=== PATIENT | male | born 1980 ===

== ENCOUNTER 2025-05-17 17:01 | Inpatient (IN) | payer MEDICAID, SELFPAY ==
--- OUTSIDE RECORDS SUMMARY | 2021-03-13 14:09 | XMS_ITS | Encounter Summary ---
Author Organization [facility] Address [address] [place] [address] Care Team Providers Care Dog Hair Clipper Name Role Phone Freddy Epps MD Primary Care Provider [phone] Encounter Details Date Type Department Care Team (Latest Contact Info) Description 03/13/2021 2:09 PM EDT Hospital Encounter [facility] Imaging Services - [facility] - XRay [address] [place] [address] Laceration of left thumb without foreign body with damage to nail, initial encounter Social History Tobacco Use Types Packs/Day Years Used Date Smoking Tobacco: Never Cigarettes [address] arted: 01/18/2019 Passive Smoke Exposure: Yes [...] place to sleep or slept in a intermediate (including now)? No 02/04/2023 Sex and Gender [...] your patient. Jigna CASTILLO IMG XR PROCEDURES Final R esult documented in this encounter Visit Diagnoses Diagnosis [...] documented as of this encounter Care Teams Dog Hair Clipper Relationship Specialty Start Date End Date Freddy Epps MD [address] [place] [phone] PCP - General Family Medicine 05/29/20 documented as of this encounter
--- NOTE | ~2025-05-17 | XR_ITS ---
CLINICAL HISTORY: COUGH Two views of the chest. COMPARISON: None provided. FINDINGS: Normal heart and mediastinal contours. No consolidation. No pleural effusion or pneumothorax. No acute fracture. IMPRESSION: 1. No consolidation. This document has been electronically signed by: Feroz Ogden MD on 05/17/2025 18:56:00
--- NOTE | ~2025-05-17 | CT_ITS ---
CLINICAL HISTORY: Infection --- Additional Notes or Special Instructions: Dr. Sam wants prior to admission CT left forearm with contrast Comparison: None provided Findings: Subcutaneous edema mid and distal forearm. No underlying bony abnormality identified. No soft tissue fluid collection noted. No acute fracture or dislocation. No radiopaque foreign body. Impression: Subcutaneous edema, otherwise unremarkable This document has been electronically signed by: Reilly Aparicio MD on 05/17/2025 21:58:26
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
[2025-05-17 17:10] VITALS: BP 129/74; PULSE 103; RESP 22; TEMP 36.4; O2SAT 100; BMI 22.0
--- NOTE | 2025-05-17 17:31 | ED.GENADULT ---
HPI - General Adult General Chief complaint: Burn/Smoke Inhalation Stated complaint: high sugars/left hand wound Time Seen by Provider: 05/17/25 17:44 Source: patient Mode of arrival: ambulatory Limitations: no limitations History of Present Illness ED Provider: Dr. Shafer HPI narrative: This is a 45-year-old male history of diabetes presented hospital today for evaluation of elevated blood sugar. Patient has sustained a burn injury to his left wrist. Patient states he was cooking at family event when he burned his wrist. Patient has noticed increased swelling and pain. It is throbbing in nature. It is also complaining of some coughing. Otherwise no fever. Related Data Home Medications ?Medication ?Instructions ?Recorded ?Confirmed albuterol sulfate 90 mcg/actuation 2 puff inhalation Q4H PRN wheezing 05/17/25 aerosol inhaler dulaglutide 0.75 mg/0.5 mL 0.75 mg subcut QWEEK 05/17/25 subcutaneous pen injector (Trulicity) insulin aspart U-100 100 unit/mL subcut 05/17/25 (3 mL) subcutaneous pen insulin glargine 100 unit/mL (3 unit subcut 05/17/25 mL) subcutaneous pen (Lantus Solostar U-100 Insulin) nicotine 21 mg/24 hr daily 1 patch transdermal DAILY 05/17/25 transdermal patch triamcinolone acetonide 0.1 % 1 appl topical BID-TID 05/17/25 topical cream Allergies Allergy/AdvReac Type Severity Reaction Status Date / Time Penicillins Allergy Rash Verified 05/17/25 17:14 Review of Systems Review of Systems: Pertinent review of systems as mentioned in HPI. All other system otherwise negative. [facility] Past Medical History [facility] Narrative: Medical history as mentioned in HPI Medical History (Updated 05/17/25 @ 20:48 by Emmie Shafer DO) Hypertension DM2 (diabetes mellitus, type 2) Surgical History (Updated 05/17/25 @ 17:48 by Samantha Jade RN) H/O splenectomy Social History Social History Alcohol intake: never Smoked in Last 30 Days: Yes Use of substances other than those prescribed or required for medical reasons: No Advance Directives: No Advance Directives Information Provided: Yes Physical Exam ED Exam Exam: General: Pleasant, no distress, interacting appropriately Head: Normacephalic, atraumatic ENT: oral mucosa moist, neck supple, no tracheal deviation Cardiovascular: regular rate, regular rhythm, no murmurs, rubbing, gallops Respiratory: Diminished lung sounds bilaterally Extremities: Pulse intact in the left upper extremity, patient does have a circumferential wound on the left wrist from the burn injury. Does not appear to be actively Neurological: Awake and alert, no facial droop noted Skin: Warm and dry Psychiatric: Appropriate mood and thoughts Vital Signs: Vital Signs - 24 hr 05/17/25 17:10 05/17/25 18:31 Temperature 97.6 F Pulse Rate 103 H 81 Respiratory Rate 22 H 22 H Blood Pressure 129/74 Pulse Oximetry 100 Oxygen Delivery Method Room Air BMI result Body Mass Index 22.0 Course Course Course Narrative: This is a Rapid Medical Examination (RME) performed by Keli Collier PA-C in triage. Full HPI, ROS, assessment and treatment plan per primary provider in the Main ED. Hx: 45-year-old male history of type 2 diabetes here with burn to left wrist x4 days, increased redness/swelling/pain. Also reports elevated blood sugar at home, machine reading high . Reports shaking/dizziness. PE/vitals: Plan: Labs, lactic, blood cultures, xr Medications Administered Discontinued Medications Generic Name Dose Route Start Last Admin Trade Name Freq PRN Reason Stop Dose Admin Acetaminophen 975 mg 05/17/25 19:29 05/17/25 19:36 Acetaminophen 325 Mg Tablet PO 05/17/25 19:30 975 mg ONCE ONE Administration Albuterol Sulfate 2.5 mg/ 0 mg 05/17/25 18:30 05/17/25 18:31 Albuterol/Ipratropium 3 ml INHALE 05/17/25 18:31 1 dose ONCE ONE Administration Sodium Chloride 1,000 mls @ 999 mls/hr 05/17/25 18:15 05/17/25 19:12 Ns IV 05/17/25 19:15 Infused .Q1H1M FRANKIE Infusion Clindamycin Phosphate 600 mg in 50 mls @ 100 mls/hr 05/17/25 18:10 05/17/25 18:46 Cleocin IV 05/17/25 18:39 Infused ONCE ONE Infusion Sodium Chloride 1,000 mls @ 999 mls/hr 05/17/25 19:15 05/17/25 19:26 Ns IV 05/17/25 20:15 999 mls/hr .Q1H1M FRANKIE Administration Insulin Human Regular 10 unit 05/17/25 18:11 05/17/25 18:17 Insulin Regular, Human 100 Unit/Ml 10 Ml Vial IVPUSH 05/17/25 18:12 10 unit ONCE ONE Administration Iohexol 100 ml 05/17/25 20:33 05/17/25 20:34 Iohexol 350 Mg/Ml 100 Ml Infus..Btl IV 05/17/25 20:34 85 ml ONCE ONE Administration Ketorolac Tromethamine 15 mg 05/17/25 19:29 05/17/25 19:36 Ketorolac Tromethamine 15 Mg/Ml Vial IVPUSH 05/17/25 19:30 15 mg ONCE ONE Administration Morphine Sulfate 5 mg 05/17/25 18:03 05/17/25 18:11 Morphine Sulfate 10 Mg/Ml Cartridge IVPUSH 05/17/25 18:04 5 mg ONCE ONE Administration Protocol Morphine Sulfate 6 mg 05/17/25 19:29 05/17/25 19:37 Morphine Sulfate 4 Mg/Ml Cartridge IVPUSH 05/17/25 19:30 6 mg ONCE ONE Administration Protocol Medical Decision Making Medical Decision Making MDM Narrative: 45-year-old male history of diabetes presented hospital today for evaluation of left wrist pain from burn injury and increased blood sugar. I suspect patient likely has cellulitis from the injury. And his elevated blood sugar is slightly secondary to the infection. We will screen patient for sepsis at this time. IV fluid be initiated. We will also give patient some IV morphine for pain control. We will obtain an x-ray to evaluate for any gaseous change concerning for necrotizing fasciitis. IV clindamycin will be given for empiric coverage. Patient does have a penicillin allergy. We will plan to give some IV insulin for the patient blood sugar. He normally takes 40 units of long-acting insulin and 40 units of NovoLog at mealtime. Glucose has improved to 540. We will plan to give patient additional IV fluid. Discussed the case with the hospitalist who we will like a CT imaging of the patient's left upper extremity. I do not think patient has compartment syndrome on exam. He does have elevated leukocytosis with a elevation of lactic acid as well. I think the patient is showing signs of sepsis. The patient will be admitted to the hospital. IV morphine given for additional pain control. IV Toradol and Tylenol given. Differential Diagnosis Differential Diagnoses: The differential diagnosis associated with the presentation includes DKA, hyperglycemia, diabetes, necrotizing fasciitis Lab Data 05/17/25 17:46 05/17/25 17:46 Labs: Lab Results 05/17/25 05/17/25 05/17/25 Range/Units 17:32 17:42 17:46 WBC 12.1 H (4.8-10.8) X10*3/uL RBC 4.66 (4.60-5.80) X10*6/uL Hgb 13.9 L (14.0-18.0) g/dl Hct 40.2 L (42.0-52.0) % MCV 86.3 (80.0-98.0) fL MCH 29.8 (27.0-33.0) pg MCHC 34.6 (31.0-36.0) g/dl RDW 12.6 (11.0-16.0) % Plt Count 315 (160-400) X10*3/uL MPV 11.9 (9.4-12.4) fL Immature Gran % (Auto) 0.6 H (0.0-0.4) % Neut % (Auto) 69.4 (45-73) % Lymph % (Auto) 20.3 (20-40) % [place] % (Auto) 8.6 (2-11) % Eos % (Auto) 0.6 (0-4) % Baso % (Auto) 0.5 (0-2) % Lymph # (Auto) 2.5 (1.2-4.9) X10*3/uL [place] # (Auto) 1.0 (0.1-1.2) X10*3/uL Eos # (Auto) 0.1 (0.0-0.4) X10*3/uL Baso # (Auto) 0.1 (0.0-0.2) X10*3/uL Abs Immat Gran (auto) 0.07 H (0.00-0.03) X10*3/uL Absolute Neuts (auto) 8.4 H (2.0-8.3) x10*3/uL Absolute Nucleated RBC 0.000 (0.0-0.012) X10*3/uL Nucleated RBC % (auto) 0.0 (0.0-0.2) /100WBC Sodium 124 L (135-145) mmol/L Potassium 4.6 (3.3-5.1) mmol/L Chloride 88 L (96-108) mmol/L Carbon Dioxide 25 (22-29) mmol/L Anion Gap 16 (12-20) BUN 21 H (9-16) mg/dL Creatinine 1.14 (0.5-1.4) mg/dL Estim Creat Clear Calc 70.1 Estimated GFR > 60 POC Glucose > 600 H* (60-115) mg/dL Random Glucose 846 H* (60-115) mg/dL Lactic Acid 2.2 H* (0.5-2.0) mmol/L Calcium 9.3 (8.4-10.2) mg/dL Magnesium 2.0 (1.6-2.6) mg/dL Total Bilirubin 0.3 (0.0-1.0) mg/dL AST 40 H (5-37) U/L ALT 69 H (0-40) U/L Alkaline Phosphatase 121 H (39-117) U/L Total Protein 7.9 (6.5-8.0) g/dL Albumin 3.8 (3.5-5.0) g/dL Beta-Hydroxybutyrate 0.45 H (0.02-0.27) mmol/L Urine Color Yellow Urine Appearance Clear Urine pH 5.5 (5.0-9.0) Ur Specific [place] >= 1.030 H (1.005-1.025) Urine Protein Trace (Neg-Trace) mg/dL Urine Glucose (UA) >=1000 H (Negative) mg/dL Urine Ketones Negative (Negative) mg/dL Urine Blood Small (1+) H (Negative) Urine Nitrite Negative (Negative) Ur Leukocyte Esterase Negative (Negative) Urine RBC 6-10 H (0-2) /HPF Urine WBC 0-5 (0-5) /HPF Ur Squamous Epith Cells 0-2 (0-2) /HPF Urine Bacteria None Seen (None Seen) Hyaline Casts 0-2 (0-2) /LPF 05/17/25 Range/Units 19:18 WBC (4.8-10.8) X10*3/uL RBC (4.60-5.80) X10*6/uL Hgb (14.0-18.0) g/dl Hct (42.0-52.0) % MCV (80.0-98.0) fL MCH (27.0-33.0) pg MCHC (31.0-36.0) g/dl RDW (11.0-16.0) % Plt Count (160-400) X10*3/uL MPV (9.4-12.4) fL Immature Gran % (Auto) (0.0-0.4) % Neut % (Auto) (45-73) % Lymph % (Auto) (20-40) % [place] % (Auto) (2-11) % Eos % (Auto) (0-4) % Baso % (Auto) (0-2) % Lymph # (Auto) (1.2-4.9) X10*3/uL [place] # (Auto) (0.1-1.2) X10*3/uL Eos # (Auto) (0.0-0.4) X10*3/uL Baso # (Auto) (0.0-0.2) X10*3/uL Abs Immat Gran (auto) (0.00-0.03) X10*3/uL Absolute Neuts (auto) (2.0-8.3) x10*3/uL Absolute Nucleated RBC (0.0-0.012) X10*3/uL Nucleated RBC % (auto) (0.0-0.2) /100WBC Sodium (135-145) mmol/L Potassium (3.3-5.1) mmol/L Chloride (96-108) mmol/L Carbon Dioxide (22-29) mmol/L Anion Gap (12-20) BUN (9-16) mg/dL Creatinine (0.5-1.4) mg/dL Estim Creat Clear Calc Estimated GFR POC Glucose 541 H* (60-115) mg/dL Random Glucose (60-115) mg/dL Lactic Acid (0.5-2.0) mmol/L Calcium (8.4-10.2) mg/dL Magnesium (1.6-2.6) mg/dL Total Bilirubin (0.0-1.0) mg/dL AST (5-37) U/L ALT (0-40) U/L Alkaline Phosphatase (39-117) U/L Total Protein (6.5-8.0) g/dL Albumin (3.5-5.0) g/dL Beta-Hydroxybutyrate (0.02-0.27) mmol/L Urine Color Urine Appearance Urine pH (5.0-9.0) Ur Specific [place] (1.005-1.025) Urine Protein (Neg-Trace) mg/dL Urine Glucose (UA) (Negative) mg/dL Urine Ketones (Negative) mg/dL Urine Blood (Negative) Urine Nitrite (Negative) Ur Leukocyte Esterase (Negative) Urine RBC (0-2) /HPF Urine WBC (0-5) /HPF Ur Squamous Epith Cells (0-2) /HPF Urine Bacteria (None Seen) Hyaline Casts (0-2) /LPF Critical Care Time Critical Care Time Critical Care Time: Yes Total Critical Care Time: 40 Attestation: Time is exclusive of separately billable procedures. Time includes: direct patient care, patient reassessment, coordination of patient care, interpretation of data (laboratory data, pulse oximetry, arterial blood gases and chest xrays), review of patient's medical records, medical consultation and documentation of patient care. Procedures excluded from critical care time: central intravenous line placement and electrocardiography. Discharge Plan Discharge Clinical Impression: Cellulitis, Acute hyperglycemia, Sepsis Patient Disposition: Admitted As Inpatient
[2025-05-17 17:36] LABS: Glucose, Whole Blood > 600 mg/dL (60-115)
[2025-05-17 17:49] LABS: Appearance Urine Clear; Glucose Urine UA >=1000 mg/dL (Negative); PH 5.5 (5.0-9.0); Specific Gravity - Urine >= 1.030 (1.005-1.025); UMIC TRIGGER UACC YES
[2025-05-17 17:53] LABS: MANUAL DIFF FLAG NO
[2025-05-17 17:57] LABS: Hematocrit 40.2 % (42.0-52.0); Hemoglobin 13.9 g/dl (14.0-18.0); Imm Gran Abs Auto 0.07 X10*3/uL (0.00-0.03); Imm Gran Pct Auto 0.6 % (0.0-0.4); Lymphocytes Absolute Auto 2.5 X10*3/uL (1.2-4.9); Mean Corpuscular HGB Conc 34.6 g/dl (31.0-36.0); Mean Corpuscular Hemoglobin 29.8 pg (27.0-33.0); Mean Corpuscular Volume 86.3 fL (80.0-98.0); NRBC Abs Auto 0.000 X10*3/uL (0.0-0.012); NRBC Pct Auto 0.0 /100WBC (0.0-0.2); Platelet Count 315 X10*3/uL (160-400); Red Blood Count 4.66 X10*6/uL (4.60-5.80); White Blood Count 12.1 X10*3/uL (4.8-10.8)
[2025-05-17 18:15] LABS: Alanine Aminotransferase 69 U/L (0-40); Albumin Level 3.8 g/dL (3.5-5.0); Alkaline Phosphatase 121 U/L (39-117); Anion Gap 16 (12-20); Aspartate Amino Transferase 40 U/L (5-37); Blood Urea Nitrogen 21 mg/dL (9-16); Calcium 9.3 mg/dL (8.4-10.2); Carbon Dioxide 25 mmol/L (22-29); Chloride 88 mmol/L (96-108); Creatinine Clr Calc Pharmacy 70.1; Estimated Glomerular Filt Rate > 60; Magnesium 2.0 mg/dL (1.6-2.6); Potassium 4.6 mmol/L (3.3-5.1); Sodium 124 mmol/L (135-145); Total Protein 7.9 g/dL (6.5-8.0)
[2025-05-17 18:31] VITALS: PULSE 81; RESP 22; O2SAT 97
[2025-05-17] MEDS: Albuterol Sulfate 2.5 MG, Albuterol/Iprat 2.5/0.5MG 3 ML 3 ML INHALE (18:31)
--- NOTE | 2025-05-17 18:40 | PC.NURSE ---
patient a&ox3, ivs inserted, labs drawn, bc obtained, court monitor applied, poc obtained, pt was medicated with ivf, iv antibiotics and 10 u insulin R for elevated blood sugar. lungs have in/ex wheezing/diminished throughout.
[2025-05-17 19:23] LABS: Glucose, Whole Blood 541 mg/dL (60-115)
--- NOTE | 2025-05-17 19:50 | PM.IMHP ---
History of Present Illness Date of Service: 05/17/25 Chief Complaint: Pain and redness of the forearm 45-year-old male with a past medical history of HTN, HLD, dm; presented to the hospital with a chief complaint of pain and redness of the left wrist as well as elevated blood glucose levels. Patient mentioned that about 3 days ago he was doing the cranial and had burn on his left forearm; today he noted to have slightly increased swelling as well as redness around the burn site. Also note of blood glucose levels elevated subsequently came to the ER for further evaluation. Patient denies any fevers and chills. Denies any nausea or vomiting. Denies any chest pain or palpitations. Review of all other systems is negative except mentioned above ER course: Per ER team, patient notes her left forearm burn injury with yellow scab and surrounding erythema concerning for cellulitis. X-ray showed no evidence of gas. Patient blood glucose levels were elevated to 800s. Not in DKA. Patient was given IV fluids and regular insulin IV push with gradual improvement in the blood glucose levels. Patient received IV clindamycin. [facility] Medical History (Updated 05/17/25 @ 19:52 by Damien Sam MD) Hypertension DM2 (diabetes mellitus, type 2) Surgical History (Updated 05/17/25 @ 17:48 by Samantha Jade RN) H/O splenectomy Social History Alcohol intake: never Smoked in Last 30 Days: Yes Use of substances other than those prescribed or required for medical reasons: No Advance Directives: No Advance Directives Information Provided: Yes Meds Allergies Allergy/AdvReac Type Severity Reaction Status Date / Time Penicillins Allergy Rash Verified 05/17/25 17:14 Active Medications: Current Medications Acetaminophen (Acetaminophen 325 Mg Tablet) 650 mg PO Q6H PRN PRN Reason: Pain, Mild 1-3,fever,headache Calcium Carbonate (Calcium Carbonate 750 Mg Tab.Chew) 750 mg PO Q4H PRN PRN Reason: Heartburn Dextrose (Dextrose 50 % 25 Gm/50 Ml Syringe) 25 gm IVPUSH Q15M PRN; Protocol PRN Reason: per Hypoglycemia Standing Ord. Enoxaparin Sodium (Enoxaparin Sodium 40 Mg/0.4 Ml Syringe) 40 mg SUBCUT Q24H FRANKIE Glucose (Glucose Gel 15 Gm Gel..Gram.) 15 gm PO Q15M PRN; Protocol PRN Reason: per Hypoglycemia Standing Ord. Hydromorphone HCl (Hydromorphone Hcl 0.5 Mg/0.5 Ml Syringe) 0.5 mg IVPUSH Q4H PRN; Protocol PRN Reason: Pain, Severe (Pain Scale 7-10) Sodium Chloride (Ns) 1,000 mls @ 999 mls/hr IV .Q1H1M FRANKIE Stop: 05/17/25 20:15 Last Admin: 05/17/25 19:26 Dose: 999 mls/hr Lactated Ringer's (Lr) 1,000 mls @ 100 mls/hr IVCONT .Q10H FRANKIE Clindamycin Phosphate (Cleocin) 600 mg in 50 mls @ 100 mls/hr IV Q8H FRANKIE Insulin Glargine (Insulin Glargine,Hum.Rec.Anlog 100 Unit/Ml 10 Ml Vial) 20 unit SUBCUT BEDTIME FRANKIE Insulin Human Lispro (Insulin Lispro 100 Unit/Ml 3 Ml Vial) 0 unit SUBCUT QIDACHS FRANKIE; Protocol Magnesium Hydroxide (Milk Of Magnesia 30 Ml Oral.Susp) 30 ml PO DAILY PRN PRN Reason: Constipation Melatonin (Melatonin 3 Mg Tablet) 6 mg PO BEDTIME PRN PRN Reason: Insomnia Polyethylene Glycol (Polyethylene Glycol 3350 17 Gm Powd.Pack) 17 gm PO DAILY PRN PRN Reason: Constipation Sodium Chloride (0.9 % Sodium Chloride Flush 3 Ml Syringe) 3 ml IVFLUSH QSHIFT [facility] Physical Exam Vital Signs and Narrative: Vital Signs: Last Vital Signs Temp 97.6 F 05/17/25 17:10 Pulse 81 05/17/25 18:31 Resp 22 H 05/17/25 18:31 BP 129/74 05/17/25 17:10 Pulse Ox 100 05/17/25 17:10 O2 Del Method Room Air 05/17/25 17:10 BMI result Body Mass Index 22.0 Gen: Appears be in no acute distress HEENT: NCAT, Moist mucosa. Pulmonary: Vesicular breath sounds, fair air entry CVS: Normal S1-S2 Abdomen: BS+, Soft, Nontender Extremities: Warm well perfused; left forearm distally has burn injury with yellow scab and surrounding erythema concerning for cellulitis. No drainage. Neuro: Alert and awake. Results Labs 05/17/25 17:46 05/17/25 17:46 Labs: Laboratory Results - last 24 hr 05/17/25 05/17/25 05/17/25 17:32 17:42 17:46 MCV 86.3 MCH 29.8 MCHC 34.6 RDW 12.6 Plt Count 315 MPV 11.9 Immature Gran % (Auto) 0.6 H Neut % (Auto) 69.4 Lymph % (Auto) 20.3 Frederick % (Auto) 8.6 Eos % (Auto) 0.6 Baso % (Auto) 0.5 Lymph # (Auto) 2.5 Frederick # (Auto) 1.0 Eos # (Auto) 0.1 Baso # (Auto) 0.1 Abs Immat Gran (auto) 0.07 H Absolute Neuts (auto) 8.4 H Absolute Nucleated RBC 0.000 Nucleated RBC % (auto) 0.0 Anion Gap 16 Estim Creat Clear Calc 70.1 Estimated GFR > 60 POC Glucose > 600 H* Random Glucose 846 H* Lactic Acid 2.2 H* Calcium 9.3 Magnesium 2.0 Total Bilirubin 0.3 AST 40 H ALT 69 H Alkaline Phosphatase 121 H Total Protein 7.9 Albumin 3.8 Beta-Hydroxybutyrate 0.45 H Urine Color Yellow Urine Appearance Clear Urine pH 5.5 Ur Specific Grady >= 1.030 H Urine Protein Trace Urine Glucose (UA) >=1000 H Urine Ketones Negative Urine Blood Small (1+) H Urine Nitrite Negative Ur Leukocyte Esterase Negative Urine RBC 6-10 H Urine WBC 0-5 Ur Squamous Epith Cells 0-2 Urine Bacteria None Seen Hyaline Casts 0-2 05/17/25 19:18 MCV MCH MCHC RDW Plt Count MPV Immature Gran % (Auto) Neut % (Auto) Lymph % (Auto) Frederick % (Auto) Eos % (Auto) Baso % (Auto) Lymph # (Auto) Frederick # (Auto) Eos # (Auto) Baso # (Auto) Abs Immat Gran (auto) Absolute Neuts (auto) Absolute Nucleated RBC Nucleated RBC % (auto) Anion Gap Estim Creat Clear Calc Estimated GFR POC Glucose 541 H* Random Glucose Lactic Acid Calcium Magnesium Total Bilirubin AST ALT Alkaline Phosphatase Total Protein Albumin Beta-Hydroxybutyrate Urine Color Urine Appearance Urine pH Ur Specific Grady Urine Protein Urine Glucose (UA) Urine Ketones Urine Blood Urine Nitrite Ur Leukocyte Esterase Urine RBC Urine WBC Ur Squamous Epith Cells Urine Bacteria Hyaline Casts Assessment and Plan (1) Cellulitis: Qualifiers: Site of cellulitis: extremity Site of cellulitis of extremity: upper extremity Laterality: left Qualified Code(s): L03.114 - Cellulitis of left upper limb Status: Acute Plan 45-year-old male with a past medical history of HTN, HLD, dm; presented to the hospital with a chief complaint of pain and redness of the left wrist as well as elevated blood glucose levels. Admitted for following Left forearm burn injury: Left forearm cellulitis: X-ray showed evidence of gas CT of the forearm pending Continue clindamycin General surgery was notified Will also consult ID Diabetes/hyperglycemia: Blood glucose levels were 800s on presentation-> given IV fluids and regular insulin IV push. Will monitor blood glucose levels Continue the patient on Lantus 20 units plus sliding scale Will adjust insulin according to POC glucose Hyponatremia: Likely pseudohyponatremia in the setting of hyperglycemia. Will monitor. Hypertension: Continue home medications once med rec is completed DVT prophylaxis: Lovenox Code status: Full code Quality Stroke Does the patient have a stroke diagnosis?: No VTE Prior VTE?: No VTE Risk Level:: Medical - moderate - high VTE Device Contraindication: Treatment Not Indicated VTE Drug Contraindication: N/A - Med Ordered
[2025-05-17 19:51] LABS: Reflex Lactate? Lactic Acid Added
[2025-05-17 19:55] VITALS: BP 139/86; PULSE 70; RESP 14; TEMP 36.4; O2SAT 98
[2025-05-17 19:57] LABS: VBG HCO3 27 mmol/L (22-26); VBG O2 % Saturation 97.0 %
[2025-05-17 19:58] LABS: Venous Blood Gas Refer to POC result
[2025-05-17] MEDS: iohexoL 350 MG/ML 100 ML INFUS..BTL IV (20:34)
[2025-05-17 20:49] LABS: ~Lactic Acid-LAB USE ONLY 2.1 mmol/L (0.5-2.0)
[2025-05-17] MEDS: Insulin Glargine,Hum.rec.anlog 100 UNIT/ML 10 ML VIAL 20 UNIT SUBCUT (21:21)
[2025-05-17] MEDS: Lactated Ringers 1,000 ML 100 ML IVCONT (21:21)
[2025-05-17 21:26] VITALS: BP 137/84
[2025-05-17 21:59] LABS: Glucose, Whole Blood 366 mg/dL (60-115)
--- NOTE | 2025-05-17 22:02 | PC.NURSE ---
sent message w/bG 366 to hospitalist at this time for further orders
[2025-05-17 22:10] VITALS: BP 135/86
--- NOTE | 2025-05-17 22:13 | PHA.MEDREC ---
Pharmacy Consult ? Medication Reconciliation Pharmacy has completed the medication reconciliation. Pt is a poor historian, confirmed both insulins and inhaler because he had them on hand, and Trulicity on Mondays. He states he takes a medication for diabetes, cholesterol, lisinopril, and medication to help him sleep. Utilized claims to complete med rec.
--- OUTSIDE RECORDS SUMMARY | 2025-05-17 22:16 | XMS_ITS | Encounter Summary ---
Author Organization [facility] alth Address [address] [place] [address] Care Team Providers Care Logistics Clerk Name Role Phone Unavailable Primary Care Provider Unavailabl e Encounter Details Date Type Department Care Team ([facility] Contact Info) Description 11/26/2022 Office Visit - Data Exchange [facility] Jomar Epps MD [address], [place] [id number] Social History Tobacco Use Types Packs/Day Years Used Date Smoking Tobacco: Never Assessed Sex and Gender Information Value Date Recorded Sex Assigned at Not on file Legal Sex Male 10:16 AM EDT Gender Identity Not on file Sexual Orientation Not on file documented as of this encounter Progress Notes * Jomar Epps MD - 11/26/2022 4:03 PM EDT Patient Name : CLOVIS SHEN (42yo, M) ID# [id number] Appt. Date/Time : 11/26/2022 04:00PM : 1980 Service Dept. : Telehealth Provider : JOMAR EPPS MD Insurance Med Primary: [facility] [employer] (MEDICAID REPLACEMENT - HMO) Insurance # : [id number] Policy/Group # : [id number] Med Mental Health: [facility] Insurance # : [id number] Med Curry: SLIDING FEE SCHEDULE - DISCOUNT Prescription: check now Chief Complaint telehealth f/u dm Patient's Care Team Primary Care Provider: JOMAR EPPS MD: [address] [facility] [place] [address], , Patient's Pharmacies [facility] ([place]): [address] [facility] [facility], [place] [address], , [id number] ([place]): [address] [place] [address], , [facility] ([place]): [address] [place] [address], , [facility] ([place]): [address] [place] [address], , Vitals None recorded. Allergies Allergies not reviewed (last reviewed 11/11/2022) PENICILLINS: Rash (Mild) Some allergies listed in Documents: #[id number], #[id number], #[id number], #[id number] could not be added to this patient's chart. Please review these documents and add these allergies to the patient's chart manually as needed. Medications Reviewed Medications Name: albuterol sulfate HFA 90 mcg/actuation aerosol inhaler Inhale 2 puff(s) every 4 hours by inhalation route. Date: 06/30/20 filled Source: surescripts Name: atorvastatin 40 mg tablet TAKE 1 TABLET BY MOUTH EVERY DAY Date: 09/08/22 filled Source: surescripts Name: BD Ultra-Fine Short Pen Needle 31 gauge x 5/16 USE WITH INSULIN 4 TIMES DAILY Date: 04/24/20 filled Source: [facility] Name: citalopram 20 mg tablet TAKE 1 TABLET BY MOUTH EVERY DAY Date: 09/05/22 filled Source: surescripts Name: diclofenac sodium 75 mg tablet,delayed release Take 1 tablet(s) twice a day by oral route for30 days. Date: 10/22/22 filled Source: surescripts Name: famotidine 40 mg tablet Take 1 tablet(s) by oral route. Date: 08/23/22 filled Source: surescripts Name: insulin aspart (U-100) 100 unit/mL (3 mL) subcutaneous pen Inject 20 unit(s) 3 times a day bysubcutaneous route with meals. Date: 11/11/22 prescribed Source: Jomar Epps MD Name: Lantus Solostar U-100 Insulin 100 unit/mL (3 mL) subcutaneous pen Inject 45 unit(s) twice a day by subcutaneous route. Date: 11/11/22 prescribed Source: Jomar Epps MD Name: lidocaine 5 % topical patch Apply 1 patch(es) every day by topical route as needed. Date: 10/15/22 filled Source: surescripts Name: lisinopriL 5 mg tablet take 1 PO daily Date: 09/01/22 filled Source: surescripts Name: metFORMIN ER 500 mg tablet,extended release 24 hr TAKE 2 TABLETS BY MOUTH TWICE A DAY Date: 10/27/22 filled Source: surescripts Name: nystatin 100,000 unit/gram topical cream APPLY TO THE AFFECTED AREA(S) BY TOPICAL ROUTE 2 TIMES PER DAY Date: 11/11/22 prescribed Source: Jomar Epps MD Name: OneTouch Delica Plus Lancet 33 gauge Use to test blood sugar three times daily Date: 10/21/22 filled Source: surescripts Name: OneTouch Ultra Test strips use to check blood sugar three times daily Date: 11/03/22 filled Source: surescripts Name: QUEtiapine 50 mg tablet TAKE 1 TABLET BY MOUTH ONCE A DAY Date: 10/22/22 filled Source: surescripts Name: repaglinide 2 mg tablet TAKE 1 TABLET BY MOUTH ONCE A DAY with LUNCH Date: 10/27/22 filled Source: surescripts Name: tamsulosin 0.4 mg capsule Take 1 capsule(s) every day by oral route for 30 days. Date: 10/13/22 filled Source: surescripts Name: tiZANidine 2 mg tablet Take 1 tablet(s) twice a day by oral route as needed for 30 days. Date: 10/13/22 filled Source: missyscripts Name: Trulicity 4.5 mg/0.5 mL subcutaneous pen injector Inject 1 pen weekly Date: 11/11/22 prescribed Source: Jomar Epps MD Vaccines Vaccines not reviewed (last reviewed 11/11/2022) Vaccine Type: COVID-19, mRNA, LNP-S, PF, 100 mcg/0.5 mL dose (Moderna) Date: 12/07/20 Amt.: 0.5 mL Route: Intramuscular Site: Deltoid, Right [facility]: [id number] Lot #: [id number] Mfr.: Moderna Novel, Inc. Exp. Date: 05/21/21 VIS: Moderna COVID-19 Vaccine EUA Fact Sheet 10/19/2020 VIS Given: 12/07/20 Phlebotomist Supervisor/Instructor: Royer Matias CMA Vaccine Type: COVID-19, mRNA, LNP-S, PF, 100 mcg/0.5 mL dose (Moderna) Date: 11/02/20 Amt.: 0.5 mL Route: Intramuscular Site: Deltoid, Left [facility]: Lot #: [id number] Mfr.: Moderna Novel, Inc. Exp. Date: 04/27/21 VIS: Moderna COVID-19 Vaccine EUA Fact Sheet 06/26/2020 VIS Given: 11/02/20 Phlebotomist Supervisor/Instructor: Eduarda Matias MA Vaccine Type: Hib (PRP-T) Date: 05/14/20 Amt.: 0.5 mL Route: Site: [facility]: Lot #: [id number] Mfr.: Sanofi Pasteur Exp. Date: VIS: VIS Given: Phlebotomist Supervisor/Instructor: Vaccine Type: Hib Date: 05/14/20 Amt.: Route: Site: [facility]: Lot #: [id number] Mfr.: Sanofi Pasteur Exp. Date: VIS: VIS Given: Phlebotomist Supervisor/Instructor: Vaccine Type: influenza, seasonal, injectable, preservative free Date: 05/17/20 Amt.: 0.5 mL Route: Site: [facility]: Lot #: [id number] Mfr.: Sanofi Pasteur Exp. Date: VIS: VIS Given: Phlebotomist Supervisor/Instructor: Vaccine Type: influenza, injectable, quadrivalent Date: 08/03/19 Amt.: 0.5 mL Route: Intramuscular Site: Deltoid, Left [facility]: Lot #: [id number] Mfr.: Sanofi Pasteur Exp. Date: 01/24/20 VIS: Inactivated Influenza 03/10/2019 VIS Given: 08/03/19 Phlebotomist Supervisor/Instructor: Faith Mead Vaccine Type: influenza, injectable, quadrivalent, preservative free Date: 09/16/15 Amt.: 0.5 mL Route: Site: [facility]: Lot #: [id number] Mfr.: Exp. Date: VIS: VIS Given: Phlebotomist Supervisor/Instructor: Vaccine Type: meningococcal MCV4P Date: 05/14/20 Amt.: 0.5 mL Route: Site: [facility]: Lot #: [id number] Mfr.: Sanofi Pasteur Exp. Date: VIS: VIS Given: Phlebotomist Supervisor/Instructor: Vaccine Type: meningococcal B, recombinant Date: 05/14/20 Amt.: 0.5 mL Route: Site: [facility]: Lot #: [id number] Mfr.: GlaxoSmithKline Exp. Date: VIS: VIS Given: Phlebotomist Supervisor/Instructor: Vaccine Type: pneumococcal conjugate PCV 13 Date: 05/14/20 Amt.: 0.5 mL Route: Site: [facility]: Lot #: [id number] Mfr.: Wyeth Exp. Date: VIS: VIS Given: Phlebotomist Supervisor/Instructor: Vaccine Type: pneumococcal polysaccharide PPV23 Date: 08/03/19 Amt.: 0.5 mL Route: Injection Site: Deltoid, Right [facility]: Lot #: [id number] Mfr.: Merck and Co., Inc. Exp. Date: 12/13/20 VIS: PPSV23 05/25/2019 VIS Given: 08/03/19 Phlebotomist Supervisor/Instructor: Faith Mead Problems Reviewed Problems * Candidal balanitis - Onset: 11/11/2022 * Alcohol abuse - Onset: 11/11/2022 * Smoker - Onset: 05/21/2021 * Insomnia - Onset: 11/15/2020 * Chronic hepatitis C - Onset: 07/16/2020 * Axillary lymphadenopathy - Onset: 07/16/2020 - monitored by heme/onc, f/u ct 08/2020 * History of splenectomy - Onset: 07/16/2020 * Chronic back pain - Onset: 02/29/2020 * Generalized anxiety disorder - Onset: 08/16/2018 * Hypertriglyceridemia - Onset: 09/01/2018 * Depressive disorder - Onset: 08/16/2018 * Hypertensive disorder - Onset: 08/09/2018 * Type II diabetes mellitus uncontrolled - Onset: 08/16/2018 Family History Family History not reviewed (last reviewed 06/05/2021) Mother - Diabetes mellitus - Hypertensive disorder Father - Diabetes mellitus Sister - Diabetes mellitus KR 04/30/21 Social History Social History not reviewed (last reviewed 11/11/2022) Substance Use Do you or have you ever smoked tobacco?: Current every day smoker How much tobacco do you smoke?: 1 pack per day How many years have you smoked tobacco?: 17 Do you or have you ever used any other forms of tobacco or nicotine?: No Do you or have you ever used e-cigarettes or vape?: Never used electronic cigarettes Do you or have you ever used smokeless tobacco?: Never used smokeless tobacco How much tobacco do you chew?: none What was the date of your most recent tobacco screening?: 11/11/2022 What is your level of alcohol consumption?: None Do you use any illicit or recreational drugs?: No Have you used IV drugs?: No What is your level of caffeine consumption?: Heavy Home and Environment Do you have any pets?: No Do you have smoke and carbon monoxide detectors in your home?: Yes Are you passively exposed to smoke?: Yes Are there any smokers in your house?: No Are there any guns present in your home?: No What is the fluoride status of your home?: Non-fluoridated Marriage and Sexuality What is your relationship status?: Single Are you sexually active?: Yes Do you use protection during sex?: Always How many children do you have?: 5 Advance Directive Do you have an advance directive?: No Public Health and Travel Have you recently traveled abroad?: No Have you been to an area known to be high risk for COVID-19?: No In the 14 days before symptom onset, have you had close contact with a laboratory-confirmed COVID-19 while that case was ill?: No In the 14 days before symptom onset, have you had close contact with a person who is under investigation for COVID-19 while that person was ill?: No Education and Occupation What is the highest grade or level of school you have completed or the highest degree you have received?: High school graduate Are you currently employed?: No 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 (If the patient answers ?yes? to one of these questions we are to conduct a TB screening; either a TST skin test or a QuantiFERON test.): No Do you think of yourself as:: Straight or Heterosexual How would you describe yourself?: Male What sex were you at and is on your original certificate?: Male Self referral Have you been seen by any specialists?: No Have you been seen by any behavioral health specialists?: No Have you been to an urgent care/emergency department or admitted to a hospital since your last visit?: No Dental History Dental: Date of dental screening questions: 11/11/2022 (Notes: per patient has been two years) Dental: Dental visit within the past 12 months?: No Dental: Where was your last dental visit?: [facility] Dental: Was the visit an [facility] dental provider?: Yes Dental: Action taken: [facility] information provided Other Education: 12 Marital status: Single General stress level: High Gender Identity and LGBTQ Identity Gender identity: Identifies as Male Assigned sex at : Male Pronouns: he/him Sexual orientation: Straight or heterosexual Surgical History Surgical History not reviewed (last reviewed 06/05/2021) * Removal of spleen total - 05/16/2020 noneSurgery to Left knee.[employer] Past Medical History Past Medical History not reviewed (last reviewed 06/05/2021) Asthma: Y Diabetes: Y Hypertension: Y Screening None recorded. HPI Verbal consent obtained to perform today?s visit via telehealth, including benefits (improved access to healthcare) and risks (phone/video connection not working, sound may not be clear, potential need to schedule in person visit, delay in medical evaluation and treatment, limitation of physical exam). Patient willing to proceed. Telehealth visited completed via video Patient identity confirmed by Patient location: home in [place] Provider location: home in [place] Persons Accompanying Patient: Start time: 403pm Pt here for close f/u on DM. We increased his dose of trulicity to 4.5mg. He lost his appetite for two days and it gave him diarrhea, his appetite has now returned. He has cut back on soda significantly. He has a lot of thirst. Is drinking less, drank 6 beers yesterday. Has been checking his sugarsin the afternoon and is getting numbers in the low 400s, which is better than the 500s he was at previously. He is using lantus 45 units twice daily. ROS None recorded. Physical Exam None recorded. Assessment / Plan 1. Type II diabetes mellitus uncontrolled - A1c 13.6 As of October of 2022. Continue his trulicity to 4.5mg and his lantus to 45 units twice daily and we discussed leaving the needle in his skin for at least 10 seconds again which he was hesitant doing. Continue his lower his premeal insulin at 20 units. Continue metformin ER 1000mg BID. He isalso on repaglinide 2mg. We discussed again cutting back on soda and alcohol. He has done well withcutting back on alcohol. Prior auth for dexcom submitted, advised pt to contact pharmacy. E11.65: Type 2 diabetes mellitus with hyperglycemia Discussion Notes End time: 13 min (04:03pm - 04:15pm) Return to Office * CLAUDIO SANTOS LPC for ExistingPatient-BEHAVIORHEALTH at [facility] on 12/10/2022 at01:00 PM * to see Jomar Epps MD at [facility] on or around 12/27/2022 Encounter Sign-Off Encounter signed-off by Jomar Epps MD, 11/26/2022. documented in this encounter Plan of Treatment Not on file documented as of this encounter Visit Diagnoses Not on filedocumented in this encounter
--- OUTSIDE RECORDS SUMMARY | 2025-05-17 22:16 | XMS_ITS | Encounter Summary ---
Author Organization [facility] alth Address [address] 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 Name Role Phone Unavailable Primary Care Provider Unavailabl e Encounter Details Date Type Department Care Team ([facility] Contact Info) Description 01/14/2023 Office Visit - Data Exchange Jomar Epps MD [address] [place], [place] [id number] Social History Tobacco Use Types Packs/Day Years Used Date Smoking Tobacco: Never Assessed Sex and Gender Information Value Date Recorded Sex Assigned at Not on file Legal Sex Male 10:16 AM EDT Gender Identity Not on file Sexual Orientation Not on file documented as of this encounter Progress Notes * Jomar Epps MD - 01/14/2023 4:00 PM EDT Patient Name : CLOVIS SHEN (43yo, M) ID# [id number] Appt. Date/Time : 01/14/2023 04:00PM : 1980 Service Dept. : Telehealth Provider : JOMAR EPPS MD Insurance Med Primary: [facility] [facility] (MEDICAID REPLACEMENT - HMO) Insurance # : [id number] Policy/Group # : [id number] Med Mental Health: [facility] Insurance # : [id number] Med Curry: SLIDING FEE SCHEDULE - DISCOUNT Prescription: check now Chief Complaint telehealth f/u dm Patient's Care Team Primary Care Provider: JOMAR EPPS MD: [address] [facility] [place] [phone], , Patient's Pharmacies [facility] ([place]): [address] [facility], [place] [address], , [id number] ([place]): [address] [place] [address], , [facility] ([place]): [address] [place] [address], , [facility] ([place]): [address] [place] [address], , Vitals None recorded. Allergies Allergies not reviewed (last reviewed 11/11/2022) PENICILLINS: Rash (Mild) Some allergies listed in Documents: #[id number], #[id number], #[id number], #[id number] could not be added to this patient's chart. Please review these documents and add these allergies to the patient's chart manually as needed. Medications Reviewed Medications Name: albuterol sulfate HFA 90 mcg/actuation aerosol inhaler Inhale 2 puff(s) every 4 hours by inhalation route. Date: 06/30/20 filled Source: [facility] Name: atorvastatin 40 mg tablet TAKE 1 TABLET BY MOUTH EVERY DAY Date: 09/08/22 filled Source: [facility] Name: BD Ultra-Fine Short Pen Needle 31 gauge x 5/16 USE WITH INSULIN 4 TIMES DAILY Date: 04/24/20 filled Source: [facility] Name: citalopram 20 mg tablet TAKE 1 TABLET BY MOUTH EVERY DAY Date: 09/05/22 filled Source: [facility] Name: diclofenac sodium 75 mg tablet,delayed release Take 1 tablet(s) twice a day by oral route for30 days. Date: 10/22/22 filled Source: [facility] Name: famotidine 40 mg tablet Take 1 tablet(s) by oral route. Date: 11/27/22 renewed Source: Jomar Epps MD Name: insulin aspart (U-100) 100 unit/mL (3 mL) subcutaneous pen Inject 18 unit(s) 3 times a day bysubcutaneous route with meals. Date: 01/14/23 prescribed Source: Jomar Epps MD Name: Lantus Solostar U-100 Insulin 100 unit/mL (3 mL) subcutaneous pen Inject 45 unit(s) twice a day by subcutaneous route. Date: 11/11/22 prescribed Source: Jomar Epps MD Name: lidocaine 5 % topical patch Apply 1 patch(es) every day by topical route as needed. Date: 12/16/22 renewed Source: Jomar Epps MD Name: lisinopriL 5 mg tablet take 1 PO daily Date: 09/01/22 filled Source: [facility] Name: metFORMIN ER 500 mg tablet,extended release 24 hr TAKE 2 TABLETS BY MOUTH TWICE A DAY Date: 11/27/22 renewed Source: Jomar Epps MD Name: nystatin 100,000 unit/gram topical cream APPLY TO THE AFFECTED AREA(S) BY TOPICAL ROUTE 2 TIMES PER DAY Date: 01/06/23 renewed Source: Jomar Epps MD Name: OneTouch Delica Plus Lancet 33 gauge Use to test blood sugar three times daily Date: 10/21/22 filled Source: [facility] Name: OneTouch Ultra Test strips use to check blood sugar three times daily Date: 11/03/22 filled Source: [facility] Name: QUEtiapine 50 mg tablet TAKE 1 TABLET BY MOUTH ONCE A DAY Date: 10/22/22 filled Source: [facility] Name: repaglinide 2 mg tablet TAKE 1 TABLET BY MOUTH ONCE A DAY with LUNCH Date: 10/27/22 filled Source: [facility] Name: tamsulosin 0.4 mg capsule Take 1 capsule(s) every day by oral route for 30 days. Date: 01/09/23 renewed Source: Jomar Epps MD Name: tiZANidine 2 mg tablet Take 1 tablet(s) twice a day by oral route as needed for 30 days. Date: 01/09/23 renewed Source: Jomar Epps MD Name: Trulicity 4.5 mg/0.5 mL subcutaneous pen injector Inject 1 pen weekly Date: 11/11/22 prescribed Source: Jomar Epps MD Vaccines Vaccines not reviewed (last reviewed 11/11/2022) COVID-19 Vaccine Type: COVID-19, mRNA, LNP-S, PF, 100 mcg/0.5 mL dose (Moderna) Date: 12/07/20 Amt.: 0.5 mL Route: Intramuscular Site: Deltoid, Right NDC: [id number] Lot #: [id number] Mfr.: Moderna [employer] Exp. Date: 05/21/21 VIS: Moderna COVID-19 Vaccine EUA Fact Sheet 10/19/2020 VIS Given: 12/07/20 Equipment Monitor Phototypesetting: Royer Matias CMA Vaccine Type: COVID-19, mRNA, LNP-S, PF, 100 mcg/0.5 mL dose (Moderna) Date: 11/02/20 Amt.: 0.5 mL Route: Intramuscular Site: Deltoid, Left NDC: Lot #: [id number] Mfr.: Moderna [employer] Exp. Date: 04/27/21 VIS: Moderna COVID-19 Vaccine EUA Fact Sheet 06/26/2020 VIS Given: 11/02/20 Equipment Monitor Phototypesetting: Eduarda Matias MA Haemophilus Influenzae Type B Vaccine Type: Hib (PRP-T) Date: 05/14/20 Amt.: 0.5 mL Route: Site: [facility]: Lot #: [id number] Mfr.: Sanofi P[employer]ur Exp. Date: VIS: VIS Given: Equipment Monitor Phototypesetting: Vaccine Type: Hib Date: 05/14/20 Amt.: Route: Site: NDC: Lot #: [id number] Mfr.: Sanofi Pasteur Exp. Date: VIS: VIS Given: Equipment Monitor Phototypesetting: Influenza Vaccine Type: influenza, seasonal, injectable, preservative free Date: 05/17/20 Amt.: 0.5 mL Route: Site: NDC: Lot #: [id number] Mfr.: Sanofi Pasteur Exp. Date: VIS: VIS Given: Equipment Monitor Phototypesetting: Vaccine Type: influenza, injectable, quadrivalent Date: 08/03/19 Amt.: 0.5 mL Route: Intramuscular Site: Deltoid, Left NDC: Lot #: [id number] Mfr.: Sanofi Pasteur Exp. Date: 01/24/20 VIS: Inactivated Influenza 03/10/2019 VIS Given: 08/03/19 Equipment Monitor Phototypesetting: Faith Mead Vaccine Type: influenza, injectable, quadrivalent, preservative free Date: 09/16/15 Amt.: 0.5 mL Route: Site: [facility]: Lot #: [id number] Mfr.: Exp. Date: VIS: VIS Given: Equipment Monitor Phototypesetting: Meningococcal Vaccine Type: meningococcal MCV4P Date: 05/14/20 Amt.: 0.5 mL Route: Site: [facility]: Lot #: [id number] Mfr.: Sanofi Pasteur Exp. Date: VIS: VIS Given: Equipment Monitor Phototypesetting: Vaccine Type: meningococcal B, recombinant Date: 05/14/20 Amt.: 0.5 mL Route: Site: [facility]: Lot #: [id number] Mfr.: [employer] Exp. Date: VIS: VIS Given: Equipment Monitor Phototypesetting: Pneumococcal Vaccine Type: pneumococcal conjugate PCV 13 Date: 05/14/20 Amt.: 0.5 mL Route: Site: NDC: Lot #: [id number] Mfr.: [employer] Exp. Date: VIS: VIS Given: Equipment Monitor Phototypesetting: Vaccine Type: pneumococcal polysaccharide PPV23 Date: 08/03/19 Amt.: 0.5 mL Route: Injection Site: Deltoid, Right NDC: Lot #: [id number] Mfr.: [employer] and [employer] Exp. Date: 12/13/20 VIS: PPSV23 05/25/2019 VIS Given: 08/03/19 Equipment Monitor Phototypesetting: Faith Mead Problems Reviewed Problems * Candidal [...] or [place])?: Yes (Notes: Born in [place]) TB Screening Question 2: Have you traveled [...] Dental: Where was your last dental visit?: [facility] Dental: Was the visit an [facility] dental provider?: Yes Dental: Action taken: [facility] information provided Other Education: 12 Marital status: Single General stress level: High Gender Identity and LGBTQ Identity Gender identity: Identifies as Male Assigned sex at : Male Pronouns: he/him Sexual orientation: Straight or heterosexual Surgical History Surgical History not reviewed (last reviewed 06/05/2021) * 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 Diet: Symptoms: Denies Blurry Vision, Denies Increased Thirst, Denies Increased Urination. Gets shaking if sugar goes below 200. Comorbidities: HTN ROS None recorded. Physical Exam None recorded. Assessment / Plan 1. Type II diabetes mellitus uncontrolled - A1c 13.6 As of October of 2022. He has adjusted his insulin to lantus 30 units with meals and units with meals, but he continues to have sugars in the 300s after meals. Advised him to changehis novolog back to 17 or 18 units with meals to avoid this rise. he is now leaving needle in skin for 10 seconds. Will Continue his trulicity to 4.5mg and Continue metformin ER 1000mg BID. He is also on repaglinide 2mg. We discussed again cutting back on soda and alcohol. He has done nwell with cutting back on soda and drinking more water. He has done well with cutting back on alcohol and is notdrinking daily anymore or heavy on theresa weekends. He has been usign dexcom well which has on one occasion warned him of a low sugar. E11.65: Type 2 diabetes mellitus with hyperglycemia * insulin aspart (U-100) 100 unit/mL (3 mL) subcutaneous pen - Inject 18 unit(s) 3 times a day by subcutaneous route with meals. Qty: (10) 3 mL syringe Refills: 3Pharmacy: [facility] * DEXCOM G7 SENSOR DEVICE - Use as directed. Qty: 6 Units Refills: 5 Supplier: [employer] Discussion Notes End time: 412pm Return to Office * to see Jomar Epps MD at [facility] on or around 02/25/2023 Encounter Sign-Off Encounter signed-off by Jomar Epps MD, 01/14/2023. documented in this encounter Plan of Treatment Not on file documented as of this encounter Visit Diagnoses Not on filedocumented in this encounter
--- OUTSIDE RECORDS SUMMARY | 2025-05-17 22:16 | XMS_ITS | Encounter Summary ---
Author Organization [facility] alth Address [address] [place] [address] Care Team Providers Care Edi Architect Name Role Phone Unavailable Primary Care Provider Unavailabl e Encounter Details Date Type Department Care Team ([facility] st Contact Info) Description 07/30/2021 Office Visit - Data Exchange [facility] Jomar Epps MD [address] [place] [address] Social History Tobacco Use Types Packs/Day Years Used Date Smoking Tobacco: Never Assessed Sex and Gender Information Value Date Recorded Sex Assigned at Not on file Legal Sex Male 10:16 AM EDT Gender Identity Not on file Sexual Orientation Not on file documented as of this encounter Progress Notes * Jomar Epps MD - 07/30/2021 10:11 AM EST Patient Name : CLOVIS SHEN (41yo, M) ID# [id number] Appt. Date/Time : 08/06/2021 08:30AM : 1980 Service Dept. : Telehealth Provider : JOMAR EPPS MD Insurance Med Primary: [facility] [facility] (MEDICAID REPLACEMENT - HMO) Insurance # : [id number] Policy/Group # : [id number] Med Mental Health: [facility] Insurance # : [id number] Med Curry: SLIDING FEE SCHEDULE - DISCOUNT Prescription: [employer] - Member is eligible. details Chief Complaint telehealth, SBIRT - Adult Followup: Type II diabetes mellitus uncontrolled f/u DM, smoking, back pain. Needs Diabetic labs ordered and A1C/hepatitis Patient's Care Team Primary Care Provider: JOMAR EPPS MD: [facility] [place] [address], , Patient's Pharmacies [facility] (ERX): [address] [place] [address], , [id number] (ERX): [address] [place] [address], , [facility] (ERX): [address] [place] [address], , [facility] (ERX): [address] [address], [place] [address], , Vitals None recorded. Allergies Allergies not reviewed (last reviewed 06/05/2021) PENICILLINS: Rash (Mild) Some allergies listed in Documents: #[id number], #[id number], #[id number] could not be added to this patient's chart. Please review these documents and add these allergies to the patient's chart manually as needed. Medications Reviewed Medications Name: albuterol sulfate HFA 90 mcg/actuation aerosol inhaler Inhale 2 puff(s) every 4 hours by inhalation route. Date: 06/30/20 filled Source: leo Name: atorvastatin 40 mg tablet TAKE 1 TABLET BY MOUTH EVERY DAY Date: 06/27/21 filled Source: surescripts Name: BD Ultra-Fine Short Pen Needle 31 gauge x 5/16 USE WITH INSULIN 4 TIMES DAILY Date: 04/24/20 filled Source: [facility] Name: betamethasone dipropionate 0.05 % topical cream APPLY A THIN LAYER TO THE BACK BY TOPICAL ROUTE ONCE DAILY Date: 08/06/21 prescribed Source: Jomar Epps MD Name: citalopram 20 mg tablet TAKE 1 TABLET BY MOUTH EVERY DAY Date: 06/03/21 filled Source: [facility] Name: clotrimazole 1 % topical cream APPLY TO THE AFFECTED AND SURROUNDING AREAS OF SKIN BY TOPICALROUTE 2 TIMES PER DAY IN THE MORNING AND EVENING Date: 08/06/21 prescribed Source: Jomar Epps MD Name: diclofenac 1 % topical gel APPLY 2 GRAMS TO THE ELBOWS BY TOPICAL ROUTE 4 TIMES PER DAY Date: 08/06/21 prescribed Source: Jomar Epps MD Name: famotidine 40 mg tablet Take 1 tablet(s) by oral route. DIRECTED Date: 06/26/21 filled Source: demiriareli Name: gabapentin 300 mg capsule Take 2 capsule(s) 3 times a day by oral route for 30 days. Date: 04/30/21 prescribed Source: Zheng Kinney MD Name: insulin aspart (U-100) 100 unit/mL (3 mL) subcutaneous pen inject 10-20 UNITS PER MEALS threetimes a day Date: 08/06/21 prescribed Source: Jomar Epps MD Name: Ketostix strips Date: 04/20/20 filled Source: [facility] Name: Lantus Solostar U-100 Insulin 100 unit/mL (3 mL) subcutaneous pen INJECT 60 UNITS SUBCUTANEOUSLY ONCE DAILY Date: 08/06/21 prescribed Source: Jomar Epps MD Name: lisinopriL 5 mg tablet Take 1 tablet(s) every day by oral route. Date: 07/23/21 filled Source: [facility] Name: metFORMIN ER 500 mg tablet,extended release 24 hr TAKE 2 TABLETS BY MOUTH TWICE A DAY Date: 07/26/21 filled Source: [facility] Name: nicotine 14 mg/24 hr daily transdermal patch Apply 1 patch(es) every day by transdermal routefor 60 days. Date: 05/24/21 filled Source: [facility] Name: nicotine 21 mg/24 hr daily transdermal patch Apply 1 patch(es) every day by transdermal routefor 30 days. Date: 05/24/21 filled Source: [facility] Name: nicotine 7 mg/24 hr daily transdermal patch Apply 1 patch(es) every day by transdermal route for 60 days. Date: 05/21/21 prescribed Source: Jomar Epps MD Name: OneTouch Delica Lancets 33 gauge Use to test blood sugar three times daily Date: 07/15/21 filled Source: [facility] Name: OneTouch Ultra Blue Test Strip TEST BLOOD SUGAR THREE TIMES Date: 06/13/21 renewed Source: Jomar Epps MD Name: OneTouch Ultra Test strips TEST BLOOD SUGAR THREE TIMES Date: 07/15/21 filled Source: [facility] Name: OneTouch Ultra2 Meter Date: 12/06/20 filled Source: leo Name: OneTouch Ultra2 Meter kit TEST BLOOD SUGAR ONCE DAILY Date: 08/11/18 filled Source: demiriareli Name: QUEtiapine 25 mg tablet Take 1 tablet(s) every day by oral route at bedtime Date: 08/06/21 prescribed Source: Jomar Epps MD Name: Trulicity 3 mg/0.5 mL subcutaneous pen injector Inject once weekly Date: 08/06/21 prescribed Source: Jomar Epps MD Vaccines Vaccines not reviewed (last reviewed 06/05/2021) Vaccine Type: COVID-19, mRNA, LNP-S, PF, 100 mcg/0.5 mL dose (Moderna) Date: 12/07/20 Amt.: 0.5 mL Route: Intramuscular Site: Deltoid, Right NDC: [id number] Lot #: [id number] Mfr.: Moderna [employer] Exp. Date: 05/21/21 VIS: Moderna COVID-19 Vaccine EUA Fact Sheet 10/19/2020 VIS Given: 12/07/20 Director Of Graduate Admissions: Royer Matias CMA Vaccine Type: COVID-19, mRNA, LNP-S, PF, 100 mcg/0.5 mL dose (Moderna) Date: 11/02/20 Amt.: 0.5 mL Route: Intramuscular Site: Deltoid, Left NDC: Lot #: [id number] Mfr.: Moderna [employer] Exp. Date: 04/27/21 VIS: Moderna COVID-19 Vaccine EUA Fact Sheet 06/26/2020 VIS Given: 11/02/20 Director Of Graduate Admissions: Eduarda Matias MA Vaccine Type: Hib (PRP-T) Date: 05/14/20 Amt.: 0.5 mL Route: Site: NDC: Lot #: [id number] Mfr.: Sanof[employer] P[employer] Exp. Date: VIS: VIS Given: Director Of Graduate Admissions: Vaccine Type: Hib Date: 05/14/20 Amt.: Route: Site: [place]: Lot #: [id number] Mfr.: San[employer] Paste[employer] Exp. Date: VIS: VIS Given: Director Of Graduate Admissions: Vaccine Type: influenza, injectable, quadrivalent Date: 05/17/20 Amt.: Route: Site: NDC: Lot #: Mfr.: Exp. Date: VIS: VIS Given: Director Of Graduate Admissions: [facility] Vaccine Type: influenza, seasonal, injectable, preservative free Date: 05/17/20 Amt.: 0.5 mL Route: Site: [facility]: Lot #: [id number] Mfr.: Sanofi Pasteur Exp. Date: VIS: VIS Given: Director Of Graduate Admissions: Vaccine Type: influenza, injectable, quadrivalent Date: 08/03/19 Amt.: 0.5 mL Route: Intramuscular Site: Deltoid, Left NDC: Lot #: [id number] Mfr.: Sanofi Pasteur Exp. Date: 01/24/20 VIS: Inactivated Influenza 03/10/2019 VIS Given: 08/03/19 Director Of Graduate Admissions: Faith Abbierosalia Vaccine Type: influenza, injectable, quadrivalent, preservative free Date: 09/16/15 Amt.: 0.5 mL Route: Site: [facility]: Lot #: [id number] Mfr.: Exp. Date: VIS: VIS Given: Director Of Graduate Admissions: Vaccine Type: meningococcal B, unspecified Date: 05/14/20 Amt.: Route: Site: [facility]: Lot #: Mfr.: Exp. Date: VIS: VIS Given: Director Of Graduate Admissions: [facility] Vaccine Type: meningococcal MCV4P Date: 05/14/20 Amt.: 0.5 mL Route: Site: [facility]: Lot #: [id number] Mfr.: Project [employer] P[employer] Exp. Date: VIS: VIS Given: Director Of Graduate Admissions: Vaccine Type: meningococcal B, recombinant Date: 05/14/20 Amt.: 0.5 mL Route: Site: [facility]: Lot #: [id number] Mfr.: [employer] Exp. Date: VIS: VIS Given: Director Of Graduate Admissions: Vaccine Type: pneumococcal conjugate PCV 13 Date: 05/14/20 Amt.: 0.5 mL Route: Site: [facility]: Lot #: [id number] Mfr.: angelMD Exp. Date: VIS: VIS Given: Director Of Graduate Admissions: Vaccine Type: pneumococcal polysaccharide PPV23 Date: 08/03/19 Amt.: 0.5 mL Route: Injection Site: Deltoid, Right NDC: Lot #: [id number] Mfr.: [employer] Exp. 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 * Chronic back pain [...] History Social History not reviewed (last reviewed 06/05/2021) Substance Use Do you or have you ever smoked tobacco?: Current every day smoker How many years have you smoked tobacco?: 17 How much tobacco do you smoke?: 1 pack per day Do you or have you ever used any other forms of tobacco or nicotine?: No Do you or have you ever used e-cigarettes or vape?: Never used electronic cigarettes Do you or have you ever used smokeless tobacco?: Never used smokeless tobacco How much tobacco do you chew?: none What was the date of your most recent tobacco screening?: 06/05/2021 What is your level of alcohol consumption?: None Do you use any illicit or recreational drugs?: No Have you used IV drugs?: No What is your level of caffeine consumption?: Heavy Home and Environment Have there been any changes to your family or social situation?: No Do you have any pets?: No Do [...] How many children do you have?: 5 Advanced Directive Do you have an advanced directive?: No Public Health and Travel Have [...] or [place])?: Yes (Notes: Born in [place]) TB Screening Question 2: Have you traveled [...] History Dental: Date of dental screening questions: 05/21/2021 Dental: Dental visit within the past 12 months?: No Dental: Where was your last dental visit?: [facility] Dental: Was the visit an [facility] dental provider?: Yes Dental: Action taken: None Needed Other Education: 12 Marital status: Single General stress level: High Gender Identity and LGBTQ Identity Gender identity: Identifies as Male Assigned sex at : Male Sexual orientation: Straight or heterosexual Surgical History Surgical History not reviewed (last reviewed 06/05/2021) * Removal of spleen total - 05/16/2020 noneSurgery to Left knee.[facility] MEDICAL INVESTIGATOR Past Medical History Past Medical History not reviewed (last reviewed 06/05/2021) Asthma: Y Diabetes: Y Hypertension: Y Screening HPI Verbal consent obtained to perform today?s visit via telehealth, including benefits (improved access to healthcare) and risks (phone/video connection not working, sound may not be clear, potential need to schedule in person visit, delay in medical evaluation and treatment, limitation of physical exam). Patient willing to proceed. Telehealth visited completed via video Patient identity confirmed by Patient location: home in [place] Provider location: home in [place] Persons Accompanying Patient: Start time: Pt c/o having rash o nhis back for about 4-5 months. Pt suspects he has shingles. Was given lidocaine in March of 2021 which didn't help. Tried triple abx which also didn't help. Is rough and very itchy. DM: Pt had dexcom installed by endocrine to get a better sense of his sugars. He is fasting right now and sugar was 302. yesterday sugar dropped to 62. Pt using lantus 60 unis once daily and before meals between 10-20 units. ROS None recorded. Physical Exam Patient is a 41-year-old male. Gen: NAD Skin: Small cluster of rasied erythematous scabs on mid L side of back Assessment / Plan 1. Type II diabetes mellitus uncontrolled - Sugars still very high. Is seeing endocrine. Using lantus 60 units once daily and short actin 10-20units before meals. Pt thought that trulicity was d/c'd, but reviewing endocrine's note it actuallyshows they increased his dose from 1.5 to 3. Metformin he is taking [id number] ER BID. Will send the trulicity now. I also reviewd with pt that the endocrine office has tried caling him 4x in thep ast 2 weeks and has been unable to reach him or leave because his mailbox is full. I gave hime endocrine phone number for him to contact them. Had genital infection with SLGT2. E11.65: Type 2 diabetes mellitus with hyperglycemia * insulin aspart (U-100) 100 unit/mL (3 mL) subcutaneous pen - inject 10-20 UNITS PER MEALS three times a day Qty: 5 3 mL syringe(s) Refills: 3 Pharmacy: [facility]204 * Lantus Solostar U-100 Insulin 100 unit/mL (3 mL) subcutaneous pen - INJECT 60 UNITS SUBCUTANEOUSLY ONCE DAILY Qty: 6 3 mL syringe(s) Refills: 3 Pharmacy: [facility] 2204 * Trulicity 3 mg/0.5 mL subcutaneous pen injector - Inject once weekly Qty: 12 0.5 mL syringe(s) Refills: 2 Pharmacy: [facility] 2. Depression screening - pt has scheduled BH Z13.31: Encounter for screening for depression * PATIENT HEALTH QUESTIONNAIRE-9* 3. Screening procedure Z13.39: Encounter for screening examination for other mental health and behavioral disorders * SUBSTANCE ABUSE SCREENING* 4. Eruption - L back, mid section following somewhat of a dermatomal pattern, could have been shingles and has residual lesions. Will do steroid and antifungal to cover both possibilities. R21: Rash and other nonspecific skin eruption * betamethasone dipropionate 0.05 % topical cream - APPLY A THIN LAYER TO THE BACK BY TOPICAL ROUTE ONCE DAILY Qty: 2 15 gm tube(s) Refills: 0 Pharmacy: [facility] * clotrimazole 1 % topical cream - APPLY TO THE AFFECTED AND SURROUNDING AREAS OF SKIN BY TOPICAL ROUTE 2 TIMES PER DAY IN THE MORNINGAND EVENING Qty: 1 30 gm tube(s) Refills: 0 Pharmacy: [facility] 5. Insomnia - refill G47.00: Insomnia, unspecified * quetiapine 25 mg tablet - Take 1 tablet(s) every day by oral route at bedtime Qty: 90 tablet(s) Refills: 3 Pharmacy: [facility] 6. COVID-19 - currently ahs covid, body aches have improved, still has some lingering cough, overall feels better U07.1: COVID-19 7. Bilateral elbow joint pain - diclofenac M25.521: Pain in right elbow M25.522: Pain in left elbow * diclofenac 1 % topical gel - APPLY 2 GRAMS TO THE ELBOWS BY TOPICAL ROUTE 4 TIMES PER DAY Qty: 1 100 gm tube(s) Refills: 1 Pharmacy: [facility] Discussion Notes End time:19 min (08:31am - 08:50am) Return to Office Patient will return to the office as needed. Encounter Sign-Off Encounter signed-off by Jomar Epps MD, 08/06/2021. documented in this encounter Plan of Treatment Not on file documented as of this encounter Visit Diagnoses Not on filedocumented in this encounter
--- OUTSIDE RECORDS SUMMARY | 2025-05-17 22:16 | XMS_ITS | Encounter Summary ---
Author Organization [facility] Address [address] [place] [address] Care Team Providers Care Senior Housekeeper Name Role Phone Freddy Epps MD Primary Care Provider [phone] Encounter Details Date Type Department Care Team (Late st Contact Info) Description 06/06/2021 Lab Requisition [facility] Libertad Grijalva MD [address] [facility] [address] [place] [address] Encounter for screening for infections with a predominantly sexual mode of transmission Social History Tobacco Use Types Packs/Day Years Used Date Smoking Tobacco: Some Days Cigarettes 1 20 Started: 01/18/2019 Smokeless Tobacco: Former Alcohol Use Standard Drinks/Week Comments Yes 0 (1 standard drink = 0.6 oz [...] 10/31/2020 PHQ-2 Answer Date Recorded PHQ-2 Score 6 04/27/2020 Sex and Gender Information Value Date Recorded Sex Assigned at Not on file Legal Sex Male 6:06 PM EDT Gender Identity Not on file Sexual Orientation Not on file documented as of this encounter Plan of Treatment Not on file documented as of this encounter Procedures Procedure Name Priority Date/Time Associated Diagnosis Comments CHLAMYDIA TRACHOMATIS AND NEISSERIA GONORRHOEAE MOLECULAR SCREEN Routine 06/05/2021 12:19 PM EST Encounter for screening for infections with a predominantly sexual mode of transmission MYCOPLASMA GENITALIUM MOLECULAR SCREEN Routine 06/05/2021 12:19 PM EST Encounter for screening for infections with a predominantly sexual mode of transmission documented in this encounter Results * Mycoplasma genitalium Molecular Screen (06/05/2021 12:19 PM EST) Mycoplasma genitalium Screen Not Detected Not Detected 06/11/2021 2:13 PM EST LAB Urine Urine specimen / Unknown 06/05/2021 12:19 PM EST 06/06/2021 12:18 PM EST [facility] - 06/11/2021 2:13 PM EST Specimen was tested using the Aptima Mycoplasma genitalium Assay which is a qualitative nucleic acid amplification test (NAAT) for the detection of ribosomal RNA (rRNA) from Mycoplasma genitalium. It is intended for use as an aid in the diagnosis of suspected M. genitalium urogenital infections in male and female patients. This assay has not been evaluated for patients under 15 years of age. False negative results may occur due to specimen adequacy, interfering substances, or competitive interference from co-infections. Therapeutic failure or success cannot be determined with the assay since nucleic acid may persist following appropriate antimicrobial therapy. Libertad Grijalva MD LAB MICROBIOLOGY - GENERA L ORDERABLES Final Result Performing Organization Address [facility]/State/[facility] Co de Phone Number LAB [address] [place] [address] * Chlamydia trachomatis and Neisseria gonorrhoeae Molecular Screen (06/05/2021 12:19 PM EST) Chlamydia Screen Not Detected Not Detected 06/07/2021 3:23 PM EST LAB GC Screen Not Detected Not Detected 06/07/2021 3:23 PM [facility] LAB Urine Urine specimen / Unknown 06/05/2021 12:19 PM EST 06/06/2021 12:18 PM EST [facility] - 06/07/2021 3:23 PM EST Specimen was tested by the Aptima Combo 2 Assay, a Nucleic Acid Amplification Test (NAAT) for qualitative detection and replication of a specific region of the 23S ribosomal RNA (rRNA) from CT and a specific region of the 16S rRNA from GC. This assay has not been evaluated for patients under 14 years of age and is not intended for the evaluation of suspected sexual abuse or for other medico-legal indications. Although rare, false positives may occur. For those patients for whom a false positive result may have adverse psycho-social impact, the CDC recommends retesting. False negative results may also occur due to specimen adequacy, inhibitors, or target levels below the assay limit of detection. Libertad Grijalva MD LAB MICROBIOLOGY - GENERA L ORDERABLES Final Result LAB [address] [facility] [place] [id number] documented in this encounter Visit Diagnoses Diagnosis Encounter for screening for infections with a predominantly sexual mode of transmission documented in this encounter Additional Health Concerns Infection Onset Date Last Indicated Resolved Time Rule out SARS-CoV-2 (related to COVID-19) 07/29/2021 07/29/2021 08/01/2021 6:[address] SARS-CoV-2 (related to COVID-19) 07/29/2021 07/29/19 22 08/12/2021 8:03 PM EST Rule out COVID-19/Influenza/RSV 11/16/2024 5 11/16/2024 10:54 PM EDT documented as of this encounter Care Teams Senior Housekeeper Relationship Specialty Start Date End Date Freddy Epps MD [address] [place] [address] [place] [id number] PCP - General Family Medicine 05/29/20 documented as of this encounter
--- OUTSIDE RECORDS SUMMARY | 2025-05-17 22:16 | XMS_ITS | Encounter Summary ---
Author Organization [facility] alth Address [address] 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 Technician Name Role Phone Unavailable Primary Care Provider Unavailabl e Encounter Details Date Type Department Care Team ([facility] st Contact Info) Description 06/16/2023 Office Visit - Data Exchange [facility] Carissa Ferreira CRNP [address] [place] [address] Social History Tobacco Use Types Packs/Day Years Used Date Smoking Tobacco: Never Assessed Sex and Gender Information Value Date Recorded Sex Assigned at Not on file Legal Sex Male 10:16 AM EDT Gender Identity Not on file Sexual Orientation Not on file documented as of this encounter Progress Notes * Carissa Ferreira CRNP - 06/16/2023 11:22 AM EST Patient Name : CLOVIS SHEN (43yo, M) ID# [id number] Appt. Date/Time : 06/16/2023 11:20AM : 1980 Service Dept. : Telehealth Provider : ANNA JC Insurance Med Primary: [facility] (MEDICAID REPLACEMENT - HMO) Insurance # : [id number] Policy/Group # : [id number] Med Mental Health: [facility] Insurance # : [id number] Med Curry: SLIDING FEE SCHEDULE - DISCOUNT Prescription: EXPRESS SCRIPTS - Member is eligible. details Chief Complaint cold symptoms Patient's Care Team Primary Care Provider: JOMAR EPPS MD: [address] [facility] [place] [address], , Patient's Pharmacies [id number] ([facility]): [address] [place] [address] [place] [address], , [facility] (ERX): [address] [facility], [place] [address], , [facility] (ERX): [address] [place] [address], , [facility]: [address], [place] [address], , Vitals None recorded. Allergies Allergies not reviewed (last reviewed 03/03/2023) PENICILLINS: Rash (Mild) Medications Reviewed Medications Name: atorvastatin 40 mg tablet TAKE 1 TABLET BY MOUTH EVERY DAY Date: 03/03/23 renewed Source: Jomar Epps MD Name: BD Ultra-Fine Short Pen Needle 31 gauge x 5/16 USE WITH INSULIN 4 TIMES DAILY Date: 04/24/20 filled Source: [facility] Name: benzonatate 100 mg capsule Take 1 capsule(s) 3 times a day by oral route as needed. Date: 06/16/23 prescribed Source: ANNA Jc Name: cetirizine 10 mg tablet Take 1 tablet(s) every day by oral route. Date: 06/16/23 prescribed Source: ANNA Jc Name: citalopram 20 mg tablet TAKE 1 TABLET BY MOUTH EVERY DAY Date: 03/03/23 renewed Source: Jomar Epps MD Name: diclofenac sodium 75 mg tablet,delayed release Take 1 tablet(s) twice a day as needed Date: 06/15/23 renewed Source: Jomar Epps MD Name: famotidine 40 mg tablet Take 1 tablet(s) by oral route. Date: 11/27/22 renewed Source: Jomar Epps MD Name: gabapentin 300 mg capsule Take 1 capsule(s) 3 times a day by oral route for 30 days. Date: 02/25/23 prescribed Source: Jomar Epps MD Name: insulin aspart (U-100) 100 unit/mL (3 mL) subcutaneous pen Inject 22 unit(s) 3 times a day bysubcutaneous route with meals. Date: 06/16/23 prescribed Source: ANNA Jc Name: Isidro Dunn U-100 Insulin 100 unit/mL (3 mL) subcutaneous pen Inject 50 unit(s) twice a day by subcutaneous route. Date: 06/16/23 prescribed Source: ANNA Jc Name: lidocaine 5 % topical patch Apply 1 patch(es) every day by topical route as needed. Date: 12/16/22 renewed Source: Jomar Epps MD Name: lisinopriL 5 mg tablet take 1 PO daily Date: 02/24/23 renewed Source: Jomar Epps MD Name: metFORMIN ER 500 mg tablet,extended release 24 hr TAKE 2 TABLETS BY MOUTH TWICE A DAY Date: 03/03/23 renewed Source: Jomar Epps MD Name: nystatin 100,000 unit/gram topical cream APPLY TO THE AFFECTED AREA(S) BY TOPICAL ROUTE 2 TIMES PER DAY Date: 06/16/23 prescribed Source: ANNA Jc Name: OneTouch Delica Plus Lancet 33 gauge Use to test blood sugar three times daily Date: 10/21/22 filled Source: surescripts Name: OneTouch Ultra Test strips use to check blood sugar three times daily Date: 03/03/23 renewed Source: Jomar Epps MD Name: QUEtiapine 50 mg tablet take one tablet by mouth daily Date: 06/15/23 renewed Source: Jomar Epps MD Name: repaglinide 2 mg tablet take 1 PO once daily with lunch Date: 01/22/23 renewed Source: Jomar Epps MD Name: tamsulosin 0.4 mg capsule Take 1 capsule(s) every day by oral route for 30 days. Date: 05/11/23 renewed Source: Jomar Epps MD Name: tiZANidine 2 mg tablet Take 1 tablet(s) twice a day by oral route as needed for 30 days. Date: 05/11/23 renewed Source: Jomar Epps MD Name: Trulicity 4.5 mg/0.5 mL subcutaneous pen injector Inject 1 pen weekly Date: 06/16/23 prescribed Source: ANNA Jc Name: Ventolin HFA 90 mcg/actuation aerosol inhaler Inhale 2 puff(s) every 4 hours by inhalation route. Date: 06/16/23 prescribed Source: ANNA Jc Vaccines Vaccines not reviewed (last reviewed 03/03/2023) COVID-19 Vaccine Type: COVID-19, mRNA, LNP-S, PF, 100 mcg/0.5 mL dose (Moderna) Date: 12/07/20 Amt.: 0.5 mL Route: Intramuscular Site: Deltoid, Right NDC: [id number] Lot #: [id number] Mfr.: Moderna US, Inc. Exp. Date: 05/21/21 VIS: Moderna COVID-19 Vaccine EUA Fact Sheet 10/19/2020 VIS Given: 12/07/20 Portable Machine Cutter: Royer Matias CMA Vaccine Type: COVID-19, mRNA, LNP-S, PF, 100 mcg/0.5 mL dose (Moderna) Date: 11/02/20 Amt.: 0.5 mL Route: Intramuscular Site: Deltoid, Left NDC: Lot #: [id number] Mfr.: Moderna US, Inc. Exp. Date: 04/27/21 VIS: Moderna COVID-19 Vaccine EUA Fact Sheet 06/26/2020 VIS Given: 11/02/20 Portable Machine Cutter: Eduarda Matias MA Diphtheria, Tetanus, Pertussis Vaccine Type: Tdap Date: 03/03/23 Amt.: 0.5 mL Route: Intramuscular Site: Deltoid, Left NDC: [id number] Lot #: [id number] Mfr.: Sanofi Pasteur Exp. Date: 12/30/24 VIS: Tdap 03/01/2021 [facility] VIS Given: 03/03/23 Portable Machine Cutter: Vito Grigsby MA Haemophilus Influenzae Type B Vaccine Type: Hib (PRP-T) Date: 05/14/20 Amt.: 0.5 mL Route: Site: NDC: Lot #: [id number] Mfr.: Sanofi Pasteur Exp. Date: VIS: VIS Given: Portable Machine Cutter: Vaccine Type: Hib Date: 05/14/20 Amt.: Route: Site: NDC: Lot #: [id number] Mfr.: Sanofi Pasteur Exp. Date: VIS: VIS Given: Portable Machine Cutter: Influenza Vaccine Type: influenza, seasonal, injectable, preservative free Date: 05/17/20 Amt.: 0.5 mL Route: Site: NDC: Lot #: [id number] Mfr.: Sanofi Pasteur Exp. Date: VIS: VIS Given: Portable Machine Cutter: Vaccine Type: influenza, injectable, quadrivalent Date: 08/03/19 Amt.: 0.5 mL Route: Intramuscular Site: Deltoid, Left NDC: Lot #: [id number] Mfr.: Sanofi Pasteur Exp. Date: 01/24/20 VIS: Inactivated Influenza 03/10/2019 VIS Given: 08/03/19 Portable Machine Cutter: Faith Mead Vaccine Type: influenza, injectable, quadrivalent, preservative free Date: 09/16/15 Amt.: 0.5 mL Route: Site: [facility] Lot #: [id number] Mfr.: Exp. Date: VIS: VIS Given: Portable Machine Cutter: Meningococcal Vaccine Type: meningococcal MCV4P Date: 05/14/20 Amt.: 0.5 mL Route: Site: [facility] Lot #: [id number] Mfr.: Sanofi Pasteur Exp. Date: VIS: VIS Given: Portable Machine Cutter: Vaccine Type: meningococcal B, recombinant Date: 05/14/20 Amt.: 0.5 mL Route: Site: [facility] [place]: Lot #: [id number] Mfr.: [employer]en Exp. Date: VIS: VIS Given: Portable Machine Cutter: Pneumococcal Vaccine Type: pneumococcal conjugate PCV 13 Date: 05/14/20 Amt.: 0.5 mL Route: Site: [facility] [place]: Lot #: [id number] Mfr.: Wyeth Exp. Date: VIS: VIS Given: Portable Machine Cutter: Vaccine Type: pneumococcal polysaccharide PPV23 Date: 08/03/19 Amt.: 0.5 mL Route: Injection Site: Deltoid, Right NDC: Lot #: [id number] Mfr.: Merck and Co., Inc. Exp. Date: 12/13/20 VIS: PPSV23 05/25/2019 VIS Given: 08/03/19 Portable Machine Cutter: Faith Mead Problems Reviewed Problems * Chronic hepatitis C - Onset: 07/16/2020 * Candidal balanitis - Onset: 11/11/2022 * Type II diabetes mellitus uncontrolled - Onset: 08/16/2018 * Diabetic peripheral neuropathy - Onset: 02/25/2023 * Hypertriglyceridemia - Onset: 09/01/2018 * Generalized anxiety disorder - Onset: 08/16/2018 * Alcohol abuse - Onset: 11/11/2022 * Smoker - Onset: 05/21/2021 * Depressive disorder - Onset: 08/16/2018 * Insomnia - Onset: 11/15/2020 * Hypertensive disorder - Onset: 08/09/2018 * Chronic back pain - Onset: 02/29/2020 * Axillary lymphadenopathy - Onset: 07/16/2020 - monitored by heme/onc, f/u ct 08/2020 * Administration of diphtheria, pertussis, and tetanus vaccine - Onset: 03/04/2023 * History of splenectomy - Onset: 07/16/2020 * Cellulitis of left foot - Onset: 02/06/2023 * Puncture wound of right foot - Onset: 03/04/2023 Family History Family History not reviewed (last reviewed 06/05/2021) Mother - Diabetes mellitus - Hypertensive disorder Father - Diabetes mellitus Sister - Diabetes mellitus KR 04/30/21 Social History Social History not reviewed (last reviewed 03/03/2023) Substance Use Do you or have you [...] date of your most recent tobacco screening?: 03/03/2023 What is your level of alcohol consumption?: [...] or [place])?: Yes (Notes: Born in [place]) TB Screening Question 2: Have you traveled [...] Dental: Where was your last dental visit?: [facility] Dental: Was the visit an [facility] dental provider?: Yes Dental: Action taken: [facility] information provided Other Education: 12 Marital status: Single General stress level: High Gender Identity and LGBTQ Identity Gender identity: Identifies as Male Assigned sex at : Male Pronouns: he/him Sexual orientation: Straight or heterosexual Surgical History Surgical History not reviewed (last reviewed 06/05/2021) * Removal of spleen total - 05/16/2020 noneSurgery to Left knee.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 He gave consentfor the ISAAC service. Admits to: sore throat, eyes burning, cough, chest pain with cough, rhinorrhea, and headache. Denies: ear pain, shortness of breath, wheezing, abdominal pain, nausea, vomiting, diarrhea, and fever. He has not done a home COVID-19 test. He has not been around anyone with COVID-19 or influenza. He is not working. He has not taken any htwt-lum-qklxzev medications for his symptoms. He does not have an inhaler at home. He checks his blood sugars at home, and they have been higher than normal. He eats a lot of rice and fish, and he does drink a lot of soda. He uses his insulin. He was referred to an brand ambassador, but he missed his appointment. He called yesterday because he ran out of his Dexcom sensor device. He takes Trulicity. He takes aspart 22 units 3 times a day and Lantus 50 units twice a day. He has an infection on his penis. He was prescribed nystatin cream. This has been helpful. ROS ROS as noted in the HPI Physical Exam General: Well developed, appears acutely ill RESP: breathing comfortably Psych: appropriate mood and affect Assessment / Plan 1. Type II diabetes mellitus uncontrolled - Uncontrolled. Ordered Dexcom G7 Sensor device. Refilled insulin aspart (U-100) 100 unit/mL (3 mL) subcutaneous pen Inject 22 units 3 times a day by subcutaneous route with meals. Refilled Trulicity 4.5 mg/0.5 mL subcutaneous pen injector Inject 1 pen weekly. Refilled Lantus Solostar U-100 Insulin 100 unit/mL (3 mL) subcutaneous pen Inject 50 units twice a day by subcutaneous route. He was advised to eat half the amount of rice and soda and replace it with more protein. He was advised to call the brand ambassador's office to reschedule his appointment. E11.65: Type 2 diabetes mellitus with hyperglycemia * DEXCOM G7 SENSOR DEVICE - Use as directed. Qty: 1 Unit Refills: 5 Supplier: [id number] * insulin aspart (U-100) 100 unit/mL (3 mL) subcutaneous pen - Inject 22 unit(s) 3 times a day by subcutaneous route with meals. Qty: (10) 3 mL syringe Refills: 3Pharmacy: [id number] * Trulicity 4.5 mg/0.5 mL subcutaneous pen injector - Inject 1 pen weekly Qty: (4) 0.5 mL syringe Refills: 3 Pharmacy: [id number] * Lantus Solostar U-100 Insulin 100 unit/mL (3 mL) subcutaneous pen - Inject 50 unit(s) twice a day by subcutaneous route. Qty: (12) 3 mL syringe Refills: 3 Pharmacy: [id number] 2. Candidal balanitis - Uncontrolled. Refilled nystatin 100,000 units/gram of topical cream. Apply to the affected areas twice per day. He was advised to control his blood glucose. B37.42: Candidal balanitis * nystatin 100,000 unit/gram topical cream - APPLY TO THE AFFECTED AREA(S) BY TOPICAL ROUTE 2 TIMES PER DAY Qty: (1) 30 gram tube Refills: 3 Pharmacy: [id number] 3. Viral syndrome - Uncontrolled. Start cetirizine 10 mg tablet Take 1 tablet every day by oral route. Refilled Ventolin HFA 90 mcg/actuation aerosol inhaler Inhale 2 puffs every 4 hours by inhalation route. Refilled benzonatate 100 mg capsule Take 1 capsule 3 times a day by oral route, as needed. If he starts to have a high fever or shortness of breath, then he needs to follow up. B34.9: Viral infection, unspecified * Ventolin HFA 90 mcg/actuation aerosol inhaler - Inhale 2 puff(s) every 4 hours by inhalation route. Qty: (1) 200 inhalation canister (VENTOLIN HFA or equivalent) Refills: 0 Pharmacy: [id number] * benzonatate 100 mg capsule - Take 1 capsule(s) 3 times a day by oral route as needed. Qty: (30) capsule Refills: 0 Pharmacy: [id number] * cetirizine 10 mg tablet - Take 1 tablet(s) every day by oral route. Qty: (1) 14 tablet blister pack Refills: 0 Pharmacy: [id number] Discussion Notes ATTESTATION: This note has been generated using Carrillo Wright. Return to Office * to see Jomar Epps MD for Ex[facility]RONIC at [facility] on or around 08/17/2023 Encounter Sign-Off Encounter signed-off by ANNA Jc, 06/17/2023. documented in this encounter Plan of Treatment Not on file documented as of this encounter Visit Diagnoses Not on filedocumented in this encounter
--- OUTSIDE RECORDS SUMMARY | 2025-05-17 22:16 | XMS_ITS | Encounter Summary ---
Author Organization [facility] alth Address [address] [place] [address] Care Team Providers Care Heel Cementer Machine Name Role Phone Unavailable Primary Care Provider Unavailabl e Encounter Details Date Type Department Care Team ([facility] st Contact Info) Description 02/25/2023 Office Visit - Data Exchange [facility] Jomar Epps MD [address] [place] [address] Social History Tobacco Use Types Packs/Day Years Used Date Smoking Tobacco: Never Assessed Sex and Gender Information Value Date Recorded Sex Assigned at Not on file Legal Sex Male 10:16 AM EDT Gender Identity Not on file Sexual Orientation Not on file documented as of this encounter Progress Notes * Jomar Epps MD - 02/25/2023 5:22 PM EDT Patient Name : CLOVIS SHEN (43yo, M) ID# [id number] Appt. Date/Time : 02/25/2023 05:30PM : 1980 Service Dept. : Telehealth Provider : JOMAR EPPS MD Insurance Med Primary: [facility] PLAN (MEDICAID REPLACEMENT - HMO) Insurance # : [id number] Policy/Group # : [id number] Med Mental Health: [facility] Insurance # : [id number] Med Curry: SLIDING FEE SCHEDULE - DISCOUNT Prescription: EXPRESS SCRIPTS - Member is eligible. details Chief Complaint telehealth Followup: Type II diabetes mellitus uncontrolled Patient's Care Team Primary Care Provider: JOMAR EPPS MD: [address] [place] [address], , Patient's Pharmacies [facility]: [address], [place] [address], , [id number]): [address] [facility] [place], [place] [address], , [facility] ([facility]): [address] [place] [address], , [facility] ([facility]): [address] [place] [address], , Vitals 2023-02-25 17:30 Ht: 5 ft 8 in (172.72 cm) Allergies Allergies not reviewed (last reviewed 02/06/2023) PENICILLINS: Rash (Mild) Some allergies listed in Documents: #[id number], #[id number], #[id number], #[id number] could not be added to this patient's chart. Please review these documents and add these allergies to the patient's chart manually as needed. Medications Reviewed Medications Name: albuterol sulfate HFA 90 mcg/actuation aerosol inhaler Inhale 2 puff(s) every 4 hours by inhalation route. Date: 06/30/20 filled Source: demiriareli Name: atorvastatin 40 mg tablet TAKE 1 [...] tablet(s) twice a day as needed Date: 01/15/23 renewed Source: Jomar Epps MD Name: famotidine [...] a day bysubcutaneous route with meals. Date: 02/06/23 prescribed Source: ANNA Bennett Name: Isidro Matthewsar U-100 Insulin 100 unit/mL (3 mL) subcutaneous pen Inject 50 unit(s) twice a day by subcutaneous route. Date: 02/06/23 prescribed Source: ANNA Bennett Name: lidocaine 5 % topical patch Apply [...] three times daily Date: 11/03/22 filled Source: leo Name: QUEtiapine 50 mg tablet take one tablet by mouth daily Date: 01/15/23 renewed Source: Jomar Epps MD Name: repaglinide [...] pen injector Inject 1 pen weekly Date: 02/02/23 renewed Source: Jomar Epps MD Vaccines Vaccines not reviewed (last reviewed 02/06/2023) COVID-19 Vaccine Type: COVID-19, mRNA, LNP-S, PF, 100 mcg/0.5 mL dose (Moderna) Date: 12/07/20 Amt.: 0.5 mL Route: Intramuscular Site: Deltoid, Right NDC: [id number] Lot #: [id number] Mfr.: Moderna US, Inc. Exp. Date: 05/21/21 VIS: Moderna COVID-19 Vaccine EUA Fact Sheet 10/19/2020 VIS Given: 12/07/20 [employer]: Royer Matias CMA Vaccine Type: COVID-19, mRNA, LNP-S, PF, 100 mcg/0.5 mL dose (Moderna) Date: 11/02/20 Amt.: 0.5 mL Route: Intramuscular Site: Deltoid, Left NDC: Lot #: [id number] Mfr.: Moderna US, Inc. Exp. Date: 04/27/21 VIS: Moderna COVID-19 Vaccine EUA Fact Sheet 06/26/2020 VIS Given: 11/02/20 [employer]: Eduarda Matias MA Haemophilus Influenzae Type B Vaccine Type: Hib (PRP-T) Date: 05/14/20 Amt.: 0.5 mL Route: Site: NDC: Lot #: [id number] Mfr.: Sanofi Pasteur Exp. Date: VIS: VIS Given: [employer]: Vaccine Type: Hib Date: 05/14/20 Amt.: Route: Site: NDC: Lot #: [id number] Mfr.: Sanofi Pasteur Exp. Date: VIS: VIS Given: [employer]: Influenza Vaccine Type: influenza, seasonal, injectable, preservative free Date: 05/17/20 Amt.: 0.5 mL Route: Site: NDC: Lot #: [id number] Mfr.: Sanofi Pasteur Exp. Date: VIS: VIS Given: [employer]: Vaccine Type: influenza, injectable, quadrivalent Date: 08/03/19 Amt.: 0.5 mL Route: Intramuscular Site: Deltoid, Left NDC: Lot #: [id number] Mfr.: Sanofi Pasteur Exp. Date: 01/24/20 VIS: Inactivated Influenza 03/10/2019 VIS Given: 08/03/19 [employer]: Faith Mead Vaccine Type: influenza, injectable, quadrivalent, preservative free Date: 09/16/15 Amt.: 0.5 mL Route: Site: [facility]: Lot #: [id number] Mfr.: Exp. Date: VIS: VIS Given: [employer]: Meningococcal Vaccine Type: meningococcal MCV4P Date: 05/14/20 Amt.: 0.5 mL Route: Site: NDC: Lot #: [id number] Mfr.: Sanofi Pasteur Exp. Date: VIS: VIS Given: [employer]: Vaccine Type: meningococcal B, recombinant Date: 05/14/20 Amt.: 0.5 mL Route: Site: NDC: Lot #: [id number] Mfr.: [facility] Exp. Date: VIS: VIS Given: [employer]: Pneumococcal Vaccine Type: pneumococcal conjugate PCV 13 Date: 05/14/20 Amt.: 0.5 mL Route: Site: [facility]: Lot #: [id number] Mfr.: Wyeth Exp. Date: VIS: VIS Given: [employer]: Vaccine Type: pneumococcal polysaccharide PPV23 Date: 08/03/19 Amt.: 0.5 mL Route: Injection Site: Deltoid, Right NDC: Lot #: [id number] Mfr.: Merck and Co., Inc. Exp. Date: 12/13/20 VIS: PPSV23 05/25/2019 VIS Given: 08/03/19 [employer]: Faith Mead Problems Reviewed Problems * Candidal balanitis - Onset: 11/11/2022 * Diabetic peripheral neuropathy - Onset: 02/25/2023 * Alcohol abuse - Onset: 11/11/2022 * Smoker - Onset: 05/21/2021 * Insomnia - Onset: 11/15/2020 * Cellulitis of left foot - Onset: 02/06/2023 * Chronic hepatitis C - Onset: 07/16/2020 [...] History Social History not reviewed (last reviewed 02/06/2023) Substance Use Do you or have you [...] date of your most recent tobacco screening?: 02/06/2023 What is your level of alcohol consumption?: [...] or [place])?: Yes (Notes: Born in [place]) TB Screening Question 2: Have you traveled [...] total - 05/16/2020 noneSurgery to Left knee.[employer] Past Medical History Past Medical History not reviewed (last reviewed 06/05/2021) Asthma: Y Diabetes: Y Hypertension: Y Documents for Discussion Discussed the following documents: * SUBSTANCE ABUSE SCREENING* - 02/06/23 * PATIENT HEALTH QUESTIONNAIRE-9* - 02/06/23 * PATIENT HEALTH QUESTIONNAIRE-9* - 06/17/22 * SUBSTANCE ABUSE SCREENING* - 06/17/22 * PATIENT HEALTH QUESTIONNAIRE-9* - 06/04/21 * SUBSTANCE ABUSE SCREENING* - 06/04/21 * PATIENT HEALTH QUESTIONNAIRE-9* - 05/20/21 * SUBSTANCE ABUSE SCREENING* - 05/20/21 * PRESCRIPTION/DRUG REPORTING* - 02/25/23 Notes - PastRx Report: No Data found in state [place] for this Patient. * PRESCRIPTION/DRUG REPORTING* - 02/13/23 Notes - PastRx Report: No Data found in state [place] for this Patient. * PRESCRIPTION/DRUG REPORTING* - 02/06/23 Notes - PastRx Report: No Data found in state [place] for this Patient. Screening None recorded. HPI Verbal consent obtained to perform today?s visit via telehealth, including benefits (improved access to healthcare) and risks (phone/video connection not working, sound may not be clear, potential need to schedule in person visit, delay in medical evaluation and treatment, limitation of physical exam). Patient willing to proceed. Telehealth visited completed via telephone Patient identity confirmed by Patient location: home in [place] Provider location: home in [place] Persons Accompanying Patient: Start time: 547pm DM: A1C: Glucose: very high, went to ED recently for high blood sugar. sugars have been up to 400s. has beenavoiding soda. Meds: Diet: Symptoms: states went to ED also one time because his foot was getting darker in color. has increased thirst. foot has gotten better i ncolor. Comorbidities: HTN, Obesity ROS None recorded. Physical Exam None recorded. Assessment / Plan 1. Type II diabetes mellitus uncontrolled - A1c 13.6 As of October of 2022. He is taking lantus 40-45 of lantus 1-2x per day and 40 units of the aspart with meals. At this point will put in referral to endocrine. Cont trulicity 4.5, metformin, get labs done. Unclear what's going on with his feet, will f/u in 6 weeks. Likely has neuropathy. E11.65: Type 2 diabetes mellitus with hyperglycemia * ENDOCRINOLOGY REFERRAL - Schedule Within: provider's discretion * HEMOGLOBIN A1C * COMPREHENSIVE METABOLIC PANEL * LIPID PANEL * TSH * DEXCOM G7 SENSOR DEVICE - Use as directed. Qty: 10 Units Refills: 5 Supplier: [facility] [place] 2. Diabetic peripheral neuropathy E11.40: Type 2 diabetes mellitus with diabetic neuropathy, unspecified * gabapentin 300 mg capsule - Take 1 capsule(s) 3 times a day by oral route for 30 days. Qty: (90) capsule Refills: 0 Pharmacy: [facility] Discussion Notes End time: 557pm Return to Office * to see Jomar Epps MD at [facility] on or around 04/08/2023 Encounter Sign-Off Encounter signed-off by Jomar Epps MD, 02/25/2023. documented in this encounter Plan of Treatment Not on file documented as of this encounter Visit Diagnoses Not on filedocumented in this encounter
--- OUTSIDE RECORDS SUMMARY | 2025-05-17 22:16 | XMS_ITS | Encounter Summary ---
Author Organization [facility] Address [address] [place] [address] Care Team Providers Care Ethylene Plant Helper Name Role Phone Freddy Epps MD Primary Care Provider [phone] Encounter Details Date Type Department Care Team (Latest Contact Info) Description 05/24/2020 Lab Requisition [facility] Debbie Hernandez MD, MD [address] [phone] Type 2 diabetes mellitus with hyperglycemia Social History Tobacco Use Types Packs/Day Years Used Date Smoking Tobacco: Every Day Cigarettes 1 20 Smokeless Tobacco: Current Alcohol Use Standard Drinks/Week Comments Yes 0 (1 standard drink = 0.6 oz pur e alcohol) AUDIT-C Answer Date Recorded Q1: How often do you have a drink containing alc ohol? Not asked 04/10/2020 Q2: How many drinks containi ng alcohol do you have on a typical day when you are drinking? 1 or 2 04/10/2020 Q3: How often do you have si x or more drinks on one occasion? Less than monthly 04/10/2020 PHQ-2 Answer Date Recorded PHQ-2 Score 6 04/27/2020 Sex and Gender Information Value Date Recorded Sex Assigned at Not on file Legal Sex Male 6:06 PM EDT Gender Identity Not on file Sexual Orientation Not on file COVID-19 Exposure Response Date Recorded In the last month, have you been in contact with someone who was confirmed or suspected to have Coronavirus / COVID-19? No / Unsure 05/20/2020 6:10 PM EDT documented as of this encounter Plan of Treatment Not on file documented as of this encounter Procedures Procedure Name Priority Date/Time Associated Diagnosis Comments ALBUMIN / CREATININE URINE RATIO Routine 05/24/2020 12:34 PM EDT Type 2 diabetes mellitus with hyperglycemia ([facility]/HCC) HEMOGLOBIN A1C Routine 05/24/2020 12:34 PM EDT Type 2 diabetes mellitus with hyperglycemia ([facility]) LIPID PANEL Routine 05/24/2020 12:34 PM EDT Type 2 diabetes mellitus with hyperglycemia ([facility]) COMPREHENSIVE METABOLIC PANEL Routine 05/24/2020 12:34 PM EDT Type 2 diabetes mellitus with hyperglycemia ([facility]) documented in this encounter Results * (ABNORMAL) Comprehensive metabolic panel - (05/24/2020 12:34 PM EDT) Glucose 425(H) 70 - 99 mg/dL 05/24/2020 2:02 PM [facility] Sodium 130(L) 135 - 145 mmol/L 05/24/2020 2:02 PM [facility] Potassium 4.8 3.5 - 5.3 mmol/L 05/24/2020 2:02 PM [facility] Chloride 94(L) 98 - 107 mmol/L 05/24/2020 2:02 PM [facility] CO2 29 21 - 31 mmol/L 05/24/2020 2:02 PM [facility] Anion Gap 7 3 - 11 mmol/L 05/24/2020 2:02 PM [facility] BUN 12 7 - 25 mg/dL 05/24/2020 2:02 PM [facility] Creatinine 0.69(L) 0.70 - 1.30 mg/dL 05/24/2020 2:02 PM [facility] Calcium 9.4 8.6 - 10.3 mg/dL 05/24/2020 2:02 PM [facility] Total Protein 7.1 6.4 - 8.9 gm/dL 05/24/2020 2:02 PM [facility] Albumin 3.9 3.5 - 5.7 gm/dL 05/24/2020 2:02 PM [facility] Alkaline Phosphatase 101 34 - 104 IU/L 05/24/2020 2:02 PM EDT [facility] AST 27 13 - 39 IU/L 05/24/2020 2:02 PM [facility] ALT (SGPT) 36 7 - 52 IU/L 05/24/2020 2:02 PM T [facility] Total Bilirubin 0.5 0.3 - 1.0 mg/dL 05/24/2020 2:02 PM T [facility] eGFR >90.0 >90.0 mL/min/1. 73m*2 05/24/2020 2:02 PM T [facility] Comment: The estimated Glomerular Filtration Rate (eGFR) is calculated by the Chronic Kidney Disease Epidemiology Collaboration (CKD-EPI) equation. In the following clinical settings the Estimated Glomerular Filtration Rate (eGFR) calculation may be inaccurate and creatinine clearance may be appropriate: extremes of age (<18 or >80 yrs) or body size, severe malnutrition or obesity, diseases of skeletal muscle, paraplegia or quadriplegia, strict vegetarian diet, rapidly changing kidney function, or prior to dosing drugs with significant toxicity that are excreted by the kidney. Staging of Chronic Kidney disease; > 90 (normal), stage 1; 89 - 60 (mild loss), stage 2; 59 - 45 (mild to moderate), stage 3a; 44 - 30 (moderate to severe), stage 3b; 29 -15 (severe), stage 4; <15 (kidney failure), stage 5. Kiera Shaw., Roxana S, Terrie T., et al., Comparison of CKD Epidemiology Collaboration (CKD-EPI) and Modification of Diet in Renal Disease (MDRD) Study Equations: Risk Factors for and Complications of CKD and Mortality in the Kidney Early Evaluation Program (KEEP). Am J Kidney Dis (2011);57(0Rwhrw4):S9-16. https://www.kidney.org/atoz/content/gfr Updated: January 09, 2020. Blood Venous blood specimen / Unknown 05/24/2020 12:34 PM EDT 05/24/2020 12:34 PM EDT us Debbie Hernandez MD LAB BLOOD ORDERABLES Final Resul t [facility] [address] [place] [address] * (ABNORMAL) Albumin / creatinine urine ratio - Urine, Clean Catch (05/24/2020 12:34 PM EDT) Creatinine, Urine 67.4 mg/dL 05/24/2020 2:37 PM EDT [facility] Albumin, Urine 10.4 mg/dL 05/24/2020 2:37 PM EDT [facility] Alb/Creat Ratio 154(H) <=30 mcg/mg 05/24/2020 2:37 PM EDT [facility] Comment: Albuminuria categories in CKD Category ACR (mcg/mg) Terms A1 <30 mcg/mg Normal to mildly increased A2 30-299 mcg/mg Moderately increased* A3 >300 mcg/mg Severly increased *Relative to young adult level. Including nephrotic syndrome (albumin excretion ACR >2200 mcg/mg). Urine Urine specimen obtained by clean catch procedure / Unknown 05/24/2020 12:34 PM EDT 05/24/2020 12:34 PM EDT us Debbie Hernandez MD LAB URINE ORDERABLES Final Resul t [facility] [address] [place] [address] * (ABNORMAL) Lipid panel - (05/24/2020 12:34 PM EDT) Triglycerides 185(H) 0 - 150 mg/dL 05/24/2020 2:02 PM EDT [facility] Comment: With NCEP guidelines Borderline High 150-199 mg/dL High 200-499 mg/dL Very High >500 mg/dL Total Cholesterol 139 0 - 200 mg/dL 05/24/2020 2:02 PM EDT [facility] Comment: NCEP Guidelines: Desirable <200 mg/dL Borderline High 200-239 mg/dL High >240 mg/dL HDL-C 38 mg/dL 05/24/2020 2:02 PM T [facility] Comment: High risk <40 mg/dL Low risk >60 mg/dL calculated LDL-C 64 mg/dL 05/24/20 20 2:02 PM EDT [facility] Comment: NCEP guidelines: Optimal <100 mg/dL Near/Above Optimal 100-129 mg/dL Borderline High 130-159 mg/dL High 160-189 mg/dL Very High >190 mg/dL Blood Venous blood specimen / Unknown 05/24/2020 12:34 PM EDT 05/24/2020 12:34 PM EDT Debbie Hernandez MD LAB BLOOD ORDERABLES Final Resul t [facility] [address] [place] [id number] * (ABNORMAL) Hemoglobin A1c - (05/24/2020 12:34 PM EDT) Hemoglobin A1C 11.4(H) <5.7 % 05/24/2020 2:42 PM EDT [facility] Comment: Normal <5.7% Abnormal, High 5.7 - 6.4% Abnormal, Diagnostic for Diabetes >6.5% Diabetes Care, 33(Suppl):S1-S61, 2010. This borate affinity HbA1c method provides accurate analytical results in the presence of nearly all hemoglobin variants. HbF higher than 20% of the total Hb may yield falsely low results. Conditions that shorten red cell survival, such as presence of unstable hemoglobins like Hb SS, Hb CC and Hb SC or other causes of hemolytic anemia may yield falsely low results. Iron deficiency anemia may yield falsely high results. Performed at [facility], [address] [place] [id number] Estimated average glucose 280 mg/dL 05/24/2020 2:42 PM EDT [facility] Comment:The estimated averag e glucose (eAG) is derived from the equation [AG (mg/dL)= 28.7 x %HbA1c - 46.7] and provided as recommended by the [place] [employer]. Calculated eAG values less than 97 mg/dL or greater than 298 mg/dL may be unreliable and should be interpreted with caution. Estimated average glucose is educational and should not be used for clinical management of diabetic patients. Diabetes Care, 31(8):9641-3233. Blood Venous blood specimen / Unknown 05/24/2020 12:34 PM EDT 05/24/2020 12:34 PM EDT us Debbie Hernandez MD LAB BLOOD ORDERABLES Final Resul t [facility] [address] [facility] [place] [address] documented in this encounter Visit Diagnoses Diagnosis Type 2 diabetes mellitus with hyperglycemia ([facility]) documented in this encounter Additional Health Concerns Infection Onset Date Last Indicated Resolved Time Rule out SARS-CoV-2 (related to COVID-19) 07/29/2021 07/29/2021 08/01/2021 6:[address] SARS-CoV-2 (related to COVID-19) 07/29/2021 07/29/1908/12/2021 8:03 PM EST Rule out COVID-19/Influenza/RSV 11/16/2024 11/16/2024 10:54 PM EDT documented as of this encounter Care Teams Ethylene Plant Helper Relationship Specialty Start Date End Date Freddy Epps MD [address] [facility] [place] [phone] PCP - General Family Medicine 05/29/20 documented as of this encounter
--- OUTSIDE RECORDS SUMMARY | 2025-05-17 22:16 | XMS_ITS | Encounter Summary ---
Author Organization [facility] alth Address [address] [place] [address] Care Team Providers Care Water Regulator And Valve Repairer Name Role Phone Unavailable Primary Care Provider Unavailabl e Encounter Details Date Type Department Care Team ([facility] st Contact Info) Description 06/26/2023 Office Visit - Data Exchange [facility] Gildardo Norris CRNP [address], [place] [id number] Social History Tobacco Use Types Packs/Day Years Used Date Smoking Tobacco: Never Assessed Sex and Gender Information Value Date Recorded Sex Assigned at Not on file Legal Sex Male 10:16 AM EDT Gender Identity Not on file Sexual Orientation Not on file documented as of this encounter Progress Notes * Gildardo Norris CRNP - 06/26/2023 11:29 AM EST Patient Name : CLOVIS SHEN (43yo, M) ID# [id number] Appt. Date/Time : 06/26/2023 11:30AM : 1980 Service Dept. : [facility] Provider : ANNA ALLEN Insurance Med Primary: [facility] (MEDICAID REPLACEMENT - HMO) Insurance # : [id number] Policy/Group # : [id number] Med Mental Health: [facility] Insurance # : [id number] Med Curry: SLIDING FEE SCHEDULE - DISCOUNT Prescription: [employer] - Member is eligible. details Chief Complaint SBIRT - Adult Patient presents today with concerns of cramping in legs and feet, states it is happening all day every day. 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 ear (36.28 C) 06/26/2023 11:41 am Allergies Reviewed Allergies PENICILLINS: Rash (Mild) Medications Reviewed Medications Name: atorvastatin 40 mg tablet TAKE 1 TABLET BY MOUTH EVERY DAY Date: 06/26/23 prescribed Source: ANNA Allen Name: BD Ultra-Fine Short Pen Needle 31 gauge x 5/16 USE WITH INSULIN 4 TIMES DAILY Date: 04/24/20 filled Source: [facility] Name: citalopram 20 mg tablet TAKE ONE TABLET EVERY DAY Date: 06/23/23 renewed Source: Jomar Epps MD Name: diclofenac sodium 75 mg tablet,delayed release Take 1 tablet(s) twice a day as needed Date: 06/15/23 renewed Source: Jomar Epps MD Name: gabapentin 300 mg capsule Take 1 capsule(s) 3 times a day by oral route for 30 days. Date: 06/26/23 prescribed Source: ANNA Allen Name: insulin aspart (U-100) 100 unit/mL (3 mL) subcutaneous pen Inject 22 unit(s) 3 times a day bysubcutaneous route with meals. Date: 06/26/23 prescribed Source: ANNA Allen Name: Lantus Solostar U-100 Insulin 100 unit/mL (3 mL) subcutaneous pen Inject 50 unit(s) twice a day by subcutaneous route. Date: 06/16/23 prescribed Source: Carissa Jhon, NEURO INTENSIVIST PHYSICIAN Name: lisinopriL 5 mg tablet take 1 PO daily Date: 06/26/23 prescribed Source: ANNA Allen Name: metFORMIN ER 500 mg tablet,extended release 24 hr TAKE 2 TABLETS BY MOUTH TWICE A DAY Date: 06/26/23 prescribed Source: ANNA Allen Name: nystatin 100,000 unit/gram topical cream APPLY [...] 1 PO once daily with lunch Date: 06/26/23 prescribed Source: ANNA Allen Name: tamsulosin 0.4 mg capsule Take 1 capsule(s) every day by oral route for 30 days. Date: 05/11/23 renewed Source: Jomar Epps MD Name: tiZANidine 2 mg tablet Take 1 tablet(s) twice a day by oral route as needed for 30 days. Date: 06/26/23 prescribed Source: ANNA Allen Name: Trulicity 4.5 mg/0.5 mL subcutaneous pen injector Inject 1 pen weekly Date: 06/16/23 prescribed Source: ANNA Jc Name: Ventolin HFA 90 mcg/actuation aerosol inhaler Inhale 2 puff(s) every 4 hours by inhalation route. Date: 06/16/23 prescribed Source: ANNA Jc Vaccines Reviewed Vaccines COVID-19 Vaccine Type: COVID-19, mRNA, LNP-S, PF, 100 mcg/0.5 mL dose (Moderna) Date: 12/07/20 Amt.: 0.5 mL Route: Intramuscular Site: Deltoid, Right [facility]: [id number] Lot #: [id number] Mfr.: Moderna US, Inc. Exp. Date: 05/21/21 VIS: Moderna COVID-19 Vaccine EUA Fact Sheet 10/19/2020 VIS Given: 12/07/20 Volcanology Teacher: Royer Matias CMA Vaccine Type: COVID-19, mRNA, LNP-S, PF, 100 mcg/0.5 mL dose (Moderna) Date: 11/02/20 Amt.: 0.5 mL Route: Intramuscular Site: Deltoid, Left NDC: Lot #: [id number] Mfr.: Moderna US, Inc. Exp. Date: 04/27/21 VIS: Moderna COVID-19 Vaccine EUA Fact Sheet 06/26/2020 VIS Given: 11/02/20 Volcanology Teacher: Eduarda Matias MA Diphtheria, Tetanus, Pertussis Vaccine Type: Tdap Date: 03/03/23 Amt.: 0.5 mL Route: Intramuscular Site: Deltoid, Left NDC: [id number] Lot #: [id number] Mfr.: Sanofi Pasteur Exp. Date: 12/30/24 VIS: Tdap 03/01/2021 [facility] VIS Given: 03/03/23 Volcanology Teacher: Vito Grigsby MA Haemophilus Influenzae Type B Vaccine Type: Hib (PRP-T) Date: 05/14/20 Amt.: 0.5 mL Route: Site: [place]: Lot #: [id number] Mfr.: Sanofi Pasteur Exp. Date: VIS: VIS Given: Volcanology Teacher: Vaccine Type: Hib Date: 05/14/20 Amt.: Route: Site: NDC: Lot #: [id number] Mfr.: Sanofi Pasteur Exp. Date: VIS: VIS Given: Volcanology Teacher: Influenza Vaccine Type: influenza, seasonal, injectable, preservative free Date: 05/17/20 Amt.: 0.5 mL Route: Site: NDC: Lot #: [id number] Mfr.: Sanofi Pasteur Exp. Date: VIS: VIS Given: Volcanology Teacher: Vaccine Type: influenza, injectable, quadrivalent Date: 08/03/19 Amt.: 0.5 mL Route: Intramuscular Site: Deltoid, Left NDC: Lot #: [id number] Mfr.: Sanofi Pasteur Exp. Date: 01/24/20 VIS: Inactivated Influenza 03/10/2019 VIS Given: 08/03/19 Volcanology Teacher: Faith Mead Vaccine Type: influenza, injectable, quadrivalent, preservative free Date: 09/16/15 Amt.: 0.5 mL Route: Site: [facility]: Lot #: [id number] Mfr.: Exp. Date: VIS: VIS Given: Volcanology Teacher: Meningococcal Vaccine Type: meningococcal MCV4P Date: 05/14/20 Amt.: 0.5 mL Route: Site: [facility]: Lot #: [id number] Mfr.: Sanofi Pasteur Exp. Date: VIS: VIS Given: Volcanology Teacher: Vaccine Type: meningococcal B, recombinant Date: 05/14/20 Amt.: 0.5 mL Route: Site: [facility]: Lot #: [id number] Mfr.: [employer] Exp. Date: VIS: VIS Given: Volcanology Teacher: Pneumococcal Vaccine Type: pneumococcal conjugate PCV 13 Date: 05/14/20 Amt.: 0.5 mL Route: Site: [facility]: Lot #: [id number] Mfr.: [employer] Exp. Date: VIS: VIS Given: Volcanology Teacher: Vaccine Type: pneumococcal polysaccharide PPV23 Date: 08/03/19 Amt.: 0.5 mL Route: Injection Site: Deltoid, Right NDC: Lot #: [id number] Mfr.: Merck and Co., Inc. Exp. Date: 12/13/20 VIS: PPSV23 05/25/2019 VIS Given: 08/03/19 Volcanology Teacher: Faith Mead Problems Reviewed Problems * Chronic [...] right foot - Onset: 03/04/2023 Family History Discussed Family History Mother - Diabetes mellitus - Hypertensive disorder Father - Diabetes mellitus Sister - Diabetes mellitus KR 04/30/21 Social History Discussed Social History Substance Use Do you or have you [...] date of your most recent tobacco screening?: 06/26/2023 What is your level of alcohol consumption?: [...] or [place])?: Yes (Notes: Born in [place]) TB Screening Question 2: Have you traveled [...] History Dental: Date of dental screening questions: 06/26/2023 (Notes: per patient has been two years) Dental: Dental visit within the past 12 months?: No Dental: Where was your last dental visit?: [facility] Dental: Was the visit an [facility] dental provider?: Yes Dental: Action taken: [facility] information provided Other Education: 12 Marital status: Single General stress level: High Gender Identity and LGBTQ Identity Gender identity: Identifies as Male Assigned sex at : Male Pronouns: he/him Sexual orientation: Straight or heterosexual Surgical History Reviewed Surgical History * Removal of spleen total - 05/16/2020 noneSurgery to Left 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 Diabetes: - Currently Prescribed: Trulicity once a week, Lantus 40 units in the morning, 40 units in the afternoon, and 40 units in the evening, metformin 1g bid, repaglinide once a day and Aspart insulin 22u three times daily - Currently Taking: Trulicity once a week, Lantus 40 units TID, aspart 50 units BID - Not taking metformin as he ran out of refills. - Not taking repaglinide as he ran out of refills - Last A1c was done in 10/2022 and was 13.6. - States he sometimes forgets to eat and sometimes eats too much. 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 Referral was placed in 02/2023. - Reported fluctuating blood glucose levels with several lows causing symptoms - Denies headaches or dizziness. - Reports blurry vision. - Will schedule appointment with channel marketing program manager. - Drinks a lot of water. Peripheral neuropathy: - Currently taking: Diclofenac for pain. - Complains of cramping in his legs and feet all day everyday. - Had been on gabapentin for his leg pain but has not had it because the pharmacy was switched. GERD: - Currently taking: n/a - Not taking famotidine anymore as his symptoms had resolved. Hypertension: - Currently taking: Not taking lisinopril. Urinary symptoms and prostate: - Currently taking: Tamsulosin. - improvement in symptoms Hyperlipidemia: - Currently taking: atorvastatin 40mg - last lipid panel 12/19/22 - LDL 156, TC 245, HDL 70 ROS ROS as noted in the HPI Physical Exam Constitutional: General Appearance: healthy-appearing, well-nourished, and well- developed. Level ofDistress: NAD. Ambulation: ambulating without assistance. Psychiatric: Insight: good judgement. Mental Status: active and alert, normal attentiveness, and depressed. Thought Process: ordered. Speech normal speech and comprehension. Eyes: Lids and Conjunctivae: non-injected and no discharge. Sclerae: non-icteric. Lungs: Respiratory effort: no dyspnea. Auscultation: no wheezing, rales/crackles, or rhonchi and breath sounds normal and good air movement. Cardiovascular: Heart Auscultation: normal S1 and S2; no murmurs, rubs, or gallops; and RRR. Musculoskeletal:: Extremities: no edema. Assessment / Plan 1. Type II diabetes mellitus uncontrolled - - Uncontrolled. - Medication Changes: We will restart him on all of his medications - Current Medications: Lantus 40 units 3 times a day, Aspart 22 units 3 times daily, Trulicity oncea week, metformin and repaglinide. Refills provided. - Recent Labs discussed: A1c today is greater than 15. Glucometer is reading H/H. Urine shows a trace amount of ketones. - Refilled lisinopril and atorvastatin. - Informed that ketonuria could be from dehydration or from his high blood glucose levels. - Advised he needs to drink plenty of fluids - If his symptoms worsen he will need IV fluids in the hospital. - Dexcom applied to left posterior upper arm today. - He will follow up on 07/02/[address] Hernandez at 2:30 p.m. E11.65: Type 2 diabetes mellitus with hyperglycemia * DIABETES TIPO 2: IN[employer]CCIONES DE CUID[employer] - [TYPE 2 DIABETES: CARE INSTRUCTIONS] * metformin ER 500 mg tablet,extended release 24 hr - TAKE 2 TABLETS BY MOUTH TWICE A DAY Qty: (180) tablet Refills: 3 Pharmacy: [id number] * repaglinide 2 mg tablet - take 1 PO once daily with lunch Qty: (90) tablet Refills: 3 Pharmacy: [id number] * GLUCOSE, FINGERSTICK, BLOOD - Specimen source: Blood capillary Fasting: N * atorvastatin 40 mg tablet - TAKE 1 TABLET BY MOUTH EVERY DAY Qty: (90) tablet Refills: 3 Pharmacy: [id number] * HEMOGLOBIN A1C, FINGERSTICK - Specimen source: Blood capillary * lisinopril 5 mg tablet - take 1 PO daily Qty: (90) tablet Refills: 3 Pharmacy: [id number] * insulin aspart (U-100) 100 unit/mL (3 mL) subcutaneous pen - Inject 22 unit(s) 3 times a day by subcutaneous route with meals. Qty: (10) 3 mL syringe Refills: 3Pharmacy: [id number] * URINALYSIS, DIPSTICK 2. Diabetic peripheral neuropathy - - Uncontrolled. - Medication Changes: n/a - Current Medications: Continue gabapentin. Refill provided. - Recent Labs discussed: n/a - Informed cramping in legs is due to uncontrolled blood glucose levels. E11.40: Type 2 diabetes mellitus with diabetic neuropathy, unspecified * gabapentin 300 mg capsule - Take 1 capsule(s) 3 times a day by oral route for 30 days. Qty: (90) capsule Refills: 0 Pharmacy: [id number] 3. Chronic back pain - - Uncontrolled. - Medication Changes: We will restart his medication. Refilled tizanidine. - Current Medications: n/a. - Recent Labs discussed: n/a - Informed back pain unrelated to ketonuria. G89.29: Other chronic pain * tizanidine 2 mg tablet - Take 1 tablet(s) twice a day by oral route as needed for 30 days. Qty: (60) tablet Refills: 3 Pharmacy: [facility] #[id number] 4. Depression screening Z13.31: Encounter for screening for depression * PATIENT HEALTH QUESTIONNAIRE-9* 5. Screening procedure - negative Z13.39: Encounter for screening examination for other mental health and behavioral disorders * SUBSTANCE ABUSE SCREENING* GLUCOSE, FINGERSTICK, BLOOD * Fasting: N * Result: - Blood Glucose: mg/dl: [facility] HEMOGLOBIN A1C, FINGERSTICK * Result: - HEMOGLOBIN A1C: >15.0 URINALYSIS, DIPSTICK * Results: - Leukocytes: Negative - Nitrite: negative - Urobilinogen: .2 - Protein: Negative - pH: 7.0 - Blood: Non-Hemolyzed: Moderate - Specific [place]: 1.010 - Ketone: Trace - Bilirubin: Negative - Glucose: 2000+ - Appearance: Clear - Color: Yellow Discussion Notes ATTESTATION: This note has been generated using [email or web address]. Elvira Car. Return to Office * Debbie Hernandez MD for [id number] at [facility] on 07/02/2023 at 02:30 PM * Jomar Epps MD for [id number] at [facility] on 08/20/2023 at 01:00 PM Encounter Sign-Off Encounter signed-off by ANNA Allen, 06/29/2023. documented in this encounter Plan of Treatment Not on file documented as of this encounter Visit Diagnoses Not on filedocumented in this encounter
--- OUTSIDE RECORDS SUMMARY | 2025-05-17 22:16 | XMS_ITS | Encounter Summary ---
Author Organization [facility] alth Address [address] [place] [address] Care Team Providers Care Veterans Service Representative Name Role Phone Unavailable Primary Care Provider Unavailabl e Encounter Details Date Type Department Care Team ([facility] st Contact Info) Description 11/11/2022 Office Visit - Data Exchange [facility] Jomar Epps MD [address], [place] [id number] Social History Tobacco Use Types Packs/Day Years Used Date Smoking Tobacco: Never Assessed Sex and Gender Information Value Date Recorded Sex Assigned at Not on file Legal Sex Male 10:16 AM EDT Gender Identity Not on file Sexual Orientation Not on file documented as of this encounter Progress Notes * Jomar Epps MD - 11/11/2022 9:07 AM EDT Patient Name : CLOVIS SHEN (42yo, M) ID# [id number] Appt. Date/Time : 11/11/2022 09:00AM : 1980 Service Dept. : [facility] Provider : JOMAR EPPS MD Insurance Med Primary: [facility] (MEDICAID REPLACEMENT - HMO) Insurance # : [id number] Policy/Group # : [id number] Med Mental Health: [facility] Insurance # : [id number] Med Curry: SLIDING FEE SCHEDULE - DISCOUNT Prescription: [employer] - Member is eligible. details Chief Complaint Followup: Type II diabetes mellitus uncontrolled Followup: Hypertensive disorder PAtient presents today for a f/u DM [facility] [employer] Patient's Care Team Primary Care Provider: JOMAR EPPS MD: [address] [facility] [place] [address], , Patient's Pharmacies [facility] ([place]): [address], [place] [address], , [id number] ([place]): [address], [place] [address], , [facility] ([place]): [address] [place] [address], , [facility] ([place]): [address] [place] [address], , Vitals Ht: 5 ft 8 in (172.72 cm) 11/11/2022 09:12 am Wt: 143 lbs 8 oz With clothes (65.09 kg) 11/11/2022 09:12 am BMI: 21.8 11/11/2022 09:12 am BP: 144/88 sitting R arm 11/11/2022 09:12 am 146/94 sitting R arm 11/11/2022 09:15 am Pulse: 76 bpm regular 11/11/2022 09:13 am O2Sat: Room Air at Rest 11/11/2022 09:13 am RR: 16 11/11/2022 09:13 am T: 97.7 F? temporal artery (36.5 C) 11/11/2022 09:13 am Allergies Reviewed Allergies PENICILLINS: Rash (Mild) Some allergies listed in Documents: #[id number], #[id number], #[id number], #[id number] could not be added to this patient's [...] MOUTH EVERY DAY Date: 09/05/22 filled Source: leo Name: diclofenac sodium 75 mg tablet,delayed release Take 1 tablet(s) twice a day by oral route for30 days. Date: 10/22/22 filled Source: demiripts Name: famotidine 40 mg tablet Take 1 tablet(s) by oral route. Date: 08/23/22 filled Source: demiriareli Name: insulin aspart (U-100) 100 unit/mL (3 mL) subcutaneous pen Inject 20 unit(s) 3 times a day bysubcutaneous route with meals. Date: 11/11/22 prescribed Source: Jomar Epps MD Name: Lanbarrettus Magaliostar U-100 Insulin 100 unit/mL (3 mL) subcutaneous pen Inject 45 unit(s) twice a day by subcutaneous route. Date: 11/11/22 prescribed Source: Jomar Epps MD Name: lidocaine 5 % topical patch Apply 1 patch(es) every day by topical route as needed. Date: 10/15/22 filled Source: demiriareli Name: lisinopriL 5 mg tablet take 1 PO daily Date: 09/01/22 filled Source: demiriareli Name: metFORMIN ER 500 mg tablet,extended release 24 hr TAKE 2 TABLETS BY MOUTH TWICE A DAY Date: 10/27/22 filled Source: demiriareli Name: nystatin 100,000 unit/gram topical cream APPLY TO THE AFFECTED AREA(S) BY TOPICAL ROUTE 2 TIMES PER DAY Date: 11/11/22 prescribed Source: Jomar Epps MD Name: OneTouch Delica Plus Lancet 33 gauge Use to test blood sugar three times daily Date: 10/21/22 filled Source: demiripts Name: OneTouch Ultra Test strips use to check blood sugar three times daily Date: 11/03/22 filled Source: demiriareli Name: QUEtiapine 50 mg tablet TAKE 1 TABLET BY MOUTH ONCE A DAY Date: 10/22/22 filled Source: demiripts Name: repaglinide 2 mg tablet TAKE 1 TABLET BY MOUTH ONCE A DAY with LUNCH Date: 10/27/22 filled Source: demiriareli Name: tamsulosin 0.4 mg capsule Take 1 capsule(s) every day by oral route for 30 days. Date: 10/13/22 filled Source: leo Name: tiZANidine 2 mg tablet Take 1 tablet(s) twice a day by oral route as needed for 30 days. Date: 10/13/22 filled Source: missysergio Name: Trulicity 4.5 mg/0.5 mL subcutaneous pen injector Inject 1 pen weekly Date: 11/11/22 prescribed Source: Jomar Epps MD Vaccines Reviewed Vaccines Vaccine Type: COVID-19, mRNA, LNP-S, PF, 100 mcg/0.5 mL dose (Moderna) Date: 12/07/20 Amt.: 0.5 mL Route: Intramuscular Site: Deltoid, Right NDC: [id number] Lot #: [id number] Mfr.: Moderna US, Inc. Exp. Date: 05/21/21 VIS: Moderna COVID-19 Vaccine EUA Fact Sheet 10/19/2020 VIS Given: 12/07/20 Jet Handler: Royer Matias CMA Vaccine Type: COVID-19, mRNA, LNP-S, PF, 100 mcg/0.5 mL dose (Moderna) Date: 11/02/20 Amt.: 0.5 mL Route: Intramuscular Site: Deltoid, Left NDC: Lot #: [id number] Mfr.: Moderna US, Inc. Exp. Date: 04/27/21 VIS: Moderna COVID-19 Vaccine EUA Fact Sheet 06/26/2020 VIS Given: 11/02/20 Jet Handler: Eduarda Matias MA Vaccine Type: Hib (PRP-T) Date: 05/14/20 Amt.: 0.5 mL Route: Site: NDC: Lot #: [id number] Mfr.: Sanofi Pasteur Exp. Date: VIS: VIS Given: Jet Handler: Vaccine Type: Hib Date: 05/14/20 Amt.: Route: Site: NDC: Lot #: [id number] Mfr.: Sanofi Pasteur Exp. Date: VIS: VIS Given: Jet Handler: Vaccine Type: influenza, seasonal, injectable, preservative free Date: 05/17/20 Amt.: 0.5 mL Route: Site: NDC: Lot #: [id number] Mfr.: Sanofi Pasteur Exp. Date: VIS: VIS Given: Jet Handler: Vaccine Type: influenza, injectable, quadrivalent Date: 08/03/19 Amt.: 0.5 mL Route: Intramuscular Site: Deltoid, Left NDC: Lot #: [id number] Mfr.: Wikirin Pasteur Exp. Date: 01/24/20 VIS: Inactivated Influenza 03/10/2019 VIS Given: 08/03/19 Jet Handler: Faith Leivarosalia Vaccine Type: influenza, injectable, quadrivalent, preservative free Date: 09/16/15 Amt.: 0.5 mL Route: Site: [facility]: Lot #: [id number] Mfr.: Exp. Date: VIS: VIS Given: Jet Handler: Vaccine Type: meningococcal MCV4P Date: 05/14/20 Amt.: 0.5 mL Route: Site: [facility]: Lot #: [id number] Mfr.: Wikirin Pasteur Exp. Date: VIS: VIS Given: Jet Handler: Vaccine Type: meningococcal B, recombinant Date: 05/14/20 Amt.: 0.5 mL Route: Site: [facility]: Lot #: [id number] Mfr.: THERAVECTYS Exp. Date: VIS: VIS Given: Jet Handler: Vaccine Type: pneumococcal conjugate PCV 13 Date: 05/14/20 Amt.: 0.5 mL Route: Site: [facility]: Lot #: [id number] Mfr.: Wyeth Exp. Date: VIS: VIS Given: Jet Handler: Vaccine Type: pneumococcal polysaccharide PPV23 Date: 08/03/19 Amt.: 0.5 mL Route: Injection Site: Deltoid, Right NDC: Lot #: [id number] Mfr.: Merck and Co., Inc. Exp. Date: 12/13/20 VIS: PPSV23 05/25/2019 VIS Given: 08/03/19 Jet Handler: Faith Mead Problems Reviewed Problems * Candidal [...] - Diabetes mellitus KR 04/30/21 Social History Reviewed Social History Substance Use Do you or [...] or [place])?: Yes (Notes: Born in [place]) TB Screening Question 2: Have you traveled [...] Dental: Where was your last dental visit?: [facility] Dental: Was the visit an [facility] dental provider?: Yes Dental: Action taken: [facility] information provided Other Education: 12 Marital status: Single General stress level: High Gender Identity and LGBTQ Identity Gender identity: Identifies as Male Assigned sex at : Male Pronouns: he/him Sexual orientation: Straight or heterosexual Surgical History Surgical History not reviewed (last reviewed 06/05/2021) * 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 He has been taking trulicity which he had leftover from previously. He has lost 10 lbs since last visit in May of 2022. Does c/o increased urination. Is using 60 units of lantus in the morning and 50 units of aspart with his one meal per day which is rice/beans etc... Isno longer working because of frequently going to pee. pt admits to drinking heineken daily. had his license suspended recently. has anger issues, [place] sensitive, fighting daily with his loved ones. would drink alcohol at work. smokes 2 packs per day ROS None recorded. Physical Exam Constitutional: General Appearance: healthy-appearing, well-nourished, and well- developed. Level ofDistress: NAD. Ambulation: ambulating without assistance. Psychiatric: Insight: good judgement. Mental Status: normal mood, affect, and attentiveness and active and alert. Speech normal speech and comprehension. Head: Head: normocephalic. Eyes: Sclerae: non-icteric. Lymph Nodes: Assessment no cervical LAD (anterior). Neck: Thyroid: no enlargement or nodules and non-tender. Lungs: Respiratory effort: no dyspnea. Auscultation: no wheezing, rales/crackles, or rhonchi and breath sounds normal and good air movement. Cardiovascular: Heart Auscultation: no gallops and tachycardia; PMI just lateral to the xyphoid process with pulsation visible through skin and below ribs on the L. Male : Penis: uncircumcised; erythema with fissures throughout internal aspect of foreskin, pt unable to fully retract due to pain, scant white discharge. Musculoskeletal:: Extremities: no edema (in BLE). Assessment / Plan 1. Type II diabetes mellitus uncontrolled - A1c 13.6 today, up from 10.1 5 months ago. Will increase his trulicity to 4.5mg. Will have him change his lantus to 45 units twice daily and we discussed leaving the needle in his skin for at least 10 seconds. Will lower his premeal insulin to 20 units as he was using 50 units and this is very risky/dangerous. Continue metformin ER 1000mg BID. He is also on repaglinide 2mg. We discussed cutting ba ck on soda and alcohol. E11.65: Type 2 diabetes mellitus with hyperglycemia * HEMOGLOBIN A1C, FINGERSTICK - Specimen source: Blood capillary * Trulicity 4.5 mg/0.5 mL subcutaneous pen injector - Inject 1 pen weekly Qty: (4) 0.5 mL syringe Refills: 3 Pharmacy: [facility] * Lantus Solostar U-100 Insulin 100 unit/mL (3 mL) subcutaneous pen - Inject 45 unit(s) twice a day by subcutaneous route. Qty: (12) 3 mL syringe Refills: 3 Pharmacy: [facility] * insulin aspart (U-100) 100 unit/mL (3 mL) subcutaneous pen - Inject 20 unit(s) 3 times a day by subcutaneous route with meals. Qty: (10) 3 mL syringe Refills: 3Pharmacy: [facility] * DEXCOM G7 EXERCISER - Use as directed. Qty: 1 Unit Refills: 0 Supplier: [facility] * DEXCOM G7 SENSOR DEVICE - Use as directed. Qty: 1 Unit Refills: 0 Supplier: [facility] * CBC AND DIFFERENTIAL * LIPID PANEL * THYROID STIMULATING HORMONE PROGRESSIVE 2. Chronic hepatitis C - get updated values and US for hep c, depending on fibrosis score may treat here vs send to gastro. suspect he is close to or already in cirrhosis. no jaundice on todays exam, but he did have a medially deviated point of maximal impulse on cardiac exam which points to R heart strain vs. RVH vs. concentric hypertrophy, so will get echo. B18.2: Chronic viral hepatitis C * HEPATITIS C: INSTRUCCIONES DE CUIDADO - [HEPATITIS C: CARE INSTRUCTIONS] * COMPREHENSIVE METABOLIC PANEL * HEPATITIS C GENOTYPE * LIVER FIBROSIS SCORE PANEL, SERUM OR PLASMA * HEPATITIS A ANTIBODY, TOTAL * HEPATITIS C RNA, QUANTITATIVE, PCR * US, ECHOCARDIOGRAM, TRANSTHORACIC, COMPLETE * US, LIVER 3. Candidal balanitis - chronic. uncircumcised. will recommend daily nystatin at night. if liver function is OK can do a dose of fluconazole. B37.42: Candidal balanitis * nystatin 100,000 unit/gram topical cream - APPLY TO THE AFFECTED AREA(S) BY TOPICAL ROUTE 2 TIMES PER DAY Qty: (1) 30 gram tube Refills: 3 Pharmacy: [facility] 4. Viral screening Z11.4: Encounter for screening for human immunodeficiency virus [HIV] * HIV (1+2) AB, RAPID, UNSPECIFIED SPECIMEN - Specimen source: Blood capillary * HIV TESTING: CARE INSTRUCTIONS * SAFER SEX: CARE INSTRUCTIONS 5. Alcohol abuse - Drinking 1-2 cases of heinekin per day, 24-48 beers per day. Offered counseling which he declined today but would like to come back another day. F10.10: Alcohol abuse, uncomplicated HEMOGLOBIN A1C, FINGERSTICK * Result: - HEMOGLOBIN A1C: 13.6 HIV (1+2) AB, RAPID, UNSPECIFIED SPECIMEN * Results: - Rapid HIV: Nonreactive - What state was test performed?: [place] - Was patient tested previously?: Yes Discussion Notes over 40 min spent with patient. we addressed the underlying realization that he does not feel like he is valuable or worthy and therefore he is not taking care of himself. Return to Office * at [facility] on or around 11/11/2022 * to see Jomar Epps MD at [facility] on or around 12/02/2022 Encounter Sign-Off Encounter signed-off by Jomar Epps MD, 11/11/2022. documented in this encounter Plan of Treatment Not on file documented as of this encounter Visit Diagnoses Not on filedocumented in this encounter
--- OUTSIDE RECORDS SUMMARY | 2025-05-17 22:16 | XMS_ITS | Encounter Summary ---
Author Organization [facility] alth Address [address] 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 [employer] Name Role Phone Unavailable Primary Care Provider Unavailabl e Encounter Details Date Type Department Care Team ([facility] st Contact Info) Description 06/06/2024 Office Visit - Data Exchange [facility] Family [facility] Freddy Epps MD [address] [place] [address] Social History Tobacco Use Types Packs/Day Years Used Date Smoking Tobacco: Never Assessed Sex and Gender Information Value Date Recorded Sex Assigned at Not on file Legal Sex Male 10:16 AM EDT Gender Identity Not on file Sexual Orientation Not on file documented as of this encounter Progress Notes * Freddy Epps MD - 06/06/2024 11:34 AM EST Patient Name : CLOVIS SHEN (44yo, M) ID# [id number] Appt. Date/Time : 07/26/2024 08:20AM : 1980 Service Dept. : [facility] Provider : FREDDY EPPS MD Insurance Med Primary: [facility] (MEDICAID REPLACEMENT - HMO) Insurance # : [id number] Policy/Group # : [id number] Med Mental Health: [facility] Insurance # : [id number] Prescription: [employer] - Member is eligible. details Chief Complaint SBIRT - Adult PHQ-9 Only Followup: Uncontrolled type 2 diabetes mellitus POSITIVE PHQ9 SCORE 14, YES TO QUESTION 9 Patient presents today for a follow up to his diabetes his last A1c was done on 04/27/24 and was 15,adilia alvarez Patient's Care Team Primary Care Provider: FREDDY EPPS MD: [address] [place] [address], , Patient's Pharmacies [id number] ([place]): [address] [place] [address], , Vitals Ht: 5 ft 8 in Standing (172.72 cm) 07/26/2024 08:28 am Wt: 136 lbs With clothes (61.69 kg) 07/26/2024 08:37 am BMI: 20.7 07/26/2024 08:37 am BP: 147/97 sitting L arm 07/26/2024 08:45 am Pulse: 87 bpm regular 07/26/2024 08:45 am O2Sat: 98% Room Air at Rest 07/26/2024 08:45 am RR: 18 07/26/2024 08:37 am T: 97.1 F? ear (36.17 C) 07/26/2024 08:40 am Allergies Reviewed Allergies PENICILLINS: Rash (Mild) Some allergies listed in Document: #[id number] could not be added to this patient's chart. Please review this document and add these allergies to the patient's chart manually as needed. Medications Reviewed Medications Name: albuterol sulfate HFA 90 mcg/actuation aerosol inhaler Inhale 2 puff(s) every 4 hours by inhalation route as needed, for shortness of breath, cough, wheezing. Date: 06/28/24 prescribed Source: [facility] Name: atorvastatin 40 mg tablet TAKE 1 TABLET BY MOUTH EVERY DAY FOR CHOLESTEROL Date: 06/28/24 prescribed Source: ANNA Clay Name: BD Ultra-Fine Short Pen Needle 31 gauge x 5/16 USE WITH INSULIN 4 TIMES DAILY Date: 04/24/20 filled Source: [facility] Name: Dexcom G7 Boring Mill Set Up Operator Vertical USE DIRECTED Date: 02/22/24 filled Source: [facility]rescripts Name: DEXCOM G7 SENSOR DEVICE USE DIRECTED Date: 06/30/24 renewed Source: Freddy Epps MD Name: escitalopram 10 mg tablet Take 1 tablet(s) every day by oral route for 30 days. Date: 07/26/24 prescribed Source: Freddy Epps MD Name: famotidine 40 mg tablet TAKE 1 TABLET EVERY DAY BY ORAL ROUTE AT BEDTIME, FOR ABDOMINAL PAIN. Date: 07/22/24 changed Source: ANNA [facility] Name: gabapentin 300 mg capsule Take 1 capsule(s) 3 times a day by oral route for 30 days, for pain.Internal Note: Patient no longer taken,adilia alvarez 07/26/24 Date: 06/28/24 prescribed Source: [facility] Name: insulin aspart (U-100) 100 unit/mL (3 mL) subcutaneous pen Inject 22 unit(s) 3 times a day bysubcutaneous route with meals, for MEAL COVERAGE. Date: 06/28/24 prescribed Source: ANNA Clay Name: Lantus Solostar U-100 Insulin 100 unit/mL (3 mL) subcutaneous pen Inject 40 unit(s) twice a day by subcutaneous route. Date: 07/26/24 prescribed Source: Freddy Epps MD Name: metFORMIN ER 500 mg tablet,extended release 24 hr TAKE 2 TABLETS BY MOUTH TWICE A DAY FOR DIABETES Date: 06/28/24 prescribed Source: ANNA Clay Name: OneTouch Delica Plus Lancet 33 gauge USE TO TEST BLOOD SUGAR ONCE DAILY Date: 02/22/24 filled Source: [facility]ir[facility]reli Name: OneTouch Verio Flex Meter TEST BLOOD SUGAR ONCE DAILY Date: 02/24/24 filled Source: [facility]reli Name: OneTouch Verio test strips TEST BLOOD SUGAR ONCE DAILY Date: 02/24/24 filled Source: surescripts Name: QUEtiapine 50 mg tablet Take 1 tablet(s) every day by oral route at bedtime Date: 06/02/24 filled Source: [facility] Name: tiZANidine 2 mg tablet TAKE 1 TABLET(S) TWICE A DAY BY ORAL ROUTE NEEDED FOR MUSCLE SPASMS Date: 07/22/24 changed Source: ANNA Clay Name: Trulicity 4.5 mg/0.5 mL subcutaneous pen injector Inject 1 pen weekly for diabetes Date: 06/28/24 prescribed Source: ANNA Clay Vaccines Vaccines not reviewed (last reviewed 04/27/2024) COVID-19 Vaccine Type: COVID-19, mRNA, LNP-S, PF, 100 mcg/0.5 mL dose (Moderna) Date: 12/07/20 Amt.: 0.5 mL Route: Intramuscular Site: Deltoid, Right NDC: [id number] Lot #: [id number] Mfr.: Moderna [employer] Exp. Date: 05/21/21 VIS: Moderna COVID-19 Vaccine EUA Fact Sheet 10/19/2020 VIS Given: 12/07/20 Resource Agent: Royer Matias CMA Vaccine Type: COVID-19, mRNA, LNP-S, PF, 100 mcg/0.5 mL dose (Moderna) Date: 11/02/20 Amt.: 0.5 mL Route: Intramuscular Site: Deltoid, Left NDC: Lot #: [id number] Mfr.: Moderna [employer] Exp. Date: 04/27/21 VIS: Moderna COVID-19 Vaccine EUA Fact Sheet 06/26/2020 VIS Given: 11/02/20 Resource Agent: Eduarda Matias MA Diphtheria, Tetanus, Pertussis Vaccine Type: Tdap Date: 03/03/23 Amt.: 0.5 mL Route: Intramuscular Site: Deltoid, Left NDC: [id number] Lot #: [id number] Mfr.: Sanofi Pasteur Exp. Date: 12/30/24 VIS: Tdap 03/01/2021 [facility] VIS Given: 03/03/23 Resource Agent: Vito Grigsby MA Haemophilus Influenzae Type B Vaccine Type: Hib (PRP-T) Date: 05/14/20 Amt.: 0.5 mL Route: Site: NDC: Lot #: [id number] Mfr.: Sanofi Pasteur Exp. Date: VIS: VIS Given: Resource Agent: Vaccine Type: Hib Date: 05/14/20 Amt.: Route: Site: NDC: Lot #: [id number] Mfr.: Sanofi Pasteur Exp. Date: VIS: VIS Given: Resource Agent: Influenza Vaccine Type: influenza, seasonal, injectable, preservative free Date: 05/17/20 Amt.: 0.5 mL Route: Site: NDC: Lot #: [id number] Mfr.: Sanofi Pasteur Exp. Date: VIS: VIS Given: Resource Agent: Vaccine Type: influenza, injectable, quadrivalent Date: 08/03/19 Amt.: 0.5 mL Route: Intramuscular Site: Deltoid, Left NDC: Lot #: [id number] Mfr.: [employer] Pasteur Exp. Date: 01/24/20 VIS: Inactivated Influenza 03/10/2019 VIS Given: 08/03/19 Resource Agent: Faith Leivarosalia Vaccine Type: influenza, injectable, quadrivalent, preservative free Date: 09/16/15 Amt.: 0.5 mL Route: Site: [facility]: Lot #: [id number] Mfr.: Exp. Date: VIS: VIS Given: Resource Agent: Meningococcal Vaccine Type: meningococcal MCV4P Date: 05/14/20 Amt.: 0.5 mL Route: Site: [facility]: Lot #: [id number] Mfr.: [employer] Pasteur Exp. Date: VIS: VIS Given: Resource Agent: Vaccine Type: meningococcal B, recombinant Date: 05/14/20 Amt.: 0.5 mL Route: Site: [facility]: Lot #: [id number] Mfr.: ID [employer] Exp. Date: VIS: VIS Given: Resource Agent: Pneumococcal Vaccine Type: pneumococcal conjugate PCV 13 Date: 05/14/20 Amt.: 0.5 mL Route: Site: [facility]: Lot #: [id number] Mfr.: AC [employer] Exp. Date: VIS: VIS Given: Resource Agent: Vaccine Type: pneumococcal polysaccharide PPV23 Date: 08/03/19 Amt.: 0.5 mL Route: Injection Site: Deltoid, Right NDC: Lot #: [id number] Mfr.: [employer]ck and [employer] Inc[employer] Exp. Date: 12/13/20 VIS: PPSV23 05/25/2019 VIS Given: 08/03/19 Resource Agent: Faith Leivarosalia Problems Reviewed Problems * Candidal balanitis - Onset: 11/11/2022 * Diabetic peripheral neuropathy - Onset: 02/25/2023 * Alcohol abuse - Onset: 11/11/2022 * Smoker - Onset: 05/21/2021 * Cocaine abuse - Onset: 08/20/2023 * Insomnia - Onset: 11/15/2020 * Chronic low back pain - Onset: 06/28/2024 * Persistent cough - Onset: 01/19/2024 * Generalized abdominal pain - Onset: 06/28/2024 * 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 * Administration of diphtheria, pertussis, and tetanus vaccine - Onset: 03/04/2023 * 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 - 2nd and 3rd DIP right hand * Financial problem - Onset: 04/29/2024 * Cellulitis of left foot - Onset: 02/06/2023 * Puncture wound of right foot - Onset: 03/04/2023 * Chronic hepatitis C - Onset: 07/16/2020 * Axillary lymphadenopathy - Onset: 07/16/2020 - monitored by heme/onc, f/u ct 08/2020 * History of splenectomy - Onset: 07/16/2020 * Chronic back pain - Onset: 02/29/2020 * Generalized anxiety disorder - Onset: 08/16/2018 * Hypertriglyceridemia - Onset: 09/01/2018 * Depressive disorder - Onset: 08/16/2018 * Hypertensive disorder - Onset: 08/09/2018 * Uncontrolled type 2 diabetes mellitus - Onset: 08/16/2018 Family History Family History not reviewed (last reviewed 04/27/2024) Mother - Diabetes mellitus - Hypertensive disorder [...] date of your most recent tobacco screening?: 07/26/2024 What is your level of alcohol consumption?: [...] advance directive?: No Public Health and Travel TB Screening Question 1: Were you born or have you lived in a foreign country (other than [place], [place], [place], [place], or [place])?: Yes (Notes: Born in [place]) TB Screening Question 2: Have you traveled to a country other than [place], [place], [place], [place], or [place] for longer than 2 weeks? (If the patient answers ?yes? 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 Diet and Exercise Do you have any dietary restrictions?: No What is your exercise level?: None Activities of Daily Living Do you have transportation difficulties?: No Self referral Have you been seen by any specialists?: No Have you been seen by any behavioral health specialists?: No Have you been to an urgent care/emergency department or admitted to a hospital since your last visit?: No Other Education: 12 Marital status: Single General stress level: High Gender Identity and LGBTQ Identity Gender identity: Identifies as Male Assigned sex at : Male Pronouns: he/him Sexual orientation: Straight or heterosexual Surgical History Surgical History not reviewed (last reviewed 04/27/2024) * Removal of spleen total - 05/16/2020 noneSurgery to Left knee.[employer] Past Medical History Past Medical History not reviewed (last reviewed 04/27/2024) Asthma: Y Diabetes: Y Hypertension: Y Screening HPI Pt here for f/u on DM and depression. He states that he stayed athome for Rex, didn't go out to visit with his children, stayed at [facility] with his . Feels like depression is mild/normal for him right now. DM: using trulicity 4.5, lantus is using 60 units daily, and 25 of short acting insulin with meals., and metformin. Sugars have been in the 300s-400s. States he is having episodes of urine incontinence. Drinking lots of water, occasional diet soda. ROS None recorded. Physical Exam Constitutional: General [...] or gallops; and RRR. Musculoskeletal:: Extremities: no edema (in BLE). Assessment / Plan 1. Uncontrolled type 2 diabetes mellitus - A1c 15 as of April of 2024. Will increase his lantus from 60 units daily to 40 units BID. Will continue short acting 25 units with meals, trulicity 4.5 weekly, and metformin but will increase him from 500mg BID to 1000mg BID. Will defer SGLT2 due to history of severe candidal balanitis. Recheck a1c in 2 months. Will send to podiatry for DM foot care due to severity of DM. E11.649: Type 2 diabetes mellitus with hypoglycemia without coma * Lantus Solostar U-100 Insulin 100 unit/mL (3 mL) subcutaneous pen - Inject 40 unit(s) twice a day by subcutaneous route. Qty: (12) 3 mL syringe Refills: 3 Pharmacy: [id number] * DEXCOM G7 SENSOR DEVICE - Use every 10 days Qty: 12 Units Refills: 11 Supplier: [id number] 2. Depression screening Z13.31: Encounter for screening for depression * PATIENT HEALTH QUESTIONNAIRE-9* 3. Depressive disorder - Pt declined BH. Would like to start medication. Denies thoughts of suicide or self harm or plan. Iscurrently on quetiapine. Will add SSRI. F32.A: Depression, unspecified * escitalopram 10 mg tablet - Take 1 tablet(s) every day by oral route for 30 days. Qty: (30) tablet Refills: 2 Pharmacy: [id number] Return to Office * at Podiatry on or around 07/26/2024 * Angus Angeles, MANUEL for OPTOMETRY at Optometry on 08/16/2024 at 02:40 PM * to see Freddy Epps MD at [facility] on or around 09/26/2024 Encounter Sign-Off Encounter signed-off by Freddy Epps MD, 07/26/2024. documented in this encounter Plan of Treatment Not on file documented as of this encounter Visit Diagnoses Not on filedocumented in this encounter
--- OUTSIDE RECORDS SUMMARY | 2025-05-17 22:16 | XMS_ITS | Clinical Summary ---
Author Organization [facility] (his torical as of Apr 22, 2025) Address [address] [place] [address] Care Team Providers Care Recruiting Team Lead Name Role Phone Freddy Epps MD Primary Care Provider [phone] Allergies Active Allergy Reactions Criticality Noted Date Comments Penicillin Rash Low 04/13/2024 Penicillins Rash Low 07/17/2020 Medications atorvastatin (Lipitor) 40 MG tablet Take 40 mg by mouth every morning. Active citalopram (CeleXA) 40 MG tablet Take 40 mg by mouth every morning. Active famotidine (Pepcid) 40 MG tablet Take 40 mg by mouth every morning. Active empagliflozin (Jardiance) 25 mg tablet Take 25 mg by mouth every morning. Active gabapentin (Neurontin) 300 MG capsule Take 300 mg by mouth three times a day. Active lisinopriL (PriniviL) 5 MG tablet Take 5 mg by mouth every morning. Active metFORMIN (Glucophage) 500 MG tablet Take 500 mg by mouth twice a day with breakfast and dinner. Active benzonatate (Tessalon) 100 MG capsule Take 100 mg by mouth three times a day. 0 Active albuteroL 90 mcg/actuation inhaler Inhale 2 puffs every 4 hours as needed. 0 Active clotrimazole 1 %-betamethasone 0.05 % (Lotrisone) cream Apply 2 application topically twice a day. 0 Active sennosides 8.6 mg-docusate sodium 50 mg (Senokot-S) 8.6/50 mg Take 2 tablets by mouth twice a day. 0 Active naproxen (Naprosyn) 500 MG tablet Take 1 tablet by mouth twice a day. 0 Active insulin glargine 100 unit/mL (3 mL) insulin pen Inject 45 Units under the skin twice a day. 0 Active lidocaine (Lidoderm) 5 % Apply 1 patch topically daily as needed. 0 Active insulin aspart (NovoLOG) 100 unit/mL insulin pen injection Inject 10 Units under the skin three times a day with meals. Plus correction scale 0 Active dulaglutide 1.5 mg/0.5 mL pen injector Inject 1.5 mg under the skin every . 0 Active QUEtiapine (SEROqueL) 100 MG tablet Take 100 mg by mouth twice a day. 0 Active HYDROcodone 5 mg-acetaminophe n 325 mg (United 5/325) tablet Take 1 tablet by mouth every 6 hours as needed for severe pain. Max Daily Amount: 4 tablets 10 tablet 4 Active Family History Medical History Relation Name Comments Cancer Father stomach Diabetes Mother Relation Name Status Comments Father Mother Alive Social History Tobacco Use Types Packs/Day Years Used Date Smoking Tobacco: Every Day Cigarettes Smokeless Tobacco: Never Tobacco Cessation:Ready to Q uit: Not Asked; Counseling Given: Not Answered Comments:last smoke this AM Alcohol Use Standard Drinks/Week Comments Defer 0 (1 standard drink = 0.6 oz pur e alcohol) AUDIT-C Answer Date Recorded Q1: How often do you have a drink containing alc ohol? Never 07/17/2020 Average Number of Drinks Not on file 020 Frequency of Binge Drinking Not on file 06/27 Sex and Gender Information Value Date Recorded Sex Assigned at Male 04/13/2024 6:43 PM EDT Legal Sex Male 12:35 PM EDT Gender Identity Male 04/13/2024 6:43 PM EDT Sexual Orientation Not on file Last Filed Vital Signs Vital Sign Reading Time Taken Comments Blood Pressure 135/83 04/13/2024 12:43 PM EDT Pulse 92 04/13/2024 12:43 PM EDT Temperature 36.4 C (97.5 F) 04/13/2024 12:43 PM EDT Respiratory Rate 18 04/13/2024 12:43 PM EDT Oxygen Saturation 93% 04/13/2024 12:43 PM EDT Inhaled Oxygen Concentration - - Weight 73.2 kg (161 lb 6 oz) 07/23/2020 12:24 PM EST Height 171.5 cm (5' 7.5 ) 07/23/2020 12:24 PM ES T Body Mass Index 24.9 07/23/2020 12:24 PM EST Plan of Treatment Health Maintenance Due Date Last Done Comments Colonoscopy 1980 Annual Depression Screening 1990 HIV Screening 15-65 1993 Potassium Level 07/11/2021 07/11/2020, 1202/2020, 05/24/2020, Additional history exists Pneumococcal Vaccine (0-64 y ears) (3 of 3 - PCV20 or PCV21) 08/03/2024 05/14/2020, 08/03/2019 Influenza Vaccine (#1) 2025 , 08/03/2019, 09/16/2015 Lipid Panel 12/20/2027 12/19/2022, 05/24/2020 Tetanus/Pertussis Vaccines ( 2 - Td or Tdap) 03/03/2033 03/03/2023 Insurance * Guarantor: Chemo Keane Account Type Relation to Patient Date of Phone Billing Address Personal/Family Self 1980 [address] [address] [facility] Member Subscriber Plan / Payer (Ef fective 2024-Present) Name:Chemo Keane Relation to Subscriber:Self Name:Chemo Keane Payer ID:Not on file Type:Not on file Address: [address] [place] [address] * Guarantor: Chemo Keane Account Type Relation to Patient Date of Phone Billing Address Personal/Family Self 1980 [address] [facility] [address] [address] Care Teams Recruiting Team Lead Relationship Specialty Start Date End Date Freddy Epps MD [address] [facility] [facility] [place] [address] [facility] - General 04/13/24
--- OUTSIDE RECORDS SUMMARY | 2025-05-17 22:16 | XMS_ITS | Encounter Summary ---
Author Organization [facility] Address [address] [address] Care Team Providers Care Bonding Equipment Operator Name Role Phone Freddy Epps MD Primary Care Provider [phone] Encounter Details Date Type Department Care Team (Late st Contact Info) Description 04/27/2025 Orders Only [facility] - [address] [place] [id number] Freddy Epps MD [address] [place] [phone] Inadequately controlled [facility] mellitus ([facility]) (Primary Dx) Social History Tobacco Use Types Packs/Day Years [...] place to sleep or slept in a residential (including now)? No 02/04/2023 Sex and Gender Information Value Date Recorded Sex Assigned at Not on file Legal Sex Male 6:06 PM EDT Gender Identity Not on file Sexual Orientation Not on file documented as of this encounter Plan of Treatment Scheduled Orders Name Type Priority Associated Diagnoses Orde r Schedule Thyroid Stimulating Hormone Progressive Lab Routine Inadequately controlled diabetes mellitus ([facility]) Expected: 04/27/2025 (Approximate), Expires: 10/26/2026 C-peptide Lab Routine Inadequately controlled diabetes mellitus ([facility]) Expected: 04/27/2025 (Approximate), Expires: 10/26/2026 Anti-islet cell antibody w/reflex to titer Lab Routine Inadequately controlled diabetes mellitus ([facility]) Expected: 04/27/2025 (Approximate), Expires: 10/26/2026 Glutamic acid decarboxylase Lab Routine Inadequately controlled diabetes mellitus ([facility]) Expected: 04/27/2025 (Approximate), Expires: 10/26/2026 documented as of this encounter Visit Diagnoses Diagnosis Inadequately controlled diabetes mellitus (CMS/HHS/HCC)- Primary Type II or unspecified type diabetes mellitus without mention of complication, not stated as uncontrolled documented in this encounter Care Teams Bonding Equipment Operator Relationship Specialty Start Date End Date Freddy Epps MD [address] [place] [phone] PCP - General Family Medicine 05/29/20 documented as of this encounter
--- OUTSIDE RECORDS SUMMARY | 2025-05-17 22:16 | XMS_ITS | Encounter Summary ---
Author Organization [facility] alth Address [address] 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 Name Role Phone Unavailable Primary Care Provider Unavailabl e Encounter Details Date Type Department Care Team ([facility] Contact Info) Description 06/17/2022 Office Visit - Data Exchange [facility] Jomar Epps MD [address] [place] [place], [place] [id number] ([place]) Social History Tobacco Use Types Packs/Day Years Used Date Smoking Tobacco: Never Assessed Sex and Gender Information Value Date Recorded Sex Assigned at Not on file Legal Sex Male 10:16 AM EDT Gender Identity Not on file Sexual Orientation Not on file documented as of this encounter Progress Notes * Jomar Epps MD - 06/17/2022 8:23 AM EST Patient Name : CLOIVS SHEN (42yo, M) ID# [id number] Appt. Date/Time : 06/17/2022 11:20AM : 1980 Service Dept. : [facility] Provider : JOMAR EPPS MD Insurance Med Primary: [facility] (MEDICAID REPLACEMENT - HMO) Insurance # : [id number] Policy/Group # : [id number] Med Mental Health: [facility] Insurance # : [id number] Med Curry: SLIDING FEE SCHEDULE - DISCOUNT Prescription: [employer] - Member is eligible. details Chief Complaint SBIRT - Adult Followup: Type II diabetes mellitus uncontrolled Followup: Chronic back pain back pain is from neck down to waist / pt also c/o R knee pain, high blood sugar, out of meds Janet SPANGLER Patient's Care Team Primary Care Provider: JOMAR EPPS MD: [address] [place] [facility] [address], , Patient's Pharmacies [facility] ([place]): [address], [place] [address], , [id number] ([place]): [address], [place] [address], , [id number] ([place]): [address] [place] [address], , [phone] ([place]): [address] [place] [address], , Vitals Ht: 5 ft 8 in (172.72 cm) 06/17/2022 11:50 am Wt: 153 lbs 3.2 oz With clothes (69.49 kg) 06/17/2022 11:52 am BMI: 23.3 06/17/2022 11:52 am BP: 152/94 sitting R arm 06/17/2022 11:55 am 145/93 sitting R arm 06/17/2022 12:16 pm Pulse: 82 bpm regular 06/17/2022 11:55 am RR: 18 06/17/2022 11:53 am T: 97.3 F? temporal artery (36.28 C) 06/17/2022 11:53 am Allergies Reviewed Allergies PENICILLINS: Rash (Mild) Some allergies listed in Documents: #[id number], #[id number], #[id number], #[id number] could not be added to this patient's chart. Please review these documents and add these allergies to the patient's chart manually as needed. Medications Reviewed Medications Name: albuterol sulfate HFA 90 mcg/actuation aerosol inhaler Inhale 2 puff(s) every 4 hours by inhalation route. Date: 06/30/20 filled Source: [facility] Name: atorvastatin 40 mg tablet TAKE 1 TABLET BY MOUTH EVERY DAY Date: 06/10/22 filled Source: [facility] Name: BD Ultra-Fine Short Pen Needle 31 gauge x 5/16 USE WITH INSULIN 4 TIMES DAILY Date: 04/24/20 filled Source: [facility] Name: betamethasone dipropionate 0.05 % topical cream APPLY A THIN LAYER TO THE BACK BY TOPICAL ROUTE ONCE DAILY Date: 06/17/22 prescribed Source: Jomar Epps MD Name: citalopram 20 mg tablet TAKE 1 TABLET BY MOUTH EVERY DAY Date: 06/09/22 filled Source: [facility] Name: diclofenac sodium 75 mg tablet,delayed release Take 1 tablet(s) twice a day by oral route for30 days. Date: 06/17/22 prescribed Source: Jomar Epps MD Name: famotidine 40 mg tablet Take 1 tablet(s) by oral route. Date: 05/26/22 filled Source: [facility] Name: insulin aspart (U-100) 100 unit/mL (3 mL) subcutaneous pen inject 20 UNITS PER MEALS three times a day Date: 05/23/22 filled Source: [facility] Name: Lantus Solostar U-100 Insulin 100 unit/mL (3 mL) subcutaneous pen INJECT 45 UNITS SC TWICE A DAY Date: 05/31/22 filled Source: [facility] Name: lidocaine 5 % topical patch Apply 1 patch(es) every day by topical route as needed. Date: 06/17/22 prescribed Source: Jomar Epps MD Name: lisinopriL 5 mg tablet Take 1 tablet(s) every day by oral route. Date: 04/16/22 filled Source: [facility] Name: metFORMIN ER 500 mg tablet,extended release 24 hr TAKE 2 TABLETS BY MOUTH TWICE A DAY Date: 05/28/22 filled Source: [facility] Name: OneTouch Delica Lancets 33 gauge Use to test blood sugar three times daily Date: 05/08/22 filled Source: [facility] Name: OneTouch Ultra Test strips use to check blood sugar three times daily Date: 06/09/22 filled Source: [facility] Name: QUEtiapine 50 mg tablet take one tablet by mouth daily, at bedtime Date: 05/19/22 filled Source: [facility] Name: repaglinide 2 mg tablet take 1 PO once daily with lunch Date: 04/29/22 filled Source: [facility] Name: tamsulosin 0.4 mg capsule Take 1 capsule(s) every day by oral route for 30 days. Date: 06/17/22 prescribed Source: Jomar Epps MD Name: tiZANidine 2 mg tablet Take 1 tablet(s) twice a day by oral route as needed for 30 days. Date: 06/17/22 prescribed Source: Jomar Epps MD Name: Trulicity 1.5 mg/0.5 mL subcutaneous pen injector Inject 1.5 mg under the skin every 7 days Date: 04/29/22 filled Source: [facility] Name: Trulicity 3 mg/0.5 mL subcutaneous pen injector Inject once weekly Date: 08/06/21 prescribed Source: Jomar Epps MD Vaccines Reviewed Vaccines Vaccine Type: COVID-19, mRNA, LNP-S, PF, 100 mcg/0.5 mL dose (Moderna) Date: 12/07/20 Amt.: 0.5 mL Route: Intramuscular Site: Deltoid, Right NDC: [id number] Lot #: [id number] Mfr.: Moderna US, Inc. Exp. Date: 05/21/21 VIS: Moderna COVID-19 Vaccine EUA Fact Sheet 10/19/2020 VIS Given: 12/07/20 Bat Person: Royer Matias CMA Vaccine Type: COVID-19, mRNA, LNP-S, PF, 100 mcg/0.5 mL dose (Moderna) Date: 11/02/20 Amt.: 0.5 mL Route: Intramuscular Site: Deltoid, Left NDC: Lot #: [id number] Mfr.: Moderna [employer], Inc. Exp. Date: 04/27/21 VIS: Moderna COVID-19 Vaccine EUA Fact Sheet 06/26/2020 VIS Given: 11/02/20 Bat Person: Eduarda Matias MA Vaccine Type: Hib (PRP-T) Date: 05/14/20 Amt.: 0.5 mL Route: Site: NDC: Lot #: [id number] Mfr.: Sanofi Pasteur Exp. Date: VIS: VIS Given: Bat Person: Vaccine Type: Hib Date: 05/14/20 Amt.: Route: Site: NDC: Lot #: [id number] Mfr.: Sanofi Pasteur Exp. Date: VIS: VIS Given: Bat Person: Vaccine Type: influenza, injectable, quadrivalent Date: 05/17/20 Amt.: Route: Site: [facility]: Lot #: Mfr.: Exp. Date: VIS: VIS Given: Bat Person: [facility] Vaccine Type: influenza, seasonal, injectable, preservative free Date: 05/17/20 Amt.: 0.5 mL Route: Site: [facility]: Lot #: [id number] Mfr.: Sanofi Pasteur Exp. Date: VIS: VIS Given: Bat Person: Vaccine Type: influenza, injectable, quadrivalent Date: 08/03/19 Amt.: 0.5 mL Route: Intramuscular Site: Deltoid, Left NDC: Lot #: [id number] Mfr.: Sanofi Pasteur Exp. Date: 01/24/20 VIS: Inactivated Influenza 03/10/2019 VIS Given: 08/03/19 Bat Person: Fiath Mead Vaccine Type: influenza, injectable, quadrivalent, preservative free Date: 09/16/15 Amt.: 0.5 mL Route: Site: [facility]: Lot #: [id number] Mfr.: Exp. Date: VIS: VIS Given: Bat Person: Vaccine Type: meningococcal B, unspecified Date: 05/14/20 Amt.: Route: Site: [facility]: Lot #: Mfr.: Exp. Date: VIS: VIS Given: Bat Person: [facility] Vaccine Type: meningococcal MCV4P Date: 05/14/20 Amt.: 0.5 mL Route: Site: [facility]: Lot #: [id number] Mfr.: Sanofi Pasteur Exp. Date: VIS: VIS Given: Bat Person: Vaccine Type: meningococcal B, recombinant Date: 05/14/20 Amt.: 0.5 mL Route: Site: [facility]: Lot #: [id number] Mfr.: Parudi Exp. Date: VIS: VIS Given: Bat Person: Vaccine Type: pneumococcal conjugate PCV 13 Date: 05/14/20 Amt.: 0.5 mL Route: Site: [facility]: Lot #: [id number] Mfr.: Wyeth Exp. Date: VIS: VIS Given: Bat Person: Vaccine Type: pneumococcal polysaccharide PPV23 Date: 08/03/19 Amt.: 0.5 mL Route: Injection Site: Deltoid, Right NDC: Lot #: [id number] Mfr.: Merck and Co., Inc. Exp. Date: 12/13/20 VIS: PPSV23 05/25/2019 VIS Given: 08/03/19 Bat Person: Faith Mead Problems Reviewed Problems * Smoker - Onset: 05/21/2021 * Insomnia [...] date of your most recent tobacco screening?: 06/17/2022 What is your level of alcohol consumption?: [...] or [place])?: Yes (Notes: Born in [place]) TB Screening Question 2: Have you traveled [...] Dental: Where was your last dental visit?: [facility] Dental: Was the visit an [facility] dental provider?: Yes Dental: Action taken: None Needed Other Education: 12 Marital status: Single General stress level: High Gender Identity and LGBTQ Identity Gender identity: Identifies as Male Assigned sex at : Male Sexual orientation: Straight or heterosexual Surgical History Surgical History not reviewed (last reviewed 06/05/2021) * 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 main concern is significant pain in his entire back. Last saw NS in fall of 2020 . not a candidate for steroid injection. he has trouble moving out of bed, bending forward, walking. feels like his back is grinding, like a constant pressure. takes motrin with no improvement and warm water/baths with no improvement. pt also continues to have a very itchy rash on the L mid back. ROS None recorded. Physical Exam Gen: NAD, ambulating normally Skin: 8 cm area of dry erythemaatous patchy skin on L mid back Assessment / Plan 1. Chronic back pain - Pain since 1989, chronic. Will trial diclofeanc and tizanidine. Send back to neurosurgery. G89.29: Other chronic pain * diclofenac sodium 75 mg tablet,delayed release - Take 1 tablet(s) twice a day by oral route for 30 days. Qty: (60) tablet Refills: 3 Pharmacy: [facility] * lidocaine 5 % topical patch - Apply 1 patch(es) every day by topical route as needed. Qty: (1) 30 adhesive patch, medicated box Refills: 5 Pharmacy: [facility] * tizanidine 2 mg tablet - Take 1 tablet(s) twice a day by oral route as needed for 30 days. Qty: (60) tablet Refills: 3 Pharmacy: [facility] * CBC 2. Type II diabetes mellitus uncontrolled - A1c 10.9, hasn't been seen in over a year. Will defer discussion until next visit E11.65: Type 2 diabetes mellitus with hyperglycemia * GLUCOSE, FINGERSTICK, BLOOD * HEMOGLOBIN A1C, FINGERSTICK * COMPREHENSIVE METABOLIC PANEL * LIPID PANEL * THYROID STIMULATING HORMONE PROGRESSIVE 3. Depression screening - pt has scheduled Z13.31: Encounter for screening for depression * PATIENT HEALTH QUESTIONNAIRE-9* 4. Screening procedure Z13.39: Encounter for screening examination for other mental health and behavioral disorders * SUBSTANCE ABUSE SCREENING* 5. 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 Urinary incontinence - could be in part from high sugars, but will trial tamsulosin R32: Unspecified urinary incontinence * tamsulosin 0.4 mg capsule - Take 1 capsule(s) every day by oral route for 30 days. Qty: (30) capsule Refills: 3 Pharmacy: [facility] GLUCOSE, FINGERSTICK, BLOOD * Result: - Blood Glucose: mg/dl: 325 HEMOGLOBIN A1C, FINGERSTICK * Result: - HEMOGLOBIN A1C: 10.9 Return to Office * to see Jomar Epps MD for CHRON[facility] at [facility] on or around 08/17/2022 Encounter Sign-Off Encounter signed-off by Jomar Epps MD, 06/17/2022. documented in this encounter Plan of Treatment Not on file documented as of this encounter Visit Diagnoses Not on filedocumented in this encounter
--- OUTSIDE RECORDS SUMMARY | 2025-05-17 22:16 | XMS_ITS | Clinical Summary ---
Author Organization [facility] Address [address] [place] [address] Care Team Providers Care Inside Sales Recruiter Name Role Phone Freddy Epps MD Primary Care Provider Allergies Active Allergy Reactions Criticality Noted Date Comments Penicillins Rash Low 10/22/2018 Medications metFORMIN XR (GLUCOPHAGE-XR) 500 mg 24 hr tablet Take 2 tablets (1,000 mg total) by mouth 2 (two) times a day Pt taking 1 pill a day . 03/15/20 20 Active atorvastatin (LIPITOR) 40 mg tablet Take 1 tablet (40 mg total) by mouth daily 02/02/20 20 Active OLANZapine (ZYPREXA) 10 mg tablet Take 1 tablet (10 mg total) by mouth daily Active acetone, urine, test (acetone, urine, test) stripIndications:T ype 2 diabetes mellitus with hyperglycemia, with long-term current use of insulin ([facility]HS/[facility]) Test first AM urine and as directed 100 strip 11 04/19/20 20 Active blood sugar diagnostic strip 1 strip 4 (four) times a day 200 strip 3 04/27/20 20 Active lisinopriL (ZESTRIL) 5 mg tablet Take 1 tablet (5 mg total) by mouth daily Active albuterol HFA (PROVENTIL;VENTOLI N) 90 mcg/actuation inhaler Inhale 2 puffs every 4 (four) hours Active gabapentin (NEURONTIN) 300 mg capsule Take 1 capsule (300 mg total) by mouth 3 (three) times a day 90 capsule 05/18/20 20 Active QUEtiapine (SEROquel) 100 mg tablet Take 1 tablet (100 mg total) by mouth 2 (two) times a day 06/06/20 Active lidocaine (LIDODERM) 5 % patch Use as directed 06/11/20 Active ONETOUCH DELICA LANCETS 33 gauge misc 3 (three) times a day 06/12/20 20 Active ONETOUCH ULTRA2 METER misc 3 (three) times a day 06/12/20 20 Active betamethasone dipropionate (DEL-BETA) 0.05 % cream SMARTSIG:Sparing ly Topical Daily 09/17/19 21 Active diclofenac sodium (VOLTAREN GEL) 1 % gel Apply 2 g topically 4 (four) times a day 10/03/19 21 Active tiZANidine (ZANAFLEX) 2 mg tablet Take 1 tablet (2 mg total) by mouth 2 (two) times a day as needed 02/02/20 21 Active blood-glucose transmitter (DEXCOM G6 TRANSMITTER) device For use in Type 2 Diabetes monitoring blood glucoses. Change every 90 days. 1 each 3 06/06/20 21 Active blood-glucose sensor (DEXCOM G6 SENSOR) device For use monitoring blood glucoses in Type 2 Diabetes. Change sensor every 10 days. 9 each 3 06/06/20 21 Active BD ULTRA-FINE SHORT PEN NEEDLE 31 gauge x 5/16 needleIndications: Type 2 diabetes mellitus with hyperosmolar nonketotic hyperglycemia (CMS/HHS/HCC) Use to inject insulin 5 times daily 500 each 1 07/04/20 21 Active ibuprofen (MOTRIN) 800 mg tabletIndications: Body aches Take 1 tablet (800 mg total) by mouth every 8 (eight) hours as needed for mild pain 30 tablet 07/29/19 22 Active clotrimazole (LOTRIMIN) 1 % cream SMARTSIG:Topical Morning-Evening 08/06/19 22 Active famotidine (PEPCID) 40 mg tablet Take 1 tablet (40 mg total) by mouth daily 06/26/20 21 Active QUEtiapine (SEROquel) 25 mg tablet Take 1 tablet (25 mg total) by mouth every evening 07/26/20 21 Active citalopram (CeleXA) 20 mg tablet Take 1 tablet (20 mg total) by mouth daily 09/17/19 22 Active insulin aspart U-100 100 unit/mL (3 mL) subQ insulin pen Take 30 units with breakfast and dinner plus correctional scale. Correction scale of 2 units for every 50 above 200. TDD: 90 90 mL 1 10/05/19 22 Active repaglinide (PRANDIN) 2 mg tablet Take 1 pill with lunch daily. 30 tablet 5 10/05/19 22 Active dulaglutide 1.5 mg/0.5 mL pen injector Inject 1.5 mg under the skin every 7 days 2 mL 6 10/05/19 22 Active blood-glucose meter,continuous (DEXCOM G6 DATA SOLUTIONS ARCHITECT) miscIndications:Ty pe 2 diabetes mellitus with hyperosmolar nonketotic hyperglycemia ([facility]) For use monitoring blood sugars in Type 2 Diabetes. 1 each 01/10/20 22 Active tamsulosin (FLOMAX) 0.4 mg capsule Take 1 capsule (0.4 mg total) by mouth daily 06/17/20 22 Active clotrimazole-betam ethasone (LOTRISONE) cream Apply topically 2 (two) times a day Apply topically 2 (two) times a day 45 g 07/24/20 22 Active TRULICITY 4.5 mg/0.5 mL pen injector SMARTSI pre-filled pen syringe SUB-Q Once a Week 12/10/19 23 Active QUEtiapine (SEROquel) 50 mg tablet Take 1 tablet (50 mg total) by mouth daily 12/17/19 23 Active cetirizine (ZyrTEC) 10 mg tabletIndications: Rash Take 1 tablet (10 mg total) by mouth daily 30 tablet 12/24/19 23 Active nystatin (MYCOSTATIN) cream Apply topically 2 (two) times a day 01/07/20 23 Active ondansetron ODT (ZOFRAN-ODT) 8 mg disintegrating tablet Take 1 tablet (8 mg total) by mouth every 8 (eight) hours as needed for nausea or vomiting for up to 10 doses 10 tablet 11/02/19 24 Active ondansetron ODT (ZOFRAN-ODT) [address] 1 tablet (4 mg total) under the tongue every 8 (eight) hours as needed for nausea or vomiting for up to 10 doses 10 tablet 11/18/19 25 Active insulin glargine 100 unit/mL (3 mL) insulin pen Inject 40 Units under the skin nightly 36 mL 3 5 8:00 PM EDT 02/25/20 25 026 Active pen needle, diabetic 32 gauge x /32 needle use as directed with insulin 100 each 5 8:00 PM EDT 02/25/20 25 Active doxycycline hyclate (VIBRAMYCIN) 100 mg capsuleIndications :Abscess of left groin Take 1 capsule (100 mg total) by mouth 2 (two) times a day for 7 days 14 capsule 04/26/20 25 025 Active Problems Problem Noted Date Diagnosed Date Major depressive disorder, single episode, mild 07/04/2020 Other asthma ([facility]) 07/04/2020 Other problems related to lifestyle 07/04/2020 S/P splenectomy 05/18/2020 Acquired absence of spleen 05/18/2020 Thrombocytopenia, unspecified 05/18/2020 Chronic back pain 05/16/2020 Generalized anxiety disorder 05/16/2020 Depressive disorder 05/16/2020 Hemoperitoneum 05/12/2020 Type 2 diabetes mellitus wit h hyperosmolar nonketotic hyperglycemia ([facility]/HCC) 10/28/2017 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 co ma 09/14/2015 Hepatitis C 09/14/2015 Resolved Problems Problem Noted Date Diagnosed Date Resolved Date Perforation of left tympanic membrane 05/31/2021 02/04/2023 Nailbed laceration, finger, initial encounter 03/13/2002/04/2023 Open displaced fracture of d istal phalanx of left thumb 03/13/2021 02/04/2023 Laceration of left thumb 03/13/202106/2023 Thrombocytopenia due to hypersplenism 05/21/2020 02/04/2023 Hypersplenism 05/18/2020 02/04/2023 Tinea pedis 05/16/2020 02/04/2023 Abdominal pain, generalized 05/12/2020 02/04/2023 Overview (05/14/2020): Added automatically from request for surgery [id number] Laceration of spleen, initial encounter 05/12/2020 02/04/2023 Overview (05/14/2020): Added automatically from request for surgery [id number] Type 1 diabetes mellitus wit h other specified complication ([facility]/HCC) 04/10/2020 10/31/2020 Encounters Date Type Department Care Team Description 04/27/2025 Orders Only [facility] - [facility] [address] [place] [phone] Freddy Epps MD Inadequately controlled diabetes mellitus ([facility]/HHS/HCC) (Primary Dx) 04/27/2025 Results Follow-Up [facility] [address] [place] [phone] Nilam Hood CRNP 04/26/2025 7:00 PM EDT Office Visit [facility] [address] [place] [phone] Mariposa Ryder CRNP Abscess of left groin (Primary Dx); Type 2 diabetes mellitus with hyperosmolar nonketotic hyperglycemia ([facility]HS/[facility]); Hyperglycemia 02/24/2025 2:10 PM EDT - 02/24/2025 8:17 PM EDT Emergency [facility] ED [address] [facility] [place] [phone] Talia Hernandez MD Hyperglycemia due to diabetes mellitus ([facility]HHS/[facility]) (Primary Dx); Chest pain, unspecified type Discharge Disposition: Home or Self Care from Last 3 Months Immunizations Immunization Administration Dates Next Due Flu Vaccine/Quad PF 05/17/2020,05/13/2020() Flulaval >6 MO Preservative Free 09/16/2015 HiB 05/14/2020 Hib (PRP-T) 05/14/2020 Influenza, Unspecified 05/17/2020 Meningococcal Group B, OMV 05/14/2020 Meningococcal MCV4P 05/14/2020 Pneumococcal conjugate PCV 13 05/14/2020 Family History Medical History Relation Comments Diabetes Father Hypertension Father Diabetes Maternal Grandfather Hypertension Maternal Grandfather Diabetes Maternal Grandmother Hypertension Maternal Grandmother Diabetes Mother Hypertension Mother Relation Status Comments Father Maternal Grandfather Maternal Grandmother Mother Social History Tobacco Use Types Packs/Day Years Used Date Smoking Tobacco: Never Cigarettes [address] arted: 01/18/2019 Passive Smoke Exposure: Yes Smokeless Tobacco: Former Tobacco Cessation:Counseling Given: No Alcohol Use Standard Drinks/Week Comments Not Currently [...] place to sleep or slept in a assisted (including now)? No 02/04/2023 Sex and Gender Information Value Date Recorded Sex Assigned at Not on file Legal Sex Male 6:06 PM EDT Gender Identity Not on file Sexual Orientation Not on file Last Filed Vital Signs Vital Sign Reading Time Taken Comments Blood Pressure 170/90 04/26/2025 7:36 PM EDT Pulse 80 04/26/2025 7:09 PM EDT Temperature 36.8 C (98.2 F) 04/26/2025 7:09 PM EDT Respiratory Rate 16 04/26/2025 7:09 PM EDT Oxygen Saturation 97% 04/26/2025 7:09 PM EDT Inhaled Oxygen Concentration - - Weight 61 kg (134 lb 7.7 oz) 11/02/2023 9:19 PM EDT Height 172.7 cm (5' 8 ) 02/04/2023 5:55 PM EDT Body Mass Index 20.45 02/04/2023 5:55 PM EDT Plan of Treatment Health Maintenance Due Date Last Done Comments Colon Cancer Screening 1978 Diabetic Eye Exam 1978 Last met by Annual FIT 1978 Last met by Annual FOBT [address] Colonography 1978 Last met by Colonoscopy 1978 Last met by FIT-DNA 1978 Last met by Sigmoidoscopy 1978 MMR Vaccines (1 of 1 - Stand rosalia series) 1979 DTaP,Tdap,and Td Vaccines (1 - Tdap) 1997 Hepatitis B Vaccines (1 of 3 - 19+ 3-dose series) 1997 Meningococcal B Vaccine (2 o f 4 - Increased Risk Bexsero 3-dose series) 06/11/2020 05/14/2020 Meningococcal ACWY Vaccine ( 2 - Risk 2-dose series) 07/09/2020 05/14/2020 Pneumococcal 0-49 years (2 o f 2 - PPSV23, PCV20, or PCV21) 07/09/2020 05/14/2020 Urine albumin/creatinine ratio 05/24/2021 1 , 02/06/2020, 06/21/2019, Additional history exists Diabetic Neuropathy Screening 10/04/2022, 10/04/2021, 04/10/2020, Additional history exists Lipid Panel 12/20/2023 12/19/2022, 0512/2022, 06/06/2021, Additional history exists Depression Screening 07/27/2024 02/04/2023 Height Check 07/27/2024 02/04/2023 Weight Check 07/27/2024 11/02/2023 Influenza Vaccine (#1) 2025 , 05/17/2020, 09/16/2015 SARS-CoV-2 (COVID-19) ( season) 2025 Hemoglobin A1C 07/27/2025 04/26/2025, 05/27, 05/24/2020, Additional history exists eGFR 02/24/2026 02/24/2025, /09/2024, 10/27/2024, Additional history exists Zoster Vaccine (1 of 2) 01/06/2028 HIV Screening Completed 06/06/2021, 05/27, 10/28/2017 Tobacco Cessation Counseling Discontinued 06/13/2021 Hepatitis C Screening Discontinued 12/19/2022 , 12/19/2022, 06/06/2021, Additional history exists Tobacco Use Screening Completed 08/24/2024 Medical Devices Implanted Type Area Golf Course Assistant Device Identifier Shelf Expiration Date Model / Serial / Lot Coil Embl 4cm .02in 2mm Penumbra Coil 400 Marisol Lila Cmplx Lg - [id number] Implanted:Qt y: 1 on 05/12/2020 by Neftali Brandon MD at [facility] Coil Left: Abdomen PENUMBRA [id number] 06/19/2027 [id number] / / [id number] Coil Embl 5cm Pod J Pk Sft - [id number] Implanted:Qt y: 1 on 05/12/2020 by Neftali Brandon MD at [facility] Coil Left: Abdomen PENUMBRA [id number] 12/28/2027 [id number] / / [id number] Plug Cv 13.5mm 8mm 4fr Amplzr Ntnl Mesh Pls 2 Lobe Radopq - [id number] Implanted:Qt y: 1 on 05/12/2020 by Neftali Brandon MD at [facility] Occluder [employer] [id number] 09/23/2024 9-[facility] [phone] / / [id number] Procedures Procedure Name Priority Date/Time Associated Diagnosis Comments HEMOGLOBIN A1C Routine 04/26/2025 7:45 PM EDT Type 2 diabetes mellitus with hyperosmolar nonketotic hyperglycemia ([facility]/HHS/HCC) Hyperglycemia POCT GLUCOSE Routine 04/26/2025 7:42 PM EDT Type 2 diabetes mellitus with hyperosmolar nonketotic hyperglycemia (CMS/HHS/HCC) Hyperglycemia POCT GLUCOSE METER Routine 02/24/2025 6: 16 PM EDT POCT GLUCOSE METER Routine 02/24/2025 4: 13 PM EDT 1 HOUR HS TROPONIN (ED) STAT 02/24/2025 3:16 PM EDT MANUAL DIFFERENTIAL - INTERFACED STAT 02/24/2025 2:53 PM EDT CBC WITH AUTO DIFFERENTIAL STAT 02/24/2025 2:53 PM EDT BASELINE HS TROPONIN (ED) STAT Add-on 02/24/2025 2:53 PM EDT BLOOD GAS, VENOUS STAT 02/24/2025 2:5 3 PM EDT BETA HYDROXYBUTYRATE QUANTITATIVE STAT 02/24/2025 2:53 PM EDT LIPASE STAT 02/24/2025 2:53 PM EDT COMPREHENSIVE METABOLIC PANEL STAT 02/24/2025 2:53 PM EDT CBC AND DIFFERENTIAL STAT 02/24/2025 2:53 PM EDT XR CHEST 2 VW STAT 02/24/2025 2:40 PM EDT URINALYSIS CULTURE IF INDICATED, AUTOMATED UMIC STAT 02/24/2025 2:29 PM EDT URINALYSIS CULTURE IF INDICATED, CHEMICAL DIPSTICK STAT 02/24/2025 2:29 PM EDT URINALYSIS, CULTURE IF INDICATED STAT 02/24/2025 2:29 PM EDT POCT GLUCOSE METER Routine 02/24/2025 2: 08 PM EDT ECG 12-LEAD: HOSPITAL OR TEST FACILITY STAT 02/24/2025 2:00 PM EDT HEPATITIS C RNA, QUANTITATIVE, PCR Routine 12/19/2022 1:44 PM EDT Inadequately controlled diabetes mellitus LIPID PANEL Routine 12/19/2022 1:44 PM EDT Inadequately controlled diabetes mellitus HIV AG/AB PROGRESSIVE Routine 06/06/2021 9:31 AM EST Hepatitis C virus infection with hepatic coma, unspecified chronicity Type II diabetes mellitus with hyperosmolarity, uncontrolled ALBUMIN / CREATININE URINE RATIO Routine 05/24/2020 12:34 PM EDT Type 2 diabetes mellitus with hyperglycemia (CMS/HCC) from Last 3 Months or Most Recently Relevant to Health Maintenance Results * (ABNORMAL) Hemoglobin A1c (04/26/2025 7:45 PM EDT) Hemoglobin A1C 15.1(H) <5.7 % 04/27/2025 10:03 AM EDT [facility] Comment: Normal <5.7% Abnormal, High 5.7 - 6.4% Abnormal, Diagnostic for Diabetes >6.5% Diabetes Care, 33(Suppl):S1-S61, 2009. This borate affinity HbA1c method provides accurate [...] may yield falsely high results. Performed at [facility], [address] [place] [id number]. Estimated average glucose 387 mg/dL 04/27/2025 10:03 AM EDT [facility] Comment:The estimated averag e glucose (eAG) is derived from the equation [AG (mg/dL)= 28.7 x %HbA1c - 46.7] and provided as recommended by the [place] [employer]. Calculated eAG values less than 97 mg/dL or greater than 298 mg/dL may be unreliable and should be interpreted with caution. Estimated average glucose is educational and should not be used for clinical management of diabetic patients. Diabetes Care, 31(8):9552-2028. Blood Venous blood specimen / Unknown Venipuncture / Unknown 04/26/2025 7:45 PM EDT 04/26/2025 7:45 PM EDT [facility] LAB BLOOD ORDERABLES Final Result Performing Organization Address City/[facility]/ZIP Co de Phone Number [facility] - [address] [address], * (ABNORMAL) POCT glucose (04/26/2025 7:42 PM EDT) Glucose Fingerstick 222(A) 70 - 139 mg/dL Lot # [id number] Lot Expiration Date 09/15/25 Blood 04/26/2025 7:42 PM EDT [place] [facility] POINT OF CARE TEST ORDERAB LES Final Result * (ABNORMAL) POCT Glucose Meter (02/24/2025 6:16 PM EDT) Only the most recent of3 resultswithin the time period is included. POC Glucose 316(H) 70 - 139 mg/dL 02/24/2025 6:28 PM EDT [facility] 02/24/2025 6:16 PM EDT 02/24/2025 6:28 PM EDT Talia Hernandez MD LAB POCT ORDERABLES - DEVICE Fi nal Result Performing Organization Address City/[facility]/ZIP Co de Phone Number [facility] [address] [place] [address] * 1 Hour High Sensitivity Troponin (ED) - Once (02/24/2025 3:16 PM EDT) Troponin I High Sensitivity - 1 Hour (ED) 3 <18 ng/L 02/24/2025 4:01 PM EDT [facility] Troponin I High Sensitivity Delta from Baseline (ED) 0 <4 02/24/2025 4:01 PM EDT [facility] Blood Venous blood specimen / Unknown Venipuncture / Unknown 02/24/2025 3:16 PM EDT 02/24/2025 3:22 PM EDT Talia Hernandez MD LAB BLOOD ORDERABLES Final Resu lt Performing Organization Address [facility]/ZIP Co de Phone Number [facility] [address] [place] [address] * Baseline High Sensitivity Troponin (ED) - STAT (02/24/2025 2:53 PM EDT) [facility] Troponin I High Sensitivity - Baseline (ED) 3 <18 ng/L 02/24/2025 4:00 PM EDT [facility] Blood Venous blood specimen / Unknown Venipuncture / Unknown 02/24/2025 2:53 PM EDT 02/24/2025 3:00 PM EDT Talia Hernandez MD LAB BLOOD ORDERABLES Final Resu lt Performing Organization Address City/[facility]/ZIP Co de Phone Number [facility] [address] [place] [address] * (ABNORMAL) Manual Differential-Interfaced - Once (02/24/2025 2:53 PM EDT) Pathologist [facility] Neutrophils Absolute 8.30(H) 1.70 - 7.80 K/mcL 02/24/2025 3:32 PM EDT [facility] Lymphocytes Absolute 2.93 1.00 - 4.80 K/mcL 02/24/2025 3:32 PM EDT [facility] Monocytes Absolute 0.98 0.00 - 1.00 K/mcL 02/24/2025 3:32 PM EDT [facility] Eosinophils Absolute 0.00 0.00 - 0.45 K/mcL 02/24/2025 3:32 PM EDT [facility] Basophils Absolute 0.00 0.00 - 0.20 K/mcL 02/24/2025 3:32 PM EDT [facility] Neutrophils % 68 % 02/24/2025 3:32 PM EDT [facility] Lymphocytes Normal % 24 % 02/24/2025 3:32 PM EDT [facility] Monocytes % 8 % 02/24/2025 3:32 PM EDT [facility] Eosinophils % 0 % 02/24/2025 3:32 PM EDT [facility] Basophils % 0 % 02/24/2025 3:32 PM EDT [facility] RBC Morphology Normal Normal 02/24/2025 3:32 PM EDT [facility] Blood Venous blood specimen / Unknown Venipuncture / Unknown 02/24/2025 2:53 PM EDT 02/24/2025 3:02 PM EDT us Sophie Kimble DO LAB BLOOD ORDERABLES Final Res ult Performing Organization Address City/State/[facility] Co de Phone Number [facility] [address] [place] [phone] * (ABNORMAL) CBC auto differential - Once (02/24/2025 2:53 PM EDT) WBC 12.2(H) 4.0 - 11.0 K/mcL 02/24/2025 3:32 PM [facility] RBC 4.79 4.30 - 5.90 M/mcL 02/24/2025 3:32 PM T [facility] Hemoglobin 14.0 13.0 - 17.3 g/dL 02/24/2025 3:32 PM [facility] Hematocrit 41.6 38.5 - 53.0 % 02/24/2025 3:32 PM [facility] MCV 86.8 83.0 - 99.0 fL 02/24/2025 3:32 PM T [facility] MCH 29.2 27.0 - 33.0 pg 02/24/2025 3:32 PM EDT [facility] MCHC 33.7 31.0 - 35.0 g/dL 02/24/2025 3:32 PM [facility] Platelets 295 140 - 400 K/mcL 02/24/2025 3:32 PM [facility] MPV 11.2 9.0 - 12.6 fL 02/24/2025 3:32 PM T [facility] RDW-SD 45.2 37.0 - 53.1 fL 02/24/2025 3:32 PM EDT [facility] RDW-CV 14.1 11.0 - 16.5 % 02/24/2025 3:32 PM EDT [facility] nRBC % 0.0 % 02/24/2025 3:32 PM EDT [facility] Absolute nRBC by Automated Count 0.00 <1.00 K/mcL 02/24/2025 3:32 PM EDT [facility] Blood Venous blood specimen / Unknown Venipuncture / Unknown 02/24/2025 2:53 PM EDT 02/24/2025 3:02 PM EDT Sophie Sesay [facility] LAB BLOOD ORDERABLES Final Res ult Performing Organization Address [facility]/ZIP Co de Phone Number [facility] [address] [place] [address] * (ABNORMAL) Beta Hydroxybutyrate Quantitative - Once (02/24/2025 2:53 PM EDT) BETA-HYDROXYBU TYRATE, Serum Quant 0.9(H) 0.0 - 0.3 MMOL/L 02/24/2025 3:26 PM EDT [facility] Blood Venous blood specimen / Unknown Venipuncture / Unknown 02/24/2025 2:53 PM EDT 02/24/2025 3:01 PM EDT [facility] Final Res ult [facility] [address] [place] [address] * Lipase - STAT (02/24/2025 2:53 PM EDT) Lipase 27 11 - 82 U/L 02/24/2025 3:38 PM EDT [facility] Blood Venous blood specimen / Unknown Venipuncture / Unknown 02/24/2025 2:53 PM EDT 02/24/2025 3:00 PM EDT Narrative [facility] - 02/24/2025 3:38 PM EDT F-zirptv-d-benzoquinone imine (liver toxic metabolite of acetaminophen) may generate erroneously low LIPASE results in patients that have taken toxic doses of acetaminophen. Sophie Kimble DO LAB BLOOD ORDERABLES Final Res ult Performing Organization Address [facility] de Phone Number [facility] [address] [place] [address] * (ABNORMAL) Blood gas, venous - Once (02/24/2025 2:53 PM EDT) pH, Venous 7.44(H) 7.30 - 7.43 02/24/2025 3:05 PM EDT [facility] pCO2 Venous 41 38 - 58 mm Hg 02/24/2025 3:05 PM EDT [facility] HCO3, Venous 28 22 - 30 mmol/L 02/24/2025 3:05 PM EDT [facility] Blood Venous blood specimen / Unknown Venipuncture / Unknown 02/24/2025 2:53 PM EDT 02/24/2025 3:00 PM EDT Talia Hernandez MD LAB BLOOD ORDERABLES Final Resu lt Performing Organization Address [facility] de Phone Number [facility] [address] [place] [address] * (ABNORMAL) Comprehensive metabolic panel - STAT (02/24/2025 2:53 PM EDT) Glucose 641(HH) 70 - 139 mg/dL 02/24/2025 3:46 PM EDT [facility] Sodium 126(L) 135 - 145 mmol/L 02/24/2025 3:46 PM EDT [facility] Potassium 4.5 3.5 - 5.3 mmol/L 02/24/2025 3:46 PM EDT [facility] Chloride 90(L) 98 - 107 mmol/L 02/24/2025 3:46 PM EDT [facility] CO2 26 21 - 31 mmol/L 02/24[facility]2025 [facility] Anion Gap 10 3 - 11 mmol/L 02/24/2025 3:46 PM [facility] BUN 19 7 - 25 mg/dL 02/24/2025 3:46 PM [facility] Creatinine 0.88 0.70 - 1.30 mg/dL 02/24/2025 3:46 PM [facility] Calcium 9.6 8.6 - 10.3 mg/dL 02/24/2025 3:46 PM [facility] Total Protein 7.9 6.4 - 8.9 gm/dL 02/24/2025 3:46 PM [facility] Albumin 4.0 3.5 - 5.7 gm/dL 02/24/2025 3:46 PM [facility] Alkaline Phosphatase 141(H) 34 - 104 IU/L 02/24/2025 3:46 PM [facility] AST 27 13 - 39 IU/L 02/24/2025 3:46 PM [facility] ALT (SGPT) 37 7 - 52 IU/L 02/24/2025 3:46 PM [facility] Total Bilirubin 0.4 0.3 - 1.0 mg/dL 02/24/2025 3:46 PM [facility] eGFR >90.0 >=60.0 mL/min/1. 73m*2 02/24/2025 3:46 PM T [facility] Comment:The estimated Glomer ular Filtration Rate (eGFR) is calculated by the Chronic Kidney Epidemiology Collaboration (CKD-EPI) equation. Blood Venous blood specimen / Unknown Venipuncture / Unknown 02/24/2025 2:53 PM EDT 02/24/2025 3:00 PM EDT us Sophie Kimble DO LAB BLOOD ORDERABLES Final Res ult Performing Organization Address City/State/[facility] Co de Phone Number [facility] [address] [place] [address] * X-ray chest 2 views (02/24/2025 2:40 PM EDT) Anatomical Region Laterality Modality Chest, Reading Worklist XR Chest Computed Radiography Narrative 02/24/2025 4:17 PM EDT XR CHEST 2 VW IMPRESSION: There is no active cardiopulmonary process. END OF IMPRESSION: INDICATION: CP. TECHNIQUE: Two projections of the chest were obtained. COMPARISON: 2 view chest on 01/21/2024. FINDINGS: The heart size is normal. The vascular distribution is normal. The hilar and mediastinal silhouettes appear unremarkable. The lungs are clear. No pleural effusion is identified. There is no evidence of pneumothorax. There are no significant bony findings. This report was created using Voice Recognition software. Thank you for allowing us to participate in the care of your patient. Procedure Note Romana CarrollsaDO shauna - 02/24/2025 XR CHEST 2 VW IMPRESSION: There is no active cardiopulmonary process. END OF IMPRESSION: INDICATION: CP. TECHNIQUE: Two projections of the chest were obtained. COMPARISON: 2 view chest on 01/21/2024. FINDINGS: The heart size is normal. The vascular distribution is normal. The hilarand mediastinal silhouettes appear unremarkable. The lungs are clear. Nopleural effusion is identified. There is no evidence of pneumothorax.There are no significant bony findings. This report was created using Voice Recognition software. Thank you forallowing us to participate in the care of your patient. us Sophie Kimble DO IMG XR PROCEDURES Final Result * (ABNORMAL) UA culture if indicated, Microscopy (Automated) (02/24/2025 2:29 PM EDT) RBC, Urine 30(H) 0 - 23 [facility] 02/24/2025 3:25 PM EDT [facility] WBC, Urine 8 0 - 28 [facility] 02/24/2025 3:25 PM EDT [facility] Squamous Epithelial, Urine 3 0 - 31 mcL 02/24/2025 3:25 PM EDT [facility] Hyaline Casts, Urine, AutoMic <1 0 - 1 mcL 02/24/2025 3:25 PM EDT [facility] Bacteria, Urine, AutoMic 76 0 - 941 [facility] 02/24/2025 3:25 PM T [facility] Urine Urine specimen obtained by clean catch procedure / Unknown Non-blood Collection / Unknown 02/24/2025 2:29 PM EDT 02/24/2025 2:37 PM EDT [facility] DO LAB URINE ORDERABLES Final Res ult Performing Organization Address [facility] Co de Phone Number [facility] [address] [place] [address] * (ABNORMAL) Urinalysis, culture if indicated (02/24/2025 2:29 PM EDT) Color, Urine Yellow Light Yellow, Yellow, Dark Yellow 02/24/2025 2:54 PM EDT [facility] Clarity, Urine Clear Clear 02/24/2025 2:54 PM EDT [facility] pH, Urine 6.0 5.0 - 8.0 02/24/2025 2:54 PM EDT [facility] Leukocytes Esterase, Urine Negative Negative 02/24/2025 2:54 PM EDT [facility] Nitrite, Urine Negative Negative 02/24/2025 2:54 PM EDT [facility] Protein, Urine 30 mg/dL(A) Negative 2:54 PM EDT [facility] Glucose, Urine >= 1000 mg/dL(A) Negative 02/24/2025 2:54 PM EDT [facility] Bilirubin, Urine Negative Negative 02/24/2025 2:54 PM EDT [facility] Specific [place], Urine 1.029 1.005 - 1.030 02/24/2025 2:54 PM EDT [facility] Ketones, Urine Trace(A) Negative 02/24/2025 2:54 PM EDT [facility] Urobilinogen, Urine 0.2 EU/dL <=1.0 EU/dL 02/24/2025 2:54 PM EDT [facility] Blood, Urine Small(A) Negative 02/24/2025 2:54 PM EDT [facility] Urine Urine specimen obtained by clean catch procedure / Unknown Non-blood Collection / Unknown 02/24/2025 2:29 PM EDT 02/24/2025 2:37 PM EDT [facility] LAB URINE ORDERABLES Final Res ult Performing Organization Address [facility]/State/ZIP Co de Phone Number [facility] [address] [place] [address] * ECG 12-lead: HOSPITAL or TEST FACILITY Once Chest pain (02/24/2025 2:00 PM EDT) 02/24/2025 2:00 PM EDT [facility] 02/24/2025 5:22 PM EDT [facility] Test Date: 2025-02-24 Pat Name: CLOVIS LEYVA Department: ED Room: Gender: Male Web Content Coordinator: : 1980 Requested By: EMERGENCY Order Number: [id number] Reading MD: Karla Stoll Measurements Intervals [place] Rate: 68 P: 78 TN: 146 QRS: 27 QRSD: 95 T: 78 QT: 381 QTc: 408 Interpretive Statements Sinus rhythm Electronically Signed On 02-24-2025 17:22:38 EDT by Karla Stoll Procedure Note Sandeep Stoll MD - 02/24/2025 [facility] Test Date: 2025-02-24 Pat Name: CLOVIS AVILASamirWYNN Department: ED Room: Gender: Male Web Content Coordinator: : 1980 Requested By: EMERGENCY Order Number: [id number] Reading MD: Karla Stoll Measurements Intervals [place] Rate: 68 P: 78 TN: 146 QRS: 27 QRSD: 95 T: 78 QT: 381 QTc: 408 Interpretive Statements Sinus rhythm Electronically Signed On 02-24-2025 17:22:38 EDT by Karla Stoll us Talia Hernandez MD [place] [address], * (ABNORMAL) Hepatitis C RNA, quantitative, PCR (12/19/2022 1:44 PM EDT) Hepatitis C RNA-PCR [id number](H ) IU/mL 12/23/2022 5:04 PM EDT [facility] HCV Quantitative Log 6.57(H) log IU/mL 12/23/2022 5:04 PM EDT [facility] Comment: Reference Range: Not Detected IU/mL Not Detected Log IU/mL This test was performed using Real-Time Polymerase Chain Reaction. Reportable range is 15 IU/mL to 100,000,000 IU/mL (1.18 Log IU/mL to 8.00 Log IU/mL). For additional information please refer to http://education.Tutamee/faq/GPQ13h2 (This link is being provided for informational/ educational purposes only.) The analytical performance characteristics of this assay have been determined by [employer] [facility], [place], [place]. The modifications have not been cleared or approved by the FDA. This assay has been validated pursuant to the CLIA regulations and is used for clinical purposes. Blood Venous blood specimen / Unknown Venipuncture / Unknown 12/19/2022 1:44 PM EDT 12/19/2022 1:45 PM EDT us Freddy Epps MD LAB BLOOD ORDERABLES Final Resul t [facility], [address] [place] [phone] * (ABNORMAL) Lipid panel (12/19/2022 1:44 PM EDT) Triglycerides 96 0 - 150 mg/dL 12/19/2022 4:36 PM EDT [facility] Total Cholesterol 245(H) 0 - 200 mg/dL 12/19/2022 4:36 PM EDT [facility] HDL-C 70 >40 mg/dL 12/19/2022 4:36 PM EDT [facility] calculated LDL-C 156(H) <100 mg/dL 12/19/2022 4:36 PM EDT [facility] calculated NON-HDL-C 175(H) <130 mg/dL 12/19/2022 4:36 PM EDT [facility] Comment: Recommended Target Goals in general for Lipids (Based on the 2020 AACE/SALLY Guidelines, 2018 ACC/NLA Guidelines, and 2019 ESC/EAS Guidelines): LDL-C <70 mg/dL and Non-HDL-C <100 mg/dL if any of the following: o Familial hypercholesterolemia o Diabetes Mellitus with at least 1 risk factor o 10-year ASCVD (Atherosclerotic Cardiovascular Disease) risk >20% o Chronic Kidney Disease Stage 3 or greater with albuminuria o Established clinical ASCVD (Atherosclerotic Cardiovascular Disease) as defined by previous myocardial infarction (heart attack), unstable or stable angina, coronary revascularization, Percutaneous Coronary Intervention (stent), Coronary Artery Bypass Graft (CABG or bypass), and other arterial revascularization procedures), stroke, TIA, or Peripheral Arterial Disease LDL-C <100 mg/dL and Non-HDL-C <130 mg/dL o 2 or more risk factors AND 10-year ASCVD risk 10-20% o Diabetes Mellitus OR Chronic Kidney Disease Stage 3 or greater with no other risk factors o Greater than 2 risk factors AND 10-year ASCVD risk <10% Blood Venous blood specimen / Unknown Venipuncture / Unknown 12/19/2022 1:44 PM EDT 12/19/2022 1:45 PM EDT us Freddy Epps MD LAB BLOOD ORDERABLES Final Resul t [facility] [address] [place] [address] * HIV Ag/Ab Progressive (06/06/2021 9:31 AM EST) HIV Antigen/Antibody Nonreactive Nonreactive 06/07/2021 1:40 PM [facility] Comment: HIV-1 antigen and HIV-1/HIV-2 antibodies were not detected. There is no laboratory evidence of an HIV infection. PLEASE NOTE: This information has been disclosed to you from records whose confidentiality may be protected by state law. If your state requires such protection, then the state law prohibits you from making any further disclosure of the information without the specific written consent of the person to whom it pertains, or as otherwise permitted by law. A general authorization for the release of medical or other information is NOT sufficient for this purpose. The performance of this assay has not been clinically validated in patients less than 2 years old. Blood Venous blood specimen / Unknown Venipuncture / Unknown 06/06/2021 9:31 AM EST 06/06/2021 9:31 AM EST us Libertad Grijalva MD LAB BLOOD ORDERABLES Leandra l Result [facility] [address] [address] * (ABNORMAL) Albumin / creatinine urine ratio - Urine, Clean Catch (05/24/2020 12:34 PM EDT) Pathologist [facility] Creatinine, Urine 67.4 mg/dL 05/24/2020 2:37 PM EDT [facility] Albumin, Urine 10.4 mg/dL 05/24/2020 2:37 PM EDT [facility] Alb/Creat Ratio 154(H) <=30 mcg/mg 05/24/2020 2:37 PM EDT [facility] Comment: Albuminuria categories in CKD [...] MD LAB URINE ORDERABLES Final Resul t [facility] [address] [place] [address] from Last 3 Months or Most Recently Relevant to Health Maintenance Insurance MEDICAID [facility]ICA[facility] Advance Directives * Full Code (Latest Code Status on File) Date Activated Date Inactivated Comments 05/12/2020 10:11 AM 05/18/2020 4:43 PM Care Teams Inside Sales Recruiter Relationship Specialty Start Date End Date Freddy Epps MD [address] [facility] [id number] PCP - General Family Medicine 05/29/20
--- OUTSIDE RECORDS SUMMARY | 2025-05-17 22:16 | XMS_ITS | Encounter Summary ---
Author Organization [facility] alth Address [address] [place] [address] Care Team Providers Care National Expansion Recruiter Name Role Phone Unavailable Primary Care Provider Unavailabl e Encounter Details Date Type Department Care Team (Late st Contact Info) Description 02/06/2023 Office Visit - Data Exchange [facility] Tania Bernstein CRNP [address] [place] [id number] Social History Tobacco Use Types Packs/Day Years Used Date Smoking Tobacco: Never Assessed Sex and Gender Information Value Date Recorded Sex Assigned at Not on file Legal Sex Male 10:16 AM EDT Gender Identity Not on file Sexual Orientation Not on file documented as of this encounter Progress Notes * Tania Bernstein CRNP - 02/06/2023 9:01 AM EDT Patient Name : CLOVIS SHEN (43yo, M) ID# [id number] Appt. Date/Time : 02/06/2023 09:00AM : 1980 Service Dept. : [facility] Provider : ANNA LERNER Insurance Med Primary: [facility] (MEDICAID REPLACEMENT - HMO) Insurance # : [id number] Policy/Group # : [id number] Med Mental Health: [facility] Insurance # : [id number] Med Curry: SLIDING FEE SCHEDULE - DISCOUNT Prescription: [employer] - Member is eligible. details Chief Complaint SBIRT - Adult Pt presents today for pain, swelling, warmth and redness to the top of his left foot x3 days. Pt states it started as a small pimple like bump and progressively worsened. Pt is diabetic and reports his blood sugar readings have been in the 400's. magy Raman Patient's Care Team Primary Care Provider: JOMAR EPPS MD: [address] [facility], [place] [address], , Patient's Pharmacies [facility] ([place]): [address], [place] [address], , [id number] ([place]): [address] [place] [address], , [facility] ([place]): [address] [place] [address], , [facility] ([place]): [address] [place] [address], , Vitals Ht: 5 ft 8 in (172.72 cm) 02/06/2023 09:08 am Wt: 139 lbs 7 oz With clothes (63.25 kg) 02/06/2023 09:08 am BMI: 21.2 02/06/2023 09:08 am BP: 128/76 sitting R arm 02/06/2023 09:09 am Pulse: 90 bpm regular 02/06/2023 09:10 am RR: 18 02/06/2023 09:10 am T: 97.7 F? temporal artery (36.5 C) 02/06/2023 09:08 am Allergies Reviewed Allergies PENICILLINS: Rash (Mild) Some allergies listed in Documents: #[id number], #[id number], #[id number], #[id number] could not be added to this patient's [...] DAILY Date: 04/24/20 filled Source: [facility] Name: cephALEXin 500 mg capsule Take 1 capsule(s) every 6 hours by oral route for 10 days. Date: 02/06/23 prescribed Source: ANNA Lerner Name: citalopram 20 mg tablet TAKE 1 TABLET BY MOUTH EVERY DAY Date: 09/05/22 filled Source: [facility] Name: diclofenac sodium 75 mg tablet,delayed release [...] with meals. Date: 02/06/23 prescribed Source: ANNA Lerner Name: Lantus Solostar U-100 Insulin 100 unit/mL (3 mL) subcutaneous pen Inject 50 unit(s) twice a day by subcutaneous route. Date: 02/06/23 prescribed Source: ANNA Lerner Name: lidocaine 5 % topical patch Apply 1 patch(es) every day by topical route as needed. Date: 12/16/22 renewed Source: Jomar Epps MD Name: lisinopriL 5 mg tablet take 1 PO daily Date: 09/01/22 filled Source: [facility]o Name: metFORMIN ER 500 mg tablet,extended release [...] three times daily Date: 10/21/22 filled Source: [facility] Name: OneTouch Ultra Test strips use to check blood sugar three times daily Date: 11/03/22 filled Source: [facility] Name: QUEtiapine 50 mg tablet take one [...] 02/02/23 renewed Source: Jomar Epps MD Vaccines Reviewed Vaccines COVID-19 Vaccine Type: COVID-19, mRNA, LNP-S, PF, 100 mcg/0.5 mL dose (Moderna) Date: 12/07/20 Amt.: 0.5 mL Route: Intramuscular Site: Deltoid, Right NDC: [id number] Lot #: [id number] Mfr.: Moderna US, Inc. Exp. Date: 05/21/21 VIS: Moderna COVID-19 Vaccine EUA Fact Sheet 10/19/2020 VIS Given: 12/07/20 Chocolate Maker: Royer Matias CMA Vaccine Type: COVID-19, mRNA, LNP-S, PF, 100 mcg/0.5 mL dose (Moderna) Date: 11/02/20 Amt.: 0.5 mL Route: Intramuscular Site: Deltoid, Left NDC: Lot #: [id number] Mfr.: Moderna [employer], Inc. Exp. Date: 04/27/21 VIS: Moderna COVID-19 Vaccine EUA Fact Sheet 06/26/2020 VIS Given: 11/02/20 Chocolate Maker: Eduarda Matias MA Haemophilus Influenzae Type B Vaccine Type: Hib (PRP-T) Date: 05/14/20 Amt.: 0.5 mL Route: Site: NDC: Lot #: [id number] Mfr.: Sanofi Pasteur Exp. Date: VIS: VIS Given: Chocolate Maker: Vaccine Type: Hib Date: 05/14/20 Amt.: Route: Site: NDC: Lot #: [id number] Mfr.: THUBITofi Pasteur Exp. Date: VIS: VIS Given: Chocolate Maker: Influenza Vaccine Type: influenza, seasonal, injectable, preservative free Date: 05/17/20 Amt.: 0.5 mL Route: Site: [facility]: Lot #: [id number] Mfr.: THUBITofi Pasteur Exp. Date: VIS: VIS Given: Chocolate Maker: Vaccine Type: influenza, injectable, quadrivalent Date: 08/03/19 Amt.: 0.5 mL Route: Intramuscular Site: Deltoid, Left NDC: Lot #: [id number] Mfr.: THUBITofi Pasteur Exp. Date: 01/24/20 VIS: Inactivated Influenza 03/10/2019 VIS Given: 08/03/19 Chocolate Maker: Faith Mead Vaccine Type: influenza, injectable, quadrivalent, preservative free Date: 09/16/15 Amt.: 0.5 mL Route: Site: [facility]: Lot #: [id number] Mfr.: Exp. Date: VIS: VIS Given: Chocolate Maker: Meningococcal Vaccine Type: meningococcal MCV4P Date: 05/14/20 Amt.: 0.5 mL Route: Site: [facility]: Lot #: [id number] Mfr.: THUBITofi Pasteur Exp. Date: VIS: VIS Given: Chocolate Maker: Vaccine Type: meningococcal B, recombinant Date: 05/14/20 Amt.: 0.5 mL Route: Site: [facility]: Lot #: [id number] Mfr.: Endosee Exp. Date: VIS: VIS Given: Chocolate Maker: Pneumococcal Vaccine Type: pneumococcal conjugate PCV 13 Date: 05/14/20 Amt.: 0.5 mL Route: Site: [facility]: Lot #: [id number] Mfr.: Bluespec Exp. Date: VIS: VIS Given: Chocolate Maker: Vaccine Type: pneumococcal polysaccharide PPV23 Date: 08/03/19 Amt.: 0.5 mL Route: Injection Site: Deltoid, Right NDC: Lot #: [id number] Mfr.: Merck and Co., Inc. Exp. Date: 12/13/20 VIS: PPSV23 05/25/2019 VIS Given: 08/03/19 Chocolate Maker: Faith Mead Problems Reviewed Problems * Chronic hepatitis C - Onset: 07/16/2020 * Candidal balanitis - Onset: 11/11/2022 * Type II diabetes mellitus uncontrolled - Onset: 08/16/2018 * Hypertriglyceridemia - Onset: 09/01/2018 * Generalized [...] Cellulitis of left foot - Onset: 02/06/2023 Family History Family History not reviewed (last [...] or [place])?: Yes (Notes: Born in [place]) TB Screening Question 2: Have you traveled [...] Dental: Where was your last dental visit?: [facility] Dental: Was the visit an [facility] dental provider?: Yes Dental: Action taken: [facility] information provided Other Education: 12 Marital status: Single General stress level: High Gender Identity and LGBTQ Identity Gender identity: Identifies as Male Assigned sex at : Male Pronouns: he/him Sexual orientation: Straight or heterosexual Surgical History Surgical History not reviewed (last reviewed 06/05/2021) * 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 He states that on Thursday he noticed what looked like a little bug bite/rash. It them started to row bigger and bigger. He states that it really hurts and wearing shoes is painful for him. 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 He states that his sugars are running in the 400s consistently. His pre-meal sugars are 400-500 consistently. He states that he wants an insulin pump. He was 477 the other day and he went to the ER, but his wait was too long and he left without being seen. ROS ROS as noted in the HPI Physical Exam Constitutional: General Appearance: healthy-appearing, well-nourished, and well- developed. Level ofDistress: NAD. Ambulation: ambulating without assistance. Neck: Neck: no masses or JVD and normal, trachea midline, and full range of motion. Cardiovascular: Auscultation: normal S1 and S2; no murmurs, rubs, or gallops; and RRR. Lungs: Respiratory effort: unlabored. Inspection: normal chest wall expansion. Auscultation: no wheezing, rales/crackles, or rhonchi and breath sounds normal. INTEG: purplish, erythematous bruised appearing rash to the top of the left foot. Warm to touch andtender; Assessment / Plan 1. Cellulitis of left foot - Will start antibiotics and have close follow up with appt next week since he has uncontrolled DM and concern for foot ulceration to develop. L03.116: Cellulitis of left lower limb * cephalexin 500 mg capsule - Take 1 capsule(s) every 6 hours by oral route for 10 days. Qty: (40) capsule Refills: 0 Pharmacy: [facility] 2. Type II diabetes mellitus uncontrolled - Increased his Lantus to 50 units BID and his regular insulin to 22 units TID due to persistently high sugars in the 400-500 range. (Prior dosages were Lantus 45 BID and insulin aspart 18 units TID.) E11.65: Type 2 diabetes mellitus with hyperglycemia * Lantus Solostar U-100 Insulin 100 unit/mL (3 mL) subcutaneous pen - Inject 50 unit(s) twice a day by subcutaneous route. Qty: (12) 3 mL syringe Refills: 3 Pharmacy: [facility] * insulin aspart (U-100) 100 unit/mL (3 mL) subcutaneous pen - Inject 22 unit(s) 3 times a day by subcutaneous route with meals. Qty: (10) 3 mL syringe Refills: 3Pharmacy: [facility] 3. Depression screening Z13.31: Encounter for screening for depression * PATIENT HEALTH QUESTIONNAIRE-9* 4. Screening procedure Z13.39: Encounter for screening examination for other mental health and behavioral disorders * SUBSTANCE ABUSE SCREENING* Return to Office * ANNA Dietz for ExistingPatient-ACUTE at [facility] on 02/13/2023 at 12:10 PM * Jomar Epps MD for [facility]-CHRONIC at [facility] on 02/25/2023 at 05:30 PM Encounter Sign-Off Encounter signed-off by ANNA Lerner, 02/06/2023. documented in this encounter Plan of Treatment Not on file documented as of this encounter Visit Diagnoses Not on filedocumented in this encounter
--- OUTSIDE RECORDS SUMMARY | 2025-05-17 22:17 | XMS_ITS | Clinical Summary ---
Author Organization [facility] alth Address [address] [place] [address] Care Team Providers Care Cad Administrator Name Role Phone Unavailable Primary Care Provider Unavailabl e Social History Tobacco Use Types Packs/Day Years Used Date Smoking Tobacco: Never Assessed Sex and Gender Information Value Date Recorded Sex Assigned at Not on file Legal Sex Male 10:16 AM EDT Gender Identity Not on file Sexual Orientation Not on file Plan of Treatment Health Maintenance Due Date Last Done Comments IMM: TETANUS (AGE 7-15: TDAP ONLY) 1991 ID: ( B ) Hepatitis C Screening 01/06/1996 Colonoscopy 2023 FIT-DNA 2023 FOB/FIT 2023 ONC (A): Colorectal CA Screening 2023 IMM: INFLUENZA (#1) 2025 05/17/2020, 09/16/2015 CV: ( A ) LIPID PANEL (SCREENING) 12/20/2027 12/19/2022, 12/19/2022 ID: ( A ) HIV SCREENING Completed 06/06/2021 IMM: HEPATITIS A VACCINES Aged Out No longer eligible based on patient's age to complete this topic Procedures Procedure Name Priority Date/Time Associated Diagnosis Comments LIPID PANEL Routine 12/19/2022 1:44 PM EDT HIV 1/2/AG/AB WITH REFLEX TO CONFIRMATION Routine 06/06/2021 9:31 AM EST from Last 3 Months or Most Recently Relevant to Health Maintenance Results * (ABNORMAL) LIPID PANEL CHOLESTEROL FRACTIONATION (LCF) (12/19/2022 1:44 PM EDT) Triglyceride 96 0 - 150 MG/DL 12/19/2022 4:36 PM EDT [facility]ILY [facility] EXCHANGE Cholesterol 245(H) 0 - 200 MG/DL 12/19/2022 4:36 PM EDT [facility]ILY FIRST DATA EXCHANGE High Density Lipoprotein Chol 70 >40 MG/DL 12/19/2022 4:36 PM EDT FAMILY FIRST DATA EXCHANGE Low Density Lipoprot Chol Calc 156(H) <100 MG/DL 12/19/2022 4:36 PM EDT [facility]ILY [facility] DATA EXCHANGE Non HDL Cholesterol Calculation 175(H) <130 MG/DL 12/19/2022 4:36 PM EDT [facility] Comment: Recommended Target Goals in general for [...] risk factors AND 10-year ASCVD risk <10% BLOOD VESSEL STRUCTURE / Unknown 12/19/2022 1:44 PM EDT Narrative FAMILY FIRST DATA EXCHANGE - 12/19/2022 4:36 PM EDT Specimen Source: BLOOD, VENOUS Performed at: [facility]): [address] [facility] us Freddy Epps MD CHEMISTRY ORDERABLES Final Resu lt [facility] [address] [facility] [place] [address], [place] [phone] * HIV 1/2/AG/AB PROGRESSIVE(HIV SCREENING) (06/06/2021 9:31 AM EST) HIV Ag/Linda Interp Nonreactive NONREACTIVE 06/07 1:40 PM EST [facility] Comment: HIV-1 antigen and HIV-1/HIV-2 antibodies were [...] in patients less than 2 years old. BLOOD VESSEL STRUCTURE / Unknown 06/06/2021 9:31 AM EST Narrative FAMILY FIRST DATA EXCHANGE - 06/07/2021 1:40 PM EST Performed at: [facility]): [address] [facility] Libertad Grijalva MD CHEMISTRY ORDERABLES Leandra keara Result [facility] DATA EXCHANGE [address] [place] [place] [address], [place] [phone] from Last 3 Months or Most Recently Relevant to Health Maintenance
--- OUTSIDE RECORDS SUMMARY | 2025-05-17 22:17 | XMS_ITS | Encounter Summary ---
Author Organization [facility] [address] [facility] [address] Care Team Providers Care Tube Lancer Name Role Phone Freddy Epps MD Primary Care Provider [phone] Encounter Details Date Type Department Care Team (Late st Contact Info) Description 08/17/2018 Lab Requisition [facility] Services Social History Tobacco Use Types Packs/Day Years [...] Diagnoses Not on filedocumented in this encounter Additional Health Concerns Infection Onset Date Last Indicated Resolved Time Rule out COVID-19 and Respir atory Viruses 05/12/2020 05/12/2020 05/12/2020 8:07 AM E DT Rule out SARS-CoV-2 (related to COVID-19) 07/29/2021 07/29/2021 08/01/2021 6:[address] SARS-CoV-2 (related to COVID-19) 07/29/2021 07/29/1908/12/2021 8:03 PM EST Rule out COVID-19/Influenza/RSV 11/16/2024 11/16/2024 10:54 PM EDT documented as of this encounter Care Teams Tube Lancer Relationship Specialty Start Date End Date Freddy Epps MD [address] [facility] [place] [phone] PCP - General Family Medicine 11/3/20 documented as of this encounter
--- OUTSIDE RECORDS SUMMARY | 2025-05-17 22:17 | XMS_ITS | Encounter Summary ---
Author Organization [facility] [address] [facility] [address] Care Team Providers Care Hard Rock Drill Operator Name Role Phone Freddy pEps MD Primary Care Provider [phone] Encounter Details Date Type Department Care Team (Latest Contact Info) Description 08/17/2018 Lab Requisition [facility] Services Jordyn Ribeiro PA-C [address] [facility] [facility] [place] [address] Type 2 diabetes mellitus with hyperglycemia Social [...] Comments ALBUMIN / CREATININE URINE RATIO Routine 08/17/2018 1:16 PM EST Type 2 diabetes mellitus with hyperglycemia (CMS/HCC) HEMOGLOBIN A1C Routine 08/17/2018 1:16 PM EST Type 2 diabetes mellitus with hyperglycemia (CMS/HCC) LIPID PANEL Routine 08/17/2018 1:16 PM EST Type 2 diabetes mellitus with hyperglycemia (CMS/HCC) COMPREHENSIVE METABOLIC PANEL Routine 08/17/2018 1:16 PM EST Type 2 diabetes mellitus with hyperglycemia (CMS/HCC) documented in this encounter Results * (ABNORMAL) Albumin / creatinine urine ratio - Urine, Clean Catch (08/17/2018 1:16 PM EST) Creatinine, Urine 26.8 mg/dL 08/17/2018 5:44 PM [facility] Albumin, Urine 6.2 mg/dL 08/17/2018 5:44 PM [facility] Alb/Creat Ratio 231(H) <=30 mcg/mg 08/17/2018 5:44 PM [facility] Comment: Albuminuria categories in CKD Category ACR (mcg/mg) Terms A1 <30 mcg/mg Normal to mildly increased A2 30-299 mcg/mg Moderately increased* A3 >300 mcg/mg Severly increased *Relative to young adult level. Including nephrotic syndrome (albumin excretion ACR >2200 mcg/mg). Urine Urine specimen obtained by clean catch procedure / Unknown 08/17/2018 1:16 PM EST 08/17/2018 1:16 PM EST Jordyn Ribeiro PA-C LAB URINE ORDERABLES F inal Result [facility] [address] [place] [address] * (ABNORMAL) Lipid panel - (08/17/2018 1:16 PM EST) Triglycerides 360(H) 0 - 150 mg/dL 08/17/2018 5:19 PM [facility] Comment: With NCEP guidelines Borderline High 150-199 mg/dL High 200-499 mg/dL Very High >500 mg/dL Total Cholesterol 193 0 - 200 mg/dL 08/17/2018 5:19 PM [facility] Comment: NCEP Guidelines: Desirable <200 mg/dL Borderline High 200-239 mg/dL High >240 mg/dL HDL-C 43 mg/dL 08/17/2018 5:19 PM [facility] Comment: High risk <40 mg/dL Low risk >60 mg/dL calculated LDL-C 78 mg/dL 08/17/19 19 5:19 PM [facility] Comment: NCEP guidelines: Optimal <100 mg/dL Near/Above Optimal 100-129 mg/dL Borderline High 130-159 mg/dL High 160-189 mg/dL Very High >190 mg/dL Blood Venous blood specimen / Unknown 08/17/2018 1:16 PM EST 08/17/2018 1:16 PM EST Jordyn Ribeiro PA-C LAB BLOOD ORDERABLES F inal Result [facility] [address] [place] [address] * (ABNORMAL) Comprehensive metabolic panel - (08/17/2018 1:16 PM EST) Glucose 570(HH) 70 - 139 mg/dL 08/17/2018 5:39 PM [facility] Comment:Confirmed Sodium 130(L) 135 - 142 mmol/L 08/17/2018 5:39 PM [facility] Potassium 4.9 3.5 - 5.3 mmol/L 08/17/2018 5:39 PM [facility] Chloride 94(L) 98 - 107 mmol/L 08/17/2018 5:39 PM [facility] CO2 28 21 - 31 mmol/L 08/17/2018 5:39 PM [facility] Anion Gap 8 3 - 11 mmol/L 08/17/2018 5:39 PM [facility] BUN 15 7 - 25 mg/dL 08/17/2018 5:39 PM [facility] Creatinine 0.90 0.70 - 1.30 mg/dL 08/17/2018 5:39 PM [facility] Calcium 9.7 8.6 - 10.3 mg/dL 08/17/2018 5:39 PM [facility] Total Protein 7.4 6.4 - 8.9 gm/dL 08/17/2018 5:39 PM [facility] Albumin 4.3 3.5 - 5.7 gm/dL 08/17/2018 5:39 PM [facility] Alkaline Phosphatase 76 34 - 104 IU/L 08/17/2018 5:39 PM [facility] AST 47(H) 13 - 39 IU/L 08/17/2018 5:39 PM [facility] ALT (SGPT) 70(H) 7 - 52 IU/L 08/17/2018 5:39 PM [facility] Total Bilirubin 0.5 0.3 - 1.0 mg/dL 08/17/2018 5:39 PM [facility] eGFR >60.0 >60.0 mL/min/1. 73m*2 08/17/2018 5:39 PM [facility] Comment: The estimated Glomerular Filtration [...] toxicity that are excreted by the kidney. Decreased eGFR for >3 months to levels of 30-59 (moderate) is classified as stage 3; 15-29 (severe), stage 4; <15, kidney failure. Kiera Shaw., Roxana S, Terrie T., et al., Comparison of CKD Epidemiology Collaboration (CKD-EPI) and Modification of Diet in Renal Disease (MDRD) Study Equations: Risk Factors for and Complications of CKD and Mortality in the Kidney Early Evaluation Program (KEEP). Am J Kidney Dis (2011);57(5Frrjf5):S9-16. Blood Venous blood specimen / Unknown 08/17/2018 1:16 PM EST 08/17/2018 1:16 PM EST Jordyn Ribeiro PA-C LAB BLOOD ORDERABLES F inal Result Performing Organization Address [facility]/State/[facility] Co de Phone Number [facility] [address] [place] [address] * (ABNORMAL) Hemoglobin A1c - (08/17/2018 1:16 PM EST) Hemoglobin A1C 13.5(H) <5.7 % 08/17/2018 6:14 PM [facility] Comment: Normal <5.7% Abnormal, High [...] may yield falsely high results. Performed at [facility], [address] [place] [address] Estimated average glucose 341 mg/dL 08/17/2018 6:14 PM EST [facility] Comment: The estimated average glucose (eAG) is derived from the equation [AG (mg/dL)= 28.7 x %HbA1c - 46.7] and provided as recommended by the [place] [employer]. Calculated eAG values less than 97 mg/dL or greater than 298 mg/dL may be unreliable and should be interpreted with caution. Estimated average glucose is educational and should not be used for clinical management of diabetic patients. Diabetes Care, 31(8):4833-2969. Blood Venous blood specimen / Unknown 08/17/2018 1:16 PM EST 08/17/2018 1:16 PM EST Jordyn Ribeiro PA-C LAB BLOOD ORDERABLES F inal Result [facility] [address] [place] [address] documented in this encounter Visit Diagnoses Diagnosis Type 2 diabetes mellitus with hyperglycemia (CMS/HHS/HCC) documented in this encounter Additional Health Concerns [...] documented as of this encounter Care Teams Hard Rock Drill Operator Relationship Specialty Start Date End Date Freddy Epps MD [address] [place] [phone] PCP - General Family Medicine 05/29/20 documented as of this encounter
--- OUTSIDE RECORDS SUMMARY | 2025-05-17 22:17 | XMS_ITS | Encounter Summary ---
Author Organization [facility] Address [address] [place] [address] Care Team Providers Care Vat House Supervisor Name Role Phone Freddy Epps MD Primary Care Provider [phone] Encounter Details Date Type Department Care Team (Latest Contact Info) Description 09/07/2018 Lab Requisition [facility] Freddy Epps MD [address] [place] [id number] Encounter for screening for infections with predominantly sexual mode of transmission Social History [...] TRACHOMATIS AND NEISSERIA GONORRHOEAE MOLECULAR SCREEN Routine 09/07/2018 1:32 PM EST Encounter for screening for infections with predominantly sexual mode of transmission HERPES SIMPLEX VIRUS PCR Routine 09/06/2018 1:32 PM EST Encounter for screening for infections with predominantly sexual mode of transmission HERPES SIMPLEX VIRUS PCR Routine 09/06/2018 1:32 PM EST Encounter for screening for infections with predominantly sexual mode of transmission documented in this encounter Results * Chlamydia trachomatis and Neisseria gonorrhoeae Molecular Screen (09/07/2018 1:32 PM EST) Chlamydia Screen Not Detected Not Detected 09/09/2018 7:58 AM [facility] GC Screen Not Detected Not Detected 09/09/2018 7:58 AM [facility] Urine Urine specimen / Unknown 09/07/2018 1:32 PM EST 09/07/2018 1:31 PM EST Narrative [facility] - 09/09/2018 7:58 AM EST Specimen was tested by the AptGlassmap Combo 2 Assay, a Nucleic Acid Amplification [...] levels below the assay limit of detection. us Freddy Epps MD LAB MICROBIOLOGY - GENERAL ORDER ALIDA Final Result Performing Organization Address [facility] Co de Phone Number [facility] [address] [place] [address] * Herpes simplex virus PCR (09/06/2018 1:32 PM EST) Herpes Simplex Virus PCR, Type 1 Not Detected Not Detected 09/07/2018 9:51 PM [facility] Herpes Simplex Virus PCR, Type 2 Not Detected Not Detected 09/07/2018 9:51 PM [facility] Swab Penis swab / Unknown 09/06/2018 1:32 PM EST 09/07/2018 1:31 PM EST us Freddy Epps MD LAB MICROBIOLOGY - GENERAL ORDER ALIDA Final Result Performing Organization Address [facility] Co de Phone Number [facility] [address] [place] [phone] documented in this encounter Visit Diagnoses Diagnosis Encounter for screening for infections with predominantly sexual mode of transmission documented in [...] documented as of this encounter Care Teams Vat House Supervisor Relationship Specialty Start Date End Date Freddy Epps MD [address] [place] [phone] PCP - General Family Medicine 05/29/20 documented as of this encounter
--- OUTSIDE RECORDS SUMMARY | 2025-05-17 22:17 | XMS_ITS | Encounter Summary ---
Author Organization [facility] [address] [facility] [address] Care Team Providers Care Radio Frequency Engineer Name Role Phone Freddy Epps MD Primary Care Provider [phone] Encounter Details Date Type Department Care Team (Late st Contact Info) Description 07/04/2020 Lab Requisition [facility] - [facility] [address] [place] [address] John Morocho MD [address] [place] [address] Thrombocytopenia, unspecified; Encounter for screening for other viral diseases; Other problems related to lifestyle Social History Tobacco Use Types Packs/Day Years [...] Procedure Name Priority Date/Time Associated Diagnosis Comments HEPATITIS B CORE ANTIBODY, IGM Routine 07/04/2020 10:45 AM EST Thrombocytopenia, unspecified (CMS/HCC) Encounter for screening for other viral diseases Other problems related to lifestyle HEPATITIS B CORE ANTIBODY, TOTAL Routine 07/04/2020 10:45 AM EST Thrombocytopenia, unspecified (CMS/HCC) Encounter for screening for other viral diseases Other problems related to lifestyle HEPATITIS B E ANTIGEN Routine 07/04/2020 10:45 AM EST Thrombocytopenia, unspecified (CMS/HCC) Encounter for screening for other viral diseases Other problems related to lifestyle HEPATITIS C RNA, QUANTITATIVE, PCR Routine 07/04/2020 10:45 AM EST Thrombocytopenia, unspecified (CMS/HCC) Encounter for screening for other viral diseases Other problems related to lifestyle HEPATITIS B SURFACE ANTIGEN W/REFLEX TO CONFIRMATION Routine 07/04/2020 10:45 AM EST Thrombocytopenia, unspecified (CMS/HCC) Encounter for screening for other viral diseases Other problems related to lifestyle documented in this encounter Results * Hepatitis B e antigen (07/04/2020 10:45 AM EST) Hep B E Ag Nonreactive 07/09/2020 4:56 AM EST [facility] Comment: Reference range: Nonreactive For additional information, please refer to https://NorSun.Preventice/faq/JUW814 (This link is being provided for informational/ educational purposes only.) Blood Venous blood specimen / Unknown 07/04/2020 10:45 AM EST 07/04/2020 10:54 AM EST us John Morocho MD LAB BLOOD ORDERABLES Final Resu lt [facility], [address] [place], [place] [address] * Hepatitis B core antibody, IgM (07/04/2020 10:45 AM EST) Hep B Core IgM Nonreactive Nonreactive 07/09/2020 4:58 AM EST [facility] Blood Venous blood specimen / Unknown 07/04/2020 10:45 AM EST 07/04/2020 10:54 AM EST John Morocho MD LAB BLOOD ORDERABLES Final Resu lt Performing Organization Address [facility]/ZIP Co de Phone Number [facility], [address] [place] [address] [address] [place], [place] [phone] * Hepatitis B core antibody, total (07/04/2020 10:45 AM EST) Hep B Core Total Ab Nonreactive Nonreactive 07/09/2020 4:58 AM EST [facility] Blood Venous blood specimen / Unknown 07/04/2020 10:45 AM EST 07/04/2020 10:54 AM EST John Morocho MD LAB BLOOD ORDERABLES Final Resu lt Performing Organization Address [facility] de Phone Number [facility], [address] [place], [place] [phone] * Hepatitis B surface antigen w/reflex to confirmation (07/04/2020 10:45 AM EST) Pathologist [facility] Hepatitis B Surface Ag Nonreactive Nonreactive 07/09/2020 4:[address] [facility] Comment: Confirmation Not required according to the current package insert. Blood Venous blood specimen / Unknown 07/04/2020 10:45 AM EST 07/04/2020 10:54 AM EST John Morocho MD LAB BLOOD ORDERABLES Final Resu lt Performing Organization Address [facility] Co de Phone Number [facility], [address] [place], [place] [phone] * (ABNORMAL) Hepatitis C RNA, quantitative, PCR (07/04/2020 10:45 AM EST) Hepatitis C RNA-PCR [id number](H ) IU/mL 07/07/2020 8:[address] [facility] HCV Quantitative Log 6.40(H) log IU/mL 07/07/2020 8:18 PM EST [facility] Comment: Reference Range: Not Detected IU/mL Not Detected Log IU/mL This test was performed using Real-Time Polymerase Chain Reaction. Reportable range is 15 IU/mL to 100,000,000 IU/mL (1.18 Log IU/mL to 8.00 Log IU/mL). For additional information please refer to http://education.Preventice/faq/TFW13l0 (This link is being provided for informational/ educational purposes only.) The analytical performance characteristics of this assay have been determined by [employer] [facility], [place], [place]. The modifications have not been cleared or approved by the FDA. This assay has been validated pursuant to the CLIA regulations and is used for clinical purposes. Blood Venous blood specimen / Unknown 07/04/2020 10:45 AM EST 07/04/2020 10:54 AM EST John Morocho MD LAB BLOOD ORDERABLES Final Resu lt [facility], [address] [place], [place] [phone] documented in this encounter Visit Diagnoses Diagnosis Thrombocytopenia, unspecified Encounter for screening for other viral diseases Other problems related to lifestyle documented in this encounter Additional Health Concerns Infection Onset Date Last Indicated Resolved Time Rule out SARS-CoV-2 (related to COVID-19) 07/29/2021 07/29/2021 08/01/2021 6:[address] SARS-CoV-2 (related to COVID-19) 07/29/2021 07/29/1908/12/2021 8:03 PM EST Rule out COVID-19/Influenza/RSV 11/16/2024 11/16/2024 10:54 PM EDT documented as of this encounter Care Teams Radio Frequency Engineer Relationship Specialty Start Date End Date Freddy Epps MD [address] [place] [phone] PCP - General Family Medicine 05/29/20 documented as of this encounter
--- OUTSIDE RECORDS SUMMARY | 2025-05-17 22:17 | XMS_ITS | Encounter Summary ---
Author Organization [facility] Address [address] [place] [address] Care Team Providers Care Electrician Elevator Maintenance Name Role Phone Freddy Epps MD Primary Care Provider [phone] Encounter Details Date Type Department Care Team (Late st Contact Info) Description 07/04/2020 Non-[facility] Documentation Non-[facility] Department for [employer] Client interface John Morocho MD [address] [address] Social History Tobacco Use Types Packs/Day Years [...] documented as of this encounter Care Teams Electrician Elevator Maintenance Relationship Specialty Start Date End Date Freddy Epps MD [address] [place] [phone] PCP - General Family Medicine 05/29/20 documented as of this encounter
--- OUTSIDE RECORDS SUMMARY | 2025-05-17 22:17 | XMS_ITS | Encounter Summary ---
Author Organization [facility] alth Address [address] [place] [address] Care Team Providers Care Editor School Photograph Name Role Phone Unavailable Primary Care Provider Unavailabl e Encounter Details Date Type Department Care Team ([facility] Contact Info) Description 12/29/2024 Office Visit - Data Exchange [facility] Tania Bernstein CRNP [address] [place] [id number] Social History Tobacco Use Types Packs/Day Years Used Date Smoking Tobacco: Never Assessed Sex and Gender Information Value Date Recorded Sex Assigned at Not on file Legal Sex Male 10:16 AM EDT Gender Identity Not on file Sexual Orientation Not on file documented as of this encounter Progress Notes * Tania Bernstein CRNP - 12/29/2024 8:59 AM EDT Patient Name : CLOVIS SHEN (44yo, M) ID# [id number] Appt. Date/Time : 12/29/2024 09:20AM : 1980 Service Dept. : [facility] Provider : ANNA LERNER Insurance Med Primary: [facility] [employer] (MEDICAID REPLACEMENT - HMO) Insurance # : [id number] Policy/Group # : [id number] Med Mental Health: [facility] Insurance # : [id number] Prescription: [employer] - Member is eligible. details Chief Complaint SBIRT - Adult Pt presents with left ear pain and fever x2 days. Pt also reports bloody drainage from left ear. Ptalso has rash on his nose with pain and itching x2 days. 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 phq9 Patient's Care Team Primary Care Provider: JOMAR EPPS MD: [address] [facility] [address], , Patient's Pharmacies [facility] [place] [place] ([facility]X): [address] [address], [place] [address], , [id number]: [address] [facility] [place], [place] [address], Vitals Ht: 5 ft 8 in (172.72 cm) 12/29/2024 09:12 am Wt: 145 lbs 9.6 oz With clothes (66.04 kg) 12/29/2024 09:12 am BMI: 22.1 12/29/2024 09:12 am BP: 151/82 sitting L arm 12/29/2024 09:17 am Pulse: 84 bpm regular 12/29/2024 09:17 am RR: 18 12/29/2024 09:15 am T: 99.3 F? temporal artery (37.39 C) 12/29/2024 09:12 am BP Measurement Method: machine 12/29/2024 09:15 am Allergies Reviewed Allergies PENICILLINS: Rash (Mild) Some allergies listed in Document: #[id number] could not be added to this patient's chart. Please review this document and add these allergies to the patient's chart manually as needed. Medications Reviewed Medications Name: albuterol sulfate HFA 90 mcg/actuation aerosol inhaler Inhale 2 puff(s) every 4 hours by inhalation route as needed, for shortness of breath, cough, wheezing. Date: 06/28/24 prescribed Source: ANNA Clay Name: amoxicillin 875 mg-potassium clavulanate 125 mg tablet Take 1 tablet(s) every 12 hours by oral route for 10 days. Date: 12/29/24 prescribed Source: ANNA Lerner Name: atorvastatin 40 mg tablet TAKE 1 TABLET BY MOUTH EVERY DAY FOR CHOLESTEROL Date: 12/08/24 filled Source: surescripts Name: BD Ultra-Fine Short Pen Needle 31 gauge x 5/16 USE WITH INSULIN 4 TIMES DAILY Date: 04/24/20 filled Source: [facility] Name: cephALEXin 500 mg capsule Take 1 capsule(s) 3 times a day by oral route for 7 days. Date: 11/10/24 filled Source: leo Name: Dexcom G7 Saddle And Side Wire Stitcher USE DIRECTED Date: 12/01/24 filled Source: leo Name: Dexcom G7 Sensor device USE DIRECTED Date: 12/01/24 filled Source: leo Name: escitalopram 10 mg tablet Take 1 tablet(s) every day by oral route for 30 days. Date: 11/21/24 filled Source: demiriareli Name: famotidine 40 mg tablet Take 1 tablet(s) every day by oral route at bedtime, for abdominal pain. Date: 12/08/24 filled Source: demiriareli Name: ibuprofen 800 mg tablet Take 1 tablet(s) every 8 hours by oral route as needed, for left ear pain. Date: 12/29/24 prescribed Source: ANNA Lerner Name: insulin aspart (U-100) 100 unit/mL (3 mL) subcutaneous pen Inject 22 unit(s) 3 times a day bysubcutaneous route with meals, for MEAL COVERAGE. Date: 12/08/24 filled Source: leo Name: Lantus Solostar U-100 Insulin 100 unit/mL (3 mL) subcutaneous pen Inject 40 unit(s) twice a day by subcutaneous route. Date: 12/08/24 filled Source: leo Name: lisinopriL 10 mg tablet Take 1 tablet(s) every day by oral route. Date: 12/08/24 filled Source: leo Name: metFORMIN ER 500 mg tablet,extended release 24 hr TAKE 2 TABLETS BY MOUTH TWICE A DAY FOR DIABETES Date: 11/28/24 filled Source: leo Name: hshaskde-wisfehvqz-jpbazfsar 3.5 mg-10,000 unit/mL-1 % ear drops,susp INSTILL 4 DROPS INTO AFFECTED EAR(S) BY OTIC ROUTE 3 TIMES PER DAY FOR 7 DAYS Date: 12/29/24 prescribed Source: ANNA Lerner Name: OneTouch Delica Plus Lancet 33 gauge USE TO TEST BLOOD SUGAR ONCE DAILY Date: 02/22/24 filled Source: leo Name: OneTouch Verio Flex Meter TEST BLOOD SUGAR ONCE DAILY Date: 02/24/24 filled Source: leo Name: OneTouch Verio test strips TEST BLOOD SUGAR ONCE DAILY Date: 02/24/24 filled Source: leo Name: QUEtiapine 50 mg tablet take one tablet by mouth daily Date: 12/03/24 filled Source: missyscripts Name: tamsulosin 0.4 mg capsule Date: 08/18/24 filled Source: demiripts Name: tiZANidine 2 mg tablet Take 1 tablet(s) twice a day by oral route as needed for 30 days. Date: 08/03/24 renewed Source: Jomar Epps MD Name: Trulicity 0.75 mg/0.5 mL subcutaneous pen injector Inject 0.5 mL every week by subcutaneous route. Date: 12/06/24 filled Source: Smit Ovens Vaccines Reviewed Vaccines COVID-19 Vaccine Type: COVID-19, mRNA, LNP-S, PF, 100 mcg/0.5 mL dose (Moderna) Date: 12/07/20 Amt.: 0.5 mL Route: Intramuscular Site: Deltoid, Right NDC: [id number] Lot #: [id number] Mfr.: Moderna US, Inc. Exp. Date: 05/21/21 VIS: Moderna COVID-19 Vaccine EUA Fact Sheet 10/19/2020 VIS Given: 12/07/20 Marketing Project Manager: Royer Matias CMA Vaccine Type: COVID-19, mRNA, LNP-S, PF, 100 mcg/0.5 mL dose (Moderna) Date: 11/02/20 Amt.: 0.5 mL Route: Intramuscular Site: Deltoid, Left NDC: Lot #: [id number] Mfr.: Moderna BrieFix, Inc. Exp. Date: 04/27/21 VIS: Moderna COVID-19 Vaccine EUA Fact Sheet 06/26/2020 VIS Given: 11/02/20 Marketing Project Manager: Eduarda Matias MA Diphtheria, Tetanus, Pertussis Vaccine Type: Tdap Date: 03/03/23 Amt.: 0.5 mL Route: Intramuscular Site: Deltoid, Left NDC: [id number] Lot #: [id number] Mfr.: Sanofi Pasteur Exp. Date: 12/30/24 VIS: Tdap 03/01/2021 Italian VIS Given: 03/03/23 Marketing Project Manager: Vito Grigsby MA Haemophilus Influenzae Type B Vaccine Type: Hib (PRP-T) Date: 05/14/20 Amt.: 0.5 mL Route: Site: [facility]: Lot #: [id number] Mfr.: Guest of a Guest Pasteur Exp. Date: VIS: VIS Given: Marketing Project Manager: Vaccine Type: Hib Date: 05/14/20 Amt.: Route: Site: [facility]: Lot #: [id number] Mfr.: Whatserofi Pasteur Exp. Date: VIS: VIS Given: Marketing Project Manager: Influenza Vaccine Type: influenza, seasonal, injectable, preservative free Date: 05/17/20 Amt.: 0.5 mL Route: Site: [facility]: Lot #: [id number] Mfr.: Guest of a Guest Pasteur Exp. Date: VIS: VIS Given: Marketing Project Manager: Vaccine Type: influenza, injectable, quadrivalent Date: 08/03/19 Amt.: 0.5 mL Route: Intramuscular Site: Deltoid, Left NDC: Lot #: [id number] Mfr.: Guest of a Guest Pasteur Exp. Date: 01/24/20 VIS: Inactivated Influenza 03/10/2019 VIS Given: 08/03/19 Marketing Project Manager: Faith Mead Vaccine Type: influenza, injectable, quadrivalent, preservative free Date: 09/16/15 Amt.: 0.5 mL Route: Site: [facility]: Lot #: [id number] Mfr.: Exp. Date: VIS: VIS Given: Marketing Project Manager: Meningococcal Vaccine Type: meningococcal MCV4P Date: 05/14/20 Amt.: 0.5 mL Route: Site: [facility]: Lot #: [id number] Mfr.: Guest of a Guest Pasteur Exp. Date: VIS: VIS Given: Marketing Project Manager: Vaccine Type: meningococcal B, recombinant Date: 05/14/20 Amt.: 0.5 mL Route: Site: [facility]: Lot #: [id number] Mfr.: NuScriptRx Exp. Date: VIS: VIS Given: Marketing Project Manager: Vaccine Type: MCV4 Date: 05/14/20 Amt.: Route: Site: [facility]: Lot #: Mfr.: Exp. Date: VIS: VIS Given: Marketing Project Manager: Pneumococcal Vaccine Type: pneumococcal conjugate PCV 13 Date: 05/14/20 Amt.: 0.5 mL Route: Site: [facility]: Lot #: [id number] Mfr.: Wyeth Exp. Date: VIS: VIS Given: Marketing Project Manager: Vaccine Type: pneumococcal polysaccharide PPV23 Date: 08/03/19 Amt.: 0.5 mL Route: Injection Site: Deltoid, Right NDC: Lot #: [id number] Mfr.: DataProm and iMedX., Inc. Exp. Date: 12/13/20 VIS: PPSV23 05/25/2019 VIS Given: 08/03/19 Marketing Project Manager: Faith Mead Problems Reviewed Problems * Chronic hepatitis C - Onset: 07/16/2020 * Candidal balanitis - Onset: 11/11/2022 * Uncontrolled type 2 diabetes mellitus - Onset: 08/16/2018 * Diabetic peripheral neuropathy - Onset: 02/25/2023 * Hypertriglyceridemia - Onset: 09/01/2018 * Generalized anxiety disorder - Onset: 08/16/2018 * Harmful pattern of use of alcohol - Onset: 11/11/2022 * Smoker - Onset: 05/21/2021 * Harmful pattern of use of cocaine - Onset: 08/20/2023 * Depressive disorder - Onset: 08/16/2018 * Insomnia - Onset: 11/15/2020 * Acute otitis externa - Onset: 12/29/2024, Left * Hypertensive disorder - Onset: 08/09/2018 * Folliculitis - Onset: 11/08/2024 * Chronic low back pain - Onset: 06/28/2024 * Chronic back pain - Onset: 02/29/2020 * Acquired hallux malleus - Onset: 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/2024, Bilateral * Axillary lymphadenopathy - Onset: 07/16/2020 - monitored by heme/onc, f/u ct 08/2020 * Persistent cough - Onset: 01/19/2024 * Generalized abdominal pain - Onset: 06/28/2024 * Ketonuria - Onset: 11/08/2024 * 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 * History of splenectomy - Onset: 07/16/2020 * 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 - 2nd and 3rd DIP right hand * Financial problem - Onset: 04/29/2024 * Puncture wound of right foot - Onset: 03/04/2023 * Acute left otitis media - Onset: 12/29/2024 Family History Family History not reviewed (last reviewed 08/11/2024) Mother - Diabetes mellitus - Hypertensive disorder [...] date of your most recent tobacco screening?: 12/29/2024 What is your level of alcohol consumption?: [...] or [place])?: Yes (Notes: Born in [place]) TB Screening Question 2: Have you traveled [...] he/him Sexual orientation: Straight or heterosexual Surgical & Procedure History Surgical & Procedure History not reviewed (last reviewed 04/27/2024) * Removal of spleen total - 05/16/2020 noneSurgery to Left knee.[facility] [employer] Past Medical History Past Medical History not reviewed (last reviewed 04/27/2024) Asthma: Y Diabetes: Y Hypertension: Y Screening HPI He states that he has a chronic hold in his left ear drum. He has intermittent infections all the time. He state that for the last 4-5 days he feels like he has an infection. He has had a fever, it feels blocked, and when he eats it is painful---moving his jaw hurts down the back of his neck. He laid down last night and he saw blood on the pillow. His last infection was probably 8 months ago. He has a rash on the end of his nose. He states that when he rubs the nose it is very painful. He asked for a glucometer, test strips, and lancets. Patient states that he is currently living in the [facility]homeless. ROS ROS as noted in the HPI Physical Exam Constitutional: General Appearance: healthy-appearing, well-nourished, and well- developed. Level ofDistress: NAD. Ambulation: ambulating without assistance. Ears: Right External ear: normally formed and free of lesions. Left External ear: normally formed and free of lesions. Right External auditory canal: no obstruction, erythema, or discharge and normalappearance. Left External auditory canal: erythema, edematous, and purulent discharge. Right Tympanic membrane: pearly negrete and landmarks clear. Left Tympanic membrane: unable to see as canal is too swollen; pt started to cry with advancement of otoscope due to pain. Neck: Neck: no masses or JVD and normal, trachea midline, and full range of motion. Cardiovascular: Auscultation: normal S1 and S2; no murmurs, rubs, or gallops; and RRR. Lungs: Respiratory effort: unlabored. Inspection: normal chest wall expansion. Auscultation: no wheezing, rales/crackles, or rhonchi and breath sounds normal. INTEG: end of nose is reddened, pustule/acne present. Assessment / Plan 1. Acute left otitis media H66.92: Otitis media, unspecified, left ear * amoxicillin 875 mg-potassium clavulanate 125 mg tablet - Take 1 tablet(s) every 12 hours by oral route for 10 days. Qty: (20) tablet Refills: 0 Pharmacy: [facility] * ibuprofen 800 mg tablet - Take 1 tablet(s) every 8 hours by oral route as needed, for left ear pain. Qty: (30) tablet Refills: 3 Pharmacy: [facility] 2. Acute swimmer's ear of left side H60.332: Swimmer's ear, left ear * invhybdv-iucfcruzl-ycslihdzc 3.5 mg-10,000 unit/mL-1 % ear drops,susp - INSTILL 4 DROPS INTO AFFECTED EAR(S) BY OTIC ROUTE 3 TIMES PER DAY FOR 7 DAYS Qty: (1) 10 mL dropper bottle Refills: 0 Pharmacy: [facility] 3. Uncontrolled type 2 diabetes mellitus E11.65: Type 2 diabetes mellitus with hyperglycemia * DIABETES TIPO 2: [employer] - [TYPE 2 DIABETES: CARE INSTRUCTIONS] * BLOOD GLUCOSE TEST STRIPS - Test blood sugar four times daily Qty: 150 Units Refills: 11 Supplier: [facility] Duration / Estimated Length of Need: Lifetime * LANCETS - Test blood sugar four times daily Qty: 150 Units Refills: 11 Supplier: [facility] * GLUCOMETER - Test blood sugar four times daily Qty: 1 Unit Refills: 0 Supplier: [facility] 4. Sheltered homelessness Currently homeless and staying at the [facility]. Declined [facility] referral for today Z59.01: Sheltered homelessness 5. Depression screening Z13.31: Encounter for screening for depression * PATIENT HEALTH QUESTIONNAIRE-9* 6. Screening procedure Z13.39: Encounter for screening examination for other mental health and behavioral disorders * SUBSTANCE ABUSE SCREENING* Discussion Notes Finish antibiotic completely to ensure infection is gone. Use warm compresses as needed to the areabeneath the ear. Use motrin, ibuprofen, OR tylenol as needed for ear pain. Return to Office * to see Jomar Epps MD for EP-[facility] at [facility] on or around 01/28/2025 Encounter Sign-Off Encounter signed-off by ANNA Lerner, 12/29/2024. documented in this encounter Plan of Treatment Not on file documented as of this encounter Visit Diagnoses Not on filedocumented in this encounter
[2025-05-17 22:19] LABS: Reflex Lactate? 2 Y
[2025-05-17 22:47] LABS: ~Lactic Acid-LAB USE ONLY 1.5 mmol/L (0.5-2.0)
[2025-05-18] VITALS (8 sets, daily range): BP systolic 106–168; BP diastolic 64–89; PULSE 60–75; RESP 11–20; TEMP 36.1–36.8; O2SAT 97–100
[2025-05-18 00:18] LABS: Glucose, Whole Blood 247 mg/dL (60-115)
[2025-05-18] MEDS: 0.9 % Sodium Chloride Flush 3 ML SYRINGE IVFLUSH (00:46)
[2025-05-18 05:41] LABS: Hematocrit 34.8 % (42.0-52.0); Hemoglobin 12.0 g/dl (14.0-18.0); Mean Corpuscular HGB Conc 34.5 g/dl (31.0-36.0); Mean Corpuscular Hemoglobin 30.0 pg (27.0-33.0); Mean Corpuscular Volume 87.0 fL (80.0-98.0); NRBC Abs Auto 0.000 X10*3/uL (0.0-0.012); NRBC Pct Auto 0.0 /100WBC (0.0-0.2); Platelet Count 300 X10*3/uL (160-400); Red Blood Count 4.00 X10*6/uL (4.60-5.80); WBC ABN SCTR FOR CBC 1
[2025-05-18 05:43] LABS: White Blood Count 12.0 X10*3/uL (4.8-10.8)
[2025-05-18 05:46] LABS: Alanine Aminotransferase 48 U/L (0-40); Albumin Level 3.1 g/dL (3.5-5.0); Alkaline Phosphatase 72 U/L (39-117); Anion Gap 11 (12-20); Aspartate Amino Transferase 33 U/L (5-37); Blood Urea Nitrogen 17 mg/dL (9-16); Calcium 8.5 mg/dL (8.4-10.2); Carbon Dioxide 26 mmol/L (22-29); Chloride 103 mmol/L (96-108); Creatinine Clr Calc Pharmacy 99.8; Estimated Glomerular Filt Rate > 60; Potassium 3.6 mmol/L (3.3-5.1); Sodium 136 mmol/L (135-145); Total Protein 6.3 g/dL (6.5-8.0)
[2025-05-18] MEDS: Lactated Ringers 1,000 ML 100 ML IVCONT ×2 (06:47→18:11)
[2025-05-18 06:50] LABS: Atypical Lymph Absolute Manual 0.1 x10*3/uL; Atypical Lymphs Percent Manual 1 % (0-6); Basophils Abs Manual 0.1 X10*3/uL (0.0-0.2); Basophils Percent Manual 1 % (0-2); Eosinophils Absolute Manual 0.2 X10*3/uL (0.0-0.4); Eosinophils Percent Manual 2 % (0-4); Lymphocytes Absolute Manual 5.2 X10*3/uL (1.2-4.9); Lymphocytes Percent Manual 43 % (20-40); Monocytes Absolute Manual 0.8 X10*3/uL (0.1-1.2); Monocytes Percent Manual 7 % (2-11); Neutrophils Percent Manual 46 % (45-73)
[2025-05-18 06:53] LABS: Acanthocytes 1+ (0-2) /OIF; Burr Cells 1+ (0-2) /OIF; Large Platelet PRESENT; RBC Morphology NOTED; Smudge Cells PRESENT; Toxic Vacuolation PRESENT
--- NOTE | 2025-05-18 07:19 | PC.NURSE ---
Patient states he is from [place] and he is taking care of a friends dogs. He put them out last night and they have been out all night. He states he's supposed to leave back to [place] tomorrow.
[2025-05-18 07:20] LABS: Glucose, Whole Blood 364 mg/dL (60-115)
--- NOTE | 2025-05-18 08:12 | PC.NURSE ---
Patient cancelled his train ticket will stay until he leaves the hospital.
[2025-05-18 09:32] LABS: Band Neutrophils Percent 0 % (3-5); Neutrophils Absolute Manual 5.5 X10*3/uL (2.0-8.3)
--- NOTE | 2025-05-18 09:33 | PM.CNGS ---
History of Present Illness Consult details Consult date: 05/18/25 <Josias Badillo PA-C - Last Filed: 05/18/25 12:02> Reason for consult: wound care (left forearm burn) <Josias Badillo PA-C - Last Filed: 05/18/25 12:02> Narrative: 45 year old male with history of HTN T2DM, seen in consult for left forearm cellulitis and wound following a burn from a cooking injury. States he was taking something out of the oven and he was splashed with liquid on his left arm. He experienced swelling, pain in the wrist. He came to the hospital because his sugars were very high at home after this. He thinks this has improved since he arrived, the pain is now more localized to the burn site itself. he reports some small amounts of drainage, describes this a clear yellow. He denies fevers or chills. Ct forearm showing no fluid collection, no gas in forearm. He was started on IVF, clindamycin <Josias Badillo PA-C - Last Filed: 05/18/25 12:02> Review of Systems Review of Systems: Yes all other systems are reviewed and are negative <Josias Badillo PA-C - Last Filed: 05/18/25 12:02> [facility] Past Medical History Medical History: Medical History (Updated 05/17/25 @ 20:48 by Emmie Shafer DO) Hypertension DM2 (diabetes mellitus, type 2) <Josias Badillo PA-C - Last Filed: 05/18/25 12:02> Surgical History Surgical History: Surgical History (Updated 05/17/25 @ 17:48 by Samantha Jade RN) H/O splenectomy <Josias Badillo PA-C - Last Filed: 05/18/25 12:02> Social History Social History: Social History Alcohol intake: never Patient Tobacco Use Status: Current everyday Tobacco user Smoked in Last 30 Days: Yes Use of substances other than those prescribed or required for medical reasons: No Advance Directives: No Advance Directives Information Provided: Yes Nutrition Risks: No Nutritional Risk service: No <ALFREDO Leach Last Filed: 05/18/25 12:02> Meds Allergies/Adverse reactions: Allergies Allergy/AdvReac Type Severity Reaction Status Date / Time Penicillins Allergy Rash Verified 05/17/25 17:14 <Josias Badillo PA-C - Last Filed: 05/18/25 12:02> Active Medications: Current Medications Acetaminophen (Acetaminophen 325 Mg Tablet) 650 mg PO Q6H PRN PRN Reason: Pain, Mild 1-3,fever,headache Calcium Carbonate (Calcium Carbonate 750 Mg Tab.Chew) 750 mg PO Q4H PRN PRN Reason: Heartburn Dextrose (Dextrose 50 % 25 Gm/50 Ml Syringe) 25 gm IVPUSH Q15M PRN; Protocol PRN Reason: per Hypoglycemia Standing Ord. Enoxaparin Sodium (Enoxaparin Sodium 40 Mg/0.4 Ml Syringe) 40 mg SUBCUT Q24H [facility] Last Admin: 05/17/25 21:20 Dose: 40 mg Glucose (Glucose Gel 15 Gm Gel..Gram.) 15 gm PO Q15M PRN; Protocol PRN Reason: per Hypoglycemia Standing Ord. Hydromorphone HCl (Hydromorphone Hcl 0.5 Mg/0.5 Ml Syringe) 0.5 mg IVPUSH Q4H PRN; Protocol PRN Reason: Pain, Severe (Pain Scale 7-10) Last Admin: 05/18/25 08:02 Dose: 0.5 mg Lactated Ringer's (Lr) 1,000 mls @ 100 mls/hr IVCONT .Q10H [facility] Last Admin: 05/18/25 06:47 Dose: 100 mls/hr Clindamycin Phosphate (Cleocin) 600 mg in 50 mls @ 100 mls/hr IV Q8H [facility] Last Infusion: 05/18/25 05:13 Dose: Infused Insulin Glargine (Insulin Glargine,Hum.Rec.Anlog 100 Unit/Ml 10 Ml Vial) 20 unit SUBCUT BEDTIME [facility] Last Admin: 05/17/25 21:21 Dose: 20 unit Insulin Human Lispro (Insulin Lispro 100 Unit/Ml 3 Ml Vial) 0 unit SUBCUT QIDACHS [facility]; Protocol Last Admin: 05/18/25 07:25 Dose: 10 unit Magnesium Hydroxide (Milk Of Magnesia 30 Ml Oral.Susp) 30 ml PO DAILY PRN PRN Reason: Constipation Melatonin (Melatonin 3 Mg Tablet) 6 mg PO BEDTIME PRN PRN Reason: Insomnia Last Admin: 05/18/25 00:29 Dose: 6 mg Polyethylene Glycol (Polyethylene Glycol 3350 17 Gm Powd.Pack) 17 gm PO DAILY PRN PRN Reason: Constipation Sodium Chloride (0.9 % Sodium Chloride Flush 3 Ml Syringe) 3 ml IVFLUSH QSHIFT [facility] Last Admin: 05/18/25 07:22 Dose: Not Given <Josias Badillo PA-C - Last Filed: 05/18/25 12:02> Home medications: Home Medications ?Medication ?Instructions ?Recorded ?Confirmed ?Last Taken ?Type albuterol sulfate 90 mcg/actuation 2 puff inhalation Q4H PRN wheezing 05/17/25 05/17/25 Unknown History aerosol inhaler atorvastatin 40 mg tablet 40 mg PO DAILY 05/17/25 05/17/25 05/17/25 History dulaglutide 0.75 mg/0.5 mL 0.75 mg subcut MO 05/17/25 05/17/25 05/15/25 History subcutaneous pen injector (Trulicity) famotidine 40 mg tablet 40 mg PO DAILY 05/17/25 05/17/25 05/17/25 History insulin aspart U-100 100 unit/mL 30 unit subcut TIDAC 05/17/25 05/17/25 05/17/25 History (3 mL) subcutaneous pen insulin glargine 100 unit/mL (3 40 unit subcut BID 05/17/25 05/17/25 05/17/25 History mL) subcutaneous pen (Lantus Solostar U-100 Insulin) lisinopril 10 mg tablet 10 mg PO DAILY 05/17/25 05/17/25 05/17/25 History metformin 500 mg tablet,extended 1,000 mg PO BID 05/17/25 05/17/25 05/17/25 History release 24 hr quetiapine 50 mg tablet 50 mg PO BEDTIME 05/17/25 05/17/25 05/17/25 History <Josias Badillo PA-C - Last Filed: 05/18/25 12:02> Physical Exam Vital Signs: Vital Signs: Last Vital Signs Temp 98.3 F 05/18/25 08:37 Pulse 64 05/18/25 08:37 Resp 15 05/18/25 08:37 BP 106/64 05/18/25 08:37 Pulse Ox 98 05/18/25 08:37 O2 Del Method Room Air 05/18/25 08:37 BMI result Body Mass Index 22.0 <ALFREDO Leach Last Filed: 05/18/25 12:02> Const: General: comfortable and no acute distress <ALFREDO Leach Last Filed: 05/18/25 12:02> Orientation/consciousness: patient oriented x3 <ALFREDO Leach Last Filed: 05/18/25 12:02> Neuro: General: patient oriented x3 <ALFREDO Leach Last Filed: 05/18/25 12:02> Extrem: Other: left forearm: scant serous drainage. moderate edema. some mild cellulitis surrounding the wound. Thick eschar covering most of the wound. <ALFREDO Leach Last Filed: 05/18/25 12:02> Results Labs Result diagrams: 05/18/25 05:15 05/18/25 05:15 <Josias Badillo PA-C Samir Last Filed: 05/18/25 12:02> Labs: Abnormal lab results 05/17/25 05/17/25 05/17/25 Range/Units 17:32 17:42 17:46 WBC 12.1 H (4.8-10.8) X10*3/uL RBC (4.60-5.80) X10*6/uL Hgb 13.9 L (14.0-18.0) g/dl Hct 40.2 L (42.0-52.0) % Immature Gran % (Auto) 0.6 H (0.0-0.4) % Abs Immat Gran (auto) 0.07 H (0.00-0.03) X10*3/uL Absolute Neuts (auto) 8.4 H (2.0-8.3) x10*3/uL Band Neutrophils % (3-5) % Lymphocytes % (Manual) (20-40) % Lymphocytes # (Manual) (1.2-4.9) X10*3/uL VBG HCO3 (22-26) mmol/L Sodium 124 L (135-145) mmol/L Chloride 88 L (96-108) mmol/L Anion Gap (12-20) BUN 21 H (9-16) mg/dL POC Glucose > 600 H* (60-115) mg/dL Random Glucose 846 H* (60-115) mg/dL Lactic Acid 2.2 H* (0.5-2.0) mmol/L Lactic Acid F/U @ 2Hr (0.5-2.0) mmol/L AST 40 H (5-37) U/L ALT 69 H (0-40) U/L Alkaline Phosphatase 121 H (39-117) U/L Total Protein (6.5-8.0) g/dL Albumin (3.5-5.0) g/dL Beta-Hydroxybutyrate 0.45 H (0.02-0.27) mmol/L Ur Specific [place] >= 1.030 H (1.005-1.025) Urine Glucose (UA) >=1000 H (Negative) mg/dL Urine Blood Small (1+) H (Negative) Urine RBC 6-10 H (0-2) /HPF 05/17/25 05/17/25 05/17/25 Range/Units 19:18 19:51 20:16 WBC (4.8-10.8) X10*3/uL RBC (4.60-5.80) X10*6/uL Hgb (14.0-18.0) g/dl Hct (42.0-52.0) % Immature Gran % (Auto) (0.0-0.4) % Abs Immat Gran (auto) (0.00-0.03) X10*3/uL Absolute Neuts (auto) (2.0-8.3) x10*3/uL Band Neutrophils % (3-5) % Lymphocytes % (Manual) (20-40) % Lymphocytes # (Manual) (1.2-4.9) X10*3/uL VBG HCO3 27 H (22-26) mmol/L Sodium (135-145) mmol/L Chloride (96-108) mmol/L Anion Gap (12-20) BUN (9-16) mg/dL POC Glucose 541 H* (60-115) mg/dL Random Glucose (60-115) mg/dL Lactic Acid (0.5-2.0) mmol/L Lactic Acid F/U @ 2Hr 2.1 H* (0.5-2.0) mmol/L AST (5-37) U/L ALT (0-40) U/L Alkaline Phosphatase (39-117) U/L Total Protein (6.5-8.0) g/dL Albumin (3.5-5.0) g/dL Beta-Hydroxybutyrate (0.02-0.27) mmol/L Ur Specific [place] (1.005-1.025) Urine Glucose (UA) (Negative) mg/dL Urine Blood (Negative) Urine RBC (0-2) /HPF 05/17/25 05/18/25 05/18/25 Range/Units 21:55 00:16 05:15 WBC 12.0 H (4.8-10.8) X10*3/uL RBC 4.00 L (4.60-5.80) X10*6/uL Hgb 12.0 L (14.0-18.0) g/dl Hct 34.8 L (42.0-52.0) % Immature Gran % (Auto) (0.0-0.4) % Abs Immat Gran (auto) (0.00-0.03) X10*3/uL Absolute Neuts (auto) (2.0-8.3) x10*3/uL Band Neutrophils % 0 L (3-5) % Lymphocytes % (Manual) 43 H (20-40) % Lymphocytes # (Manual) 5.2 H (1.2-4.9) X10*3/uL VBG HCO3 (22-26) mmol/L Sodium (135-145) mmol/L Chloride (96-108) mmol/L Anion Gap 11 L (12-20) BUN 17 H (9-16) mg/dL POC Glucose 366 H* 247 H (60-115) mg/dL Random Glucose 287 H (60-115) mg/dL Lactic Acid (0.5-2.0) mmol/L Lactic Acid F/U @ 2Hr (0.5-2.0) mmol/L AST (5-37) U/L ALT 48 H (0-40) U/L Alkaline Phosphatase (39-117) U/L Total Protein 6.3 L (6.5-8.0) g/dL Albumin 3.1 L (3.5-5.0) g/dL Beta-Hydroxybutyrate (0.02-0.27) mmol/L Ur Specific [place] (1.005-1.025) Urine Glucose (UA) (Negative) mg/dL Urine Blood (Negative) Urine RBC (0-2) /HPF 05/18/25 Range/Units 07:16 WBC (4.8-10.8) X10*3/uL RBC (4.60-5.80) X10*6/uL Hgb (14.0-18.0) g/dl Hct (42.0-52.0) % Immature Gran % (Auto) (0.0-0.4) % Abs Immat Gran (auto) (0.00-0.03) X10*3/uL Absolute Neuts (auto) (2.0-8.3) x10*3/uL Band Neutrophils % (3-5) % Lymphocytes % (Manual) (20-40) % Lymphocytes # (Manual) (1.2-4.9) X10*3/uL VBG HCO3 (22-26) mmol/L Sodium (135-145) mmol/L Chloride (96-108) mmol/L Anion Gap (12-20) BUN (9-16) mg/dL POC Glucose 364 H* (60-115) mg/dL Random Glucose (60-115) mg/dL Lactic Acid (0.5-2.0) mmol/L Lactic Acid F/U @ 2Hr (0.5-2.0) mmol/L AST (5-37) U/L ALT (0-40) U/L Alkaline Phosphatase (39-117) U/L Total Protein (6.5-8.0) g/dL Albumin (3.5-5.0) g/dL Beta-Hydroxybutyrate (0.02-0.27) mmol/L Ur Specific [place] (1.005-1.025) Urine Glucose (UA) (Negative) mg/dL Urine Blood (Negative) Urine RBC (0-2) /HPF Short CBC 05/17/25 05/18/25 Range/Units 17:46 05:15 WBC 12.1 H 12.0 H (4.8-10.8) X10*3/uL Hgb 13.9 L 12.0 L (14.0-18.0) g/dl Hct 40.2 L 34.8 L (42.0-52.0) % Plt Count 315 300 (160-400) X10*3/uL BMP 05/17/25 05/18/25 17:46 05:15 Sodium 124 L 136 Potassium 4.6 3.6 D Chloride 88 L 103 Carbon Dioxide 25 26 BUN 21 H 17 H Creatinine 1.14 0.80 Calcium 9.3 8.5 D Liver Function 05/17/25 05/18/25 Range/Units 17:46 05:15 Total Bilirubin 0.3 0.2 (0.0-1.0) mg/dL AST 40 H 33 (5-37) U/L ALT 69 H 48 H (0-40) U/L Alkaline Phosphatase 121 H 72 (39-117) U/L Albumin 3.8 3.1 L (3.5-5.0) g/dL Urine 05/17/25 Range/Units 17:42 Urine Color Yellow Urine Appearance Clear Urine pH 5.5 (5.0-9.0) Ur Specific [place] >= 1.030 H (1.005-1.025) Urine Protein Trace (Neg-Trace) mg/dL Urine Glucose (UA) >=1000 H (Negative) mg/dL All other labs normal. <Josias Badillo PA-C - Last Filed: 05/18/25 12:02> Assessment and Plan (1) Cellulitis: Qualifiers: Laterality: left Site of cellulitis: extremity Site of cellulitis of extremity: upper extremity Qualified Code(s): L03.114 - Cellulitis of left upper limb <Josias Badillo PA-C - Last Filed: 05/18/25 12:02> Status: Acute <Josias Badillo PA-C - Last Filed: 05/18/25 12:02> 45 year old male with history of HTN T2DM, seen in consult for left forearm cellulitis and wound following a burn from a cooking injury. Wound appears to be a second degree partial thickness burn States he was taking something out of the oven and he was splashed with liquid on his left arm. Reports pain, swelling of the forearm and hand. scant clear yellow drainage. pain improving since arrival, feels the swelling has improved. He has godo capillary refill in the distal left fingers, there is mild edema surrounding the burn site with some cellulitis surrounding the wound borders. There was scant serous draingage from the wound. Very tender to palpation. There is a thick scabbing over the wound. I did not appreciate and purulence or fluctuance. I discussed this case with wound care, formal consult pending. Jagruti recommending medihoney, guase, kerlix. Can change daily. wound consult pending continue IVF and clindamycin daily dressing changes, medihoney, gauze, kerlix elevation to promote improvement in edema. pain control glucose control per medicine. <Josias Badillo PA-C - Last Filed: 05/18/25 12:02> 45 year old male with history of HTN T2DM, seen in consult for left forearm cellulitis and wound following a burn from a cooking injury. Wound appears to be a second degree partial thickness burn States he was taking something out of the oven and he was splashed with liquid on his left arm. Reports pain, swelling of the forearm and hand. scant clear yellow drainage. pain improving since arrival, feels the swelling has improved. He has godo capillary refill in the distal left fingers, there is mild edema surrounding the burn site with some cellulitis surrounding the wound borders. There was scant serous draingage from the wound. Very tender to palpation. There is a thick scabbing over the wound. I did not appreciate and purulence or fluctuance. I discussed this case with wound care, formal consult pending. Jagruti recommending medihoney, guase, kerlix. Can change daily. wound consult pending continue IVF and clindamycin daily dressing changes, medihoney, gauze, kerlix elevation to promote improvement in edema. pain control glucose control per medicine. Patient seen and examined independently and I agree with the above assessment and plan. Agree with Medihoney and local wound care. No surgical intervention anticipated. <Devan Ronquillo MD - Last Filed: 05/18/25 16:08> Procedures Date of Service Date of Service: 05/18/25 <Josias Badillo PA-C - Last Filed: 05/18/25 12:02> 05/18/25 <Devan Ronquillo MD - Last Filed: 05/18/25 16:08>
--- NOTE | 2025-05-18 09:43 | MHC.CM.PN ---
Pt. lives in [place], he is visiting this area. he has PCP at home, is independent, no home health services. He can arrange a ride home at [place], DCP; Home, self care. CM to follow for DC needs.
[2025-05-18 11:45] LABS: Glucose, Whole Blood 347 mg/dL (60-115)
--- NOTE | 2025-05-18 15:07 | HO.NURTONUR ---
Atorvastain given late d/t nurse being occupied with other patients. Confirmed with patient he takes the medication and has not took his dose today. Dose administered per MAR.
[2025-05-18 16:43] LABS: Glucose, Whole Blood 216 mg/dL (60-115)
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
[2025-05-18 18:05] LABS: Glucose, Whole Blood 216 mg/dL (60-115)
[2025-05-18 20:21] LABS: Glucose, Whole Blood 326 mg/dL (60-115)
[2025-05-18] MEDS: Insulin Glargine,Hum.rec.anlog 100 UNIT/ML 10 ML VIAL 20 UNIT SUBCUT (20:50)
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
[2025-05-19] MEDS: Milk of Magnesia 30 ML ORAL.SUSP PO (03:28)
[2025-05-19 03:31] LABS: Glucose, Whole Blood 293 mg/dL (60-115)
[2025-05-19 04:00] VITALS: BP 137/80; PULSE 64; RESP 18; TEMP 36.7; O2SAT 98
[2025-05-19] MEDS: Lactated Ringers 1,000 ML 100 ML IVCONT (04:51)
[2025-05-19 08:00] VITALS: BP 148/67; PULSE 68; RESP 17; TEMP 36.2; O2SAT 97
--- NOTE | 2025-05-19 08:14 | PC.NURSE ---
Addendum entered by Elieser Norris RN 05/19/25 11:30: poc 252 Original Note: pt checked his POC with his glucometer this AM - 164, refused another POC w/ hospital device.
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
--- NOTE | 2025-05-19 11:49 | MHC.CM.PN ---
PATIENT IS DISCHARGED TO HOME SELF CARE. HE HAS ARRANGED FOR PRIVATE TRANSPORT TO HOME.
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
== END 2025-05-19 14:06 | disposition home or self-care (01) | DRG 383 ==
LOC: HO.ED 18:01 → HO.EDOVER 20:24 → HO.S3 05-18 16:31
PROVIDERS: Physician Assistant Medical; Admitting Provider Hospitalist; Emergency Provider Student in an Organized Health Care Education/Training Program; Visit Provider Internal Medicine
DX: L03.114 Cellulitis of left upper limb (principal); T31.0 Burns involving less than 10% of body surface; E11.65 Type 2 diabetes mellitus with hyperglycemia; F17.219 Nicotine dependence, cigarettes, with unspecified nicotine-induced disorders; Z71.6 Tobacco abuse counseling; I10 Essential (primary) hypertension; T23.072A Burn of unspecified degree of left wrist, initial encounter; X12.XXXA Contact with other hot fluids, initial encounter; Y93.G3 Activity, cooking and baking; Z79.4 Long term (current) use of insulin; Z79.84 Long term (current) use of oral hypoglycemic drugs; Z79.85 Long-term (current) use of injectable non-insulin antidiabetic drugs; Z79.899 Other long term (current) drug therapy
CPT/HCPCS: 36415; 71046; 73090; 73201; 80053; 81001; 82010; 82803; 82947; 83605; 83735; 85007; 85025; 85027; 87040; 94640; 99285; J0736; J1171; J1650; J1885; J2270; J7120; Q9967

== ENCOUNTER → 2025-05-17 18:10 | Outpatient (BNV) | payer MEDICAID, SELFPAY | PROVIDERS: Emergency Provider Student in an Organized Health Care Education/Training Program; Visit Provider Radiology Diagnostic Radiology | DX: R60.0 Localized edema (principal); R05.9 Cough, unspecified | CPT/HCPCS: 71046; 73090; 73201 ==

== ENCOUNTER → 2025-05-17 19:46 | Outpatient (BNV) | payer MEDICAID, SELFPAY | PROVIDERS: Admitting Provider Hospitalist; Emergency Provider Student in an Organized Health Care Education/Training Program; Visit Provider Internal Medicine | DX: R73.9 Hyperglycemia, unspecified (principal); L03.114 Cellulitis of left upper limb | CPT/HCPCS: 99221 ==

== ENCOUNTER → 2025-05-17 19:46 | Outpatient (BNV) | payer MEDICAID, SELFPAY | PROVIDERS: Admitting Provider Hospitalist; Emergency Provider Student in an Organized Health Care Education/Training Program; Visit Provider Surgery | DX: L03.114 Cellulitis of left upper limb (principal) | CPT/HCPCS: 99222 ==

== ENCOUNTER → 2025-05-17 19:46 | Outpatient (BNV) | payer MEDICAID, SELFPAY | PROVIDERS: Admitting Provider Hospitalist; Emergency Provider Student in an Organized Health Care Education/Training Program; Visit Provider Internal Medicine | DX: R73.9 Hyperglycemia, unspecified (principal); L03.114 Cellulitis of left upper limb | CPT/HCPCS: 99232 ==

== ENCOUNTER 2025-06-12 12:00 | Emergency (ER) | payer OTHER, SELFPAY ==
--- OUTSIDE RECORDS SUMMARY | 2021-03-13 13:09 | XMS_ITS | Encounter Summary ---
Author Organization [facility] Address [address] [place] [address] Care Team Providers Care Labview Programmer Name Role Phone Freddy Epps MD Primary Care Provider [phone] Encounter Details Date Type Department Care Team (Latest Contact Info) Description 03/13/2021 2:09 PM EDT Hospital Encounter [facility] Imaging Services - [facility] - XRay [address] [place] [address] Laceration of left thumb without foreign body [...] as of this encounter Functional Status * ASSESSMENT Question Answer Date of Assessment Author Overall PT Assessment Patient demonstrat es overall good tolerance to PT treatment this visit. He demonstrates significantly improved lumbar spine mobility on reassessment as well as centralization of previous concordant symptoms of left lower extremity pain, which was not noted at all during the treatment session. Presently most distal painful symptoms are right and left sided low back pain. Patient was encouraged to continue with updated HEP including addition of repeated extension in lying for increased centralization of symptoms. The patient's history of significant lack of consistency of PT appointment attendance the patient was informed today that he would need to schedule his visits on a week by week basis and that we would see him one time per week at this point. Patient verbalizes understanding of same. MDT assessment today is suggestive of derangement in reductive phase which is responsive to extension-based exercise protocol. Will continue to follow in progress based on findings at next visit. 08/08/2021 6:30 PM Chris Du, PT * TIMED UP AND GO (TUG) Question Answer Date of Assessment Author Trial 1 19 07/03/2021 8:12 PM Isabella Garcia PT Timed Up and Go Mean 19 07/03/2021 8:12 PM E Isabella Rangel L, PT Total Time 19 07/03/2021 8:12 PM EST Isabella Plascencia L, PT Difference from initial scor e to current score 19 07/03/2021 8:12 PM Isabella Garcia L, PT Difference from last score t o current score 19 07/03/2021 8:12 PM Isabella Garcia, PT * Neuro Assessment Question Answer Date of Assessment Author Level of Consciousness Alert;Awake 11/16/2024 9:24 PM EDT Serenity Zuniga RN Orientation Level Oriented to place;Oriented to time;Oriented to situation;Oriented to person 11/16/2024 9:24 PM EDT Serenity Zuniga RN LLE Sensation Tingling;Pain 11/16/2024 9:24 PM EDT Serenity Cai RN RLE Sensation Tingling;Pain 11/16/2024 9:24 PM EDT Serenity Cai RN Neuro (WDL) X 11/16/2024 9:24 PM EDT Serenity Mcfarlane RN Neuro Symptoms None 03/14/2022 4:59 PM EDT Beatrice Brunner, BJORN * Fall Injury Risk Assessment Answer Date of Assessment Author None 03/14/2022 8:33 PM EDT Lilia Merritt RN * Sepsis Screening Question Answer Date of Assessment Author Does the patient have any of the following? Drainage, redness, and/or warmth from wound/incision/insert ion site 05/23/2025 2:25 PM EDT Kb Jason, RN * Change in Weight (%) Answer Date of Assessment Author -7.85 11/02/2023 9:19 PM EDT Lázaro Centeno, RN * Kinsley Coma Scale Question Answer Date of Assessment Author Best Verbal Response 5 05/23/2025 8:07 PM E Sim Russell, BJORN Divya Coma Scale Score 15 05/23/2025 8:07 PM EDT Sim Queen, BJORN * ED Abuse Screening Question Answer Date of Assessment Author Is the person reporting sexu al or physical assault or has been identified as a human trafficking victim at triage? No 05/23/2025 2:25 PM EDT Kb Jason RN Has your partner (or anyone) ever hit, slapped, kicked, choked, pushed, shoved or threatened you? No 05/23/2025 2:25 PM EDT Kb Jason RN Is there a partner from a cu rrent or previous relationship that is making you feel frightened now? No 05/23/2025 2:25 PM EDT Kb Jason RN Is the presenting injury con sistent with the history provided? Yes 05/23/2025 2:25 PM EDT Kb Jason RN * Patient ID Question Answer Date of Assessment Author ID Band Applied/Present? Yes 05/23/2025 2:25 PM EDT Kb Jason RN Patient ID Verified [place] 05/23/2025 2:25 PM ED T Kb Jason RN Arm Bands On ID 11/16/2024 7:45 PM EDT Lila Earl RN * Question Answer Date of Assessment Author Functional Limitations prolonged sitting , rising, standing, walking, stair 07/03/2021 1:15 PM Isabella Garcia, PT * Subjective Question Answer Date of Assessment Author Current Symptoms/Complaints The patient presents for PT treatment session approximate 14 minutes late. Patient was reeducated regarding the importance of consistent attendance for visits in carryover of PT plan of care. Patient reports that since last visit he is been performing his prone lying about every 20 minutes and maintaining for first of 10 minutes. He also reports that he has been doing repeated extension in standing 7 to 8 times per day. He reports he is been doing both of these since the PT evaluation. As the patient arrives for physical therapy he reports of 7/10 pain at beginning of PT treatment session. The patient reports since the last PT visit that he is no longer having consistent pain in the left leg that it is primarily centralized in the low back at this time. 08/08/2021 12:22 PM Chris Du, PT * THERAPIST OF RECORD Question Answer Date of Assessment Author Therapist of Record Shreyas Epps, PT 08/24/2024 3:46 PM Shreyas Stephen, PT * Sitter Question Answer Date of Assessment Author Sitter Continued 10/27/2024 9:30 PM EDT Robi Ruiz Indications for Sitter Patient safety 10/27/2024 9:30 PM EDT Robi Hurst * Sitter Monitoring Question Answer Date of Assessment Author Patient Behaviors/Mood Calm 10/28/2024 12:15 A M EDT SidneyKeri hebert A Activity Resting in bed 10/28/2024 12:15 AM EDT La ndisCorrineKeri A Fluids Patient declined 10/28/2024 12:15 AM EDT Sidney Keri A Food Patient declined 10/28/2024 12:15 AM EDT Pascual, Keri A Elimination Declined 10/28/2024 12:15 AM EDT Land isSarayKeri A * PRECAUTIONS Question Answer Date of Assessment Author Current Precautions HTN, 08/24/2024 3:55 PM Shreyas Wang, PT Patient has no precautions 08/24/2024 3:55 PM Shreyas Lenz cia, PT * PATIENT GOAL Question Answer Date of Assessment Author Patient Goal Patient's goal to se lf manage his symptoms in his low back and right side as well as right buttock pain symptoms while avoiding invasive procedures if possible. 08/24/2024 3:53 PM Shreyas Stephen, PT * Question Answer Date of Assessment Author Gait assessment Antalgic ambulation without AD in decreased gait speed and limping secondary to decrease WBing on LLE 07/03/2021 1:36 PM Isabella Garcia, PT * Question Answer Date of Assessment Author Slump Test Negative Bilaterally 08/24/2024 4:07 PM Shreyas Trinh, PT * Question Answer Date of Assessment Author Lumbar Spine Flexion Moderate limitation with fingertips to approximately mid shins 08/08/2021 12:24 PM Chris Du, PT Lumbar Spine Extension Minimal/moderate limitation 08/08/2021 12:24 PM Chris Du, PT Right Side Gliding Minimal loss 08/08/2021 12 :24 PM Chris uD, PT Left Side Gliding Minimal loss 08/08/2021 12: 24 PM Chris Du, PT * Question Answer Date of Assessment Author Plan for Follow Up Session(s) Continue physical therapy. Review home exercises and make modifications as needed. Reassess the effectiveness of modalities. Reassess if patient continues to demonstrates a directional preference toward lumbar extension. Consider adding abdominal and core strengthening and stability exercises and review proper body mechanics and safety awareness to prevent continued pain and possible reinjury. Work towards an independent home exercise program. 08/24/2024 10:17 PM Shreyas Stephen, PT Start of Cert/Re-Cert [id number] 08/24/2024 10:17 PM Shreyas Stephen, PT End of Cert/Re-Cert [id number] 08/24/2024 1 0:17 PM Shreyas Stephen, PT Frequency Up to 2x/wk 08/24/2024 10:17 PM Shreyas Stephen, PT Projected Frequency Patient may benefit from skilled physical therapy services twice weekly but can only attend physical therapy once per week due to work schedule and other commitments. 08/24/2024 10:17 PM Shreyas Stephen, PT PT Treatment Interventions Balance training;Bed mobility training;Electric modalities;Functional activity;Gait training;Manual therapy;Neuromuscular re-education;Pain management;Patient education;Posture/body mechanics training;Stair training;Therapeutic exercises;Thermal modalities;Transfer training 08/24/2024 10:17 PM Shreyas Stephen, PT * Access to Weapons Question Answer Date of Assessment Author Access to Weapons No 10/27/2024 11:05 PM EDT Anisha Harry * History of Present Illness Question Answer Date of Assessment Author Onset of Symptoms Over 1 week ago 05/23/2025 2:25 PM E DT Jason, Kb H, RN Chronicity of Symptoms New 10/27/2024 7:44 PM Inés Wong RN Activity at Onset None 10/27/2024 7:44 PM Inés Wong RN Current Symptom Status Resolved 10/27/2024 7:44 PM Inés Wong RN Fever in Past 24 hours No 10/27/2024 7:44 PM Inés Wong RN Associated Symptoms None 10/27/2024 7:44 PM Inés Beauchamp RN Treatment Prior to Arrival None 10/27/2024 7:44 PM EDT Inés Ulloa RN * ED Suicide Precaution Checklist Question Answer Date of Assessment Author Patient placed in paper scru bs/gown without strings? 1 10/27/2024 9:59 PM EDT Zakiya Hernandez RN Completed inspection of skin and skin folds (body check/skin check)? 3 10/27/2024 9:59 PM EDT Zakiya Blanco RN Was patient wanded? 3 10/27/2024 9:59 PM ED T Zakiya Hernandez RN Were patient's belongings wanded? 3 025 9:59 PM EDT Zakiya Hernandez RN Removed and searched clothin g and belongings, including bra and underwear? 3 10/27/2024 9:59 PM EDT Zakiya Hernandez RN Metal Free Mask? 3 10/27/2024 9:59 PM EDT Zakiya Blanco RN Two staff present during kori nge of clothes 3 10/27/2024 9:59 PM EDT Zakiya Hernandez RN Safe Environment Checklist Complete Yes 10/27 9:59 PM EDT Zakiya Hernandez RN * Question Answer Date of Assessment Author Heath Agitation Sedation Scale (RASS) (Purposeful Sedation) 0 11/17/2024 4:19 AM EDT Lázaro Maier RN Pasero Opioid-Induced Sedati on Scale (POSS) (Prevention of Over Sedation) 1 11/17/2024 4:19 AM EDT Wendy Maier RN * Patient Room Type Question Answer Date of Assessment Author Room Type 2 10/27/2024 9:59 PM EDT Zakiya Emerson i, RN * Fall Risk Assessment Question Answer Date of Assessment Author Fall Risk Scale Adult (greater than or equal to 18 yrs) [place] 05/23/2025 2:25 PM EDT Kb Jason RN * Level of Risk Answer Date of Assessment Author No Risk Indicated 05/23/2025 2:25 PM EDT Erik Jason RN * Risk and Protective Factors Question Answer Date of Assessment Author Risk Factors Other (comment) 10/27/2024 11:05 PM EDT Anisha Junior * Taking medications that increase risk of fall/injury Answer Date of Assessment Author No 04/21/2021 10:51 AM EDT Robina Bailey, BJORN * S/F Ratio Answer Date of Assessment Author 462 03/13/2021 5:41 PM EDT Sonu Sy H * DASA - Assessing the risk of aggression Question Answer Date of Assessment Author Irritability 0 10/27/2024 9:58 PM EDT Zakiya Emerson i, RN Impulsivity 0 10/27/2024 9:58 PM EDT Zakiya Emerson i, RN Unwillingness to follow directions 0 2024 9:58 PM EDT Zakiya Hernandez RN Sensitivity to perceived provocation 0 10/27/2024 9:58 PM EDT Zakiya Hernandez RN Easily angered when requests are denied 0 10/27/2024 9:58 PM EDT Zakiya Hernandez RN Negative attitudes 0 10/27/2024 9:58 PM EDT Zakiya Hernandez RN Verbal threats 0 10/27/2024 9:[address] RN Total 0 10/27/2024 9:58 PM EDT Zakiya Emerson i RN * Argueta Fall Risk Score Answer Date of Assessment Author 0 03/14/2022 8:33 PM EDT Lilia Merritt RN * Fall Screen Question Answer Date of Assessment Author Do you feel unsteady when st anding or walking? No 08/24/2024 3:59 PM Shreyas Stephen P T Do you worry about falling? No 08/24/2024 3: 59 PM Shreyas Stephen, PT Have you fallen in the past year? No 025 3:59 PM Shreyas Stephen, PT Prior Fall History Denies 08/24/2024 3:59 PM Shreyas Stephen, PT * Assessment Question Answer Date of Assessment Author Personal Factors/Co-Morbidities 1 chronic condition 08/24/2024 10:17 PM Shreyas Stephen, PT Clinical Presentation Evolving 08/24/2024 10:17 PM Shreyas Stephen, PT Functional Limitation Status Moderate 08/24/2024 10:17 PM Shreyas Stephen, PT PROGNOSIS Good 08/24/2024 10:17 PM Shreyas Stephen, PT PROBLEM LIST Activity tolerance;Chronic diagnosis;Pain;Range of Motion;Safety Awareness;Self-care;M obility/gait 08/24/2024 10:17 PM Shreyas Stephen, PT * Temp Answer Date of Assessment Author 97.7 05/23/2025 8:00 PM EDT Hannah Queen RN * Vital Signs Question Answer Date of Assessment Author BP 186/98 05/23/2025 8:00 PM EDSim Schmidt RN Temp 97.7 05/23/2025 8:00 PM EDSim Schmidt RN Temp src Oral 05/23/2025 8:00 PM EDSim Schmidt RN Pulse 66 05/23/2025 6:00 PM EDSim Schmidt RN Resp 20 05/23/2025 8:00 PM Sim Samaniego RN Heart Rate Source Monitor 05/23/2025 8:00 PM Sim Wright RN BP Location Right arm 05/23/2025 8:00 PM Sim Samaniego RN BP Method Automatic 05/23/2025 8:00 PM EDSim Schmidt RN MAP (mmHg) 111 05/23/2025 6:00 PM EDSim Schmidt RN Patient Position HOB Elevated 05/23/2025 8:00 PM EDT Sim Schulz RN * Oxygen Therapy Question Answer Date of Assessment Author SpO2 97 05/23/2025 6:00 PM Sim Samaniego RN Pulse Oximetry Type Continuous 05/23/2025 8:00 PM ED Sim Anglin RN Oxygen Therapy None (Room air) 05/23/2025 8:00 PM EDT Sim Queen RN * Edema Question Answer Date of Assessment Author RLE Edema +2 05/23/2025 3:43 PM EDSim Schmidt RN LLE Edema +1 05/23/2025 3:43 PM EDT Sim Purvis RN * BSA (Calculated - sq m) Answer Date of Assessment Author 1.79 02/04/2023 5:55 PM EDT Jose Alberto Pedroza RN * BMI (Calculated) Answer Date of Assessment Author 22.2 02/04/2023 5:55 PM EDT Jose Alberto Pedroza RN * Question Answer Date of Assessment Author RLE Assessment PROM deficits 08/24/2024 4:10 PM Shreyas Calles, PT * Question Answer Date of Assessment Author LLE Assessment ROM & Strength WFL 08/24/2024 4:10 PM Shreyas Trinh, PT * Question Answer Date of Assessment Author R Hip Flex Increased right-side d low back pain with end range of motion 08/24/2024 4:10 PM Shreyas Stephen, PT * Genitourinary Question Answer Date of Assessment Author Genitourinary (WDL) WDL 05/23/2025 3:44 PM ED T Sim Queen RN Genitourinary Symptoms Increased frequency 03/13/2021 6:38 PM EDT Sim Queen RN * Question Answer Date of Assessment Author Height 68 02/04/2023 5:55 PM EDT Jose Alberto Burt RN Weight 2151.69 11/02/2023 9:19 PM EDT Rebekah Trevino RN Height Method Stated 02/04/2023 5:55 PM EDT Jose Alberto Patel RN Weight Method Bed scale 11/02/2023 9:19 PM EDT Rebekah Mcfadden RN * Lower Back Answer Date of Assessment Author Pain;Limited movement 04/12/2024 9:03 AM EDT Ml Tovar RN * Home Living/Prior Function Question Answer Date of Assessment Author Driving Patterns Day & Night 08/24/2024 3:59 PM Shreyas Stephen, PT Vocational Comments 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 Yes 08/24/2024 3 :59 PM Shreyas Stephen, PT Entrance Stairs-Number of Steps 4 08/24/2024 3:59 PM Shreyas Stephen, PT Home Access Stairs to enter with rails 08/24/2024 3:59 PM Shreyas Stephen, PT Type of Home House 08/24/2024 3:59 PM Shreyas Stephen, PT Home Layout Bed/bath upstairs;Multi-level;La undry in basement 08/24/2024 3:59 PM Shreyas Stephen, PT Bathroom Set-Up Tub/shower unit;Standard height toilet 08/24/2024 3:59 PM Shreyas Stephen, PT Bathroom Equipment Owned at Home None 08/24/2024 3:59 PM Shreyas Stephen, PT Adaptive Equipment Owned at Home None 08/24/2024 3:59 PM Shreyas Stephen, PT Which is your dominant hand? Left 08/24/2024 3:59 PM Shreyas Stephen, PT * NIH Stroke Scale Question Answer Date of Assessment Author Total 0 11/02/2023 9:57 PM Jose Alberto Cohen, DO Interval Baseline 11/02/2023 9:57 PM Jose Alberto Cohen, DO Level of Consciousness (1a.) 0 11/02/2023 9 :57 PM Jose Alberto Bateman, DO LOC Questions (1b.) 0 11/02/2023 9:57 PM ED T Jose Alberto Poole, DO LOC Commands (1c.) 0 11/02/2023 9:57 PM EDT Jose Alberto Poole D, DO Best Gaze (2.) 0 11/02/2023 9:57 PM EDT Jose Alberto Augustine, DO Visual (3.) 0 11/02/2023 9:57 PM EDT Jose Alberto Dumont D, DO Facial Palsy (4.) 0 11/02/2023 9:57 PM EDT Jose Alberto Poole, DO Motor Arm, Left (5a.) 0 11/02/2023 9:57 PM EDT Jose Alberto Poole, DO Motor Arm, Right (5b.) 0 11/02/2023 9:57 PM EDT Jose Alberto Poole, DO Motor Leg, Left (6a.) 0 11/02/2023 9:57 PM EDT Jose Alberto Poole, DO Motor Leg, Right (6b.) 0 11/02/2023 9:57 PM EDT Jose Alberto Poole, DO Limb Ataxia (7.) 0 11/02/2023 9:57 PM EDT Jose Alberto Honeycutt, DO Sensory (8.) 0 11/02/2023 9:57 PM EDT Jose Alberto Dumont, DO Best Language (9.) 0 11/02/2023 9:57 PM EDT Jose Alberto Poole, DO Dysarthria (10.) 0 11/02/2023 9:57 PM EDT G Jose Alberto rojas D, DO Extinction and Inattention (11.) (Formerly Neglect) 0 11/02/2023 9:57 PM EDT Boo Poole, DO * Risk for Self-Injury Question Answer Date of Assessment Author Self Injurious Thoughts Denies 10/27/2024 11:06 PM EDT Anisha Harry Self Injurious Behaviors No 10/27/2024 11:06 PM EDT Anisha Harry * Housing Stability Question Answer Date of Assessment Author In the last 12 months, was there a time when you were not able to pay the mortgage or rent on time? No 02/04/2023 3:10 PM EDT Neelima Hewitt , [employer] * Food Insecurity Question Answer Date of Assessment Author Within the past 12 months, you worried that your food would run out before you got the money to buy more. Never true 02/04/2023 3:10 PM EDT Christa Hewitt, [employer] Within the past 12 months, the food you bought just didn't last and you didn't have money to get more. Never true 02/04/2023 3:10 PM EDT Eli Hewitt, [employer] * Question Answer Date of Assessment Author Diabetes History Yes 11/02/2023 9:52 PM EDT Jose Alberto Honeycutt DO * Transportation Needs Question Answer Date of Assessment Author In the past 12 months, has l ack of transportation kept you from medical appointments or from getting medications? No 02/04/2023 3:10 PM EDT Neelima Hewitt, [employer] In the past 12 months, has l ack of transportation kept you from meetings, work, or from getting things needed for daily living? No 02/04/2023 3:10 PM EDT Neelima Newberry do, [employer] * Pain Assessment Timer Question Answer Date of Assessment Author Restart Pain Assessment Timer Yes 05/23/2025 2:25 PM EDT Tae Carver * Tichnor Fall Precautions Question Answer Date of Assessment Author Tichnor Fall Precautions Tichnor fall precautions applied 02/24/2025 3:20 PM EDT Penny Coronel, BJORN * Savita Mccarty Fall Risk for Emergency Department Question Answer Date of Assessment Author Mobility None of these mobili ty issues apply 05/23/2025 2:25 PM EDT Kb Jason, RN Behavior None of these behavi or issues apply 02/24/2025 3:20 PM EDT Penny Coronel, BJORN * Peripheral Vascular Question Answer Date of Assessment Author Peripheral Vascular Pertinent Negatives +2 pulses;Capillary refill brisk 05/23/2025 3:43 PM EDT Sim Queen, RN Peripheral Vascular (WDL) X 05/23/2025 3:43 PM EDT Sim Queen RN * Elopement Risk Screening Question Answer Date of Assessment Author Pt has physical ability to elope? Yes 3:40 PM EDT Sim Queen RN Has the patient experienced thoughts of suicidal ideation, homicidal ideation, or self-harm within the last 30 days? No 05/23/2025 3:40 PM EDT Sim Queen RN Does patient have cognitive impairment that impacts their ability to make medical decisions? No 05/23/2025 3:40 PM EDT Kellen Queen RN * Elopement Precaution Interventions Question Answer Date of Assessment Author Required interventions in place Patient placed in appropriate color gown;Clothes/belonging s removed 10/27/2024 9:59 PM EDT Zakiya Hernandez RN Additional interventions in place Diversional activities;Reduced noise/stimulation 10/27/2024 9:59 PM EDT Zakiya Hernandez RN * At Risk Fall Interventions Answer Date of Assessment Author Initiate universal fall precautions 04/12/2024 9 :02 AM EDT Ml Meyers RN * Weight in (lb) to have BMI = 25 Answer Date of Assessment Author 164.1 02/04/2023 5:55 PM EDT Jose Alberto Pedroza RN * Trauma/Abuse Assessment Question Answer Date of Assessment Author Abuse Screen Result Negative 10/27/2024 1 1:04 PM EDT Anisha Harry Physical Abuse Denies 10/27/2024 11:04 PM EDT Anisha Harry Verbal/Emotional Abuse Denies 11:04 PM EDT Anisha Harry Sexual Abuse Denies 10/27/2024 11:04 PM EDT Anisha Harry Financial Abuse Denies 10/27/2024 11:04 PM JAYLANT Anisha Harry Witnessed Family Abuse or Violence Denies 10/27/2024 11:04 PM EDT Anisha Harry Neglect Denies 10/27/2024 11:04 PM EDT Anisha Harry Exploitation Denies 10/27/2024 11:04 PM EDT Anisha Harry Bullied/Victimized Denies 10/27/2024 11 :04 PM Anisha Giron Have you ever filed a PFA against another person? No 10/27/2024 11:04 PM Anisha Giron Are there any active addicts in the home? No 10/27/2024 11:04 PM Anisha Giron Do you have any incarcerated family members? No 10/27/2024 11:04 PM Anisha Giron Experienced Any of the Following Life Events Social loss (Bankruptcy, divorce, work-related stress) 10/27/2024 11:04 PM Anisha Giron * Question Answer Date of Assessment Author Living Arrangements Friends 10/27/2024 11:10 PM Anisha Contreras * Risk to Others Question Answer Date of Assessment Author Have you ever been reported to Childline and Abuse Registry? No 10/27/2024 11:06 PM Alesha Giron Have you ever had a PFA filed against yourself? Yes 10/27/2024 11:06 PM Anisha Giron Thoughts of Harm to Others No 10/27/2024 11: 06 PM Anisha Giron History of Violence None noted 10/27/2024 11:06 PM Anisha Contreras * Factors affecting learning Question Answer Date of Assessment Author Visual Aids Yes 10/27/2024 11:04 PM Anisha Hendrickson Hearing Aids None 10/27/2024 11:04 PM Anisha Hendrickson Highest grade completed 4th 10/27/2024 11:04 PM Anisha Giron Does the patient have any disabilities? No 10/27/2024 11:04 PM Alesha Giron Patient's Preferred Language for Communication is Malaysian 10/27/2024 11:04 PM Roxana Giron Patient is able to Read in Preferred Language Yes 10/27/2024 11:04 PM Alesha Giron Is an calender inspector needed/used? Yes 10/27/2024 11:04 PM EDT Anisha Harry * Drug and Alcohol Screen Question Answer Date of Assessment Author How many times in the past y ear have you had 5 or more drinks in a day? None 10/27/2024 11:05 PM EDT Alesha Harry How many times in the past y ear have you used an illegal drug or used a prescription medication for non-medical reasons? None 10/27/2024 11:05 PM EDT Alesha Harry * Anger/Frustration Management Question Answer Date of Assessment Author Triggers Family Relationships 10/27/2024 11:04 PM EDT Anisha Harry * Blood Specimen Collection Status Question Answer Date of Assessment Author Blood Specimen Collection Lab 02/24/2025 3:10 PM EDT Penny Coronel RN * Pain Assessment Question Answer Date of Assessment Author Reason pain not reassessed Resting, eyes closed 11/16/2024 11:32 PM EDT Batsheva Serrato RN Pain Location Back;Buttocks 08/24/2024 3:46 PM Shreyas Stephen, PT Pain Onset Progressive 08/24/2024 3:46 PM Shreyas Stephen, PT Patient's Stated Pain Goal No pain 08/24/2024 3:46 PM Shreyas Stephen, PT Response to Interventions Posttreatment pain: centralized low back pain at 5/10 08/08/2021 12:23 PM EST Chris Montgomery, PT Effect of Pain on Daily Activities Bending over, laying on his right side, difficulty getting to sleep, difficulty staying asleep, turning in bed, transfers (bed, toilet, car), ascending and descending steps (down worse), squatting, prolonged walking, prolonged standing, prolonged sitting transfers after prolonged 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 08/24/2024 3:46 PM Shreyas Stephen, PT Pain Type Acute pain 08/24/2024 3:46 PM Shreyas Stephen, PT Clinical Progression Gradually worsening 025 3:46 PM Shreyas Stephen, PT Pain Assessment No/denies pain 02/24/2025 8:15 PM EDT Sim Queen, BJORN * Feature 3: Altered Level of Consciousness Answer Date of Assessment Author Negative 11/17/2024 4:19 AM EDT Sa roxi Maier RN * Question Answer Date of Assessment Author Urine 1200 02/24/2025 5:[address], RN * [place] Suicide Severity Rating Scale Question Answer Date of Assessment Author 1. Wish to be No 05/23/2025 2:25 PM EDT Kb Jason RN 2. Suicidal Thoughts No 05/23/2025 2:25 PM E DT Kb Jason RN 6. Suicidal Behavior No 05/23/2025 2:25 PM E Kb Richardson RN * Vessel Manager Services Question Answer Date of Assessment Author Vessel Manager Name or Number Tracie Marcus 06/13/2021 9:00 AM Tracie Jaffe Information Interpreted Assessment;Educa tion;P jaclyn of care 06/13/2021 9:00 AM Tracie Jaffe Communication Needs Vessel Manager (Legal) 06/13/20 9:00 AM Tracie Jaffe Vessel Manager Provider Service [facility] 06/13/2021 9:00 AM Tracie Jaffe Type of Resource Used Hospital/clinic approved on site promotion agent 06/13/2021 9:00 AM Tracie Jaffe Length of Time Vessel Manager Services Utilized (min) 40 06/13/2021 9:00 AM Tracie Jaffe * Abdominal Question Answer Date of Assessment Author Abdominal Quadrant Left Upper Quadrant;Right Upper Quadrant 02/24/2025 3:19 PM EDT Penny Coronel RN Abdominal Inspection Tender 02/24/2025 3:19 PM EDT Penny Coronel RN Gastrointestinal Pertinent Negatives Bowel sounds x 4;Soft/nontender/nond istended;Denies complaints 05/23/2025 3:44 PM EDT Sim Queen RN GI Symptoms Nausea;Vomiting 11/02/2023 9:57 PM EDT Clarissa Ernst RN Gastrointestinal (WDL) WDL 3:44 PM EDT Sim Queen RN * Skin Color/Condition Question Answer Date of Assessment Author Skin Color Appropriate for ethnicity 03/13/2021 6:35 PM EDT Sim uQeen, BJORN Skin Condition/Temp Warm;Dry 03/13/2021 6:35 PM ED T Sim Queen RN Mucous Membranes Intact;Tacky;[place] 03/13/2021 6:35 PM EDT Sim Queen RN Skin Pertinent Negatives Warm;Dry 03/13/2021 6:35 PM EDT Sim Queen RN Type of Wound (LDA) Wound 03/13/2021 6:35 PM ED T Sim Queen RN Skin Color/Condition (WDL) X 05/23/2025 3:43 PM EDT Sim Queen RN * Psychosocial Question Answer Date of Assessment Author Psychosocial (WDL) WDL 10/27/2024 10:26 PM ED T Zakiya Hernandez RN * Cardiac Question Answer Date of Assessment Author Cardiac Rhythm NSR 02/24/2025 3:19 PM EDT Penny Zacarias RN Care Coordination Manager On Yes - Continued 05/23/2025 3:43 P M EDT Sim Queen RN Telemetry Audible Yes 05/23/2025 3:43 PM EDT Sim Queen RN Telemetry Alarms Set Yes 05/23/2025 3:43 PM E DT Sim Queen RN Chest Pain Present Yes 03/14/2022 4:59 PM EDT Beatrice Gray RN Cardiac Pertinent Negatives Heart rate regular;S1 S2 05/23/2025 3:43 PM EDT Sim Queen RN Cardiac (WDL) WDL 05/23/2025 3:43 PM EDT Sim Palomo RN * Respiratory Question Answer Date of Assessment Author Respiratory Pattern Tachypnea 11/02/2023 1 0:05 PM EDT Clarissa Ernst RN Pulmonary Pertinent Negatives Lungs clear to auscultation;Respirat ions regular/unlabored;No cough 05/23/2025 3:43 PM EDT Sim Queen RN Respiratory (WDL) WDL 05/23/2025 3:43 PM EDT Sim Queen RN * Musculoskeletal Question Answer Date of Assessment Author Neck/Back/Trunk Back 04/12/2024 9:03 AM EDT Ml Daniel RN Musculoskeletal (WDL) X 04/12/2024 9:03 AM EDT Ml Meyers RN * Vitals Timer Question Answer Date of Assessment Author Restart Vitals Timer Yes 05/23/2025 6:00 PM E Sim Russell RN Restart Vitals Timer Yes 03/14/2022 6:30 PM E Beatrice Zamora, BJORN * Question Answer Date of Assessment Author Orientation Level Oriented to place;Oriented to time;Oriented to situation;Oriented to person 11/16/2024 9:24 PM EDT Serenity Zuniga, RN * Question Answer Date of Assessment Author Indications for Sitter Patient safety 10/27/2024 9:30 PM EDT Robi Hurst * History of Present Illness Question Answer Date of Assessment Author Onset of Symptoms Over 1 week ago 05/23/2025 2:25 PM E Kb Richardson RN Chronicity of Symptoms New 10/27/2024 7:44 PM EDT Inés Ulloa RN Activity at Onset None 10/27/2024 7:44 PM EDT Inés Ulloa RN Current Symptom Status Resolved 10/27/2024 7:44 PM EDT Inés Ulloa RN Fever in Past 24 hours No 10/27/2024 7:44 PM JAYLANT Inés Ulloa RN Associated Symptoms None 10/27/2024 7:44 PM ED T Inés Ulloa RN Treatment Prior to Arrival None 10/27/2024 7:44 PM EDT Inés Ulloa RN * Question Answer Date of Assessment Author RLE Edema +2 05/23/2025 3:43 PM EDT Sim Purvis RN LLE Edema +1 05/23/2025 3:43 PM EDT Sim Purvis, BJORN * Home Living/Prior Function Question Answer Date of Assessment Author Driving Patterns Day & Night 08/24/2024 3:59 PM Shreyas Stephen, PT Vocational Comments 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 Yes 08/24/2024 3 :59 PM Shreyas Stephen, PT Entrance Stairs-Number of Steps 4 08/24/2024 3:59 PM Shreyas Stephen, PT Home Access Stairs to enter with rails 08/24/2024 3:59 PM Shreyas Stephen, PT Type of Home House 08/24/2024 3:59 PM Shreyas Stephen, PT Home Layout Bed/bath upstairs;Multi-level;La undry in basement 08/24/2024 3:59 PM Shreyas Stephen, PT Bathroom Set-Up Tub/shower unit;Standard height toilet 08/24/2024 3:59 PM Shreyas Stephen, PT Bathroom Equipment Owned at Home None 08/24/2024 3:59 PM Shreyas Stephen, PT Adaptive Equipment Owned at Home None 08/24/2024 3:59 PM Shreyas Stephen, PT Which is your dominant hand? Left 08/24/2024 3:59 PM Shreyas Stephen, PT * Risk for Self-Injury Question Answer Date of Assessment Author Self Injurious Thoughts Denies 10/27/2024 11:06 PM EDT Anisha Harry Self Injurious Behaviors No 10/27/2024 11:06 PM EDT Anisha Harry * Question Answer Date of Assessment Author Provisional Diagnosis F43.21 10/27/2024 11:10 PM EDT Bill Harrysey C * Question Answer Date of Assessment Author Skin Color Appropriate for ethnicity 03/13/2021 6:35 PM EDT Sim Queen RN Skin Condition/Temp Warm;Dry 03/13/2021 6:35 PM ED T Sim Queen RN documented as of this encounter Mental Status * Neuro Assessment Question Answer Entry Date Author Level of Consciousness Alert;Awake 9:24 PM EDT Serenity Zuniga RN Orientation Level Oriented to place;Oriented to time;Oriented to situation;Oriented to person 11/16/2024 9:24 PM EDT Serenity Zuniga RN LLE Sensation Tingling;Pain 11/16/2024 9:24 PM EDT Serenity Zuniga RN RLE Sensation Tingling;Pain 11/16/2024 9:24 PM EDT Serenity Zuniga RN Neuro (WDL) X 11/16/2024 9:24 PM EDT Serenity Zuniga RN Neuro Symptoms None 03/14/2022 4:59 PM EDT Beatrice Gray RN * [place] Coma Scale Question Answer Entry Date Author Best Verbal Response 5 05/23/2025 8:[address] RN [place] Coma Scale Score 15 05/23/2025 8:07 PM EDT Sim Queen RN * Question Answer Entry Date Author Heath Agitation Sedation Scale (RASS) (Purposeful Sedation) 0 11/17/2024 4:19 AM EDT Lázaro Maier RN [place] Opioid-Induced Sedati on Scale (POSS) (Prevention of Over Sedation) 1 11/17/2024 4:19 AM EDT Wendy Maier RN * S/F Ratio Answer Entry Date Author 462 03/13/2021 5:41 PM EDT Sonu Sy * Question Answer Entry Date Author BP 186/98 05/23/2025 8:00 PM EDT Sim Purvis RN Temp 97.7 05/23/2025 8:00 PM EDT Sim Purvis RN Temp src Oral 05/23/2025 8:00 PM EDT Sim Purvis RN Pulse 66 05/23/2025 6:00 PM EDT Sim Purvis RN Resp 20 05/23/2025 8:00 PM EDT Sim Purvis RN * Oxygen Therapy Question Answer Entry Date Author SpO2 97 05/23/2025 6:00 PM EDT Sim Purvis RN Pulse Oximetry Type Continuous 05/23/2025 8:00 PM ED T Sim Queen RN Oxygen Therapy None (Room air) 05/23/2025 8:00 PM EDT Sim Queen RN * Question Answer Entry Date Author RLE Edema +2 05/23/2025 3:43 PM EDT Sim Purvis RN LLE Edema +1 05/23/2025 3:43 PM EDT Sim Purvis RN * Genitourinary Question Answer Entry Date Author Genitourinary (WDL) WDL 05/23/2025 3:44 PM ED T Sim Queen RN Genitourinary Symptoms Increased frequency 03/13/2021 6:38 PM EDT Sim Queen RN * Lower Back Answer Entry Date Author Pain;Limited movement 04/12/2024 9:03 AM EDT Ml Tovar RN * NIH Stroke Scale Question Answer Entry Date Author Total 0 11/02/2023 9:57 PM EDT Jose Alberto Dumont, DO Interval Baseline 11/02/2023 9:57 PM EDT Jose Alberto Dumont, DO Level of Consciousness (1a.) 0 11/02/2023 9 :57 PM EDT Jose Alberto Poole, DO LOC Questions (1b.) 0 11/02/2023 9:57 PM ED T Jose Alberto Poole, DO LOC Commands (1c.) 0 11/02/2023 9:57 PM EDT Jose Alberto Poole, DO Best Gaze (2.) 0 11/02/2023 9:57 PM EDT Jose Alberto Augustine, DO Visual (3.) 0 11/02/2023 9:57 PM EDT Jose Alberto Dumont, DO Facial Palsy (4.) 0 11/02/2023 9:57 PM EDT Jose Alberto Poole D, DO Motor Arm, Left (5a.) 0 11/02/2023 9:57 PM EDT Janessa Poolery D, DO Motor Arm, Right (5b.) 0 11/02/2023 9:57 PM EDT Jose Alberto Poole D, DO Motor Leg, Left (6a.) 0 11/02/2023 9:57 PM EDT Jose Alberto Poole D, DO Motor Leg, Right (6b.) 0 11/02/2023 9:57 PM EDT Jose Alberto Poole D, DO Limb Ataxia (7.) 0 11/02/2023 9:57 PM EDT Jose Alberto Honeycutt, DO Sensory (8.) 0 11/02/2023 9:57 PM EDT Jose Alberto Dumont D, DO Best Language (9.) 0 11/02/2023 9:57 PM EDT Jose Alberto Poole, DO Dysarthria (10.) 0 11/02/2023 9:57 PM EDT Jose Alberto Honeycutt D, DO Extinction and Inattention (11.) (Formerly Neglect) 0 11/02/2023 9:57 PM EDT Boo Poole, DO * Question Answer Entry Date Author Rapport with Staff Open/cooperative 10/27/2024 11:07 P M EDT Anisha Harry C * Feature 3: Altered Level of Consciousness Answer Entry Date Author Negative 11/17/2024 4:19 AM EDT Sa roxi Maier RN * Question Answer Entry Date Author Urine 1200 02/24/2025 5:[address], RN * Question Answer Entry Date Author Abdominal Inspection Tender 02/24/2025 3:19 PM E Penny Vigil RN GI Symptoms Nausea;Vomiting 11/02/2023 9:57 PM EDT Clarissa Bardales RN * Question Answer Entry Date Author Skin Color Appropriate for ethnicity 2020 6:35 PM EDT Sim Queen RN Skin Condition/Temp Warm;Dry 03/13/2021 6 :35 PM EDT Sim Queen RN Type of Wound (LDA) Wound 03/13/2021 6 :35 PM EDT Sim Queen RN * Question Answer Entry Date Author Cardiac Rhythm NSR 02/24/2025 3:19 PM EDT Penny Zacarias RN Care Coordination Manager On Yes - Continued 05/23/2025 3:43 P M EDT Sim Queen RN Telemetry Audible Yes 05/23/2025 3:43 PM EDT Sim Queen RN Telemetry Alarms Set Yes 05/23/2025 3:43 PM E Sim Russell RN * Question Answer Entry Date Author Respiratory Pattern Tachypnea 11/02/2023 10:05 PM E Clarissa Manjarrez RN documented in this encounter Plan of Treatment Upcoming Encounters Date Type Department Care Team (Late st Contact Info) Description 06/29/2025 1:00 PM EST Office Visit [facility] [address] [place] [id number] Shanna Henderson CRNP [address] [place] [phone] documented as of this encounter Procedures Procedure [...] documented as of this encounter Care Teams Labview Programmer Relationship Specialty Start Date End Date Freddy Epps MD [address] [place] [phone] PCP - General Family Medicine 05/29/20 documented as of this encounter
--- NOTE | ~2025-06-12 | CT_ITS ---
EXAMINATION: CT ABDOMEN AND PELVIS WITH CONTRAST CLINICAL INFORMATION: Abdominal pain COMPARISON: None available. TECHNIQUE: Multidetector volumetric images were obtained from the superior aspect of the liver through the pubic symphysis following administration 85 mL of Omnipaque 350 intravenous contrast. Sagittal and coronal reformatted images were obtained on the technologist's workstation. Oral contrast: No This CT examination was performed using dose optimization techniques as appropriate, variously including the following: *Automated exposure control *Adjustment of mA and/or kV according to patient size (this includes techniques or standardized protocols for targeted exams where dose is matched to indication/reason for exam; i.e. extremities or head) *Use of iterative reconstruction technique FINDINGS: LUNG BASES: Ground glass densities in both posterior lung bases is consistent with dependent atelectasis. LIVER, GALLBLADDER, AND BILIARY TREE: The liver is normal in size, shape, and attenuation. No focal hepatic lesion or biliary ductal dilatation is present. The gallbladder is unremarkable with no evidence of radiopaque gallstones, gallbladder wall thickening, or obvious pericholecystic inflammatory changes. PANCREAS: Unremarkable. SPLEEN: There are numerous surgical clips in the splenic bed. There is a small residual splenule. ADRENAL GLANDS: Unremarkable. KIDNEYS AND URETERS: There is a 4 x 8 mm bilobed calcific density in the lower pole left kidney that could represent a single stone or 2 adjacent stones. There is no hydronephrosis or nephrolithiasis. BLADDER: Unremarkable. GASTROINTESTINAL TRACT: The small and large bowel are unremarkable. The appendix is not visualized. No inflammatory changes are present in the pericecal region. ABDOMINAL WALL: No significant hernia is appreciated. LYMPH NODES: There are shotty inguinal nodes without adenopathy. VASCULAR: Mild vascular calcifications are present. PELVIC VISCERA: Unremarkable OSSEOUS STRUCTURES: There is an intramedullary nail through the left femur that is partially imaged. There is a intratrochanteric screw through the nail. There is heterotopic ossification at the cephalad margin of the nail.. There are mild degenerative changes in the hips. CT/CT abdomen pelvis w IV con IMPRESSION: There is a stone in the lower pole left kidney. It is either a bilobed 4 x 8 mm stone or 2 adjacent stones. 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 Fleischner guidelines were followed. Electronically signed by: Rafael Pena MD 06/12/2025 05:26 PM EST DEANNA
--- NOTE | ~2025-06-12 | XR_ITS ---
EXAMINATION: XR CHEST CLINICAL INFORMATION: coughing. pneumonia? COMPARISON: 05/17/2025 TECHNIQUE: Frontal view of the chest was obtained. FINDINGS: Lungs are clear and well aerated. Heart size is within normal limits. No pneumothorax is identified. There is no sign of pleural effusion. XR/XR chest 1V IMPRESSION: No acute disease. Electronically signed by: Rafael Pena MD 06/12/2025 02:54 PM EST
[2025-06-12 13:31] VITALS: BP 183/87; PULSE 92; RESP 16; TEMP 36.6; O2SAT 96; BMI 21.0
--- NOTE | 2025-06-12 13:34 | ECG_ITS ---
Test Reason : HYPERGLYCEMIA Blood Pressure : */* mmHG Vent. Rate : 81 BPM Atrial Rate : 81 BPM P-R Int : 148 ms QRS Dur : 86 ms QT Int : 368 ms P-R-T Axes : 65 -14 69 degrees QTcB Int : 427 ms Normal sinus rhythm Normal ECG No previous ECGs available Referred By: Robert Mayorga Electronically Signed By: AKIRA PRATT
--- NOTE | 2025-06-12 13:34 | ED_ITS ---
HPI - General Adult General Chief complaint: Abdominal Pain Stated complaint: Sugar high N/V/D- multi comp Time Seen by Provider: 06/12/25 14:17 Source: patient Mode of arrival: ambulatory Limitations: no limitations History of Present Illness ED Provider: Renetta Romeo PA-C HPI narrative: Patient is a 45 year old assigned male at with a history of HTN and DM presenting to the emergency department today with abdominal pain, diarrhea, nausea, and elevated blood sugars. Patient states that over the last 2 days he has had abdominal pain, nausea, vomiting, and diarrhea. Patient denies any other complaints at this time. Patient states that his sugars have been elevated over the last 2 days. Related Data Home Medications ?Medication ?Instructions ?Recorded ?Confirmed albuterol sulfate 90 mcg/actuation 2 puff inhalation Q 4H PRN wheezing 05/17/25 05/17/25 aerosol inhaler atorvastatin 40 mg tablet 40 mg PO DAILY 05/17/2504/27 dulaglutide 0.75 mg/0.5 mL 0.75 mg subcut MO 05/17/25 05/17/25 subcutaneous pen injector (Trulicity) famotidine 40 mg tablet 40 mg PO DAILY 05/17/2504/27 insulin aspart U-100 100 unit/mL 30 unit subcut TIDAC 05/17/25 05/17/25 (3 mL) subcutaneous pen insulin glargine 100 unit/mL (3 40 unit subcut BID 05/17/25 mL) subcutaneous pen (Lantus Solostar U-100 Insulin) lisinopril 10 mg tablet 10 mg PO DAILY 05/17/2504/27 metformin 500 mg tablet,extended 1,000 mg PO BID 05/1705/17/25 release 24 hr quetiapine 50 mg tablet 50 mg PO BEDTIME 05/17/25 Previous Rx's ?Medication ?Instructions ?Recorded doxycycline monohydrate 100 mg 100 mg PO BID #14 caps 05/18/25 capsule oxycodone 5 mg tablet 5 mg PO Q6H PRN pain (scale score 05/19/25 7-10) #14 tabs ondansetron 4 mg disintegrating 4 mg PO Q8H 3 days #9 tabs 06/12/25 tablet Allergies Allergy/AdvReac Type Severity Reaction Status Date / Time Penicillins Allergy Rash Verified 06/12/25 13:33 Review of Systems 2 Constitutional: Constitutional: Reports as per HPI Eyes: Eyes: Reports as per HPI ENT: Reports as per HPI Cardiovascular: Cardiovascular: Reports as per HPI Respiratory: Respiratory: Reports as per HPI Gastrointestinal: Gastrointestinal: Reports as per HPI Genitourinary: Genitourinary: Reports as per HPI Musculoskeletal: Musculoskeletal: Reports as per HPI Integumentary/Breasts: Skin/Breast: Reports as per HPI Neurologic: Reports as per HPI Psychiatric: Psychiatric: Reports as per HPI Endocrine: Endocrine: Reports as per HPI Hematologic/Lymphatic: Hematologic/Lymphatic: Reports as per HPI Allergic/Immunologic: Allergic/Immunologic: Reports as per HPI [facility] Past Medical History Attestation statement: The following information was validated with the patient. Source: old records reviewed and nursing notes reviewed Medical History Hypertension DM2 (diabetes mellitus, type 2) Surgical History H/O splenectomy Social History Social History Housing: House Alcohol intake: never Patient Tobacco Use Status: Current everyday Tobacco user Tobacco use type: Cigarette Smoked in Last 30 Days: No Use of substances other than those prescribed or required for medical reasons: No Advance Directives: No Advance Directives Information Provided: No Do you have a plan to hurt others: No Plan service: No Physical Exam ED Vital Signs: Vital Signs - 24 hr 06/12/25 13:31 06/12/25 14:03 06/12/25 18:00 Temperature 98 F 98.3 F 98.2 F Pulse Rate 92 74 88 Respiratory Rate 16 17 17 Blood Pressure 183/87 H 165/90 H 168/88 H Pulse Oximetry 96 96 98 Oxygen Delivery Method Room Air Room Air Room Air 06/12/25 18:00 Temperature 98.2 F Pulse Rate 88 Respiratory Rate 17 Blood Pressure 168/88 H Pulse Oximetry 98 Oxygen Delivery Method Room Air BMI result Body Mass Index 21.0 Const General: cooperative, no acute distress, alert and awake Nutritional Appearance: well nourished Orientation/consciousness: patient oriented x3 HENMT Head: Yes normal to inspection and Yes atraumatic Ears: hearing grossly normal bilaterally and external ears normal General nose exam: Normal external nose present, no nasal discharge noted and no epistaxis Face and sinus: Yes normal facial exam, No abrasion and No laceration Mouth: Normal oral and palatal mucosa present, no drooling and no muffled voice Eyes General: appearance normal, both eyes and all related structures Periorbital: periorbital findings normal Eyelids: Yes eyelids normal Conjunctivae: conjunctivae normal Pupils: Equal, round and reactive pupils present EOM: EOMs intact bilaterally Neck Neck: Yes normal visual inspection and Yes full ROM Resp Effort & Inspection: normal respiratory effort and able to speak in complete sentences Neuro General: patient oriented x3, moves all extremities and CN's II-XI intact bilaterally Cranial nerves: Yes Equal, round and reactive pupils present Cognition (Neuro): normal cognition Extrem General: Yes normal to inspection, Yes full ROM and Yes capillary refill normal Psych Appearance: grossly normal Mental Status: mental status grossly normal Affect: normal affect Attitude: cooperative Thought process: Normal thought process present Thought content: Normal thought content present Insight: Good insight present (Psych) Course Course Course Narrative: RME: 45 year male presents to the ED for nausea vomiting abdominal pain and elevated glucose. Glucometer reads high. Medications Administered Discontinued Medications Generic Name Dose Route Start Last Admin Trade Name Austenq PRN Reason Stop Dose Admin Hydromorphone HCl 0.5 mg 06/12/25 15:58 06/12/25 16:13 Hydromorphone Hcl 0.5 Mg/0.5 Ml Syringe IVPUSH 06/12/25 15:59 0.5 mg ONCE ONE Administration Protocol Lactated Ringer's 1,000 mls @ 999 mls/hr 06/12/25 14:30 06/12/25 16:11 Lr IV 06/12/25 16:30 Infused .Q1H1M FRANKIE Infusion Insulin Human Regular 5 unit 06/12/25 16:17 06/12/25 16:34 Insulin Regular, Human 100 Unit/Ml 10 Ml Vial IVPUSH 06/12/25 16:18 5 unit ONCE ONE Administration Iohexol 100 ml 06/12/25 16:52 06/12/25 16:55 Iohexol 350 Mg/Ml 100 Ml Infus..Btl IV 06/12/25 16:53 85 ml ONCE ONE Administration Morphine Sulfate 4 mg 06/12/25 14:25 06/12/25 14:39 Morphine Sulfate 4 Mg/Ml Cartridge IVPUSH 06/12/25 14:26 4 mg ONCE ONE Administration Protocol Ondansetron HCl 4 mg 06/12/25 14:25 06/12/25 14:39 Ondansetron Hcl 4 Mg/2 Ml Vial IVPUSH 06/12/25 14:26 4 mg ONCE ONE Administration Medical Decision Making Medical Decision Making [facility] Narrative: Patient is a 45 year old assigned male at with a history of HTN and DM presenting to the emergency department today with abdominal pain, diarrhea, nausea, and elevated blood sugars. Patient's physical exam was as noted in the physical exam portion of this note. Patient's blood work showed an elevated WBC count of 14.3 with a glucose of 531 and beta-hydroxybutyrate of 0.58. Patient's urine showed no acute process. Patient's EKG was unremarkable. Patient's chest x-ray showed no acute process. Patient's abdomen/pelvis CT showed either 1 large kidney stone or 2 smaller stones in the left lower renal pole. Given the patient is stating his abdominal pain is lower - I do not suspect the stones to be causing his pain. Patient received IV fluids, insulin, zofran, morphine, and dilaudid which, upon re-evaluation, he stated it helped his symptoms significantly. Patient's repeat blood sugar came down to 329. Patient was able to tolerate PO while in the department. Patient's clinical presentation is not consistent with HHS or DKA. Patient's clinical presentation is most consistent with nausea / vomiting and poor glucose management. I explained my physical exam findings as well as all test results to the patient. I answered all questions asked by the patient. I stressed the importance of the patient taking his medication as directed (either prescribed or as the over the counter packaging recommends). I stressed the importance of the patient following up with his primary care provider and with an gas prover for additional diabetic management. I stressed the importance of the patient returning to the emergency department immediately if his symptoms were to worsen or if he were to develop any dizziness, shortness of breath, difficulty breathing, chest pain, blurry vision, loss of vision, nausea, vomiting, abdominal pain, fever, chills, back pain, or any other complaints. Patient verbalized agreement and understanding with this treatment plan and discharge. Differential Diagnosis Differential Diagnoses: The differential diagnosis associated with the presentation includes Elevated blood glucose Abdominal pain Gastroenteritis Viral illness Admission/Observation Consideration of admission/observation: Escalation of care including admission/observation considered Patient would have been admitted to the hospital had his work up had any findings where hospital admission was appropriate and his clinical presentation warranted hospital admission. Lab Data [facility] Lab Attestation statement: I reviewed the patient's lab results. My interpretation of these results are in the [facility] Rationale portion of this note. 06/12/25 13:53 06/12/25 13:53 Labs: Lab Results 06/12/25 06/12/25 06/12/25 Range/Units 13:53 13:57 13:58 WBC 14.3 H (4.8-10.8) X10*3/uL RBC 4.67 (4.60-5.80) X10*6/uL Hgb 14.0 (14.0-18.0) g/dl Hct 41.0 L (42.0-52.0) % MCV 87.8 (80.0-98.0) fL MCH 30.0 (27.0-33.0) pg MCHC 34.1 (31.0-36.0) g/dl RDW 12.7 (11.0-16.0) % Plt Count 260 (160-400) X10*3/uL MPV 11.5 (9.4-12.4) fL Immature Gran % (Auto) Cancelled Neut % (Auto) Cancelled Lymph % (Auto) Cancelled Ferry % (Auto) Cancelled Eos % (Auto) Cancelled Baso % (Auto) Cancelled Lymph # (Auto) Cancelled [place] # (Auto) Cancelled Eos # (Auto) Cancelled Baso # (Auto) Cancelled Abs Immat Gran (auto) Cancelled Absolute Neuts (auto) Cancelled Absolute Nucleated RBC 0.000 (0.0-0.012) X10*3/uL Nucleated RBC % (auto) 0.0 (0.0-0.2) /100WBC Neutrophils % (Manual) 82 H (45-73) % Band Neutrophils % 0 L (3-5) % Lymphocytes % (Manual) 13 L (20-40) % Monocytes % (Manual) 3 (2-11) % Eosinophils % (Manual) 1 (0-4) % Basophils % (Manual) 1 (0-2) % Abs Neuts (Manual) 11.7 H (2.0-8.3) X10*3/uL Lymphocytes # (Manual) 1.9 (1.2-4.9) X10*3/uL Monocytes # (Manual) 0.4 (0.1-1.2) X10*3/uL Eosinophils # (Manual) 0.1 (0.0-0.4) X10*3/uL Basophils # (Manual) 0.1 (0.0-0.2) X10*3/uL Platelet Estimate NORMAL (NORMAL) Plt Morphology Comment NORMAL RBC Morphology NORMAL VBG pH 7.46 H (7.32-7.43) VBG pCO2 34 mmHg VBG pO2 87 mmHg VBG HCO3 25 (22-26) mmol/L VBG O2 Saturation 99.0 % VBG Base Excess 2.1 mmol/L Sodium 130 L (135-145) mmol/L Potassium 4.5 D (3.3-5.1) mmol/L Chloride 98 (96-108) mmol/L Carbon Dioxide 26 (22-29) mmol/L Anion Gap 11 L (12-20) BUN 18 H (9-16) mg/dL Creatinine 0.92 (0.5-1.4) mg/dL Estim Creat Clear Calc 82.7 Estimated GFR > 60 POC Glucose 512 H* (60-115) mg/dL Random Glucose 531 H* (60-115) mg/dL Calcium 9.7 D (8.4-10.2) mg/dL Total Bilirubin 0.2 (0.0-1.0) mg/dL AST 36 (5-37) U/L ALT 55 H (0-40) U/L Alkaline Phosphatase 111 (39-117) U/L Troponin I High Sens < 2.7 (<3.5-35.0) ng/L Total Protein 7.7 (6.5-8.0) g/dL Albumin 3.9 (3.5-5.0) g/dL Beta-Hydroxybutyrate 0.58 H (0.02-0.27) mmol/L Urine Color Urine Appearance Urine pH (5.0-9.0) Ur Specific [place] (1.005-1.025) Urine Protein (Neg-Trace) mg/dL Urine Glucose (UA) (Negative) mg/dL Urine Ketones (Negative) mg/dL Urine Blood (Negative) Urine Nitrite (Negative) Ur Leukocyte Esterase (Negative) Urine RBC (0-2) /HPF Urine WBC (0-5) /HPF Ur Squamous Epith Cells (0-2) /HPF Urine Bacteria (None Seen) Hyaline Casts (0-2) /LPF Influenza Type A (PCR) NEGATIVE (Negative) Influenza Type B (PCR) NEGATIVE (Negative) RSV RNA Qual (PCR) NEGATIVE (Negative) SARS-CoV-2 RNA (RT-PCR) NEGATIVE (Negative) 06/12/25 06/12/25 06/12/25 Range/Units 14:15 16:13 16:58 WBC (4.8-10.8) X10*3/uL RBC (4.60-5.80) X10*6/uL Hgb (14.0-18.0) g/dl Hct (42.0-52.0) % MCV (80.0-98.0) fL MCH (27.0-33.0) pg MCHC (31.0-36.0) g/dl RDW (11.0-16.0) % Plt Count (160-400) X10*3/uL MPV (9.4-12.4) fL Immature Gran % (Auto) Neut % (Auto) Lymph % (Auto) Ferry % (Auto) Eos % (Auto) Baso % (Auto) Lymph # (Auto) Ferry # (Auto) Eos # (Auto) Baso # (Auto) Abs Immat Gran (auto) Absolute Neuts (auto) Absolute Nucleated RBC (0.0-0.012) X10*3/uL Nucleated RBC % (auto) (0.0-0.2) /100WBC Neutrophils % (Manual) (45-73) % Band Neutrophils % (3-5) % Lymphocytes % (Manual) (20-40) % Monocytes % (Manual) (2-11) % Eosinophils % (Manual) (0-4) % Basophils % (Manual) (0-2) % Abs Neuts (Manual) (2.0-8.3) X10*3/uL Lymphocytes # (Manual) (1.2-4.9) X10*3/uL Monocytes # (Manual) (0.1-1.2) X10*3/uL Eosinophils # (Manual) (0.0-0.4) X10*3/uL Basophils # (Manual) (0.0-0.2) X10*3/uL Platelet Estimate (NORMAL) Plt Morphology Comment RBC Morphology VBG pH (7.32-7.43) VBG pCO2 mmHg VBG pO2 mmHg VBG HCO3 (22-26) mmol/L VBG O2 Saturation % VBG Base Excess mmol/L Sodium (135-145) mmol/L Potassium (3.3-5.1) mmol/L Chloride (96-108) mmol/L Carbon Dioxide (22-29) mmol/L Anion Gap (12-20) BUN (9-16) mg/dL Creatinine (0.5-1.4) mg/dL Estim Creat Clear Calc Estimated GFR POC Glucose 382 H* 329 H (60-115) mg/dL Random Glucose (60-115) mg/dL Calcium (8.4-10.2) mg/dL Total Bilirubin (0.0-1.0) mg/dL AST (5-37) U/L ALT (0-40) U/L Alkaline Phosphatase (39-117) U/L Troponin I High Sens (<3.5-35.0) ng/L Total Protein (6.5-8.0) g/dL Albumin (3.5-5.0) g/dL Beta-Hydroxybutyrate (0.02-0.27) mmol/L Urine Color Yellow Urine Appearance Clear Urine pH 5.5 (5.0-9.0) Ur Specific [place] >= 1.030 H (1.005-1.025) Urine Protein 100 (2+) H (Neg-Trace) mg/dL Urine Glucose (UA) >=1000 H (Negative) mg/dL Urine Ketones Negative (Negative) mg/dL Urine Blood Small (1+) H (Negative) Urine Nitrite Negative (Negative) Ur Leukocyte Esterase Negative (Negative) Urine RBC 6-10 H (0-2) /HPF Urine WBC 0-5 (0-5) /HPF Ur Squamous Epith Cells 0-2 (0-2) /HPF Urine Bacteria None Seen (None Seen) Hyaline Casts 0-2 (0-2) /LPF Influenza Type A (PCR) (Negative) Influenza Type B (PCR) (Negative) RSV RNA Qual (PCR) (Negative) SARS-CoV-2 RNA (RT-PCR) (Negative) Independent Interpretation I performed an independent interpretation of an: EKG, Plain X-Ray and CT Scan Interpretation: My interpretation is in agreement with the radiologist's impression of these imaging studies. L Reason for Exam: coughing. pneumonia? EXAMINATION: XR CHEST CLINICAL INFORMATION: coughing. pneumonia? COMPARISON: 05/17/2025 TECHNIQUE: Frontal view of the chest was obtained. FINDINGS: Lungs are clear and well aerated. Heart size is within normal limits. No pneumothorax is identified. There is no sign of pleural effusion. XR/XR chest 1V IMPRESSION: No acute disease. Electronically signed by: Rafael Pena MD 06/12/2025 02:54 PM EST Dictated By: Rafael Pena MD Signed By: Electronically signed by Rafael Pena MD 06/12/25 1454 Report Number: [id number]: Total DLP = 409.00 mGy-cm Reason for Exam: abd pain EXAMINATION: CT ABDOMEN AND PELVIS WITH CONTRAST CLINICAL INFORMATION: Abdominal pain COMPARISON: None available. TECHNIQUE: Multidetector volumetric images were obtained from the superior aspect of the liver through the pubic symphysis following administration 85 mL of Omnipaque 350 intravenous contrast. Sagittal and coronal reformatted images were obtained on the technologist's workstation. Oral contrast: No This CT examination was performed using dose optimization techniques as appropriate, variously including the following: *Automated exposure control *Adjustment of mA and/or kV according to patient size (this includes techniques or standardized protocols for targeted exams where dose is matched to indication/reason for exam; i.e. extremities or head) *Use of iterative reconstruction technique FINDINGS: LUNG BASES: Ground glass densities in both posterior lung bases is consistent with dependent atelectasis. LIVER, GALLBLADDER, AND BILIARY TREE: The liver is normal in size, shape, and attenuation. No focal hepatic lesion or biliary ductal dilatation is present. The gallbladder is unremarkable with no evidence of radiopaque gallstones, gallbladder wall thickening, or obvious pericholecystic inflammatory changes. PANCREAS: Unremarkable. SPLEEN: There are numerous surgical clips in the splenic bed. There is a small residual splenule. ADRENAL GLANDS: Unremarkable. KIDNEYS AND URETERS: There is a 4 x 8 mm bilobed calcific density in the lower pole left kidney that could represent a single stone or 2 adjacent stones. There is no hydronephrosis or nephrolithiasis. BLADDER: Unremarkable. GASTROINTESTINAL TRACT: The small and large bowel are unremarkable. The appendix is not visualized. No inflammatory changes are present in the pericecal region. ABDOMINAL WALL: No significant hernia is appreciated. LYMPH NODES: There are shotty inguinal nodes without adenopathy. VASCULAR: Mild vascular calcifications are present. PELVIC VISCERA: Unremarkable OSSEOUS STRUCTURES: There is an intramedullary nail through the left femur that is partially imaged. There is a intratrochanteric screw through the nail. There is heterotopic ossification at the cephalad margin of the nail. There are mild degenerative changes in the hips. CT/CT abdomen pelvis w IV con IMPRESSION: There is a stone in the lower pole left kidney. It is either a bilobed 4 x 8 mm stone or 2 adjacent stones. 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 Fleischner guidelines were followed. Electronically signed by: Rafael Pena MD 06/12/2025 05:26 PM [facility] Dictated By: Rafael Pena MD Signed By: Electronically signed by Rafael Pena MD 06/12/25 1726 I independently interpreted this EKG and am in agreement with the below findings: Vent. Rate: 81 BPM Atrial Rate: 81 BPM P-R Int: 148 ms QRS Dur: 86 ms QT Int: 368 ms P-R-T Axes: 65 -14 69 degrees QTcB Int: 427 ms Normal sinus rhythm Normal ECG No previous ECGs available DD/ 1345 Radiology Impression Discussion of test interpretation with radiology: I have reviewed the radiologist's reading. Chronic Conditions Patient?s care impacted by: Diabetes Critical Care Time Critical Care Time Critical Care Time: Yes Total Critical Care Time: 38 Attestation: I spent 38 minutes of Critical Care Time with this patient. This does not include time spent on separately reported billable procedures. Discharge Plan Discharge Clinical Impression: Blood glucose elevated Nausea & vomiting Qualifiers: Vomiting type: unspecified Qualified Code(s): R11.2 - Nausea with vomiting, unspecified Patient Disposition: Home, Self-Care Instructions: Acute Nausea and Vomiting (DC), Diabetic Hyperglycemia (ED) Additional Instructions: Your work up today showed no emergent cause for your symptoms. Your scan showed 1 large or possibly 2 smaller kidney stones in the pole of your left kidney however, this is unlikely to be causing your pain. Please follow up with an gas prover for additional management of your diabetes. IF you are prescribed home medications and/or you are taking over the counter medications at home - it is very important you continue to do so as prescribed / directed unless told otherwise. Follow up with a primary care provider. Return to the emergency department immediately if your symptoms worsen or if you develop any numbness, tingling, dizziness, shortness of breath, difficulty breathing, chest pain, blurry vision, loss of vision, nausea, vomiting, abdominal pain, fever, chills, back pain, or any other complaints. L If you do not have a primary care provider - call any of the below numbers to establish and follow up with a primary care provider. [facility] Primary Care ([place]) [phone] [place] [address], [address] [facility] Primary Care ([address] [place]) [phone] [facility] [facility], [address] [facility], [address] [facility] Primary Care ([address] [place]) [phone], [address] [facility], [address] [facility] Primary Care ([place]) [phone] [place] [address], [address] [facility], [address] [facility] Family Medicine [phone] [place] [address], [id number] Please see the information below about our Patient Portal. If you are not yet enrolled in the [facility] Patient Portal, you will receive an enrollment email invitation following your visit to any [facility] setting. You may also self-enroll in the Patient Portal by visiting our website: [email or web address] The following information is required to access the Patient Portal: - Your [facility] Medical Record Number - Your personal home email address (must match what is in your electronic medical record, Registration staff can assist with this) - Name - Date of Capabilities of the Patient Portal: - Message some providers - View upcoming appointments - Access your health summary, medical history, and visit history - View current conditions and allergies - View procedure and lab results - View your medications, including guidelines, side effects, and precautions - Complete pre-appointment questionnaires requested by your provider - Ready summary reports of your office visits and procedures To access the Patient Portal Mobile [employer]en, follow these directions: - Search Playrcart in the [employer] Store or e27 Store - Download the Coleen - Search for [facility] - Enter your login/password Prescriptions: New ondansetron 4 mg tablet,disintegrating 4 mg PO Q8H 3 Days Qty: 9 0RF No Action albuterol sulfate 90 mcg/actuation HFA aerosol inhaler 2 puff inhalation Q4H PRN (Reason: wheezing) insulin aspart U-100 100 unit/mL (3 mL) insulin pen 30 unit SUBCUT TIDAC insulin glargine [Lantus Solostar U-100 Insulin] 100 unit/mL (3 mL) insulin pen 40 unit subcut BID Trulicity 0.75 mg/0.5 mL pen injector 0.75 mg subcut MO atorvastatin 40 mg tablet 40 mg PO DAILY famotidine 40 mg tablet 40 mg PO DAILY lisinopril 10 mg tablet 10 mg PO DAILY metformin 500 mg tablet extended release 24 hr 1,000 mg PO BID quetiapine 50 mg tablet 50 mg PO BEDTIME doxycycline monohydrate 100 mg capsule 100 mg PO BID Qty: 14 0RF oxycodone 5 mg tablet 5 mg PO Q6H PRN (Reason: pain (scale score 7-10)) Qty: 14 0RF Rx Instructions: Partial Fill upon patient request. Referrals: [facility] Endocrinology [Provider Group] Referral Note: Call to establish and follow up with endocrinology for additional diabetes management. Interventions: ED Discharge Assessment Last Done: 06/12/25 18:00 Discharge Date/Time: 06/12/25 18:00 Print Language: Faroese
[2025-06-12 14:01] LABS: Glucose, Whole Blood 512 mg/dL (60-115)
[2025-06-12 14:01] LABS: Hematocrit 41.0 % (42.0-52.0); Hemoglobin 14.0 g/dl (14.0-18.0); Mean Corpuscular HGB Conc 34.1 g/dl (31.0-36.0); Mean Corpuscular Hemoglobin 30.0 pg (27.0-33.0); Mean Corpuscular Volume 87.8 fL (80.0-98.0); NRBC Abs Auto 0.000 X10*3/uL (0.0-0.012); NRBC Pct Auto 0.0 /100WBC (0.0-0.2); Platelet Count 260 X10*3/uL (160-400); Red Blood Count 4.67 X10*6/uL (4.60-5.80); Venous Blood Gas Refer to POC result
[2025-06-12 14:02] LABS: WBC ABN SCTR FOR CBC 1
[2025-06-12 14:02] LABS: VBG HCO3 25 mmol/L (22-26); VBG O2 % Saturation 99.0 %
[2025-06-12 14:03] VITALS: BP 165/90; PULSE 74; RESP 17; TEMP 36.8; O2SAT 96
[2025-06-12 14:23] LABS: Troponin-I High Sensitivity < 2.7 ng/L (<3.5-35.0)
[2025-06-12 14:26] LABS: Alanine Aminotransferase 55 U/L (0-40); Albumin Level 3.9 g/dL (3.5-5.0); Alkaline Phosphatase 111 U/L (39-117); Anion Gap 11 (12-20); Aspartate Amino Transferase 36 U/L (5-37); Blood Urea Nitrogen 18 mg/dL (9-16); Calcium 9.7 mg/dL (8.4-10.2); Carbon Dioxide 26 mmol/L (22-29); Chloride 98 mmol/L (96-108); Creatinine Clr Calc Pharmacy 82.7; Estimated Glomerular Filt Rate > 60; Potassium 4.5 mmol/L (3.3-5.1); Sodium 130 mmol/L (135-145); Total Protein 7.7 g/dL (6.5-8.0)
[2025-06-12 14:28] LABS: Appearance Urine Clear; Glucose Urine UA >=1000 mg/dL (Negative); PH 5.5 (5.0-9.0); Specific Gravity - Urine >= 1.030 (1.005-1.025); UMIC TRIGGER UACC YES
[2025-06-12 14:28] LABS: Basophils Percent Manual 1 % (0-2); Eosinophils Percent Manual 1 % (0-4); Lymphocytes Percent Manual 13 % (20-40); Monocytes Percent Manual 3 % (2-11); Neutrophils Percent Manual 82 % (45-73)
[2025-06-12 14:29] LABS: Basophils Abs Manual 0.1 X10*3/uL (0.0-0.2); Eosinophils Absolute Manual 0.1 X10*3/uL (0.0-0.4); Lymphocytes Absolute Manual 1.9 X10*3/uL (1.2-4.9); Monocytes Absolute Manual 0.4 X10*3/uL (0.1-1.2); RBC Morphology NORMAL; White Blood Count 14.3 X10*3/uL (4.8-10.8)
[2025-06-12 14:38] LABS: Band Neutrophils Percent 0 % (3-5); Neutrophils Absolute Manual 11.7 X10*3/uL (2.0-8.3); Resp Syncy Virus RNA Qual PCR NEGATIVE (Negative); SARS COV2 PCR INHOUSE NEGATIVE (Negative)
[2025-06-12] MEDS: Lactated Ringers 1,000 ML 999 ML IV ×2 (14:40→15:00)
--- NOTE | 2025-06-12 15:13 | PC.NURSE ---
18gIV placed in the right AC - labs obtained/sent to lab. CXR completed. pt pending CT of abd/pelvis to be completed at this time. IVF/medication administered per provider order. effectiveness pending. pt otherwise on RA w/o difficulty - no sob/wob noted. respirations even/unlabored. plan of care ongoing. call barroso placed within reach.
[2025-06-12 16:17] LABS: Glucose, Whole Blood 382 mg/dL (60-115)
--- NOTE | 2025-06-12 16:17 | PC.NURSE ---
Addendum entered by Cally Shaver RN 06/12/25 17:03: repeat POC s/p medication administration = 329mg/dL. provider notified/aware. Addendum entered by Cally Shaver RN 06/12/25 16:37: insulin administered per provider order. effectiveness pending. Original Note: pt reporting increased abd pain despite previous medication administration. medication administered per provider order. effectiveness pending. POC s/p IVF bolus x 2 = 383mg/dL. provider notified/aware of results.
[2025-06-12] MEDS: iohexoL 350 MG/ML 100 ML INFUS..BTL IV (16:55)
[2025-06-12 17:01] LABS: Glucose, Whole Blood 329 mg/dL (60-115)
[2025-06-12 18:00] VITALS: BP 168/88; PULSE 88; RESP 17; TEMP 36.8; O2SAT 98
--- OUTSIDE RECORDS SUMMARY | 2025-06-13 03:29 | XMS_ITS | Encounter Summary ---
Author Organization [facility] alth Address [address] [place] [address] Care Team Providers Care Office Services Clerk Name Role Phone Unavailable Primary Care Provider Unavailabl e Encounter Details Date Type Department Care Team ([facility] st Contact Info) Description 07/30/2021 Office Visit - Data Exchange [facility] Jomar Epps MD [address] [place] [address] Social History Tobacco Use Types [...] Name : CLOVIS SHEN (41yo, M) ID# [id number] Appt. Date/Time : 08/06/2021 08:30AM : 1980 Service Dept. : Telehealth Provider : JOMAR EPPS MD Insurance Med Primary: [facility] (MEDICAID REPLACEMENT - HMO) Insurance # : [id number] Policy/Group # : [id number] Med Mental Health: [facility] Insurance # : [id number] Med Curry: SLIDING FEE SCHEDULE - DISCOUNT Prescription: EXPRESS SCRIPTS - Member is eligible. details Chief Complaint telehealth, SBIRT - Adult Followup: Type II diabetes mellitus uncontrolled f/u DM, smoking, back pain. Needs Diabetic labs ordered and A1C/hepatitis Patient's Care Team Primary Care Provider: JOMAR EPPS MD: [facility] [place] [address], , Patient's Pharmacies [facility] (ERX): [address] [place] [address], , [id number] ([place]X): [address] [place] [address], , [facility] (ERX): [address] [place] [address], , [facility] (ERX): [address] [address], [place] [address], , Vitals None recorded. Allergies Allergies not reviewed (last reviewed 06/05/2021) PENICILLINS: Rash (Mild) Some allergies listed in Documents: #[id number], #[id number], #[id number] could not be added to this patient's [...] mL Route: Intramuscular Site: Deltoid, Right NDC: [id number] Lot #: [id number] Mfr.: Moderna Digicompanion, Inc. Exp. Date: 05/21/21 VIS: Moderna COVID-19 Vaccine EUA Fact Sheet 10/19/2020 VIS Given: 12/07/20 Production Control Clerk: Royer Matais CMA Vaccine Type: COVID-19, mRNA, LNP-S, PF, 100 mcg/0.5 mL dose (Moderna) Date: 11/02/20 Amt.: 0.5 mL Route: Intramuscular Site: Deltoid, Left NDC: Lot #: [id number] Mfr.: Moderna Digicompanion, Inc. Exp. Date: 04/27/21 VIS: Moderna COVID-19 Vaccine EUA Fact Sheet 06/26/2020 VIS Given: 11/02/20 Production Control Clerk: Eduarda Matias MA Vaccine Type: Hib (PRP-T) Date: 05/14/20 Amt.: 0.5 mL Route: Site: NDC: Lot #: [id number] Mfr.: Sanofi Pasteur Exp. Date: VIS: VIS Given: Production Control Clerk: Vaccine Type: Hib Date: 05/14/20 Amt.: Route: Site: [place]: Lot #: [id number] Mfr.: Sanofi Pasteur Exp. Date: VIS: VIS Given: Production Control Clerk: Vaccine Type: influenza, injectable, quadrivalent Date: 05/17/20 Amt.: Route: Site: NDC: Lot #: Mfr.: Exp. Date: VIS: VIS Given: Production Control Clerk: [facility] Vaccine Type: influenza, seasonal, injectable, preservative free Date: 05/17/20 Amt.: 0.5 mL Route: Site: [facility]: Lot #: [id number] Mfr.: Sanofi Pasteur Exp. Date: VIS: VIS Given: Production Control Clerk: Vaccine Type: influenza, injectable, quadrivalent Date: 08/03/19 Amt.: 0.5 mL Route: Intramuscular Site: Deltoid, Left NDC: Lot #: [id number] Mfr.: Sanofi Pasteur Exp. Date: 01/24/20 VIS: Inactivated Influenza 03/10/2019 VIS Given: 08/03/19 Production Control Clerk: Faith Abbierosalia Vaccine Type: influenza, injectable, quadrivalent, preservative free Date: 09/16/15 Amt.: 0.5 mL Route: Site: [facility]: Lot #: [id number] Mfr.: Exp. Date: VIS: VIS Given: Production Control Clerk: Vaccine Type: meningococcal B, unspecified Date: 05/14/20 Amt.: Route: Site: [facility]: Lot #: Mfr.: Exp. Date: VIS: VIS Given: Production Control Clerk: [facility] Vaccine Type: meningococcal MCV4P Date: 05/14/20 Amt.: 0.5 mL Route: Site: [facility]: Lot #: [id number] Mfr.: Vyome Biosciencesofi Pasteur Exp. Date: VIS: VIS Given: Production Control Clerk: Vaccine Type: meningococcal B, recombinant Date: 05/14/20 Amt.: 0.5 mL Route: Site: [facility]: Lot #: [id number] Mfr.: Phunware Exp. Date: VIS: VIS Given: Production Control Clerk: Vaccine Type: pneumococcal conjugate PCV 13 Date: 05/14/20 Amt.: 0.5 mL Route: Site: [facility]: Lot #: [id number] Mfr.: Applied StemCell Exp. Date: VIS: VIS Given: Production Control Clerk: Vaccine Type: pneumococcal polysaccharide PPV23 Date: 08/03/19 Amt.: 0.5 mL Route: Injection Site: Deltoid, Right NDC: Lot #: [id number] Mfr.: Merck and Co., Inc. Exp. Date: 12/13/20 VIS: PPSV23 05/25/2019 VIS Given: 08/03/19 Production Control Clerk: Faith Mead Problems Reviewed Problems * Candidal [...] or [place])?: Yes (Notes: Born in [place]) TB Screening Question 2: Have you traveled [...] Dental: Where was your last dental visit?: [facility] Dental: Was the visit an [facility] dental provider?: Yes Dental: Action taken: None Needed Other Education: 12 Marital status: Single General stress level: High Gender Identity and LGBTQ Identity Gender identity: Identifies as Male Assigned sex at : Male Sexual orientation: Straight or heterosexual Surgical History Surgical History not reviewed (last reviewed 06/05/2021) * Removal of spleen total - 05/16/2020 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 Metformin he is taking [id number] ER BID. Will send the trulicity now. [...] 5 3 mL syringe(s) Refills: 3 Pharmacy: [facility] * Lantus Solostar U-100 Insulin 100 unit/mL (3 mL) subcutaneous pen - INJECT 60 UNITS SUBCUTANEOUSLY ONCE DAILY Qty: 6 3 mL syringe(s) Refills: 3 Pharmacy: [facility] 2204 * Trulicity 3 mg/0.5 mL subcutaneous pen injector - Inject once weekly Qty: 12 0.5 mL syringe(s) Refills: 2 Pharmacy: [facility] 2. Depression screening - pt has [...] 2 15 gm tube(s) Refills: 0 Pharmacy: [facility] * clotrimazole 1 % topical cream - APPLY TO THE AFFECTED AND SURROUNDING AREAS OF SKIN BY TOPICAL ROUTE 2 TIMES PER DAY IN THE MORNINGAND EVENING Qty: 1 30 gm tube(s) Refills: 0 Pharmacy: [facility] 5. Insomnia - refill G47.00: Insomnia, unspecified * quetiapine 25 mg tablet - Take 1 tablet(s) every day by oral route at bedtime Qty: 90 tablet(s) Refills: 3 Pharmacy: [facility] 6. COVID-19 - currently ahs covid, [...] 1 100 gm tube(s) Refills: 1 Pharmacy: [facility] Discussion Notes End time:19 min (08:31am - 08:50am) Return to Office Patient will return to the office as needed. Encounter Sign-Off Encounter signed-off by Jomar Epps MD, 08/06/2021. documented in this encounter Plan of Treatment Not on file documented as of this encounter Visit Diagnoses Not on filedocumented in this encounter
--- OUTSIDE RECORDS SUMMARY | 2025-06-13 03:30 | XMS_ITS | Encounter Summary ---
Author Organization [facility] alth Address [address] [place] [address] Care Team Providers Care Qualifications Examiner Name Role Phone Unavailable Primary Care Provider Unavailabl e Encounter Details Date Type Department Care Team (Late st Contact Info) Description 02/06/2023 Office Visit - Data Exchange [facility] Tania Bernstein CRNP [address] [place] [id number] Social History Tobacco Use Types Packs/Day [...] Name : CLOVIS SHEN (43yo, M) ID# [id number] Appt. Date/Time : 02/06/2023 09:00AM : 1980 Service Dept. : [facility] Provider : NANA LERNER Insurance Med Primary: [facility] PLAN (MEDICAID REPLACEMENT - HMO) Insurance # : [id number] Policy/Group # : [id number] Med Mental Health: [facility] Insurance # : [id number] Med Curry: SLIDING FEE SCHEDULE - DISCOUNT [...] Care Provider: JOMAR EPPS MD: [address] [facility] [facility], [place] [address], , Patient's Pharmacies [facility] ([place]X): [address], [place] [address], , [id number] ([place]): [address] [place] [address], , [facility] (ERX): [address] [place] [address], , [facility] (ERX): [address] [place] [address], , Vitals Ht: 5 ft 8 in [...] Rash (Mild) Some allergies listed in Documents: #[id number], #[id number], #[id number], #[id number] could not be added to this patient's [...] mL Route: Intramuscular Site: Deltoid, Right NDC: [id number] Lot #: [id number] Mfr.: Moderna US, Inc. Exp. Date: 05/21/21 VIS: Moderna COVID-19 Vaccine EUA Fact Sheet 10/19/2020 VIS Given: 12/07/20 Bowling Ball Grader: Royer Matias CMA Vaccine Type: COVID-19, mRNA, LNP-S, PF, 100 mcg/0.5 mL dose (Moderna) Date: 11/02/20 Amt.: 0.5 mL Route: Intramuscular Site: Deltoid, Left NDC: Lot #: [id number] Mfr.: Moderna US, Inc. Exp. Date: 04/27/21 VIS: Moderna COVID-19 Vaccine EUA Fact Sheet 06/26/2020 VIS Given: 11/02/20 Bowling Ball Grader: Eduarda Matias MA Haemophilus Influenzae Type B Vaccine Type: Hib (PRP-T) Date: 05/14/20 Amt.: 0.5 mL Route: Site: NDC: Lot #: [id number] Mfr.: Sanofi Pasteur Exp. Date: VIS: VIS Given: Bowling Ball Grader: Vaccine Type: Hib Date: 05/14/20 Amt.: Route: Site: NDC: Lot #: [id number] Mfr.: betaworksofi Pasteur Exp. Date: VIS: VIS Given: Bowling Ball Grader: Influenza Vaccine Type: influenza, seasonal, injectable, preservative free Date: 05/17/20 Amt.: 0.5 mL Route: Site: [facility]: Lot #: [id number] Mfr.: betaworksofi Pasteur Exp. Date: VIS: VIS Given: Bowling Ball Grader: Vaccine Type: influenza, injectable, quadrivalent Date: 08/03/19 Amt.: 0.5 mL Route: Intramuscular Site: Deltoid, Left NDC: Lot #: [id number] Mfr.: betaworksofi Pasteur Exp. Date: 01/24/20 VIS: Inactivated Influenza 03/10/2019 VIS Given: 08/03/19 Bowling Ball Grader: Faith Mead Vaccine Type: influenza, injectable, quadrivalent, preservative free Date: 09/16/15 Amt.: 0.5 mL Route: Site: [facility]: Lot #: [id number] Mfr.: Exp. Date: VIS: VIS Given: Bowling Ball Grader: Meningococcal Vaccine Type: meningococcal MCV4P Date: 05/14/20 Amt.: 0.5 mL Route: Site: [facility]: Lot #: [id number] Mfr.: betaworksofi Pasteur Exp. Date: VIS: VIS Given: Bowling Ball Grader: Vaccine Type: meningococcal B, recombinant Date: 05/14/20 Amt.: 0.5 mL Route: Site: [facility]: Lot #: [id number] Mfr.: Proxima Cancion Exp. Date: VIS: VIS Given: Bowling Ball Grader: Pneumococcal Vaccine Type: pneumococcal conjugate PCV 13 Date: 05/14/20 Amt.: 0.5 mL Route: Site: [facility]: Lot #: [id number] Mfr.: Ateneo Digital Exp. Date: VIS: VIS Given: Bowling Ball Grader: Vaccine Type: pneumococcal polysaccharide PPV23 Date: 08/03/19 Amt.: 0.5 mL Route: Injection Site: Deltoid, Right NDC: Lot #: [id number] Mfr.: Merck and Co., Inc. Exp. Date: 12/13/20 VIS: PPSV23 05/25/2019 VIS Given: 08/03/19 Bowling Ball Grader: Faith Mead Problems Reviewed Problems * Chronic [...] or [place])?: Yes (Notes: Born in [place]) TB Screening Question 2: Have you traveled [...] Dental: Where was your last dental visit?: [facility] Dental: Was the visit an [facility] dental provider?: Yes Dental: Action taken: [facility] information provided Other Education: 12 Marital status: Single General stress level: High Gender Identity and LGBTQ Identity Gender identity: Identifies as Male Assigned sex at : Male Pronouns: he/him Sexual orientation: Straight or heterosexual Surgical History Surgical History not reviewed (last reviewed 06/05/2021) * Removal of spleen total - 05/16/2020 noneSurgery to Left knee.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 Qty: (40) capsule Refills: 0 Pharmacy: [facility]. 2. Type II diabetes mellitus uncontrolled - [...] (12) 3 mL syringe Refills: 3 Pharmacy: [facility]. * insulin aspart (U-100) 100 unit/mL (3 mL) subcutaneous pen - Inject 22 unit(s) 3 times a day by subcutaneous route with meals. Qty: (10) 3 mL syringe Refills: 3Pharmacy: [facility]. 3. Depression screening Z13.31: Encounter for screening for depression * PATIENT HEALTH QUESTIONNAIRE-9* 4. Screening procedure Z13.39: Encounter for screening examination for other mental health and behavioral disorders * SUBSTANCE ABUSE SCREENING* Return to Office * ANNA Dietz for ExistingPatient-ACUTE at [facility] on 02/13/2023 at 12:10 PM * Jomar Epps MD for Video[facility]-CHRONIC at [facility] on 02/25/2023 at 05:30 PM Encounter Sign-Off Encounter signed-off by ANNA Lerner, 02/06/2023. documented in this encounter Plan of Treatment Not on file documented as of this encounter Visit Diagnoses Not on filedocumented in this encounter
--- OUTSIDE RECORDS SUMMARY | 2025-06-13 03:30 | XMS_ITS | Encounter Summary ---
Author Organization [facility] alth Address [address] [place] [address] Care Team Providers Care Linen Checker Name Role Phone Unavailable Primary Care Provider Unavailabl e Encounter Details Date Type Department Care Team ([facility] st Contact Info) Description 02/25/2023 Office Visit - Data Exchange [facility] Jomar Epps MD [address] [place] [address] Social History Tobacco Use Types [...] Name : CLOVIS SHEN (43yo, M) ID# [id number] Appt. Date/Time : 02/25/2023 05:30PM : 1980 Service Dept. : Telehealth Provider : JOMAR EPPS MD Insurance Med Primary: [facility] (MEDICAID REPLACEMENT - HMO) Insurance # : [id number] Policy/Group # : [id number] Med Mental Health: [facility] Insurance # : [id number] Med Curry: SLIDING FEE SCHEDULE - DISCOUNT Prescription: EXPRESS SCRIPTS - Member is eligible. details Chief Complaint telehealth Followup: Type II diabetes mellitus uncontrolled Patient's Care Team Primary Care Provider: JOMAR EPPS MD: [address] [place] [address], , Patient's Pharmacies [facility]: [address], [place] [address], , [id number] ([place]): [address] [facility], [place] [address], , [facility] (ERX): [address] [place] [address], , [facility] (ERX): [address] [place] [address], , Vitals 2023-02-25 17:30 Ht: 5 ft 8 in (172.72 cm) Allergies Allergies not reviewed (last reviewed 02/06/2023) PENICILLINS: Rash (Mild) Some allergies listed in Documents: #[id number], #[id number], #[id number], #[id number] could not be added to this patient's [...] mL Route: Intramuscular Site: Deltoid, Right NDC: [id number] Lot #: [id number] Mfr.: Moderna US, Inc. Exp. Date: 05/21/21 VIS: Moderna COVID-19 Vaccine EUA Fact Sheet 10/19/2020 VIS Given: 12/07/20 Campus Safety Officer: Royer Matias CMA Vaccine Type: COVID-19, mRNA, LNP-S, PF, 100 mcg/0.5 mL dose (Moderna) Date: 11/02/20 Amt.: 0.5 mL Route: Intramuscular Site: Deltoid, Left NDC: Lot #: [id number] Mfr.: Moderna US, Inc. Exp. Date: 04/27/21 VIS: Moderna COVID-19 Vaccine EUA Fact Sheet 06/26/2020 VIS Given: 11/02/20 Campus Safety Officer: Eduarda Matias MA Haemophilus Influenzae Type B Vaccine Type: Hib (PRP-T) Date: 05/14/20 Amt.: 0.5 mL Route: Site: NDC: Lot #: [id number] Mfr.: Sanofi Pasteur Exp. Date: VIS: VIS Given: Campus Safety Officer: Vaccine Type: Hib Date: 05/14/20 Amt.: Route: Site: NDC: Lot #: [id number] Mfr.: Sanofi Pasteur Exp. Date: VIS: VIS Given: Campus Safety Officer: Influenza Vaccine Type: influenza, seasonal, injectable, preservative free Date: 05/17/20 Amt.: 0.5 mL Route: Site: NDC: Lot #: [id number] Mfr.: Sanofi Pasteur Exp. Date: VIS: VIS Given: Campus Safety Officer: Vaccine Type: influenza, injectable, quadrivalent Date: 08/03/19 Amt.: 0.5 mL Route: Intramuscular Site: Deltoid, Left NDC: Lot #: [id number] Mfr.: Sanofi Pasteur Exp. Date: 01/24/20 VIS: Inactivated Influenza 03/10/2019 VIS Given: 08/03/19 Campus Safety Officer: Faith Mead Vaccine Type: influenza, injectable, quadrivalent, preservative free Date: 09/16/15 Amt.: 0.5 mL Route: Site: [facility]: Lot #: [id number] Mfr.: Exp. Date: VIS: VIS Given: Campus Safety Officer: Meningococcal Vaccine Type: meningococcal MCV4P Date: 05/14/20 Amt.: 0.5 mL Route: Site: NDC: Lot #: [id number] Mfr.: Sanofi Pasteur Exp. Date: VIS: VIS Given: Campus Safety Officer: Vaccine Type: meningococcal B, recombinant Date: 05/14/20 Amt.: 0.5 mL Route: Site: NDC: Lot #: [id number] Mfr.: Wildcard Exp. Date: VIS: VIS Given: Campus Safety Officer: Pneumococcal Vaccine Type: pneumococcal conjugate PCV 13 Date: 05/14/20 Amt.: 0.5 mL Route: Site: [facility]: Lot #: [id number] Mfr.: Wyeth Exp. Date: VIS: VIS Given: Campus Safety Officer: Vaccine Type: pneumococcal polysaccharide PPV23 Date: 08/03/19 Amt.: 0.5 mL Route: Injection Site: Deltoid, Right NDC: Lot #: [id number] Mfr.: Merck and Co., Inc. Exp. Date: 12/13/20 VIS: PPSV23 05/25/2019 VIS Given: 08/03/19 Campus Safety Officer: Faith Mead Problems Reviewed Problems * Candidal [...] or [place])?: Yes (Notes: Born in [place]) TB Screening Question 2: Have you traveled [...] Dental: Where was your last dental visit?: [facility] Dental: Was the visit an [facility] dental provider?: Yes Dental: Action taken: [facility] information provided Other Education: 12 Marital status: Single General stress level: High Gender Identity and LGBTQ Identity Gender identity: Identifies as Male Assigned sex at : Male Pronouns: he/him Sexual orientation: Straight or heterosexual Surgical History Surgical History not reviewed (last reviewed 06/05/2021) * Removal of spleen total - 05/16/2020 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 * PRESCRIPTION/DRUG REPORTING* - 02/13/23 Notes - PastRx Report: No Data found in state PEDIATRICIAN for this Patient. * PRESCRIPTION/DRUG REPORTING* - 02/06/23 Notes - PastRx Report: No Data found in state PEDIATRICIAN for this Patient. Screening None recorded. HPI [...] in [place] Persons Accompanying Patient: Start time: 547pm DM: [...] directed. Qty: 10 Units Refills: 5 Supplier: [facility] 2. Diabetic peripheral neuropathy E11.40: Type 2 diabetes mellitus with diabetic neuropathy, unspecified * gabapentin 300 mg capsule - Take 1 capsule(s) 3 times a day by oral route for 30 days. Qty: (90) capsule Refills: 0 Pharmacy: [facility] Discussion Notes End time: 557pm Return to Office * to see Jomar Epps MD at [facility] on or around 04/08/2023 Encounter Sign-Off Encounter signed-off by Jomar Epps MD, 02/25/2023. documented in this encounter Plan of Treatment Not on file documented as of this encounter Visit Diagnoses Not on filedocumented in this encounter
--- OUTSIDE RECORDS SUMMARY | 2025-06-13 03:31 | XMS_ITS | Encounter Summary ---
Author Organization [facility] alth Address [address] [place] [address] Care Team Providers Care Wastewater Design Engineer Name Role Phone Unavailable Primary Care Provider Unavailabl e Encounter Details Date Type Department Care Team ([facility] st Contact Info) Description 06/16/2023 Office Visit - Data Exchange [facility] Carissa Ferreira CRNP [address], [place] [id number] Social History Tobacco Use Types Packs/Day Years [...] Name : CLOVIS SHEN (43yo, M) ID# [id number] Appt. Date/Time : 06/16/2023 11:20AM : 1980 Service Dept. : Telehealth Provider : ANNA JC Insurance Med Primary: [facility] (MEDICAID REPLACEMENT - HMO) Insurance # : [id number] Policy/Group # : [id number] Med Mental Health: [facility] Insurance # : [id number] Med Curry: SLIDING FEE SCHEDULE - DISCOUNT Prescription: EXPRESS SCRIPTS - Member is eligible. details Chief Complaint cold symptoms Patient's Care Team Primary Care Provider: JOMAR EPPS MD: [address] [facility] [place] [address], , Patient's Pharmacies [id number] ([place]): [address] [place] [address] [place] [address], , [facility] ([place]X): [address] [facility] [facility], [place] [address], , [facility] (ERX): [address] [place] [address], , [facility]: [address] [facility], [place] [address], , Vitals None recorded. Allergies Allergies not [...] mL Route: Intramuscular Site: Deltoid, Right NDC: [id number] Lot #: [id number] Mfr.: Moderna US, Inc. Exp. Date: 05/21/21 VIS: Moderna COVID-19 Vaccine EUA Fact Sheet 10/19/2020 VIS Given: 12/07/20 Urgent Care Physician Assistant: Royer Matias CMA Vaccine Type: COVID-19, mRNA, LNP-S, PF, 100 mcg/0.5 mL dose (Moderna) Date: 11/02/20 Amt.: 0.5 mL Route: Intramuscular Site: Deltoid, Left NDC: Lot #: [id number] Mfr.: Moderna US, Inc. Exp. Date: 04/27/21 VIS: Moderna COVID-19 Vaccine EUA Fact Sheet 06/26/2020 VIS Given: 11/02/20 Urgent Care Physician Assistant: Eduarda Matias MA Diphtheria, Tetanus, Pertussis Vaccine Type: Tdap Date: 03/03/23 Amt.: 0.5 mL Route: Intramuscular Site: Deltoid, Left NDC: [id number] Lot #: [id number] Mfr.: Sanofi Pasteur Exp. Date: 12/30/24 VIS: Tdap 03/01/2021 [facility] VIS Given: 03/03/23 Urgent Care Physician Assistant: Vito Grigsby MA Haemophilus Influenzae Type B Vaccine Type: Hib (PRP-T) Date: 05/14/20 Amt.: 0.5 mL Route: Site: NDC: Lot #: [id number] Mfr.: Sanofi Pasteur Exp. Date: VIS: VIS Given: Urgent Care Physician Assistant: Vaccine Type: Hib Date: 05/14/20 Amt.: Route: Site: NDC: Lot #: [id number] Mfr.: Sanofi Pasteur Exp. Date: VIS: VIS Given: Urgent Care Physician Assistant: Influenza Vaccine Type: influenza, seasonal, injectable, preservative free Date: 05/17/20 Amt.: 0.5 mL Route: Site: NDC: Lot #: [id number] Mfr.: Sanofi Pasteur Exp. Date: VIS: VIS Given: Urgent Care Physician Assistant: Vaccine Type: influenza, injectable, quadrivalent Date: 08/03/19 Amt.: 0.5 mL Route: Intramuscular Site: Deltoid, Left NDC: Lot #: [id number] Mfr.: Sanofi Pasteur Exp. Date: 01/24/20 VIS: Inactivated Influenza 03/10/2019 VIS Given: 08/03/19 Urgent Care Physician Assistant: Faith Mead Vaccine Type: influenza, injectable, quadrivalent, preservative free Date: 09/16/15 Amt.: 0.5 mL Route: Site: [facility]: Lot #: [id number] Mfr.: Exp. Date: VIS: VIS Given: Urgent Care Physician Assistant: Meningococcal Vaccine Type: meningococcal MCV4P Date: 05/14/20 Amt.: 0.5 mL Route: Site: [facility]: Lot #: [id number] Mfr.: Sanofi Pasteur Exp. Date: VIS: VIS Given: Urgent Care Physician Assistant: Vaccine Type: meningococcal B, recombinant Date: 05/14/20 Amt.: 0.5 mL Route: Site: [facility]: Lot #: [id number] Mfr.: GT Nexus Exp. Date: VIS: VIS Given: Urgent Care Physician Assistant: Pneumococcal Vaccine Type: pneumococcal conjugate PCV 13 Date: 05/14/20 Amt.: 0.5 mL Route: Site: [facility]: Lot #: [id number] Mfr.: Wyeth Exp. Date: VIS: VIS Given: Urgent Care Physician Assistant: Vaccine Type: pneumococcal polysaccharide PPV23 Date: 08/03/19 Amt.: 0.5 mL Route: Injection Site: Deltoid, Right NDC: Lot #: [id number] Mfr.: Merck and Co., Inc. Exp. Date: 12/13/20 VIS: PPSV23 05/25/2019 VIS Given: 08/03/19 Urgent Care Physician Assistant: Faith Mead Problems Reviewed Problems * Chronic [...] Dental: Where was your last dental visit?: [facility] Dental: Was the visit an [facility] dental provider?: Yes Dental: Action taken: [facility] information provided Other Education: 12 Marital status: Single General stress level: High Gender Identity and LGBTQ Identity Gender identity: Identifies as Male Assigned sex at : Male Pronouns: he/him Sexual orientation: Straight or heterosexual Surgical History Surgical History not reviewed (last reviewed 06/05/2021) * Removal of spleen total - 05/16/2020 noneSurgery to 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 He has not taken any edti-ztl-gqsgcco medications for his symptoms. He does not have an inhaler at home. He checks his blood sugars at home, and they have been higher than normal. He eats a lot of rice and fish, and he does drink a lot of soda. He uses his insulin. He was referred to an cotton candy maker, but he missed his appointment. He called [...] protein. He was advised to call the cotton candy maker's office to reschedule his appointment. E11.65: Type 2 diabetes mellitus with hyperglycemia * DEXCOM G7 SENSOR DEVICE - Use as directed. Qty: 1 Unit Refills: 5 Supplier: [id number] * insulin aspart (U-100) 100 unit/mL (3 mL) subcutaneous pen - Inject 22 unit(s) 3 times a day by subcutaneous route with meals. Qty: (10) 3 mL syringe Refills: 3Pharmacy: [facility] * Trulicity 4.5 mg/0.5 mL subcutaneous pen injector - Inject 1 pen weekly Qty: (4) 0.5 mL syringe Refills: 3 Pharmacy: [id number] * Lantus Solostar U-100 Insulin 100 unit/mL (3 mL) subcutaneous pen - Inject 50 unit(s) twice a day by subcutaneous route. Qty: (12) 3 mL syringe Refills: 3 Pharmacy: [facility] 2. Candidal balanitis - Uncontrolled. Refilled nystatin 100,000 units/gram of topical cream. Apply to the affected areas twice per day. He was advised to control his blood glucose. B37.42: Candidal balanitis * nystatin 100,000 unit/gram topical cream - APPLY TO THE AFFECTED AREA(S) BY TOPICAL ROUTE 2 TIMES PER DAY Qty: (1) 30 gram tube Refills: 3 Pharmacy: [facility] 3. Viral syndrome - Uncontrolled. Start [...] (VENTOLIN HFA or equivalent) Refills: 0 Pharmacy: [facility] * benzonatate 100 mg capsule - Take 1 capsule(s) 3 times a day by oral route as needed. Qty: (30) capsule Refills: 0 Pharmacy: [facility] * cetirizine 10 mg tablet - Take 1 tablet(s) every day by oral route. Qty: (1) 14 tablet blister pack Refills: 0 Pharmacy: [facility] Discussion Notes ATTESTATION: This note has been generated using [employer]. Return to Office * to see Jomar Epps MD for [facility]istingPatient-[facility]RONIC at [facility] on or around 08/17/2023 Encounter Sign-Off Encounter signed-off by ANNA Jc, 06/17/2023. documented in this encounter Plan of Treatment Not on file documented as of this encounter Visit Diagnoses Not on filedocumented in this encounter
--- OUTSIDE RECORDS SUMMARY | 2025-06-13 03:31 | XMS_ITS | Encounter Summary ---
Author Organization [facility] alth Address [address] [place] [address] Care Team Providers Care Media Relations Coordinator Name Role Phone Unavailable Primary Care Provider Unavailabl e Encounter Details Date Type Department Care Team ([facility] st Contact Info) Description 06/26/2023 Office Visit - Data Exchange [facility] Gildardo Norris CRNP [address] [place], [place] [id number] Social History Tobacco Use Types Packs/Day Years [...] Name : CLOVIS SHEN (43yo, M) ID# [id number] Appt. Date/Time : 06/26/2023 11:30AM : 1980 Service Dept. : [facility] Provider : ANNA ALLEN Insurance Med Primary: [facility] (MEDICAID REPLACEMENT - HMO) Insurance # : [id number] Policy/Group # : [id number] Med Mental Health: [facility] Insurance # : [id number] Med Curry: SLIDING FEE SCHEDULE - DISCOUNT Prescription: EXPRESS SCRIPTS - Member is eligible. details Chief Complaint SBIRT - Adult Patient presents today with concerns of cramping in legs and feet, states it is happening all day every day. 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 Date: 06/16/23 prescribed Source: Carissa Jhon, SUSHI CHEF Name: lisinopriL 5 mg tablet take 1 [...] 0.5 mL Route: Intramuscular Site: Deltoid, Right [facility]: [id number] Lot #: [id number] Mfr.: Moderna US, Inc. Exp. Date: 05/21/21 VIS: Moderna COVID-19 Vaccine EUA Fact Sheet 10/19/2020 VIS Given: 12/07/20 Building Components Designer: Royer Matias CMA Vaccine Type: COVID-19, mRNA, LNP-S, PF, 100 mcg/0.5 mL dose (Moderna) Date: 11/02/20 Amt.: 0.5 mL Route: Intramuscular Site: Deltoid, Left NDC: Lot #: [id number] Mfr.: Moderna US, Inc. Exp. Date: 04/27/21 VIS: Moderna COVID-19 Vaccine EUA Fact Sheet 06/26/2020 VIS Given: 11/02/20 Building Components Designer: Eduarda Matias MA Diphtheria, Tetanus, Pertussis Vaccine Type: Tdap Date: 03/03/23 Amt.: 0.5 mL Route: Intramuscular Site: Deltoid, Left NDC: [id number] Lot #: [id number] Mfr.: Sanofi Pasteur Exp. Date: 12/30/24 VIS: Tdap 03/01/2021 [facility] VIS Given: 03/03/23 Building Components Designer: Vito Grigsby MA Haemophilus Influenzae Type B Vaccine Type: Hib (PRP-T) Date: 05/14/20 Amt.: 0.5 mL Route: Site: [place]: Lot #: [id number] Mfr.: Sanofi Pasteur Exp. Date: VIS: VIS Given: Building Components Designer: Vaccine Type: Hib Date: 05/14/20 Amt.: Route: Site: NDC: Lot #: [id number] Mfr.: Sanofi Pasteur Exp. Date: VIS: VIS Given: Building Components Designer: Influenza Vaccine Type: influenza, seasonal, injectable, preservative free Date: 05/17/20 Amt.: 0.5 mL Route: Site: NDC: Lot #: [id number] Mfr.: Sanofi Pasteur Exp. Date: VIS: VIS Given: Building Components Designer: Vaccine Type: influenza, injectable, quadrivalent Date: 08/03/19 Amt.: 0.5 mL Route: Intramuscular Site: Deltoid, Left NDC: Lot #: [id number] Mfr.: Sanofi Pasteur Exp. Date: 01/24/20 VIS: Inactivated Influenza 03/10/2019 VIS Given: 08/03/19 Building Components Designer: Faith Mead Vaccine Type: influenza, injectable, quadrivalent, preservative free Date: 09/16/15 Amt.: 0.5 mL Route: Site: [facility]: Lot #: [id number] Mfr.: Exp. Date: VIS: VIS Given: Building Components Designer: Meningococcal Vaccine Type: meningococcal MCV4P Date: 05/14/20 Amt.: 0.5 mL Route: Site: [facility]: Lot #: [id number] Mfr.: Sanofi Pasteur Exp. Date: VIS: VIS Given: Building Components Designer: Vaccine Type: meningococcal B, recombinant Date: 05/14/20 Amt.: 0.5 mL Route: Site: [facility]: Lot #: [id number] Mfr.: DeckDAQ Exp. Date: VIS: VIS Given: Building Components Designer: Pneumococcal Vaccine Type: pneumococcal conjugate PCV 13 Date: 05/14/20 Amt.: 0.5 mL Route: Site: [facility]: Lot #: [id number] Mfr.: Wyeth Exp. Date: VIS: VIS Given: Building Components Designer: Vaccine Type: pneumococcal polysaccharide PPV23 Date: 08/03/19 Amt.: 0.5 mL Route: Injection Site: Deltoid, Right NDC: Lot #: [id number] Mfr.: Merck and Co., Inc. Exp. Date: 12/13/20 VIS: PPSV23 05/25/2019 VIS Given: 08/03/19 Building Components Designer: Faith Mead Problems Reviewed Problems * Chronic [...] Dental: Where was your last dental visit?: [facility] Dental: Was the visit an [facility] dental provider?: Yes Dental: Action taken: [facility] information provided Other Education: 12 Marital status: Single General stress level: High Gender Identity and LGBTQ Identity Gender identity: Identifies as Male Assigned sex at : Male Pronouns: he/him Sexual orientation: Straight or heterosexual Surgical History Reviewed Surgical History * Removal of spleen total - 05/16/2020 noneSurgery to Left knee.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 Referral was placed in 02/2023. - Reported fluctuating blood glucose levels with several lows causing symptoms - Denies headaches or dizziness. - Reports blurry vision. - Will schedule appointment with chef de partie. - Drinks a lot of water. Peripheral [...] DAY Qty: (180) tablet Refills: 3 Pharmacy: [id number] * repaglinide 2 mg tablet - take 1 PO once daily with lunch Qty: (90) tablet Refills: 3 Pharmacy: [facility] * GLUCOSE, FINGERSTICK, BLOOD - Specimen source: Blood capillary Fasting: N * atorvastatin 40 mg tablet - TAKE 1 TABLET BY MOUTH EVERY DAY Qty: (90) tablet Refills: 3 Pharmacy: [facility] * HEMOGLOBIN A1C, FINGERSTICK - Specimen source: Blood capillary * lisinopril 5 mg tablet - take 1 PO daily Qty: (90) tablet Refills: 3 Pharmacy: [facility] * insulin aspart (U-100) 100 unit/mL (3 mL) subcutaneous pen - Inject 22 unit(s) 3 times a day by subcutaneous route with meals. Qty: (10) 3 mL syringe Refills: 3Pharmacy: [facility] * URINALYSIS, DIPSTICK 2. Diabetic peripheral [...] Qty: (90) capsule Refills: 0 Pharmacy: [facility] 3. Chronic back pain - - [...] days. Qty: (60) tablet Refills: 3 Pharmacy: [id number] 4. Depression screening Z13.31: Encounter for screening for depression * PATIENT HEALTH QUESTIONNAIRE-9* 5. Screening procedure - negative Z13.39: Encounter for screening examination for other mental health and behavioral disorders * SUBSTANCE ABUSE SCREENING* GLUCOSE, FINGERSTICK, BLOOD * Fasting: N * Result: - Blood Glucose: mg/dl: [facility] HEMOGLOBIN A1C, FINGERSTICK * Result: - HEMOGLOBIN A1C: >15.0 URINALYSIS, DIPSTICK * Results: - Leukocytes: Negative - Nitrite: negative - Urobilinogen: .2 - Protein: Negative - pH: 7.0 - Blood: Non-Hemolyzed: Moderate - Specific [place]: 1.010 - Ketone: Trace - Bilirubin: Negative - Glucose: 2000+ - Appearance: Clear - Color: Yellow Discussion Notes ATTESTATION: This note has been generated using [employer]. Elvira Car. Return to Office * Debbie Hernandez MD for [id number] at [facility] on 07/02/2023 at 02:30 PM * Jomar Epps MD for [id number] at [facility] on 08/20/2023 at 01:00 PM Encounter Sign-Off Encounter signed-off by ANNA Allen, 06/29/2023. documented in this encounter Plan of Treatment Not on file documented as of this encounter Visit Diagnoses Not on filedocumented in this encounter
--- OUTSIDE RECORDS SUMMARY | 2025-06-13 03:32 | XMS_ITS | Encounter Summary ---
Author Organization [facility] alth Address [address] [place] [address] Care Team Providers Care Store Group Manager Name Role Phone Unavailable Primary Care Provider Unavailabl e Encounter Details Date Type Department Care Team ([facility] st Contact Info) Description 11/11/2022 Office Visit - Data Exchange [facility] Jomar Epps MD [address], [place] [id number] Social History Tobacco Use Types Packs/Day Years [...] Name : CLOVIS SHEN (42yo, M) ID# [id number] Appt. Date/Time : 11/11/2022 09:00AM : 1980 Service Dept. : [facility] Provider : JOMAR EPPS MD Insurance Med Primary: [facility] HEALTH PLAN (MEDICAID REPLACEMENT - HMO) Insurance # : [id number] Policy/Group # : [id number] Med Mental Health: [facility] Insurance # : [id number] Med Curry: SLIDING FEE SCHEDULE - DISCOUNT Prescription: EXPRESS SCRIPTS - Member is eligible. details Chief Complaint Followup: Type II diabetes mellitus uncontrolled Followup: Hypertensive disorder PAtient presents today for a f/u DM MWaggner YIELD ANALYST Patient's Care Team Primary Care Provider: JOMAR EPPS MD: [address] [place] [address], , Patient's Pharmacies [facility] ([place]): [address], [place] [address], , [facility] ([place]): [address], [place] [address], , [facility] ([place]): [address] [place] [address], , [facility] ([place]X): [address] [place] [address], , Vitals Ht: 5 ft 8 in [...] Rash (Mild) Some allergies listed in Documents: #[id number], #[id number], #[id number], #[id number] could not be added to this patient's [...] route for30 days. Date: 10/22/22 filled Source: [facility] Name: famotidine 40 mg tablet Take 1 [...] mL Route: Intramuscular Site: Deltoid, Right NDC: [id number] Lot #: [id number] Mfr.: Moderna US, Inc. Exp. Date: 05/21/21 VIS: Moderna COVID-19 Vaccine EUA Fact Sheet 10/19/2020 VIS Given: 12/07/20 Caster Operator: Royer Matias CMA Vaccine Type: COVID-19, mRNA, LNP-S, PF, 100 mcg/0.5 mL dose (Moderna) Date: 11/02/20 Amt.: 0.5 mL Route: Intramuscular Site: Deltoid, Left NDC: Lot #: [id number] Mfr.: Moderna US, Inc. Exp. Date: 04/27/21 VIS: Moderna COVID-19 Vaccine EUA Fact Sheet 06/26/2020 VIS Given: 11/02/20 Caster Operator: Eduarda Matias MA Vaccine Type: Hib (PRP-T) Date: 05/14/20 Amt.: 0.5 mL Route: Site: NDC: Lot #: [id number] Mfr.: Sanofi Pasteur Exp. Date: VIS: VIS Given: Caster Operator: Vaccine Type: Hib Date: 05/14/20 Amt.: Route: Site: NDC: Lot #: [id number] Mfr.: Sanofi Pasteur Exp. Date: VIS: VIS Given: Caster Operator: Vaccine Type: influenza, seasonal, injectable, preservative free Date: 05/17/20 Amt.: 0.5 mL Route: Site: NDC: Lot #: [id number] Mfr.: Sanofi Pasteur Exp. Date: VIS: VIS Given: Caster Operator: Vaccine Type: influenza, injectable, quadrivalent Date: 08/03/19 Amt.: 0.5 mL Route: Intramuscular Site: Deltoid, Left NDC: Lot #: [id number] Mfr.: Attend.com Pasteur Exp. Date: 01/24/20 VIS: Inactivated Influenza 03/10/2019 VIS Given: 08/03/19 Caster Operator: Faith Leivarosalia Vaccine Type: influenza, injectable, quadrivalent, preservative free Date: 09/16/15 Amt.: 0.5 mL Route: Site: [facility]: Lot #: [id number] Mfr.: Exp. Date: VIS: VIS Given: Caster Operator: Vaccine Type: meningococcal MCV4P Date: 05/14/20 Amt.: 0.5 mL Route: Site: [facility]: Lot #: [id number] Mfr.: [email or web address] Pasteur Exp. Date: VIS: VIS Given: Caster Operator: Vaccine Type: meningococcal B, recombinant Date: 05/14/20 Amt.: 0.5 mL Route: Site: [facility]: Lot #: [id number] Mfr.: eMeter Exp. Date: VIS: VIS Given: Caster Operator: Vaccine Type: pneumococcal conjugate PCV 13 Date: 05/14/20 Amt.: 0.5 mL Route: Site: [facility]: Lot #: [id number] Mfr.: Wyeth Exp. Date: VIS: VIS Given: Caster Operator: Vaccine Type: pneumococcal polysaccharide PPV23 Date: 08/03/19 Amt.: 0.5 mL Route: Injection Site: Deltoid, Right NDC: Lot #: [id number] Mfr.: Merck and Co., Inc. Exp. Date: 12/13/20 VIS: PPSV23 05/25/2019 VIS Given: 08/03/19 Caster Operator: Faith Mead Problems Reviewed Problems * Candidal [...] or [place])?: Yes (Notes: Born in [place]) TB Screening Question 2: Have you traveled [...] Dental: Where was your last dental visit?: [facility] Dental: Was the visit an [facility] dental provider?: Yes Dental: Action taken: [facility] information provided Other Education: 12 Marital status: Single General stress level: High Gender Identity and LGBTQ Identity Gender identity: Identifies as Male Assigned sex at : Male Pronouns: he/him Sexual orientation: Straight or heterosexual Surgical History Surgical History not reviewed (last reviewed 06/05/2021) * Removal of spleen total - 05/16/2020 noneSurgery to Left knee.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 Qty: (12) 3 mL syringe Refills: 3 Pharmacy: [facility] * insulin aspart (U-100) 100 unit/mL (3 mL) subcutaneous pen - Inject 20 unit(s) 3 times a day by subcutaneous route with meals. 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 Qty: 1 Unit Refills: 0 Supplier: [facility] * DEXCOM G7 SENSOR DEVICE - Use as directed. Qty: 1 Unit Refills: 0 Supplier: [facility] * CBC AND DIFFERENTIAL * LIPID PANEL [...] (1) 30 gram tube Refills: 3 Pharmacy: [facility] 4. Viral screening Z11.4: Encounter for screening [...] of himself. Return to Office * at [facility] on or around 11/11/2022 * to see Jomar Epps MD at [facility] on or around 12/02/2022 Encounter Sign-Off Encounter signed-off by Jomar Epps MD, 11/11/2022. documented in this encounter Plan of Treatment Not on file documented as of this encounter Visit Diagnoses Not on filedocumented in this encounter
--- OUTSIDE RECORDS SUMMARY | 2025-06-13 03:32 | XMS_ITS | Encounter Summary ---
Author Organization [facility] alth Address [address] [place] [address] Care Team Providers Care Surveying Crew Rodman Name Role Phone Unavailable Primary Care Provider Unavailabl e Encounter Details Date Type Department Care Team ([facility] Contact Info) Description 06/17/2022 Office Visit - Data Exchange [facility] Jomar Epps MD [address], [place] [id number] ([place]) Social History Tobacco Use Types Packs/Day Years Used Date Smoking Tobacco: Never Assessed Sex and Gender Information Value Date Recorded Sex Assigned at Not on file Legal Sex Male 10:16 AM EDT Gender Identity Not on file Sexual Orientation Not on file documented as of this encounter Progress Notes * Jomar Epps MD - 06/17/2022 8:23 AM EST Patient Name : CLOVIS SHEN (42yo, M) ID# [id number] Appt. Date/Time : 06/17/2022 11:20AM : 1980 Service Dept. : [facility] Provider : JOMAR EPPS MD Insurance Med Primary: [facility] (MEDICAID REPLACEMENT - HMO) Insurance # : [id number] Policy/Group # : [id number] Med Mental Health: [facility] Insurance # : [id number] Med Curry: SLIDING FEE SCHEDULE - DISCOUNT [...] Care Provider: JOMAR EPPS MD: [address] [place] [address], , Patient's Pharmacies [facility] ([place]): [address], [place] [address], , [id number] ([place]): [address] [facility] [facility], [place] [address], , [facility] ([place]X): [address] [place] [address], , [facility] ([place]X): [address] [place] [address], , Vitals Ht: 5 ft 8 in [...] Rash (Mild) Some allergies listed in Documents: #[id number], #[id number], #[id number], #[id number] could not be added to this patient's [...] mL Route: Intramuscular Site: Deltoid, Right NDC: [id number] Lot #: [id number] Mfr.: Moderna US, Inc. Exp. Date: 05/21/21 VIS: Moderna COVID-19 Vaccine EUA Fact Sheet 10/19/2020 VIS Given: 12/07/20 Director Of Occupational Therapy: Royer Matias CMA Vaccine Type: COVID-19, mRNA, LNP-S, PF, 100 mcg/0.5 mL dose (Moderna) Date: 11/02/20 Amt.: 0.5 mL Route: Intramuscular Site: Deltoid, Left NDC: Lot #: [id number] Mfr.: Moderna US, Inc. Exp. Date: 04/27/21 VIS: Moderna COVID-19 Vaccine EUA Fact Sheet 06/26/2020 VIS Given: 11/02/20 Director Of Occupational Therapy: Eduarda Matias MA Vaccine Type: Hib (PRP-T) Date: 05/14/20 Amt.: 0.5 mL Route: Site: NDC: Lot #: [id number] Mfr.: Sanofi Pasteur Exp. Date: VIS: VIS Given: Director Of Occupational Therapy: Vaccine Type: Hib Date: 05/14/20 Amt.: Route: Site: NDC: Lot #: [id number] Mfr.: Sanofi Pasteur Exp. Date: VIS: VIS Given: Director Of Occupational Therapy: Vaccine Type: influenza, injectable, quadrivalent Date: 05/17/20 Amt.: Route: [place] [facility] [place] Lot #: Mfr.: Exp. Date: VIS: VIS Given: Director Of Occupational Therapy: [facility] Vaccine Type: influenza, seasonal, injectable, preservative free Date: 05/17/20 Amt.: 0.5 mL Route: Site: [facility] [place] Lot #: [id number] Mfr.: Sanofi Pasteur Exp. Date: VIS: VIS Given: Director Of Occupational Therapy: Vaccine Type: influenza, injectable, quadrivalent Date: 08/03/19 Amt.: 0.5 mL Route: Intramuscular Site: Deltoid, Left NDC: Lot #: [id number] Mfr.: Sanofi Pasteur Exp. Date: 01/24/20 VIS: Inactivated Influenza 03/10/2019 VIS Given: 08/03/19 Director Of Occupational Therapy: Faith Mead Vaccine Type: influenza, injectable, quadrivalent, preservative free Date: 09/16/15 Amt.: 0.5 mL Route: Site: [facility] [place] Lot #: [id number] Mfr.: Exp. Date: VIS: VIS Given: Director Of Occupational Therapy: Vaccine Type: meningococcal B, unspecified Date: 05/14/20 Amt.: Route: Site: [facility] [place] Lot #: Mfr.: Exp. Date: VIS: VIS Given: Director Of Occupational Therapy: [facility] Vaccine Type: meningococcal MCV4P Date: 05/14/20 Amt.: 0.5 mL Route: Site: [facility] [place] Lot #: [id number] Mfr.: Sanofi Pasteur Exp. Date: VIS: VIS Given: Director Of Occupational Therapy: Vaccine Type: meningococcal B, recombinant Date: 05/14/20 Amt.: 0.5 mL Route: Site: [facility] [place]: Lot #: [id number] Mfr.: [employer] Exp. Date: VIS: VIS Given: Director Of Occupational Therapy: Vaccine Type: pneumococcal conjugate PCV 13 Date: 05/14/20 Amt.: 0.5 mL Route: Site: [facility] [place]: Lot #: [id number] Mfr.: Wyeth Exp. Date: VIS: VIS Given: Director Of Occupational Therapy: Vaccine Type: pneumococcal polysaccharide PPV23 Date: 08/03/19 Amt.: 0.5 mL Route: Injection Site: Deltoid, Right NDC: Lot #: [id number] Mfr.: Merck and Co., Inc. Exp. Date: 12/13/20 VIS: PPSV23 05/25/2019 VIS Given: 08/03/19 Director Of Occupational Therapy: Faith Mead Problems Reviewed Problems * Smoker [...] or [place])?: Yes (Notes: Born in [place]) TB Screening Question 2: Have you traveled [...] Dental: Where was your last dental visit?: [facility] Dental: Was the visit an [facility] dental provider?: Yes Dental: Action taken: None Needed Other Education: 12 Marital status: Single General stress level: High Gender Identity and LGBTQ Identity Gender identity: Identifies as Male Assigned sex at : Male Sexual orientation: Straight or heterosexual Surgical History Surgical History not reviewed (last reviewed 06/05/2021) * Removal of spleen total - 05/16/2020 noneSurgery to Left 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 Qty: (60) tablet Refills: 3 Pharmacy: [facility] * lidocaine 5 % topical patch - Apply 1 patch(es) every day by topical route as needed. Qty: (1) 30 adhesive patch, medicated box Refills: 5 Pharmacy: [facility] * tizanidine 2 mg tablet - Take 1 tablet(s) twice a day by oral route as needed for 30 days. Qty: (60) tablet Refills: 3 Pharmacy: [facility] * CBC 2. Type II diabetes mellitus [...] (1) 45 gram tube Refills: 0 Pharmacy: [facility] 6. Urinary incontinence - could be in part from high sugars, but will trial tamsulosin R32: Unspecified urinary incontinence * tamsulosin 0.4 mg capsule - Take 1 capsule(s) every day by oral route for 30 days. Qty: (30) capsule Refills: 3 Pharmacy: [facility] GLUCOSE, FINGERSTICK, BLOOD * Result: - Blood Glucose: mg/dl: 325 HEMOGLOBIN A1C, FINGERSTICK * Result: - HEMOGLOBIN A1C: 10.9 Return to Office * to see Jomar Epps MD for [facility] at [facility] on or around 08/17/2022 Encounter Sign-Off Encounter signed-off by Jomar Epps MD, 06/17/2022. documented in this encounter Plan of Treatment Not on file documented as of this encounter Visit Diagnoses Not on filedocumented in this encounter
--- OUTSIDE RECORDS SUMMARY | 2025-06-13 03:33 | XMS_ITS | Encounter Summary ---
Author Organization [facility] alth Address [address] [place] [address] Care Team Providers Care Box Attacher Name Role Phone Unavailable Primary Care Provider Unavailabl e Encounter Details Date Type Department Care Team ([facility] Contact Info) Description 11/26/2022 Office Visit - Data Exchange [facility] oJmar Epps MD [address] [place], [place] [id number] Social History Tobacco Use Types Packs/Day Years [...] Name : CLOVIS SHEN (42yo, M) ID# [id number] Appt. Date/Time : 11/26/2022 04:00PM : 1980 Service Dept. : Telehealth Provider : JOMAR EPPS MD Insurance Med Primary: [facility] PLAN (MEDICAID REPLACEMENT - HMO) Insurance # : [id number] Policy/Group # : [id number] Med Mental Health: [facility] Insurance # : [id number] Med Curry: SLIDING FEE SCHEDULE - DISCOUNT Prescription: check now Chief Complaint telehealth f/u dm Patient's Care Team Primary Care Provider: JOMAR EPPS MD: [address] [facility] [place] [address], , Patient's Pharmacies [facility] ([place]): [address], [place] [address], , [id number] ([place]): [address] [place] [address], , [facility] ([place]): [address] [place] [address], , [facility] ([place]): [address] [place] [address], , Vitals None recorded. Allergies Allergies not reviewed (last reviewed 11/11/2022) PENICILLINS: Rash (Mild) Some allergies listed in Documents: #[id number], #[id number], #[id number], #[id number] could not be added to this patient's [...] route with meals. Date: 11/11/22 prescribed Source: oJmar Epps MD Name: Lantus Solostar U-100 Insulin [...] 0.5 mL Route: Intramuscular Site: Deltoid, Right [facility]: [id number] Lot #: [id number] Mfr.: Moderna [employer] Inc. Exp. Date: 05/21/21 VIS: Moderna COVID-19 Vaccine EUA Fact Sheet 10/19/2020 VIS Given: 12/07/20 Insurance Plan Specialist: Royer Matias CMA Vaccine Type: COVID-19, mRNA, LNP-S, PF, 100 mcg/0.5 mL dose (Moderna) Date: 11/02/20 Amt.: 0.5 mL Route: Intramuscular Site: Deltoid, Left NDC: Lot #: [id number] Mfr.: Moderna [employer] Exp. Date: 04/27/21 VIS: Moderna COVID-19 Vaccine EUA Fact Sheet 06/26/2020 VIS Given: 11/02/20 Insurance Plan Specialist: Eduarda Matias MA Vaccine Type: Hib (PRP-T) Date: 05/14/20 Amt.: 0.5 mL Route: Site: [facility]: Lot #: [id number] Mfr.: Sanofi Pasteur Exp. Date: VIS: VIS Given: Insurance Plan Specialist: Vaccine Type: Hib Date: 05/14/20 Amt.: Route: Site: NDC: Lot #: [id number] Mfr.: Sanofi Pasteur Exp. Date: VIS: VIS Given: Insurance Plan Specialist: Vaccine Type: influenza, seasonal, injectable, preservative free Date: 05/17/20 Amt.: 0.5 mL Route: Site: [facility]: Lot #: [id number] Mfr.: Sanofi Pasteur Exp. Date: VIS: VIS Given: Insurance Plan Specialist: Vaccine Type: influenza, injectable, quadrivalent Date: 08/03/19 Amt.: 0.5 mL Route: Intramuscular Site: Deltoid, Left NDC: Lot #: [id number] Mfr.: Sanofi Pasteur Exp. Date: 01/24/20 VIS: Inactivated Influenza 03/10/2019 VIS Given: 08/03/19 Insurance Plan Specialist: Faith Mead Vaccine Type: influenza, injectable, quadrivalent, preservative free Date: 09/16/15 Amt.: 0.5 mL Route: Site: [facility]: Lot #: [id number] Mfr.: Exp. Date: VIS: VIS Given: Insurance Plan Specialist: Vaccine Type: meningococcal MCV4P Date: 05/14/20 Amt.: 0.5 mL Route: Site: [facility]: Lot #: [id number] Mfr.: Sanofi Pasteur Exp. Date: VIS: VIS Given: Insurance Plan Specialist: Vaccine Type: meningococcal B, recombinant Date: 05/14/20 Amt.: 0.5 mL Route: Site: [facility]: Lot #: [id number] Mfr.: GlaxoSmithKline Exp. Date: VIS: VIS Given: Insurance Plan Specialist: Vaccine Type: pneumococcal conjugate PCV 13 Date: 05/14/20 Amt.: 0.5 mL Route: Site: NDC: Lot #: [id number] Mfr.: Wyeth Exp. Date: VIS: VIS Given: Insurance Plan Specialist: Vaccine Type: pneumococcal polysaccharide PPV23 Date: 08/03/19 Amt.: 0.5 mL Route: Injection Site: Deltoid, Right NDC: Lot #: [id number] Mfr.: Merck and Co., Inc. Exp. Date: 12/13/20 VIS: PPSV23 05/25/2019 VIS Given: 08/03/19 Insurance Plan Specialist: Faith Mead Problems Reviewed Problems * Candidal [...] or [place])?: Yes (Notes: Born in [place]) TB Screening Question 2: Have you traveled [...] Dental: Where was your last dental visit?: [facility] Dental: Was the visit an [facility] dental provider?: Yes Dental: Action taken: [facility] information provided Other Education: 12 Marital status: Single General stress level: High Gender Identity and LGBTQ Identity Gender identity: Identifies as Male Assigned sex at : Male Pronouns: he/him Sexual orientation: Straight or heterosexual Surgical History Surgical History not reviewed (last reviewed 06/05/2021) * Removal of spleen total - 05/16/2020 noneSurgery to Left 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 documented in this encounter Plan of Treatment Not on file documented as of this encounter Visit Diagnoses Not on filedocumented in this encounter
--- OUTSIDE RECORDS SUMMARY | 2025-06-13 03:34 | XMS_ITS | Encounter Summary ---
Author Organization [facility] alth Address [address] [place] [address] Care Team Providers Care Health Care Analyst Name Role Phone Unavailable Primary Care Provider Unavailabl e Encounter Details Date Type Department Care Team ([facility] Contact Info) Description 01/14/2023 Office Visit - Data Exchange [facility] Jomar Epps MD [address], [place] [id number] Social History Tobacco Use Types Packs/Day Years [...] Name : CLOVIS SHEN (43yo, M) ID# [id number] Appt. Date/Time : 01/14/2023 04:00PM : 1980 Service Dept. : Telehealth Provider : JOMAR EPPS MD Insurance Med Primary: [facility] HEALTH PLAN (MEDICAID REPLACEMENT - HMO) Insurance # : [id number] Policy/Group # : [id number] Med Mental Health: [facility] Insurance # : [id number] Med Curry: SLIDING FEE SCHEDULE - DISCOUNT Prescription: check now Chief Complaint telehealth f/u dm Patient's Care Team Primary Care Provider: JOMAR EPPS MD: [address] [facility] [place] [address], , Patient's Pharmacies [facility] ([place]): [address] [facility], [place] [address], , [id number] ([place]): [address] [place] [address], , [facility] (ERX): [address] [place] [address], , [facility] ([place]): [address] [place] [address], , Vitals None recorded. Allergies Allergies not reviewed (last reviewed 11/11/2022) PENICILLINS: Rash (Mild) Some allergies listed in Documents: #[id number], #[id number], #[id number], #[id number] could not be added to this patient's [...] MOUTH EVERY DAY Date: 09/05/22 filled Source: [facility] Name: diclofenac sodium 75 mg tablet,delayed release [...] mL Route: Intramuscular Site: Deltoid, Right NDC: [id number] Lot #: [id number] Mfr.: Moderna [employer] Inc. Exp. Date: 05/21/21 VIS: Moderna COVID-19 Vaccine EUA Fact Sheet 10/19/2020 VIS Given: 12/07/20 Auto Haulaway Driver: Royer Matias CMA Vaccine Type: COVID-19, mRNA, LNP-S, PF, 100 mcg/0.5 mL dose (Moderna) Date: 11/02/20 Amt.: 0.5 mL Route: Intramuscular Site: Deltoid, Left NDC: Lot #: [id number] Mfr.: Moderna Cerv[employer], Inc. Exp. Date: 04/27/21 VIS: Moderna COVID-19 Vaccine EUA Fact Sheet 06/26/2020 VIS Given: 11/02/20 Auto Haulaway Driver: Eduarda Matias MA Haemophilus Influenzae Type B Vaccine Type: Hib (PRP-T) Date: 05/14/20 Amt.: 0.5 mL Route: Site: [facility]: Lot #: [id number] Mfr.: Sanofi Pasteur Exp. Date: VIS: VIS Given: Auto Haulaway Driver: Vaccine Type: Hib Date: 05/14/20 Amt.: Route: Site: NDC: Lot #: [id number] Mfr.: Sanofi Pasteur Exp. Date: VIS: VIS Given: Auto Haulaway Driver: Influenza Vaccine Type: influenza, seasonal, injectable, preservative free Date: 05/17/20 Amt.: 0.5 mL Route: Site: NDC: Lot #: [id number] Mfr.: Sanofi Pasteur Exp. Date: VIS: VIS Given: Auto Haulaway Driver: Vaccine Type: influenza, injectable, quadrivalent Date: 08/03/19 Amt.: 0.5 mL Route: Intramuscular Site: Deltoid, Left NDC: Lot #: [id number] Mfr.: Sanofi Pasteur Exp. Date: 01/24/20 VIS: Inactivated Influenza 03/10/2019 VIS Given: 08/03/19 Auto Haulaway Driver: Faith Mead Vaccine Type: influenza, injectable, quadrivalent, preservative free Date: 09/16/15 Amt.: 0.5 mL Route: Site: [facility]: Lot #: [id number] Mfr.: Exp. Date: VIS: VIS Given: Auto Haulaway Driver: Meningococcal Vaccine Type: meningococcal MCV4P Date: 05/14/20 Amt.: 0.5 mL Route: Site: [facility]: Lot #: [id number] Mfr.: Sanofi Pasteur Exp. Date: VIS: VIS Given: Auto Haulaway Driver: Vaccine Type: meningococcal B, recombinant Date: 05/14/20 Amt.: 0.5 mL Route: Site: [facility]: Lot #: [id number] Mfr.: Aventuraine Exp. Date: VIS: VIS Given: Auto Haulaway Driver: Pneumococcal Vaccine Type: pneumococcal conjugate PCV 13 Date: 05/14/20 Amt.: 0.5 mL Route: Site: NDC: Lot #: [id number] Mfr.: Wyeth Exp. Date: VIS: VIS Given: Auto Haulaway Driver: Vaccine Type: pneumococcal polysaccharide PPV23 Date: 08/03/19 Amt.: 0.5 mL Route: Injection Site: Deltoid, Right NDC: Lot #: [id number] Mfr.: Merck and Co., Inc. Exp. Date: 12/13/20 VIS: PPSV23 05/25/2019 VIS Given: 08/03/19 Auto Haulaway Driver: Faith Mead Problems Reviewed Problems * Candidal [...] or [place])?: Yes (Notes: Born in [place]) TB Screening Question 2: Have you traveled [...] Dental: Where was your last dental visit?: [facility] Dental: Was the visit an [facility] dental provider?: Yes Dental: Action taken: [facility] information provided Other Education: 12 Marital status: Single General stress level: High Gender Identity and LGBTQ Identity Gender identity: Identifies as Male Assigned sex at : Male Pronouns: he/him Sexual orientation: Straight or heterosexual Surgical History Surgical History not reviewed (last reviewed 06/05/2021) * Removal of spleen total - 05/16/2020 noneSurgery to Left knee.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 Qty: 6 Units Refills: 5 Supplier: [facility] Discussion Notes End time: 412pm Return to Office * to see Jomar Epps MD at [facility] on or around 02/25/2023 Encounter Sign-Off Encounter signed-off by Jomar Epps MD, 01/14/2023. documented in this encounter Plan of Treatment Not on file documented as of this encounter Visit Diagnoses Not on filedocumented in this encounter
--- OUTSIDE RECORDS SUMMARY | 2025-06-13 03:35 | XMS_ITS | Encounter Summary ---
Author Organization [facility] alth Address [address] [place] [address] Care Team Providers Care Bolt Sorter Name Role Phone Unavailable Primary Care Provider Unavailabl e Encounter Details Date Type Department Care Team ([facility] st Contact Info) Description 06/06/2024 Office Visit - [facility] Jomar Epps MD [address] [place] [address] Social History Tobacco Use Types Packs/Day Years Used Date Smoking Tobacco: Never Assessed Sex and Gender Information Value Date Recorded Sex Assigned at Not on file Legal Sex Male 10:16 AM EDT Gender Identity Not on file Sexual Orientation Not on file documented as of this encounter Progress Notes * Jomar Epps MD - 06/06/2024 11:34 AM EST Patient Name : CLOVIS SHEN (44yo, M) ID# [id number] Appt. Date/Time : 07/26/2024 08:20AM : 1980 Service Dept. : [facility] Provider : JOMAR EPPS MD Insurance Med Primary: [facility] (MEDICAID REPLACEMENT - HMO) Insurance # : [id number] Policy/Group # : [id number] Med Mental Health: [facility] Insurance # : [id number] Prescription: [employer] - Member is eligible. details Chief Complaint SBIRT - Adult PHQ-9 Only Followup: Uncontrolled type 2 diabetes mellitus POSITIVE PHQ9 SCORE 14, YES TO QUESTION 9 Patient presents today for a follow up to his diabetes his last A1c was done on 04/27/24 and was 15,adilia alvarez Patient's Care Team Primary Care Provider: JOMAR EPPS MD: [address] [place] [address], , Patient's Pharmacies [id number] ([place]): [address] [place] [address], , Vitals Ht: 5 ft 8 in [...] Rash (Mild) Some allergies listed in Document: #[id number] could not be added to this patient's [...] 04/24/20 filled Source: [facility] Name: Dexcom G7 Straightening Press Operator USE DIRECTED Date: 02/22/24 filled Source: [facility] Name: DEXCOM G7 SENSOR DEVICE USE DIRECTED Date: 06/30/24 renewed Source: Jomar Epps MD Name: escitalopram 10 mg tablet Take 1 tablet(s) every day by oral route for 30 days. Date: 07/26/24 prescribed Source: Jomar Epps MD Name: famotidine [...] by subcutaneous route. Date: 07/26/24 prescribed Source: Jomar Epps MD Name: metFORMIN ER [...] mL Route: Intramuscular Site: Deltoid, Right NDC: [id number] Lot #: [id number] Mfr.: [employer] Exp. Date: 05/21/21 VIS: Moderna COVID-19 Vaccine EUA Fact Sheet 10/19/2020 VIS Given: 12/07/20 General Practice: Royer Matias CMA Vaccine Type: COVID-19, mRNA, LNP-S, PF, 100 mcg/0.5 mL dose (Moderna) Date: 11/02/20 Amt.: 0.5 mL Route: Intramuscular Site: Deltoid, Left NDC: Lot #: [id number] Mfr.: [employer] Exp. Date: 04/27/21 VIS: Moderna COVID-19 Vaccine EUA Fact Sheet 06/26/2020 VIS Given: 11/02/20 General Practice: Eduarda Matias MA Diphtheria, Tetanus, Pertussis Vaccine Type: Tdap Date: 03/03/23 Amt.: 0.5 mL Route: Intramuscular Site: Deltoid, Left NDC: [id number] Lot #: [id number] Mfr.: Sanofi Pasteur Exp. Date: 12/30/24 VIS: Tdap 03/01/2021 [facility] VIS Given: 03/03/23 General Practice: Vito Grigsby MA Haemophilus Influenzae Type B Vaccine Type: Hib (PRP-T) Date: 05/14/20 Amt.: 0.5 mL Route: Site: NDC: Lot #: [id number] Mfr.: Sanofi Pasteur Exp. Date: VIS: VIS Given: General Practice: Vaccine Type: Hib Date: 05/14/20 Amt.: Route: Site: NDC: Lot #: [id number] Mfr.: Sanofi Pasteur Exp. Date: VIS: VIS Given: General Practice: Influenza Vaccine Type: influenza, seasonal, injectable, preservative free Date: 05/17/20 Amt.: 0.5 mL Route: Site: NDC: Lot #: [id number] Mfr.: Sanofi Pasteur Exp. Date: VIS: VIS Given: General Practice: Vaccine Type: influenza, injectable, quadrivalent Date: 08/03/19 Amt.: 0.5 mL Route: Intramuscular Site: Deltoid, Left NDC: Lot #: [id number] Mfr.: [employer] Pasteur Exp. Date: 01/24/20 VIS: Inactivated Influenza 03/10/2019 VIS Given: 08/03/19 General Practice: Faith Leivarosalia Vaccine Type: influenza, injectable, quadrivalent, preservative free Date: 09/16/15 Amt.: 0.5 mL Route: Site: [facility]: Lot #: [id number] Mfr.: Exp. Date: VIS: VIS Given: General Practice: Meningococcal Vaccine Type: meningococcal MCV4P Date: 05/14/20 Amt.: 0.5 mL Route: Site: [facility]: Lot #: [id number] Mfr.: [employer] Pasteur Exp. Date: VIS: VIS Given: General Practice: Vaccine Type: meningococcal B, recombinant Date: 05/14/20 Amt.: 0.5 mL Route: Site: [facility]: Lot #: [id number] Mfr.: [employer] Exp. Date: VIS: VIS Given: General Practice: Pneumococcal Vaccine Type: pneumococcal conjugate PCV 13 Date: 05/14/20 Amt.: 0.5 mL Route: Site: [facility]: Lot #: [id number] Mfr.: [employer] Exp. Date: VIS: VIS Given: General Practice: Vaccine Type: pneumococcal polysaccharide PPV23 Date: 08/03/19 Amt.: 0.5 mL Route: Injection Site: Deltoid, Right NDC: Lot #: [id number] Mfr.: [employer] Exp. Date: 12/13/20 VIS: PPSV23 05/25/2019 VIS Given: 08/03/19 General Practice: Faith Leivarosalia Problems Reviewed Problems * Candidal [...] total - 05/16/2020 noneSurgery to Left knee.[employer] Past Medical History Past Medical History not reviewed (last reviewed 04/27/2024) Asthma: Y Diabetes: Y Hypertension: Y Screening HPI Pt here for f/u on DM and depression. He states that he stayed athome for [place], didn't go out to visit with his children, stayed at [facility] [place] with his . Feels like depression is [...] (12) 3 mL syringe Refills: 3 Pharmacy: [id number] * DEXCOM G7 SENSOR DEVICE - Use every 10 days Qty: 12 Units Refills: 11 Supplier: [id number] 2. Depression screening Z13.31: Encounter for screening [...] days. Qty: (30) tablet Refills: 2 Pharmacy: [id number] Return to Office * at Podiatry on or around 07/26/2024 * Angus Angeles, MANUEL for OPTOMETRY at Optometry on 08/16/2024 at 02:40 PM * to see Jomar Epps MD at [facility] on or around 09/26/2024 Encounter Sign-Off Encounter signed-off by Jomar Epps MD, 07/26/2024. documented in this encounter Plan of Treatment Not on file documented as of this encounter Visit Diagnoses Not on filedocumented in this encounter
--- OUTSIDE RECORDS SUMMARY | 2025-06-13 03:37 | XMS_ITS | Encounter Summary ---
Author Organization [facility] Address [address] [place] [address] Care Team Providers Care Senior Hardware Design Engineer Name Role Phone Freddy Epps MD Primary Care Provider [phone] Encounter Details Date Type Department Care Team ([facility] st Contact Info) Description 06/06/2021 Lab Requisition [facility] Libertad Grijalva MD [address] [address] Encounter for screening for infections with a [...] on file documented as of this encounter Functional Status * Question Answer Date of Assessment Author BP 131/80 06/06/2021 7:37 AM Wendy Rojas, Movie Actor Pulse 66 06/06/2021 7:37 AM EST Rita Weinsteinah, Movie Actor Weight 2400 06/06/2021 7:37 AM EST Sujit garcia Wendy, Movie Actor * Change in Weight (%) Answer Date of Assessment Author 4.04 06/06/2021 7:37 AM EST Wendy Matias, Movie Actor * BP Location Answer Date of Assessment Author Left arm 06/06/2021 7:37 AM EST Wendy Matias, Movie Actor * Patient Position Answer Date of Assessment Author Sitting 06/06/2021 7:37 AM EST Florencio Wendy, Movie Actor documented as of this encounter Mental Status * Question Answer Entry Date Author BP 131/80 06/06/2021 7:37 AM EST Rita Weinsteinah, Movie Actor Pulse 66 06/06/2021 7:37 AM EST Wendy Weinstein, Movie Actor documented in this encounter Plan of Treatment Upcoming Encounters Date Type Department Care Team (Late st Contact Info) Description 06/29/2025 1:00 PM EST Office Visit [facility] [address] [facility] [address] [place] [phone] Shanna Henderson CRNP [address] [facility] [address] [place] [phone] documented as of this encounter Procedures [...] Not Detected Not Detected 06/11/2021 2:13 PM [facility] Urine Urine specimen / Unknown 06/05/2021 12:19 PM EST 06/06/2021 12:18 PM EST [facility] - 06/11/2021 2:13 PM EST Specimen [...] acid may persist following appropriate antimicrobial therapy. us Libertad HENDRICKS MICROBIOLOGY - [facility] L ORDERABLES Final Result Performing Organization Address City/State/[facility] Co de Phone Number [facility] [address] [place] [address] * Chlamydia trachomatis and Neisseria gonorrhoeae Molecular Screen (06/05/2021 12:19 PM EST) Pathologist [facility] Chlamydia Screen Not Detected Not Detected 06/07/2021 3:23 PM [facility] GC Screen Not Detected Not Detected 06/07/2021 3:23 PM [facility] [place] [place] Urine Urine specimen / Unknown 06/05/2021 12:19 PM EST 06/06/2021 12:18 PM EST [facility] - 06/07/2021 3:23 PM EST Specimen [...] below the assay limit of detection. us Oluwatomi O Uwazota MD LAB MICROBIOLOGY - GENERA L ORDERABLES Final Result [facility] [address] [facility] [place] [address] documented in this encounter Visit Diagnoses Diagnosis [...] as of this encounter Care Teams Senior Hardware Design Engineer Relationship Specialty Start Date End Date Freddy Epps MD [address] [facility] [place] [place] [phone] PCP - General Family Medicine 05/29/20 documented as of this encounter
--- OUTSIDE RECORDS SUMMARY | 2025-06-13 03:38 | XMS_ITS | Encounter Summary ---
Author Organization [employer] Address [address] [facility] [place] [address] Care Team Providers Care Cuffer Name Role Phone Freddy Epps MD Primary Care Provider [phone] Encounter Details Date Type Department Care Team (Late st Contact Info) Description 04/27/2025 Orders Only [facility] - 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 No 02/04/2023 Sex and Gender Information Value Date Recorded Sex Assigned at Not on file Legal Sex Male 6:06 PM EDT Gender Identity Not on file Sexual Orientation Not on file documented as of this encounter Plan of Treatment Upcoming Encounters Date Type Department Care Team (Late st Contact Info) Description 06/29/2025 1:00 PM EST Office Visit [facility] [address] [place] [address] [place] [phone] Shanna Henderson CRNP [address] [place] [address] [place] [phone] Scheduled Orders Name Type Priority Associated Diagnoses Orde r Schedule Thyroid Stimulating Hormone Progressive Lab Routine Inadequately controlled diabetes mellitus ([facility]) Expected: 04/27/2025 (Approximate), Expires: 10/26/2026 C-peptide Lab Routine Inadequately controlled diabetes mellitus ([facility]) Expected: 04/27/2025 (Approximate), Expires: 10/26/2026 Anti-islet cell antibody w/reflex to titer Lab Routine Inadequately controlled diabetes mellitus ([facility]) Expected: 04/27/2025 (Approximate), Expires: 10/26/2026 Glutamic acid decarboxylase Lab Routine Inadequately controlled diabetes mellitus ([facility]) Expected: 04/27/2025 (Approximate), Expires: 10/26/2026 documented as of this encounter Visit Diagnoses Diagnosis Inadequately controlled diabetes mellitus ([facility])- Primary Type II or unspecified type diabetes mellitus without mention of complication, not stated as uncontrolled documented in this encounter Care Teams Cuffer Relationship Specialty Start Date End Date Freddy Epps MD [address] [place] [phone] PCP - General Family Medicine 05/29/20 documented as of this encounter
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
--- OUTSIDE RECORDS SUMMARY | 2025-06-13 03:39 | XMS_ITS | Encounter Summary ---
Author Organization [facility] alth Address [address] [place] [address] Care Team Providers Care Tire Repair Mechanic Name Role Phone Unavailable Primary Care Provider Unavailabl e Encounter Details Date Type Department Care Team ([facility] st Contact Info) Description 11/21/2024 Office Visit - Data Exchange Jomar Epps MD [address] [place] [address] Social History Tobacco Use Types Packs/Day Years Used Date Smoking Tobacco: Never Assessed Sex and Gender Information Value Date Recorded Sex Assigned at Not on file Legal Sex Male 10:16 AM EDT Gender Identity Not on file Sexual Orientation Not on file documented as of this encounter Progress Notes * Jomar Epps MD - 11/21/2024 11:18 AM EDT Patient Name : CLOVIS SHEN (44yo, M) ID# [id number] Appt. Date/Time : 11/21/2024 11:40AM : 1980 Service Dept. : [facility] Provider : JOMAR EPPS MD Insurance Med Primary: [facility] [facility] (MEDICAID REPLACEMENT - HMO) Insurance # : [id number] Policy/Group # : [id number] Med Mental Health: [facility] Insurance # : [id number] Prescription: [employer] - Member is eligible. details Chief Complaint SBIRT - Adult Patient presents with complaints of lose of appetite, body aches, fatigue, stomach pain and bilateral foot pain, patient was recently released for mcc and states this has been going on for 8 months,,map,ma Patient's Care Team Primary Care Provider: JOMAR EPPS MD: [address] [place] [address], , [facility] Pharm[facility] [place] ([facility]): [address] [address], [place] [address], , [id number]: [address], [place] [address], Vitals Ht: 5 ft 8 in Standing (172.72 cm) 11/21/2024 11:32 am Wt: 138 lbs With clothes (62.6 kg) 11/21/2024 11:52 am BMI: 21 11/21/2024 11:52 am BP: 137/77 sitting L arm 11/21/2024 11:57 am Pulse: 94 bpm regular 11/21/2024 11:57 am O2Sat: 99% Room Air at Rest 11/21/2024 11:57 am RR: 18 11/21/2024 11:57 am T: 97.7 F? temporal artery (36.5 C) 11/21/2024 11:57 am BP Measurement Method: machine 11/21/2024 11:34 am Allergies Reviewed Allergies PENICILLINS: Rash (Mild) Some allergies listed in Document: #[id number] could not be added to this patient's [...] BY MOUTH EVERY DAY FOR CHOLESTEROL Date: 11/08/24 filled Source: surescripts Name: BD Ultra-Fine Short Pen Needle 31 gauge x 5/16 USE WITH INSULIN 4 TIMES DAILY Date: 04/24/20 filled Source: [facility] Name: cephALEXin 500 mg capsule Take 1 capsule(s) 3 times a day by oral route for 7 days. Date: 11/10/24 filled Source: surescripts Name: Dexcom G7 Director Zone USE DIRECTED Date: 02/22/24 filled Source: surescripts Name: DEXCOM G7 SENSOR DEVICE USE DIRECTED Date: 06/30/24 renewed Source: Jomar Epps MD Name: escitalopram 10 mg tablet Take 1 tablet(s) every day by oral route for 30 days. Date: 11/21/24 prescribed Source: Jomar Epps MD Name: famotidine 40 mg tablet Take 1 tablet(s) every day by oral route at bedtime, for abdominal pain. Date: 11/08/24 filled Source: demiriareli Name: insulin aspart (U-100) 100 unit/mL (3 mL) subcutaneous pen Inject 22 unit(s) 3 times a day bysubcutaneous route with meals, for MEAL COVERAGE. Date: 11/08/24 filled Source: demiriareli Name: Lantus Solostar U-100 Insulin 100 unit/mL (3 mL) subcutaneous pen Inject 40 unit(s) twice a day by subcutaneous route. Date: 11/08/24 filled Source: demiriareli Name: lisinopriL 10 mg tablet Take 1 tablet(s) every day by oral route. Date: 11/08/24 filled Source: demiriareli Name: metFORMIN ER 500 mg tablet,extended release 24 hr TAKE 2 TABLETS BY MOUTH TWICE A DAY FOR DIABETES Date: 11/08/24 prescribed Source: Dee Dee Kamara PA-C Name: OneTouch Delica Plus Lancet 33 gauge USE TO TEST BLOOD SUGAR ONCE DAILY Date: 02/22/24 filled Source: demiriareli Name: OneTouch Verio Flex Meter TEST BLOOD SUGAR ONCE DAILY Date: 02/24/24 filled Source: demiriareli Name: OneTouch Verio test strips TEST BLOOD SUGAR ONCE DAILY Date: 02/24/24 filled Source: demiriareli Name: QUEtiapine 50 mg tablet take one tablet by mouth daily Date: 11/04/24 filled Source: demiriareli Name: tamsulosin 0.4 mg capsule Date: 08/18/24 filled Source: demiriareli Name: tiZANidine 2 mg tablet Take 1 tablet(s) twice a day by oral route as needed for 30 days. Date: 08/03/24 renewed Source: Jomar Epps MD Name: Trulicity 0.75 mg/0.5 mL subcutaneous pen injector Inject 0.5 mL every week by subcutaneous route. Date: 11/08/24 filled Source: Mobile Captain Reviewed Vaccines COVID-19 Vaccine Type: COVID-19, mRNA, LNP-S, PF, 100 mcg/0.5 mL dose (Moderna) Date: 12/07/20 Amt.: 0.5 mL Route: Intramuscular Site: Deltoid, Right NDC: [id number] Lot #: [id number] Mfr.: Moderna US, Inc. Exp. Date: 05/21/21 VIS: Moderna COVID-19 Vaccine EUA Fact Sheet 10/19/2020 VIS Given: 12/07/20 Green Jobs Trainer: Royer Matias CMA Vaccine Type: COVID-19, mRNA, LNP-S, PF, 100 mcg/0.5 mL dose (Moderna) Date: 11/02/20 Amt.: 0.5 mL Route: Intramuscular Site: Deltoid, Left NDC: Lot #: [id number] Mfr.: Moderna [employer], Inc. Exp. Date: 04/27/21 VIS: Moderna COVID-19 Vaccine EUA Fact Sheet 06/26/2020 VIS Given: 11/02/20 Green Jobs Trainer: Eduarda Matias MA Diphtheria, Tetanus, Pertussis Vaccine Type: Tdap Date: 03/03/23 Amt.: 0.5 mL Route: Intramuscular Site: Deltoid, Left NDC: [id number] Lot #: [id number] Mfr.: Sanofi Pasteur Exp. Date: 12/30/24 VIS: Tdap 03/01/2021 [facility] VIS Given: 03/03/23 Green Jobs Trainer: Vito Grigsby MA Haemophilus Influenzae Type B Vaccine Type: Hib (PRP-T) Date: 05/14/20 Amt.: 0.5 mL Route: Site: NDC: Lot #: [id number] Mfr.: Sanofi Pasteur Exp. Date: VIS: VIS Given: Green Jobs Trainer: Vaccine Type: Hib Date: 05/14/20 Amt.: Route: Site: NDC: Lot #: [id number] Mfr.: Sanofi Pasteur Exp. Date: VIS: VIS Given: Green Jobs Trainer: Influenza Vaccine Type: influenza, seasonal, injectable, preservative free Date: 05/17/20 Amt.: 0.5 mL Route: Site: [place]: Lot #: [id number] Mfr.: eTippingofi Pasteur Exp. Date: VIS: VIS Given: Green Jobs Trainer: Vaccine Type: influenza, injectable, quadrivalent Date: 08/03/19 Amt.: 0.5 mL Route: Intramuscular Site: Deltoid, Left NDC: Lot #: [id number] Mfr.: Sanofi Pasteur Exp. Date: 01/24/20 VIS: Inactivated Influenza 03/10/2019 VIS Given: 08/03/19 Green Jobs Trainer: Faith Leivarosalia Vaccine Type: influenza, injectable, quadrivalent, preservative free Date: 09/16/15 Amt.: 0.5 mL Route: Site: [facility]: Lot #: [id number] Mfr.: Exp. Date: VIS: VIS Given: Green Jobs Trainer: Meningococcal Vaccine Type: meningococcal MCV4P Date: 05/14/20 Amt.: 0.5 mL Route: Site: [facility]: Lot #: [id number] Mfr.: eTippingofi Pasteur Exp. Date: VIS: VIS Given: Green Jobs Trainer: Vaccine Type: meningococcal B, recombinant Date: 05/14/20 Amt.: 0.5 mL Route: Site: [facility]: Lot #: [id number] Mfr.: [employer] Exp. Date: VIS: VIS Given: Green Jobs Trainer: Pneumococcal Vaccine Type: pneumococcal conjugate PCV 13 Date: 05/14/20 Amt.: 0.5 mL Route: Site: [facility]: Lot #: [id number] Mfr.: [employer] Exp. Date: VIS: VIS Given: Green Jobs Trainer: Vaccine Type: pneumococcal polysaccharide PPV23 Date: 08/03/19 Amt.: 0.5 mL Route: Injection Site: Deltoid, Right NDC: Lot #: [id number] Mfr.: Merck and Co., Inc. Exp. Date: 12/13/20 VIS: PPSV23 05/25/2019 VIS Given: 08/03/19 Green Jobs Trainer: Faith Leivarosalia Problems Reviewed Problems * Candidal balanitis - Onset: 11/11/2022 * Diabetic peripheral neuropathy - Onset: 02/25/2023 * Harmful pattern of use of alcohol - Onset: 11/11/2022 * Smoker - Onset: 05/21/2021 * Harmful pattern of use of cocaine - Onset: 08/20/2023 * Insomnia - Onset: 11/15/2020 * Folliculitis - Onset: 11/08/2024 * Chronic low back pain - Onset: 06/28/2024 * Acquired hallux malleus - Onset: 08/12/2024, Bilateral * Persistent cough - Onset: 01/19/2024 * Generalized abdominal pain - Onset: 06/28/2024 * Ketonuria - Onset: 11/08/2024 * 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 * 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 - [...] date of your most recent tobacco screening?: 11/08/2024 What is your level of alcohol consumption?: [...] to a hospital since your last visit?: Yes (Notes: ER on 11/17/24 for stomach pain, map,ma 11/21/24) Other Education: 12 Marital status: Single General stress level: High Gender Identity and LGBTQ Identity Gender identity: Identifies as Male Assigned sex at : Male Pronouns: he/him Sexual orientation: Straight or heterosexual Surgical & Procedure History Surgical & Procedure History not reviewed (last reviewed 04/27/2024) * 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 was seen two weeks ago and given oral abx. improving. still has some abx left at home was in ED a few days ago for abdominal pain. CT was normal. Sugars were high. Rest of labs were essentially normal. CBC normal. C/o having pain in his toenails. ROS None recorded. Physical Exam Constitutional: General [...] Uncontrolled type 2 diabetes mellitus - A1c 11.7 in October of 2024. Which is down fro m15 which he had prior. I suspect it's due to him being incarcerated for 3 months and having regular insulin use while there. He has eliminated soda and juice. Continue trulicity 0.75, metformin 1000mg bid, lantus 40 bid, short acting 22 units TID E11.65: Type 2 diabetes mellitus with hyperglycemia * DIABETES TIPO 2: INSTRUCCIONES DE CUIDADO - [TYPE 2 DIABETES: CARE INSTRUCTIONS] * HEMOGLOBIN A1C, FINGERSTICK - Specimen source: Blood capillary * DEXCOM G7 COMMERCIAL HORTICULTURE INSTRUCTOR - Use as directed. Qty: 1 Unit Refills: 0 Supplier: [facility] [place] * DEXCOM G7 SENSOR DEVICE - Use as directed. Qty: 1 Unit Refills: 0 Supplier: [facility] [place] [place] 2. Harmful pattern of use of alcohol - last alcohol use was 11/20/24, six pack F10.10: Alcohol abuse, uncomplicated * INTOXICACION AGUDA POR ALCOHOL: INSTRUCCIONES DE CUIDADO - [ACUTE ALCOHOL INTOXICATION: CARE INSTRUCTIONS] 3. Depression screening Z13.31: Encounter for screening for depression * PATIENT HEALTH QUESTIONNAIRE-9* 4. Screening procedure Z13.39: Encounter for screening examination for other mental health and behavioral disorders * SUBSTANCE ABUSE SCREENING* 5. Harmful pattern of use of cocaine - last use was aprox Jul F14.10: Cocaine abuse, uncomplicated 6. Pain in toes of both feet - Bilateral send to podiatry M79.674: Pain in right toe(s) M79.675: Pain in left toe(s) 7. Depressive disorder - continue lexapro 10mg and quetiapine 50mg. recommended he cut the quetiapine in half to see if thishelps with his fatigue. F32.A: Depression, unspecified * escitalopram 10 mg tablet - Take 1 tablet(s) every day by oral route for 30 days. Qty: (30) tablet Refills: 2 Pharmacy: [facility] [place] HEMOGLOBIN A1C, FINGERSTICK * Result: - HEMOGLOBIN A1C: 11.7 Return to Office * Daria Jj DPM for Podiatry-Established Patient at Podiatry on 11/22/2024 at 09:30 AM * Jomar Epps MD for EP-CHRONIC at [facility] on 12/13/2024 at 02:20 PM Encounter Sign-Off Encounter signed-off by Jomar Epps MD, 11/21/2024. documented in this encounter Plan of Treatment Not on file documented as of this encounter Visit Diagnoses Not on filedocumented in this encounter
--- OUTSIDE RECORDS SUMMARY | 2025-06-13 03:39 | XMS_ITS | Encounter Summary ---
Author Organization [facility] Address [address] [place] [address] Care Team Providers Care Firer Locomotive Name Role Phone Freddy Epps MD Primary Care Provider [phone] Encounter Details Date Type Department Care Team (Latest Contact Info) Description 05/24/2020 Lab Requisition [facility] Debbie Hernandez MD, MD [address] [address] Type 2 diabetes mellitus with hyperglycemia Social [...] Upcoming Encounters Date Type Department Care Team ([facility] Contact Info) Description 06/29/2025 1:00 PM EST Office Visit [facility] [address] [place] [address] [place] [phone] Shanna Henderson CRNP [address] [place] [address] [place] [phone] documented as of this encounter Procedures Procedure Name Priority Date/Time Associated Diagnosis Comments ALBUMIN / CREATININE URINE RATIO Routine 05/24/2020 12:34 PM EDT Type 2 diabetes mellitus with hyperglycemia ([facility]) HEMOGLOBIN A1C Routine 05/24/2020 12:34 PM EDT Type 2 diabetes mellitus with hyperglycemia ([facility]) LIPID PANEL Routine 05/24/2020 12:34 PM EDT Type 2 diabetes mellitus with hyperglycemia ([facility]) COMPREHENSIVE METABOLIC PANEL Routine 05/24/2020 12:34 PM EDT Type 2 diabetes mellitus with hyperglycemia ([facility]) documented in this encounter Results * (ABNORMAL) Comprehensive metabolic panel - (05/24/2020 12:34 PM EDT) Glucose 425(H) 70 - 99 mg/dL 05/24/2020 2:02 PM EDT [facility] Sodium 130(L) 135 - 145 mmol/L 05/24/2020 2:02 PM EDT [facility] Potassium 4.8 3.5 - 5.3 mmol/L 05/24/2020 2:02 PM EDT [facility] Chloride 94(L) 98 - 107 mmol/L 05/24/2020 2:02 PM EDT [facility] CO2 29 21 - 31 mmol/L 05/24/2020 2:02 PM EDT [facility] Anion Gap 7 3 - 11 mmol/L 05/24/2020 2:02 PM EDT [facility] BUN 12 7 - 25 mg/dL 05/24/2020 2:02 PM EDT [facility] Creatinine 0.69(L) 0.70 - 1.30 mg/dL [...] 34 - 104 IU/L 05/24/2020 2:02 PM [facility] AST 27 13 - 39 IU/L 05/24/2020 2:02 PM [facility] ALT (SGPT) 36 7 - 52 IU/L 05/24/2020 2:02 PM [facility] Total Bilirubin 0.5 0.3 - 1.0 mg/dL 05/24/2020 2:02 PM [facility] eGFR >90.0 >90.0 mL/min/1. 73m*2 05/24/2020 2:02 PM [facility] Comment: The estimated Glomerular Filtration Rate [...] Evaluation Program (KEEP). Am J Kidney Dis (2011);57(3Suddd5):S9-16. https://www.kidney.org/atoz/content/gfr Updated: January 09, 2020. Blood Venous blood specimen / Unknown 05/24/2020 12:34 PM EDT 05/24/2020 12:34 PM EDT Debbie Hernandez MD LAB BLOOD ORDERABLES Final Resul t Performing Organization Address [facility] Phone Number [facility] [address] [place] [address] * (ABNORMAL) Albumin / creatinine urine ratio - Urine, Clean Catch (05/24/2020 12:34 PM EDT) Creatinine, Urine 67.4 mg/dL 05/24/2020 2:37 PM EDT [facility] Albumin, Urine 10.4 mg/dL 05/24/2020 2:37 PM EDT [facility] Alb/Creat Ratio 154(H) <=30 mcg/mg 05/24/2020 2:37 PM EDT [facility] Comment: Albuminuria categories in CKD [...] MD LAB URINE ORDERABLES Final Resul t Performing Organization Address [facility] de Phone Number [facility] [address] [place] [address] * (ABNORMAL) Lipid panel - (05/24/2020 12:34 PM EDT) Triglycerides 185(H) 0 - 150 mg/dL 05/24/2020 2:02 PM EDT [facility] Comment: With NCEP guidelines Borderline High 150-199 mg/dL High 200-499 mg/dL Very High >500 mg/dL Total Cholesterol 139 0 - 200 mg/dL 05/24/2020 2:02 PM EDT [facility] Comment: NCEP Guidelines: Desirable <200 mg/dL Borderline High 200-239 mg/dL High >240 mg/dL HDL-C 38 mg/dL 05/24/2020 2:02 PM EDT [facility] Comment: High risk <40 mg/dL Low risk >60 mg/dL calculated LDL-C 64 mg/dL 05/24/20 20 2:02 PM EDT [facility] Comment: NCEP guidelines: Optimal <100 mg/dL Near/Above Optimal 100-129 mg/dL Borderline High 130-159 mg/dL High 160-189 mg/dL Very High >190 mg/dL Blood Venous blood specimen / Unknown 05/24/2020 12:34 PM EDT 05/24/2020 12:34 PM EDT us Debbie Hernandez MD LAB BLOOD ORDERABLES Final Resul t [facility] [address] [place] [id number] * (ABNORMAL) Hemoglobin A1c - (05/24/2020 12:34 PM EDT) Hemoglobin A1C 11.4(H) <5.7 % 05/24/2020 2:42 PM EDT [facility] Comment: Normal <5.7% Abnormal, High [...] may yield falsely high results. Performed at [facility], [address] [place] [id number] Estimated average glucose 280 mg/dL 05/24/2020 2:42 PM EDT [facility] Comment:The estimated averag e glucose (eAG) is derived from the equation [AG (mg/dL)= 28.7 x %HbA1c - 46.7] and provided as recommended by the [employer]. Calculated eAG values less than 97 mg/dL or greater than 298 mg/dL may be unreliable and should be interpreted with caution. Estimated average glucose is educational and should not be used for clinical management of diabetic patients. Diabetes Care, 31(8):8379-9345. Blood Venous blood specimen / Unknown 05/24/2020 12:34 PM EDT 05/24/2020 12:34 PM EDT us Debbie Hernandez MD LAB BLOOD ORDERABLES Final Resul t [facility] [address] [facility] [address] documented in this encounter Visit Diagnoses Diagnosis Type 2 diabetes mellitus with hyperglycemia ([facility]) documented in this encounter Additional Health Concerns Infection Onset Date Last Indicated Resolved Time Rule out SARS-CoV-2 (related to COVID-19) 07/29/2021 07/29/2021 08/01/2021 6:[address] SARS-CoV-2 (related to COVID-19) 07/29/2021 07/29/19 22 08/12/2021 8:03 PM EST Rule out COVID-19/Influenza/RSV 11/16/2024 11/16/2024 10:54 PM EDT documented as of this encounter Care Teams Firer Locomotive Relationship Specialty Start Date End Date Freddy Epps MD [address] [facility] [place] [phone] PCP - General Family Medicine 05/29/20 documented as of this encounter
--- OUTSIDE RECORDS SUMMARY | 2025-06-13 03:40 | XMS_ITS | Encounter Summary ---
Author Organization [facility] alth Address [address] [place] [address] Care Team Providers Care Mother Helper Name Role Phone Unavailable Primary Care Provider Unavailabl e Encounter Details Date Type Department Care Team ([facility] Contact Info) Description 12/29/2024 Office Visit - Data Exchange [facility] Tania Bernstein CRNP [address] [place] [address] Social History Tobacco Use Types Packs/Day [...] Name : CLOVIS SHEN (44yo, M) ID# [id number] Appt. Date/Time : 12/29/2024 09:20AM : 1980 Service Dept. : [facility] Provider : ANNA LERNER Insurance Med Primary: [facility] (MEDICAID REPLACEMENT - HMO) Insurance # : [id number] Policy/Group # : [id number] Med Mental Health: [facility] Insurance # : [id number] Prescription: [employer] - Member is eligible. details Chief Complaint SBIRT - Adult Pt presents with left ear pain and fever x2 days. Pt also reports bloody drainage from left ear. Ptalso has rash on his nose with pain and itching x2 days. 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 [place] [place] (ERX): [address] [address], [place] [address], , [id number]: [address] [facility], [place] [address], Vitals Ht: 5 ft 8 in (172.72 [...] Rash (Mild) Some allergies listed in Document: #[id number] could not be added to this patient's [...] 11/10/24 filled Source: leo Name: Dexcom G7 Net Application Support Specialist USE DIRECTED Date: 12/01/24 filled Source: leo [...] DIABETES Date: 11/28/24 filled Source: leo Name: [id number]-qiyvoryrn-vmxadifrs 3.5 mg-10,000 unit/mL-1 % ear drops,susp INSTILL [...] by subcutaneous route. Date: 12/06/24 filled Source: [employer] Vaccines Reviewed Vaccines COVID-19 Vaccine Type: COVID-19, mRNA, LNP-S, PF, 100 mcg/0.5 mL dose (Moderna) Date: 12/07/20 Amt.: 0.5 mL Route: Intramuscular Site: Deltoid, Right NDC: [id number] Lot #: [id number] Mfr.: Moderna US, Inc. Exp. Date: 05/21/21 VIS: Moderna COVID-19 Vaccine EUA Fact Sheet 10/19/2020 VIS Given: 12/07/20 Radiologic Technology Instructor: Royer Matias CMA Vaccine Type: COVID-19, mRNA, LNP-S, PF, 100 mcg/0.5 mL dose (Moderna) Date: 11/02/20 Amt.: 0.5 mL Route: Intramuscular Site: Deltoid, Left NDC: Lot #: [id number] Mfr.: Moderna [employer] Exp. Date: 04/27/21 VIS: Moderna COVID-19 Vaccine EUA Fact Sheet 06/26/2020 VIS Given: 11/02/20 Radiologic Technology Instructor: Eduarda Matias MA Diphtheria, Tetanus, Pertussis Vaccine Type: Tdap Date: 03/03/23 Amt.: 0.5 mL Route: Intramuscular Site: Deltoid, Left NDC: [id number] Lot #: [id number] Mfr.: Sanofi Pasteur Exp. Date: 12/30/24 VIS: Tdap 03/01/2021 Italian VIS Given: 03/03/23 Radiologic Technology Instructor: Vito Grigsby MA Haemophilus Influenzae Type B Vaccine Type: Hib (PRP-T) Date: 05/14/20 Amt.: 0.5 mL Route: Site: [facility]: Lot #: [id number] Mfr.: [employer] Pasteur Exp. Date: VIS: VIS Given: Radiologic Technology Instructor: Vaccine Type: Hib Date: 05/14/20 Amt.: Route: Site: [facility]: Lot #: [id number] Mfr.: The Combineofi Pasteur Exp. Date: VIS: VIS Given: Radiologic Technology Instructor: Influenza Vaccine Type: influenza, seasonal, injectable, preservative free Date: 05/17/20 Amt.: 0.5 mL Route: Site: [facility]: Lot #: [id number] Mfr.: [employer] P[employer]ur Exp. Date: VIS: VIS Given: Radiologic Technology Instructor: Vaccine Type: influenza, injectable, quadrivalent Date: 08/03/19 Amt.: 0.5 mL Route: Intramuscular Site: Deltoid, Left NDC: Lot #: [id number] Mfr.: [employer] P[employer]ur Exp. Date: 01/24/20 VIS: Inactivated Influenza 03/10/2019 VIS Given: 08/03/19 Radiologic Technology Instructor: Faith Mead Vaccine Type: influenza, injectable, quadrivalent, preservative free Date: 09/16/15 Amt.: 0.5 mL Route: Site: [facility]: Lot #: [id number] Mfr.: Exp. Date: VIS: VIS Given: Radiologic Technology Instructor: Meningococcal Vaccine Type: meningococcal MCV4P Date: 05/14/20 Amt.: 0.5 mL Route: Site: [facility]: Lot #: [id number] Mfr.: [employer] Pasteur Exp. Date: VIS: VIS Given: Radiologic Technology Instructor: Vaccine Type: meningococcal B, recombinant Date: 05/14/20 Amt.: 0.5 mL Route: Site: [facility]: Lot #: [id number] Mfr.: Harir Exp. Date: VIS: VIS Given: Radiologic Technology Instructor: Vaccine Type: MCV4 Date: 05/14/20 Amt.: Route: Site: [facility]: Lot #: Mfr.: Exp. Date: VIS: VIS Given: Radiologic Technology Instructor: Pneumococcal Vaccine Type: pneumococcal conjugate PCV 13 Date: 05/14/20 Amt.: 0.5 mL Route: Site: [facility]: Lot #: [id number] Mfr.: Wyeth Exp. Date: VIS: VIS Given: Radiologic Technology Instructor: Vaccine Type: pneumococcal polysaccharide PPV23 Date: 08/03/19 Amt.: 0.5 mL Route: Injection Site: Deltoid, Right NDC: Lot #: [id number] Mfr.: Anita Margarita and [employer]., Inc. Exp. 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 ROS ROS as noted in the HPI [...] days. Qty: (20) tablet Refills: 0 [address]: [facility] * ibuprofen 800 mg tablet - Take 1 tablet(s) every 8 hours by oral route as needed, for left ear pain. Qty: (30) tablet Refills: 3 [address]: [facility] 2. Acute swimmer's ear of left side H60.332: Swimmer's ear, left ear * nnukpzhx-dkltsslqn-towtnkdtq 3.5 mg-10,000 unit/mL-1 % ear drops,susp - INSTILL 4 DROPS INTO AFFECTED EAR(S) BY OTIC ROUTE 3 TIMES PER DAY FOR 7 DAYS Qty: (1) 10 mL dropper bottle Refills: 0 [address]: [facility] 3. Uncontrolled type 2 diabetes mellitus E11.65: Type 2 diabetes mellitus with hyperglycemia * DIABETES TIPO 2: [employer] - [TYPE 2 DIABETES: CARE INSTRUCTIONS] * BLOOD GLUCOSE TEST STRIPS - Test blood sugar four times daily Qty: 150 Units Refills: 11 Supplier: [facility] Duration / Estimated Length of Need: Lifetime * LANCETS - Test blood sugar four times daily Qty: 150 Units Refills: 11 [address]: [facility] * GLUCOMETER - Test blood sugar four times daily Qty: 1 Unit Refills: 0 [address]: [facility] 4. Sheltered homelessness Currently homeless and [place] [facility]. Declined [facility] referral for today Z59.01: Sheltered [...] see Jomar Epps MD for EP-CHRONIC at [facility] on or around 01/28/2025 Encounter Sign-Off Encounter signed-off by ANNA Lerner, 12/29/2024. documented in this encounter Plan of Treatment Not on file documented as of this encounter Visit Diagnoses Not on filedocumented in this encounter
--- OUTSIDE RECORDS SUMMARY | 2025-06-13 03:40 | XMS_ITS | Clinical Summary ---
Author Organization [facility] alth Address [address] [place] [address] Care Team Providers Care Hand Molder And Caster Name Role Phone Unavailable Primary Care Provider [...] Procedure Name Priority Date/Time Associated Diagnosis Comments COMPREHENSIVE METABOLIC PANEL Routine 05/23/2025 12:04 PM EDT CBC Routine 05/23/2025 12:04 PM EDT LIPID PANEL Routine 12/19/2022 1:44 PM EDT HIV 1/2/AG/AB WITH REFLEX TO CONFIRMATION Routine 06/06/2021 9:31 AM EST from Last 3 Months or Most Recently Relevant to Health Maintenance Results * (ABNORMAL) COMPREHENSIVE METABOLIC PANEL (05/23/2025 12:04 PM EDT) [facility] Glucose (serum) 612(HH) 70 - 139 MG/DL 05/23/2025 6:22 PM EDT [facility] Sodium 130(L) 135 - 145 MMOL/L 05/23/2025 6:22 PM EDT [facility] Potassium 4.9 3.5 - 5.3 MMOL/L 05/23/2025 6:22 PM EDT [facility] Chloride 94(L) 98 - 107 MMOL/L 05/23/2025 6:22 PM EDT [facility] CO2 Venous 26 21 - 31 MMOL/L 05/23/2025 6:22 PM EDT [facility] Anion Gap 10 3 - 11 MMOL/L 05/23/2025 6:22 PM EDT [facility] Blood Urea Nitrogen 13 7 - 25 MG/DL 05/23/2025 6:22 PM EDT [facility] Creatinine 0.96 0.70 - 1.30 MG/DL 05/23/2025 6:22 PM EDT [facility] Calcium 9.5 8.6 - 10.3 MG/DL 05/23/2025 6:22 PM EDT [facility] Protein Total Serum 7.4 6.4 - 8.9 GM/DL 05/23/2025 6:22 PM EDT [facility] Albumin 3.8 3.5 - 5.7 GM/DL 05/23/2025 6:22 PM EDT [facility] Alkaline Phosphatase 74 34 - 104 IU/L 05/23/2025 6:22 PM EDT [facility] AST (SGOT) 44(H) 13 - 39 IU/L 05/23/2025 6:22 PM EDT [facility] ALT (SGPT) 64(H) 7 - 52 IU/L 05/23/2025 6:22 PM EDT [facility] Bilirubin Total 0.4 0.3 - 1.0 MG/DL 05/23/2025 6:22 PM EDT [facility] Estimated GFR (CKD-EPI 2020) >90.0 >=60.0 ML/MIN/1. 73M*2 05/23/2025 6:22 PM EDT [facility] Comment:The estimated Glomer ular Filtration Rate (eGFR) is calculated by the Chronic Kidney Epidemiology Collaboration (CKD-EPI) equation. Other 05/23/2025 12:0 4 PM EDT Narrative [facility] - 05/23/2025 6:22 PM EDT Specimen Source: BLOOD&BLOOD Performed at: [facility] ([facility]): [address] [facility] us Mango Pendleton MD CHEMISTRY ORDERABLES Final Res ult [facility] [address] [place] [facility] [place] [address], [place] [phone] * (ABNORMAL) CBC (05/23/2025 12:04 PM EDT) WBC Count 11.0 4.0 - 11.0 K/MCL 05/23/2025 4:50 PM EDT [facility] RBC Count 4.51 4.30 - 5.90 M/MCL 05/23/2025 4:50 PM EDT [facility] Hgb 13.5 13.0 - 17.3 G/DL 05/23/2025 4:50 PM EDT [facility] Hct 40.5 38.5 - 53.0 % 05/23/2025 4:50 PM EDT [facility] MCV 89.8 83.0 - 99.0 FL 05/23/2025 4:50 PM EDT [facility] MCH 29.9 27.0 - 33.0 PG 05/23/2025 4:50 PM EDT [facility] MCHC 33.3 31.0 - 35.0 G/DL 05/23/2025 4:50 PM EDT [facility] Platelet Count 393 140 - 400 K/MCL 05/23/2025 4:50 PM EDT [facility] MPV 12.4 9.0 - 12.6 FL 05/23/2025 4:50 PM EDT [facility] RDW Volume 43.2 37.0 - 53.1 FL 05/23/2025 4:50 PM EDT [facility] RDW 13.2 11.0 - 16.5 % 05/23/2025 4:50 PM EDT [facility] Nucleated RBC 0.0 % 05/23/2025 4:50 PM EDT [facility] NUCLEATED RBC # (AUTO) 0.00 <1.00 K/MCL 05/23/2025 4:50 PM EDT [facility] Immature Granulocytes 0.5 % 05/23/2025 4:50 PM EDT [facility] Immature Granulocyte Absolute 0.06 0.00 - 0.06 K/MCL 05/23/2025 4:50 PM EDT [facility] Neutrophils Absolute 7.08 1.70 - 7.80 K/MCL 05/23/2025 4:50 PM EDT [facility] Lymphocytes Absolute 2.58 1.00 - 4.80 K/MCL 05/23/2025 4:50 PM EDT [facility] Monocytes Absolute 1.01(H) 0.00 - 1.00 K/MCL 05/23/2025 4:50 PM EDT [facility] Eosinophil Absolute Count 0.20 0.00 - 0.45 K/MCL 05/23/2025 4:50 PM EDT [facility] Basophils Absolute 0.09 0.00 - 0.20 K/MCL 05/23/2025 4:50 PM EDT [facility] Neutrophils 64 % 05/23/2025 4:50 PM EDT [facility] Lymphocytes 23 % 05/23/2025 4:50 PM EDT [facility] Monocytes 9 % 05/23/2025 4:50 PM EDT [facility] Eosinophils 2 % 05/23/2025 4:50 PM EDT [facility] Basophils 1 % 05/23/2025 4:50 PM EDT [facility] Other 05/23/2025 12:0 4 PM EDT Narrative [facility] - 05/23/2025 4:50 PM EDT Specimen Source: BLOOD&BLOOD Performed at: [facility]): [address] [facility] us Mango Pendleton MD HEMATOLOGY ORDERABLES Final Re sult [facility] [address] [place] [facility] [place] [address], [place] [phone] * (ABNORMAL) LIPID PANEL CHOLESTEROL FRACTIONATION (LCF) [...] EDT Specimen Source: BLOOD, VENOUS Performed at: [facility]): [address] [facility] us Freddy Epps MD CHEMISTRY ORDERABLES Final Resu lt [facility] [address] [place] [facility] [place] [address], [place] [phone] * HIV 1/2/AG/AB PROGRESSIVE(HIV SCREENING) (06/06/2021 9:31 [...] - 06/07/2021 1:40 PM EST Performed at: [facility]): [address] [facility] Libertad Grijalva MD CHEMISTRY ORDERABLES Leandra sarah Result [facility] DATA [facility]CH[facility] [address] [facility], [place] [address], [place] [phone] from Last 3 Months or Most Recently Relevant to Health Maintenance
--- OUTSIDE RECORDS SUMMARY | 2025-06-13 03:41 | XMS_ITS | Encounter Summary ---
Author Organization [facility] Address [address] [place] [address] Care Team Providers Care Data Center Manager Name Role Phone Freddy Epps MD Primary Care Provider [phone] Encounter Details Date Type Department Care Team (Latest Contact Info) Description 08/17/2018 Lab Requisition [facility] Jordyn Ribeiro PA-C [address] [place] [address] Type 2 diabetes mellitus with [...] Description 06/29/2025 1:00 PM EST Office Visit [facility] [address] [facility] [address] [place] [phone] Shanna Henderson CRNP [address] [phone] documented as of this encounter Procedures Procedure [...] 26.8 mg/dL 08/17/2018 5:44 PM [facility] Albumin, Urine 6.2 mg/dL 08/17/2018 5:44 PM [facility] Alb/Creat Ratio 231(H) <=30 mcg/mg 08/17/2018 5:44 PM [facility] Comment: Albuminuria categories in CKD [...] PA-C LAB URINE ORDERABLES F inal Result Performing Organization Address [facility] Co de Phone Number [facility] [address] [place] [address] * (ABNORMAL) Lipid panel - (08/17/2018 1:16 PM EST) Triglycerides 360(H) 0 - 150 mg/dL 08/17/2018 5:19 PM [facility] Comment: With NCEP guidelines Borderline High 150-199 mg/dL High 200-499 mg/dL Very High >500 mg/dL Total Cholesterol 193 0 - 200 mg/dL 08/17/2018 5:19 PM [facility] Comment: NCEP Guidelines: Desirable <200 mg/dL Borderline High 200-239 mg/dL High >240 mg/dL HDL-C 43 mg/dL 08/17/2018 5:19 PM [facility] Comment: High risk <40 mg/dL Low risk >60 mg/dL calculated LDL-C 78 mg/dL 08/17/19 5:19 PM [facility] Comment: NCEP guidelines: Optimal <100 mg/dL Near/Above Optimal 100-129 mg/dL Borderline High 130-159 mg/dL High 160-189 mg/dL Very High >190 mg/dL Blood Venous blood specimen / Unknown 08/17/2018 1:16 PM EST 08/17/2018 1:16 PM EST Jordyn Ribeiro PA-C LAB BLOOD ORDERABLES F inal Result [facility] [address] [id number] * (ABNORMAL) Comprehensive metabolic panel - (08/17/2018 1:16 PM EST) Glucose 570(HH) 70 - 139 mg/dL 08/17/2018 5:39 PM [facility] Comment:Confirmed Sodium 130(L) 135 - 142 mmol/L 08/17/2018 5:39 PM [facility] Potassium 4.9 3.5 - 5.3 mmol/L 08/17/2018 5:39 PM [facility] Chloride 94(L) 98 - 107 mmol/L 08/17/2018 5:39 PM [facility] CO2 28 21 - 31 mmol/L 08/17/2018 5:39 PM [facility] Anion Gap 8 3 - 11 mmol/L 08/17/2018 5:39 PM [facility] BUN 15 7 - 25 mg/dL 08/17/2018 5:39 PM [facility] Creatinine 0.90 0.70 - 1.30 mg/dL 08/17/2018 5:39 PM [facility] Calcium 9.7 8.6 - 10.3 mg/dL 08/17/2018 5:39 PM [facility] Total Protein 7.4 6.4 - 8.9 gm/dL 08/17/2018 5:39 PM [facility] Albumin 4.3 3.5 - 5.7 gm/dL 08/17/2018 5:39 PM [facility] Alkaline Phosphatase 76 34 - 104 IU/L 08/17/2018 5:39 PM [facility] AST 47(H) 13 - 39 IU/L 08/17/2018 5:39 PM [facility] ALT (SGPT) 70(H) 7 - 52 IU/L 08/17/2018 5:39 PM [facility] Total Bilirubin 0.5 0.3 - 1.0 mg/dL 08/17/2018 5:39 PM [facility] eGFR >60.0 >60.0 mL/min/1. 73m*2 08/17/2018 5:39 PM [facility] Comment: The estimated Glomerular Filtration [...] Evaluation Program (KEEP). Am J Kidney Dis (2011);57(3Vlxbo4):S9-16. Blood Venous blood specimen / Unknown 08/17/2018 1:16 PM EST 08/17/2018 1:16 PM EST us Jordyn Ribeiro PA-C LAB BLOOD ORDERABLES F inal Result Performing Organization Address City/State/[facility] Co de Phone Number [facility] [address] [place] [address] * (ABNORMAL) Hemoglobin A1c - (08/17/2018 1:16 PM EST) Hemoglobin A1C 13.5(H) <5.7 % 08/17/2018 6:14 PM EST [facility] Comment: Normal <5.7% Abnormal, High 5.7 [...] may yield falsely high results. Performed at [facility], [address] [place] [id number] Estimated average glucose 341 mg/dL 08/17/2018 6:14 PM EST [facility] Comment: The estimated average glucose (eAG) is derived from the equation [AG (mg/dL)= 28.7 x %HbA1c - 46.7] and provided as recommended by the [place] [employer]. Calculated eAG values less than 97 mg/dL or greater than 298 mg/dL may be unreliable and should be interpreted with caution. Estimated average glucose is educational and should not be used for clinical management of diabetic patients. Diabetes Care, 31(8):1938-9361. Blood Venous blood specimen / Unknown 08/17/2018 1:16 PM EST 08/17/2018 1:16 PM EST Jordyn Ribeiro PA-C LAB BLOOD ORDERABLES F inal Result [facility] [address] [place] [id number] documented in this encounter Visit Diagnoses Diagnosis Type 2 diabetes mellitus with hyperglycemia ([facility]) documented in this encounter Additional [...] documented as of this encounter Care Teams Data Center Manager Relationship Specialty Start Date End Date Freddy Epps MD [address] [place] [phone] PCP - General Family Medicine 05/29/20 documented as of this encounter
--- OUTSIDE RECORDS SUMMARY | 2025-06-13 03:42 | XMS_ITS | Encounter Summary ---
Author Organization [facility] Address [address] [facility] [place] [address] Care Team Providers Care Cooker Casing Name Role Phone Freddy Epps MD Primary Care Provider [phone] Encounter Details Date Type Department Care Team (Late Contact Info) Description 08/17/2018 Lab Requisition [facility] Social History Tobacco Use Types Packs/Day Years Used Date Smoking Tobacco: Never Assessed Sex and Gender Information Value Date Recorded Sex Assigned at Not on file Legal Sex Male 6:06 PM EDT Gender Identity Not on file Sexual Orientation Not on file documented as of this encounter Plan of Treatment Upcoming Encounters Date Type Department Care Team (Late Contact Info) Description 06/29/2025 1:00 PM EST Office Visit [facility] [address] [phone] Shanna Henderson CRNP [address] [phone] documented as of this encounter Visit Diagnoses [...] documented as of this encounter Care Teams Cooker Casing Relationship Specialty Start Date End Date Freddy Epps MD [address] [place] [phone] PCP - General Family Medicine 05/29/20 documented as of this encounter
--- OUTSIDE RECORDS SUMMARY | 2025-06-13 03:43 | XMS_ITS | Encounter Summary ---
Author Organization [facility] Address [address] [place] [address] Care Team Providers Care Train Examiner Name Role Phone Freddy Epps MD Primary Care Provider [phone] Encounter Details Date Type Department Care Team ([facility] Contact Info) Description 07/04/2020 Lab Requisition [facility] Lab Services - [facility] [address] [place] [address] John Morocho MD [address] [place] [address] Thrombocytopenia, unspecified; Encounter for screening for [...] Upcoming Encounters Date Type Department Care Team ([facility] Contact Info) Description 06/29/2025 1:00 PM EST Office Visit [facility] [address] [place] [address] Shanna Henderson CRNP [address] [place] [phone] documented as of this encounter Procedures Procedure [...] E Ag Nonreactive 07/09/2020 4:56 AM EST [facility] Comment: Reference range: Nonreactive For additional information, please refer to https://education.Amigos y Amigos.com/faq/DGE421 (This link is being provided for informational/ educational purposes only.) Blood Venous blood specimen / Unknown 07/04/2020 10:45 AM EST 07/04/2020 10:54 AM EST John Morocho MD LAB BLOOD ORDERABLES Final Resu lt Performing Organization Address City/[facility]/ZIP Co de Phone Number [facility], [address] [place], [place] [phone] * Hepatitis B core antibody, IgM (07/04/2020 10:45 AM EST) Hep B Core IgM Nonreactive Nonreactive 07/09/2020 4:58 AM EST [facility] Blood Venous blood specimen / Unknown 07/04/2020 10:45 AM EST 07/04/2020 10:54 AM EST John Morocho MD LAB BLOOD ORDERABLES Final Resu lt Performing Organization Address [facility]/RUST de Phone Number [facility], [address] [place], [place] [phone] * Hepatitis B core antibody, total (07/04/2020 10:45 AM EST) Hep B Core Total Ab Nonreactive Nonreactive 07/09/2020 4:58 AM EST [facility] Blood Venous blood specimen / Unknown 07/04/2020 10:45 AM EST 07/04/2020 10:54 AM EST John Morocho MD LAB BLOOD ORDERABLES Final Resu lt Performing Organization Address [facility] Co de Phone Number [facility], [address] [place], [place] [phone] * Hepatitis B surface antigen w/reflex to confirmation (07/04/2020 10:45 AM EST) Hepatitis B Surface Ag Nonreactive Nonreactive 07/09/2020 4:58 AM EST [facility] Comment: Confirmation Not required according to the current package insert. Blood Venous blood specimen / Unknown 07/04/2020 10:45 AM EST 07/04/2020 10:54 AM EST John Morocho MD LAB BLOOD ORDERABLES Final Resu lt Performing Organization Address [facility]/RUST de Phone Number [facility] [email or web address] [facility], [address] [address] [place] [phone] * (ABNORMAL) Hepatitis C RNA, quantitative, PCR (07/04/2020 10:45 AM EST) Hepatitis C RNA-PCR [id number](H ) IU/mL 07/07/2020 8:18 PM EST [facility] HCV Quantitative Log 6.40(H) log IU/mL 07/07/2020 8:18 PM EST [facility] Comment: Reference Range: Not Detected IU/mL Not Detected Log IU/mL This test was performed using Real-Time Polymerase Chain Reaction. Reportable range is 15 IU/mL to 100,000,000 IU/mL (1.18 Log IU/mL to 8.00 Log IU/mL). For additional information please refer to http://education.Clickslide/faq/ZDB79l1 (This link is being provided for informational/ educational purposes only.) The analytical performance characteristics of this assay have been determined by [facility], [place], [place]. The modifications have not been cleared or approved by the FDA. This assay has been validated pursuant to the CLIA regulations and is used for clinical purposes. Blood Venous blood specimen / Unknown 07/04/2020 10:45 AM EST 07/04/2020 10:54 AM EST John Morocho MD LAB BLOOD ORDERABLES Final Resu lt Performing Organization Address [facility] Co de Phone Number [facility] [email or web address] [facility], [address] [address] [place] [phone] documented in this encounter Visit Diagnoses Diagnosis [...] documented as of this encounter Care Teams Train Examiner Relationship Specialty Start Date End Date Freddy Epps MD [address] [place] [phone] PCP - General Family Medicine 05/29/20 documented as of this encounter
--- OUTSIDE RECORDS SUMMARY | 2025-06-13 03:43 | XMS_ITS | Encounter Summary ---
Author Organization [facility] Address [address] [place] [address] Care Team Providers Care Chief Operator Name Role Phone Freddy Epps MD Primary Care Provider [phone] Encounter Details Date Type Department Care Team (Latest Contact Info) Description 09/07/2018 Lab Requisition [facility] Freddy Epps MD [address] [place] [phone] Encounter for screening for infections with predominantly [...] Description 06/29/2025 1:00 PM EST Office Visit [facility] [address] [phone] Shanna Henderson CRNP [address] [phone] documented as of this encounter Procedures Procedure [...] Not Detected Not Detected 09/09/2018 7:58 AM EST [facility] GC Screen Not Detected Not Detected 09/09/2018 7:58 AM [facility] Urine Urine specimen / Unknown 09/07/2018 1:32 PM EST 09/07/2018 1:31 PM EST [facility] - 09/09/2018 7:58 AM EST Specimen was tested by the [employer] [...] levels below the assay limit of detection. Freddy Epps MD LAB MICROBIOLOGY - GENERAL ORDER ALIDA Final Result Performing Organization Address City/State/[facility] Co de Phone Number [facility] [address] [place] [address] * Herpes simplex virus PCR (09/06/2018 1:32 PM EST) Herpes Simplex Virus PCR, Type 1 Not Detected Not Detected 09/07/2018 9:51 PM [facility] Herpes Simplex Virus PCR, Type 2 Not Detected Not Detected 09/07/2018 9:51 PM [facility] Swab Penis swab / Unknown 09/06/2018 1:32 PM EST 09/07/2018 1:31 PM EST us Freddy Epps MD LAB MICROBIOLOGY - GENERAL ORDER ALIDA Final Result [facility] [address] [facility] [place] [address] documented in this encounter Visit Diagnoses Diagnosis [...] documented as of this encounter Care Teams Chief Operator Relationship Specialty Start Date End Date Freddy Epps MD [address] [facility] [place] [phone] PCP - General Family Medicine 05/29/20 documented as of this encounter
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
--- OUTSIDE RECORDS SUMMARY | 2025-06-13 03:44 | XMS_ITS | Encounter Summary ---
Author Organization [facility] Address [address] [place] [address] Care Team Providers Care Hash Slinger Name Role Phone Freddy Epps MD Primary Care Provider [phone] Encounter Details Date Type Department Care Team ([facility] Contact Info) Description 07/04/2020 Non-[facility] Documentation Non-[facility] Department for [facility] Client interface John Morocho MD [address] [place] [phone] Social History Tobacco Use Types Packs/Day [...] Upcoming Encounters Date Type Department Care Team ([facility] Contact Info) Description 06/29/2025 1:00 PM EST Office Visit [facility] [address] [place] [phone] Shanna Henderson CRNP [address] [place] [address] [address] [place] [phone] documented as of this encounter Visit Diagnoses Not on filedocumented in this encounter Additional Health Concerns Infection Onset Date Last Indicated Resolved Time Rule out SARS-CoV-2 (related to COVID-19) 07/29/2021 07/29/2021 08/01/2021 6:[address] SARS-CoV-2 (related to COVID-19) 07/29/2021 07/29/19 22 08/12/2021 8:03 PM EST Rule out COVID-19/Influenza/RSV 11/16/2024 11/16/2024 10:54 PM EDT documented as of this encounter Care Teams Hash Slinger Relationship Specialty Start Date End Date Freddy Epps MD [address] [place] [phone] PCP - General Family Medicine 05/29/20 documented as of this encounter
== END 2025-06-12 18:00 | disposition home or self-care (01) ==
PROVIDERS: Physician Assistant; Emergency Provider Emergency Medicine
DX: E11.65 Type 2 diabetes mellitus with hyperglycemia (principal); R11.2 Nausea with vomiting, unspecified; R10.9 Unspecified abdominal pain; Z79.4 Long term (current) use of insulin; Z79.84 Long term (current) use of oral hypoglycemic drugs; Z79.899 Other long term (current) drug therapy; I10 Essential (primary) hypertension; R19.7 Diarrhea, unspecified; R05.9 Cough, unspecified; Z03.818 Encounter for observation for suspected exposure to other biological agents ruled out
CPT/HCPCS: 36415; 71045; 74177; 80053; 81001; 82010; 82803; 82947; 84484; 85007; 85025; 85027; 87637; 93005; 96361; 96374; 96375; 99285; J1171; J2270; J2405; J7120; Q9967

== ENCOUNTER → 2025-06-12 13:34 | Outpatient (BNV) | payer OTHER, SELFPAY | PROVIDERS: Emergency Provider Emergency Medicine; Visit Provider Internal Medicine | DX: R73.9 Hyperglycemia, unspecified (principal) | CPT/HCPCS: 93010 ==

== ENCOUNTER → 2025-06-12 13:35 | Outpatient (BNV) | payer OTHER, SELFPAY | PROVIDERS: Emergency Provider Emergency Medicine; Visit Provider Radiology Diagnostic Radiology | DX: N20.0 Calculus of kidney (principal); R05.9 Cough, unspecified | CPT/HCPCS: 71045; 74177 ==

== ENCOUNTER 2025-06-14 10:51 | Outpatient (REF) | payer OTHER, SELFPAY ==
[2025-06-14 14:05] LABS: Cholesterol 273 mg/dL (<200); Free T4 (Free Thyroxine) 1.00 ng/dL (0.71-1.85); HDL Cholesterol 77 mg/dL (>40); Thyroid Stimulating Hormone 1.05 uIU/mL (0.32-4.0); Triglycerides 171 mg/dL (<150)
[2025-06-14 14:14] LABS: Microalbum/Creatinine Ratio Ur 2229.4 ug/mg cr (<30)
== END 2025-06-14 10:52 | disposition home or self-care (01) ==
LOC: HO.LAB 10:51
PROVIDERS: Visit Provider Internal Medicine Endocrinology, Diabetes & Metabolism
DX: E11.65 Type 2 diabetes mellitus with hyperglycemia (principal); Z79.84 Long term (current) use of oral hypoglycemic drugs
CPT/HCPCS: 36415; 80061; 82043; 82570; 82947; 83036; 84439; 84443; 86341

== ENCOUNTER 2025-06-14 10:51 | Outpatient (AMB) | payer OTHER, SELFPAY ==
--- OUTSIDE RECORDS SUMMARY | 2021-03-13 13:09 | XMS_ITS | Encounter Summary ---
Author Organization [facility] Address [address] [place] [address] Care Team Providers Care Negotiations Director Name Role Phone Freddy Epps MD Primary Care Provider [phone] Encounter Details Date Type Department Care Team (Latest Contact Info) Description 03/13/2021 2:09 PM EDT Hospital Encounter [facility] - [facility] - XRay [address] [place] [address] Laceration of left thumb without foreign body with damage to nail, initial encounter Social History Tobacco Use Types Packs/Day Years Used Date Smoking Tobacco: Never Cigarettes [address] arted: 01/18/2019 Passive Smoke Exposure: Yes [...] place to sleep or slept in a alf (including now)? No 02/04/2023 Sex and Gender [...] PM EDT documented as of this encounter Functional Status * Question Answer Date of Assessment Author BP 186/98 05/23/2025 8:00 PM EDT Sim Purvis RN Temp 97.7 05/23/2025 8:00 PM EDT Sim Purvis RN Pulse 66 05/23/2025 6:00 PM EDT Sim Purvis RN Resp 20 05/23/2025 8:00 PM EDT Sim Purvis, BJORN * Question Answer Date of Assessment Author SpO2 97 05/23/2025 6:00 PM EDT Sim Purvis RN * Question Answer Date of Assessment Author Height 68 02/04/2023 5:55 PM EDT Jose Alberto Burt RN Weight 2151.69 11/02/2023 9:19 PM EDT Rebekah Trevino RN * Housing Stability Question Answer Date of Assessment Author In the last 12 months, was there a time when you were not able to pay the mortgage or rent on time? No 02/04/2023 3:10 PM EDT Neelima Hewitt , Postbed Stitcher * Food Insecurity Question Answer Date of Assessment Author Within the past 12 months, you worried that your food would run out before you got the money to buy more. Never true 02/04/2023 3:10 PM EDT Christa Hewitt, Postbed Stitcher Within the past 12 months, the food you bought just didn't last and you didn't have money to get more. Never true 02/04/2023 3:10 PM EDT Eli Hewitt, Postbed Stitcher * Question Answer Date of Assessment Author In the past 12 months, has l ack of transportation kept you from medical appointments or from getting medications? No 02/04/2023 3:10 PM EDT Neelima Hewitt, Postbed Stitcher In the past 12 months, has l ack of transportation kept you from meetings, work, or from getting things needed for daily living? No 02/04/2023 3:10 PM EDT Neelima Newberry do Postbed Stitcher documented as of this encounter Mental Status * Question Answer Entry Date Author BP 186/98 05/23/2025 8:00 PM EDT Sim Purvis, BJORN Temp 97.7 05/23/2025 8:00 PM EDT Sim Purvis, BJORN Pulse 66 05/23/2025 6:00 PM EDT Sim Purvis RN Resp 20 05/23/2025 8:00 PM EDT Sim Purvis, BJORN * Question Answer Entry Date Author SpO2 97 05/23/2025 6:00 PM EDT Sim Purvis, RN documented in this encounter Plan of Treatment Upcoming Encounters Date Type Department Care Team (Late st Contact Info) Description 06/29/2025 1:00 PM EST Office Visit [facility] [address] [facility] [address] [phone] Shanna Henderson CRNP [address] [facility] [address] [phone] documented as of this encounter Procedures Procedure [...] Laterality Modality Upper Extremities, Fingers Left Compu [facility] Radiography Narrative 03/13/2021 2:23 PM EDT XR [...] participate in the care of your patient. us Jigna CASTILLO IMG XR PROCEDURES F inal Result documented in this encounter Visit Diagnoses Diagnosis Laceration of left thumb without foreign body with damage to nail, initial encounter documented in this encounter Additional Health Concerns Infection Onset Date Last Indicated Resolved Time Rule out SARS-CoV-2 (related to COVID-19) 07/29/2021 07/29/2021 08/01/2021 6:[address] SARS-CoV-2 (related to COVID-19) 07/29/2021 07/29/1908/12/2021 8:03 PM EST Rule out COVID-19/Influenza/RSV 11/16/2024 11/16/2024 10:54 PM EDT documented as of this encounter Care Teams Negotiations Director Relationship Specialty Start Date End Date Freddy Epps MD [address] [place] [facility] [place] [phone] PCP - General Family Medicine 05/29/20 documented as of this encounter
--- NOTE | 2025-06-14 10:51 | MHC.OFFVIS ---
Vital Signs 06/14/25 10:55 Height 5 ft 6 in Weight 141 lb 1.533 oz BMI 22.8 BP 132/78 Blood Pressure Location Rt brachial Position Sitting Pulse 104 H Pulse Source Pulse Oximeter Pulse Oximetry (%) 98 Oxygen Delivery Method Room Air Intake Visit Reasons: Sugar High N/V/D Multi Comp/ED URGENT Intake Note: New patient present today for Diabetes Mellitus, referred by [facility]. Patient reports he is currently transitioning from [place] to [place]. 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 Recently presented to the emergency room with hyperglycemia Initially diagnosed with T2DM in dxed 1999. Not seen endo before Was initially started on treatment with metformin . Current regimen metformin 1000 mg BID. Trulicity 0.75 mg Qwkly Glargine 40 units . Aspart 30 units TID Checks sugars 3 times per day.Glucomter has 1 blood sugar reading Reports low sugars No . Most recent A1C >14 , Family history of T2DM in mother, father , grandfather . Has eyes checked yearly, last eye exam 07/2024 , denies retinopathy. Denies neuropathy, last foot exam [], Not sees podiatry. Denies nephropathy, on SALLY/ARB. UAC [] as measured on []. Has HLD, on statin. Last LDL [] as measured on []. Denies CAD. Not Had diabetes education recently . [facility] Medical History (Updated 06/14/25 @ 11:02 by Tae Hooper MD) Uncontrolled type 2 diabetes mellitus with hyperglycemia Hypertension DM2 (diabetes mellitus, type 2) Surgical History H/O splenectomy Family History (Updated 06/14/25 @ 11:19 by Shelli Isbell Winnie) Other Patient denies medical problems Social History Housing: House Alcohol intake: never Patient Tobacco Use Status: Current everyday Tobacco user Tobacco use type: Cigarette service: No Physical Exam Vital Signs: Last Vital Signs Pulse 104 H 06/14/25 10:55 BP 132/78 06/14/25 10:55 Pulse Ox 98 06/14/25 10:55 Oxygen Delivery Method Room Air 06/14/25 10:55 BMI result Body Mass Index 22.8 Absence of Cushingoid features. Absence of acromegalic features. Neck exam reveals nl size thyroid about 15 gms. No thyroid nodules palpable. No carotid bruits present. Lungs CTA. Heart S1 S2, Reg R/R. No M/R/ G. Skin exam reveals absence of vitiligo or acanthosis nigricans. Abdominal exam reveals Soft NT/ND with NA BS. No organomegaly present. Neck Other: . Extrem Other: Visual exam of foot performed. No ulcerations or open lesions. No onchomycosis, no callouses.Pulses 2 + distally Sensation intact to monofilament exam. Vibratory sensation sensed is intact with 128 Hz tuning fork Results AMB Hemoglobin A1c AMB Hemoglobin A1c > 14.0 % Last Edit by SHAUNA Gray on 06/14/25 11:17 Results Reviewed Results Reviewed: Laboratory Last Values Glucose (Clinic) 396 mg/dL (60-115) H* 06/14/25 11:05 Hgb A1c (Clinic) > 14.0 % (4.0-6.0) H 06/14/25 11:11 Assessment & Plan Assessment & Plan (1) Uncontrolled type 2 diabetes mellitus with hyperglycemia: Code(s): E11.65 - Type 2 diabetes mellitus with hyperglycemia Category: Medical Plan: This is a 45-year-old male with a history of type 2 diabetes being treated with metformin, Trulicity and basal-bolus insulin with poor glycemic control and no known microvascular or macrovascular complication The plan is to talk to the patient about initiating a sensor namely Corey 3+. Unable to make any adjustments to the regimen because of lack of data today. We will send to adaptive physical educator and call or contact centre manager. We will check lipid profile and microalbumin to creatinine ratio. Had extensive discussion with the patient regarding the correlation of poor glycemic control with development of progression of complications. I also prescribed glucagon Baqimi . We will also refer patient to Podiatry. We will check anti-dina 65 antibodies as well as C-peptide and insulin to rule out type 1 diabetes. If patient is a type 1 diabetic, he may benefit from an insulin pump I would discuss this at length. We will also check TSH and free T4 in light of the weight loss Orders: Orders Free T4 (Free Thyroxine) Today E11.65 - Type 2 diabetes mellitus with hyperglycemia Thyroid Stimulating Hormone Today E11.65 - Type 2 diabetes mellitus with hyperglycemia Lipid Panel Today E11.65 - Type 2 diabetes mellitus with hyperglycemia Microalbumin, Random (w Creat) Today E11.65 - Type 2 diabetes mellitus with hyperglycemia AMB Hemoglobin A1c Today E11.65 - Type 2 diabetes mellitus with hyperglycemia Glutamic acid decarboxylase Ab Today E11.65 - Type 2 diabetes mellitus with hyperglycemia Glucose Random Today E11.65 - Type 2 diabetes mellitus with hyperglycemia Referrals Nutrition/Dietitian Referral E11.65 - Type 2 diabetes mellitus with hyperglycemia Podiatry Referral E11.65 - Type 2 diabetes mellitus with hyperglycemia Diabetes Education Referral E11.65 - Type 2 diabetes mellitus with hyperglycemia Medications: New blood-glucose sensor (Dexcom G7 Sensor device) As directed change every 10 days 3 ea 5RF glucose until symptoms of low blood sugar are controlled 4 grams PO Q15M PRN 60 tabs 4RF hypoglycemia glucagon 3 mg/actuation (Baqsimi) 3 mg intranasal ONCE 2 ea 3RF Coding Level of Care Code New Pt Level 5 (06838) Diagnoses Uncontrolled type 2 diabetes mellitus with hyperglycemia E11.
[2025-06-14 10:55] VITALS: BP 132/78; PULSE 104; O2SAT 98; BMI 22.8
[2025-06-14 11:12] LABS: Glucose, Whole Blood 396 mg/dL (60-115)
--- OUTSIDE RECORDS SUMMARY | 2025-06-14 21:23 | XMS_ITS | Encounter Summary ---
Author Organization [facility] alth Address [address] [place] [address] Care Team Providers Care Glass Embosser Name Role Phone Unavailable Primary Care Provider Unavailabl e Encounter Details Date Type Department Care Team ([facility] st Contact Info) Description 06/06/2024 Office Visit - Data Exchange [facility] Jomar Epps MD [address] [place] [address] Social History Tobacco Use Types [...] Name : CLOVIS SHEN (44yo, M) ID# [id number] Appt. Date/Time : 07/26/2024 08:20AM : 1980 Service Dept. : [facility] Provider : JOMAR EPPS MD Insurance Med Primary: [facility] HEALTH PLAN (MEDICAID REPLACEMENT - HMO) Insurance # : [id number] Policy/Group # : [id number] Med Mental Health: [facility] Insurance # : [id number] Prescription: EXPRESS SCRIPTS - Member is eligible. details Chief Complaint SBIRT - Adult PHQ-9 Only Followup: Uncontrolled type 2 diabetes mellitus POSITIVE PHQ9 SCORE 14, YES TO QUESTION 9 Patient presents today for a follow up to his diabetes his last A1c was done on 04/27/24 and was 15,adilia alvarez Patient's Care Team Primary Care Provider: JOMAR EPPS MD: [address] [place] [address], , Patient's Pharmacies [id number] ([place]): [address] [place] [address], , Vitals Ht: 5 ft 8 in [...] Rash (Mild) Some allergies listed in Document: #[id number] could not be added to this patient's [...] 04/24/20 filled Source: [facility] Name: Dexcom G7 Business Manager USE DIRECTED Date: 02/22/24 filled Source: surescripts [...] mL Route: Intramuscular Site: Deltoid, Right NDC: [id number] Lot #: [id number] Mfr.: Moderna Replise, Inc. Exp. Date: 05/21/21 VIS: Moderna COVID-19 Vaccine EUA Fact Sheet 10/19/2020 VIS Given: 12/07/20 Manager Vehicle: Royer Matias CMA Vaccine Type: COVID-19, mRNA, LNP-S, PF, 100 mcg/0.5 mL dose (Moderna) Date: 11/02/20 Amt.: 0.5 mL Route: Intramuscular Site: Deltoid, Left NDC: Lot #: [id number] Mfr.: Moderna Replise, Inc. Exp. Date: 04/27/21 VIS: Moderna COVID-19 Vaccine EUA Fact Sheet 06/26/2020 VIS Given: 11/02/20 Manager Vehicle: Eduarda Matias MA Diphtheria, Tetanus, Pertussis Vaccine Type: Tdap Date: 03/03/23 Amt.: 0.5 mL Route: Intramuscular Site: Deltoid, Left NDC: [id number] Lot #: [id number] Mfr.: Sanofi Pasteur Exp. Date: 12/30/24 VIS: Tdap 03/01/2021 [facility] VIS Given: 03/03/23 Manager Vehicle: Vito Grigsby MA Haemophilus Influenzae Type B Vaccine Type: Hib (PRP-T) Date: 05/14/20 Amt.: 0.5 mL Route: Site: NDC: Lot #: [id number] Mfr.: Sanofi Pasteur Exp. Date: VIS: VIS Given: Manager Vehicle: Vaccine Type: Hib Date: 05/14/20 Amt.: Route: Site: NDC: Lot #: [id number] Mfr.: Sanofi Pasteur Exp. Date: VIS: VIS Given: Manager Vehicle: Influenza Vaccine Type: influenza, seasonal, injectable, preservative free Date: 05/17/20 Amt.: 0.5 mL Route: Site: NDC: Lot #: [id number] Mfr.: Sanofi Pasteur Exp. Date: VIS: VIS Given: Manager Vehicle: Vaccine Type: influenza, injectable, quadrivalent Date: 08/03/19 Amt.: 0.5 mL Route: Intramuscular Site: Deltoid, Left NDC: Lot #: [id number] Mfr.: [employer] Pasteur Exp. Date: 01/24/20 VIS: Inactivated Influenza 03/10/2019 VIS Given: 08/03/19 Manager Vehicle: Faith Leivarosalia Vaccine Type: influenza, injectable, quadrivalent, preservative free Date: 09/16/15 Amt.: 0.5 mL Route: Site: [facility]: Lot #: [id number] Mfr.: Exp. Date: VIS: VIS Given: Manager Vehicle: Meningococcal Vaccine Type: meningococcal MCV4P Date: 05/14/20 Amt.: 0.5 mL Route: Site: [facility]: Lot #: [id number] Mfr.: [employer] Pasteur Exp. Date: VIS: VIS Given: Manager Vehicle: Vaccine Type: meningococcal B, recombinant Date: 05/14/20 Amt.: 0.5 mL Route: Site: [facility]: Lot #: [id number] Mfr.: Fujian [employer] Exp. Date: VIS: VIS Given: Manager Vehicle: Pneumococcal Vaccine Type: pneumococcal conjugate PCV 13 Date: 05/14/20 Amt.: 0.5 mL Route: Site: [facility]: Lot #: [id number] Mfr.: [employer] Labs Exp. Date: VIS: VIS Given: Manager Vehicle: Vaccine Type: pneumococcal polysaccharide PPV23 Date: 08/03/19 Amt.: 0.5 mL Route: Injection Site: Deltoid, Right NDC: Lot #: [id number] Mfr.: Merck and Co., Inc. Exp. 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 He states that he stayed athome for [place], didn't go out to visit with his children, [facility] . Feels like depression [...] (12) 3 mL syringe Refills: 3 Pharmacy: [id number] * DEXCOM G7 SENSOR DEVICE - Use every 10 days Qty: 12 Units Refills: 11 Supplier: [id number] 2. Depression screening Z13.31: Encounter for screening [...] days. Qty: (30) tablet Refills: [address] [id number] Return to Office * at Podiatry on or around 07/26/2024 * Angus Angeles, MANUEL for OPTOMETRY at Optometry on 08/16/2024 at 02:40 PM * to see Jomar Epps MD at [facility] on or around 09/26/2024 Encounter Sign-Off Encounter signed-off by Jomar Epps MD, 07/26/2024. documented in this encounter Plan of Treatment Not on file documented as of this encounter Visit Diagnoses Not on filedocumented in this encounter
--- OUTSIDE RECORDS SUMMARY | 2025-06-14 21:23 | XMS_ITS | Encounter Summary ---
Author Organization [facility] Address [address] [place] [address] Care Team Providers Care Tube Repairer Name Role Phone Freddy Epps MD Primary Care Provider [phone] Encounter Details Date Type Department Care Team (Late st Contact Info) Description 06/06/2021 Lab Requisition [facility] Services Libertad Grijalva MD [address] [address] Encounter for screening for infections with a [...] documented as of this encounter Functional Status documented as of this encounter Mental Status * Question Answer Entry Date Author BP 131/80 06/06/2021 7:37 AM EST Wendy Weinstein, Labor Specialist Pulse 66 06/06/2021 7:37 AM EST Wendy Weinstein Med Asst documented in this encounter Plan of Treatment Upcoming Encounters Date Type Department Care Team (Late st Contact Info) Description 06/29/2025 1:00 PM EST Office Visit [facility] [address] [place] [phone] Shanna Henderson CRNP [address] [place] [phone] documented [...] Not Detected Not Detected 06/11/2021 2:13 PM [facility] Urine Urine specimen / Unknown 06/05/2021 12:19 PM EST 06/06/2021 12:18 PM EST [facility] - 06/11/2021 2:13 PM EST Specimen was [...] persist following appropriate antimicrobial therapy. us Libertad Grijalva MD LAB MICROBIOLOGY - GENERA L ORDERABLES Final Result Performing Organization Address City/[facility] Co de Phone Number [facility] [address] [place] [address] * Chlamydia trachomatis and Neisseria gonorrhoeae Molecular Screen (06/05/2021 12:19 PM EST) Chlamydia Screen Not Detected Not Detected 06/07/2021 3:23 PM [facility] GC Screen Not Detected Not Detected 06/07/2021 3:23 PM [facility] Urine Urine specimen / Unknown 06/05/2021 12:19 PM EST 06/06/2021 12:18 PM EST [facility] LAB - 06/07/2021 3:23 PM EST Specimen was [...] L ORDERABLES Final Result Performing Organization Address [facility] Co de Phone Number [facility] [address] [place] [address] documented in this encounter Visit Diagnoses Diagnosis [...] as of this encounter Care Teams Tube Repairer Relationship Specialty Start Date End Date Freddy Epps MD [address] [place] [phone] PCP - General Family Medicine 05/29/20 documented as of this encounter
--- OUTSIDE RECORDS SUMMARY | 2025-06-14 21:23 | XMS_ITS | Encounter Summary ---
Author Organization [facility] Address [address] [place] [address] Care Team Providers Care Security Field Supervisor Name Role Phone Freddy Epps MD Primary Care Provider [phone] Encounter Details Date Type Department Care Team (Latest Contact Info) Description 09/07/[address] [facility] Services Freddy Epps MD [address] [place] [phone] Encounter for screening for infections with predominantly [...] Description 06/29/2025 1:00 PM EST Office Visit [facility] [address] [phone] Shanna Henderson CRNP [address] [phone] documented as of this encounter Procedures Procedure [...] Detected Not Detected 09/09/2018 7:58 AM EST LAB GC Screen Not Detected Not Detected 09/09/2018 7:58 AM [facility] Urine Urine specimen / Unknown 09/07/2018 1:32 PM EST 09/07/2018 1:31 PM EST [facility] LAB - 09/09/2018 7:58 AM EST [...] ORDER ALIDA Final Result Performing Organization Address City/State/[place] Co de Phone Number LAB [address] [place] [address] * Herpes simplex virus PCR (09/06/2018 1:32 PM EST) Herpes Simplex Virus PCR, Type 1 Not Detected Not Detected 09/07/2018 9:51 PM [facility] Herpes Simplex Virus PCR, Type 2 Not Detected Not Detected 09/07/2018 9:51 PM [facility] Swab Penis swab / Unknown 09/06/2018 1:32 PM EST 09/07/2018 1:31 PM EST us Freddy Epps MD LAB MICROBIOLOGY - GENERAL ORDER ALIDA Final Result LAB [address] [facility] [place] [address] documented in this encounter Visit Diagnoses Diagnosis [...] documented as of this encounter Care Teams Security Field Supervisor Relationship Specialty Start Date End Date Freddy Epps MD [address] [facility] [place] [phone] PCP - General Family Medicine 05/29/20 documented as of this encounter
--- OUTSIDE RECORDS SUMMARY | 2025-06-14 21:23 | XMS_ITS | Encounter Summary ---
Author Organization [facility] Address [address] [place] [facility] [place] [address] Care Team Providers Care Roofing Laborer Name Role Phone Freddy Epps MD Primary Care Provider [phone] Encounter Details Date Type Department Care Team (Late Contact Info) Description 08/17/2018 Lab Requisition [facility] Social History Tobacco Use Types [...] Description 06/29/2025 1:00 PM EST Office Visit [facility] [address] [phone] Shanna Henderson CRNP [address] [phone] documented as of this encounter Visit Diagnoses [...] documented as of this encounter Care Teams Roofing Laborer Relationship Specialty Start Date End Date Freddy Epps MD [address] [phone] PCP - General Family Medicine 05/29/20 documented as of this encounter
--- OUTSIDE RECORDS SUMMARY | 2025-06-14 21:23 | XMS_ITS | Encounter Summary ---
Author Organization [facility] alth Address [address] [place] [address] Care Team Providers Care Patient Observer Name Role Phone Unavailable Primary Care Provider Unavailabl e Encounter Details Date Type Department Care Team ([facility] st Contact Info) Description 11/11/2022 Office Visit - Data Exchange [facility] Jomar Epps MD [address] [place], [place] [phone] Social History Tobacco Use Types Packs/Day Years [...] Name : CLOVIS SHEN (42yo, M) ID# [id number] Appt. Date/Time : 11/11/2022 09:00AM : 1980 Service Dept. : [facility] Provider : JOMAR EPPS MD Insurance Med Primary: [facility] HEALTH PLAN (MEDICAID REPLACEMENT - HMO) Insurance # : [id number] Policy/Group # : [id number] Med Mental Health: [facility] Insurance # : [id number] Med Curry: SLIDING FEE SCHEDULE - DISCOUNT Prescription: EXPRESS SCRIPTS - Member is eligible. details Chief Complaint Followup: Type II diabetes mellitus uncontrolled Followup: Hypertensive disorder PAtient presents today for a f/u DM MWaggner TECHNICAL PROJECT COORDINATOR Patient's Care Team Primary Care Provider: JOMAR EPPS MD: [address] [place] [facility] [place] [address], , Patient's Pharmacies [facility] ([place]): [address], [place] [address], , [id number] ([place]): [address] [facility], [place] [address], , [facility] ([place]): [address] [place] [address], , [facility] ([place]): [address] [place] [address], , Vitals Ht: 5 ft 8 in [...] Rash (Mild) Some allergies listed in Documents: #[id number], #[id number], #[id number], #[id number] could not be added to this patient's [...] mL Route: Intramuscular Site: Deltoid, Right NDC: [id number] Lot #: [id number] Mfr.: Moderna US, Inc. Exp. Date: 05/21/21 VIS: Moderna COVID-19 Vaccine EUA Fact Sheet 10/19/2020 VIS Given: 12/07/20 [employer]: Royer Matias CMA Vaccine Type: COVID-19, mRNA, LNP-S, PF, 100 mcg/0.5 mL dose (Moderna) Date: 11/02/20 Amt.: 0.5 mL Route: Intramuscular Site: Deltoid, Left NDC: Lot #: [id number] Mfr.: Moderna US, Inc. Exp. Date: 04/27/21 VIS: Moderna COVID-19 Vaccine EUA Fact Sheet 06/26/2020 VIS Given: 11/02/20 [employer]: Eduarda Matias MA Vaccine Type: Hib (PRP-T) Date: 05/14/20 Amt.: 0.5 mL Route: Site: NDC: Lot #: [id number] Mfr.: Sanofi Pasteur Exp. Date: VIS: VIS Given: [employer]: Vaccine Type: Hib Date: 05/14/20 Amt.: Route: Site: NDC: Lot #: [id number] Mfr.: Sanofi Pasteur Exp. Date: VIS: VIS Given: [employer]: Vaccine Type: influenza, seasonal, injectable, preservative free Date: 05/17/20 Amt.: 0.5 mL Route: Site: NDC: Lot #: [id number] Mfr.: Sanofi Pasteur Exp. Date: VIS: VIS Given: [employer]: Vaccine Type: influenza, injectable, quadrivalent Date: 08/03/19 Amt.: 0.5 mL Route: Intramuscular Site: Deltoid, Left NDC: Lot #: [id number] Mfr.: Scan & Target Pasteur Exp. Date: 01/24/20 VIS: Inactivated Influenza 03/10/2019 VIS Given: 08/03/19 [employer]: Faith Leivarosalia Vaccine Type: influenza, injectable, quadrivalent, preservative free Date: 09/16/15 Amt.: 0.5 mL Route: Site: [facility]: Lot #: [id number] Mfr.: Exp. Date: VIS: VIS Given: [employer]: Vaccine Type: meningococcal MCV4P Date: 05/14/20 Amt.: 0.5 mL Route: Site: [facility]: Lot #: [id number] Mfr.: Scan & Target Pasteur Exp. Date: VIS: VIS Given: [employer]: Vaccine Type: meningococcal B, recombinant Date: 05/14/20 Amt.: 0.5 mL Route: Site: [facility]: Lot #: [id number] Mfr.: Nu-Pulse Exp. Date: VIS: VIS Given: [employer]: Vaccine Type: pneumococcal conjugate PCV 13 Date: 05/14/20 Amt.: 0.5 mL Route: Site: [facility]: Lot #: [id number] Mfr.: Wyeth Exp. Date: VIS: VIS Given: [employer]: Vaccine Type: pneumococcal polysaccharide PPV23 Date: 08/03/19 Amt.: 0.5 mL Route: Injection Site: Deltoid, Right NDC: Lot #: [id number] Mfr.: Merck and Co., Inc. Exp. Date: 12/13/20 VIS: PPSV23 05/25/2019 VIS Given: 08/03/19 [employer]: Faith Mead Problems Reviewed Problems * Candidal [...] or [place])?: Yes (Notes: Born in [place]) TB Screening Question 2: Have you traveled [...] Dental: Where was your last dental visit?: [facility] Dental: Was the visit an [facility] dental provider?: Yes Dental: Action taken: [facility] information provided Other Education: 12 Marital status: Single General stress level: High Gender Identity and LGBTQ Identity Gender identity: Identifies as Male Assigned sex at : Male Pronouns: he/him Sexual orientation: Straight or heterosexual Surgical History Surgical History not reviewed (last reviewed 06/05/2021) * Removal of spleen total - 05/16/2020 noneSurgery to Left knee.CO 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 Qty: (12) 3 mL syringe Refills: 3 Pharmacy: [facility] * insulin aspart (U-100) 100 unit/mL (3 mL) subcutaneous pen - Inject 20 unit(s) 3 times a day by subcutaneous route with meals. Qty: (10) 3 mL syringe Refills: 3Pharmacy: [facility] * DEXCOM G7 MAID HOUSEKEEPER - Use as directed. Qty: 1 Unit Refills: 0 Supplier: [facility] * DEXCOM G7 SENSOR DEVICE - Use as directed. Qty: 1 Unit Refills: 0 Supplier: [facility] * CBC AND DIFFERENTIAL * LIPID PANEL [...] (1) 30 gram tube Refills: 3 Pharmacy: [facility] 4. Viral screening Z11.4: Encounter for screening [...] of himself. Return to Office * at [facility] on or around 11/11/2022 * to see Jomar Epps MD at [facility] on or around 12/02/2022 Encounter Sign-Off Encounter signed-off by Jomar Epps MD, 11/11/2022. documented in this encounter Plan of Treatment Not on file documented as of this encounter Visit Diagnoses Not on filedocumented in this encounter
--- OUTSIDE RECORDS SUMMARY | 2025-06-14 21:23 | XMS_ITS | Encounter Summary ---
[facility] Organization [facility] Address [address] [place] [address] Care Team Providers Care Equine Dentist Name Role Phone Freddy Epps MD Primary Care Provider [phone] Encounter Details Date Type Department Care Team (Late st Contact Info) Description 04/27/2025 Orders Only [facility] - [address] [place] [phone] Freddy Epps MD [address] [place] [phone] Inadequately controlled diabetes mellitus ([facility]) (Primary Dx) Social History Tobacco Use Types [...] place to sleep or slept in a detention (including now)? No 02/04/2023 Sex and Gender Information Value Date Recorded Sex Assigned at Not on file Legal Sex Male 6:06 PM EDT Gender Identity Not on file Sexual Orientation Not on file documented as of this encounter Plan of Treatment Upcoming Encounters Date Type Department Care Team (Late st Contact Info) Description 06/29/2025 1:00 PM EST Office Visit [facility] [address] [place] [address] [place] [phone] Shanna Henderson CRNP [address] [place] [address] [place] [phone] Scheduled Orders Name Type Priority Associated Diagnoses Orde r Schedule Thyroid Stimulating Hormone Progressive Lab Routine Inadequately controlled diabetes mellitus ([facility]) Expected: 04/27/2025 (Approximate), Expires: 10/26/2026 C-peptide Lab Routine Inadequately controlled diabetes mellitus ([facility]) Expected: 04/27/2025 (Approximate), Expires: 10/26/2026 Anti-islet cell antibody w/reflex to titer Lab Routine Inadequately controlled diabetes mellitus ([facility]) Expected: 04/27/2025 (Approximate), Expires: 10/26/2026 Glutamic acid decarboxylase Lab Routine Inadequately controlled diabetes mellitus ([facility]) Expected: 04/27/2025 (Approximate), Expires: 10/26/2026 documented as of this encounter Visit Diagnoses Diagnosis Inadequately controlled diabetes mellitus ([facility])- Primary Type II or unspecified type diabetes mellitus without mention of complication, not stated as uncontrolled documented in this encounter Care Teams Equine Dentist Relationship Specialty Start Date End Date Freddy pEps MD [address] [place] [phone] PCP - General Family Medicine 05/29/20 documented as of this encounter
--- OUTSIDE RECORDS SUMMARY | 2025-06-14 21:23 | XMS_ITS | Encounter Summary ---
Author Organization [facility] Address [address] [place] [address] Care Team Providers Care Horse Farm Manager Name Role Phone Unavailable Primary Care Provider Unavailabl e Encounter Details Date Type Department Care Team ([facility] st Contact Info) Description 06/16/2023 Office Visit - Data Exchange [facility] Carissa Ferreira CRNP [address] [place] [address] Social History Tobacco Use Types Packs/Day Years [...] Name : CLOVIS SHEN (43yo, M) ID# [id number] Appt. Date/Time : 06/16/2023 11:20AM : 1980 Service Dept. : Telehealth Provider : ANNA JC Insurance Med Primary: [facility] PL[facility] (MEDICAID REPLACEMENT - HMO) Insurance # : [id number] Policy/Group # : [id number] Med Mental Health: [facility] Insurance # : [id number] Med Curry: SLIDING FEE SCHEDULE - DISCOUNT Prescription: [employer] - Member is eligible. details Chief Complaint cold symptoms Patient's Care Team Primary Care Provider: JOMAR EPPS MD: [address] [facility] [place] [address], , Patient's Pharmacies [id number] ([place]): [address] [place] [address] [place] [address], , [facility] ([place]): [address] [facility], [place] [address], , [facility] ([place]): [address] [place] [address], , [facility]: [address] [address], [place] [address], , Vitals None recorded. Allergies Allergies not [...] mL Route: Intramuscular Site: Deltoid, Right NDC: [id number] Lot #: [id number] Mfr.: Moderna US, Inc. Exp. Date: 05/21/21 VIS: Moderna COVID-19 Vaccine EUA Fact Sheet 10/19/2020 VIS Given: 12/07/20 Director Consumer Affairs: Royer Matias CMA Vaccine Type: COVID-19, mRNA, LNP-S, PF, 100 mcg/0.5 mL dose (Moderna) Date: 11/02/20 Amt.: 0.5 mL Route: Intramuscular Site: Deltoid, Left NDC: Lot #: [id number] Mfr.: Moderna US, Inc. Exp. Date: 04/27/21 VIS: Moderna COVID-19 Vaccine EUA Fact Sheet 06/26/2020 VIS Given: 11/02/20 Director Consumer Affairs: Eduarda Matias MA Diphtheria, Tetanus, Pertussis Vaccine Type: Tdap Date: 03/03/23 Amt.: 0.5 mL Route: Intramuscular Site: Deltoid, Left NDC: [id number] Lot #: [id number] Mfr.: Sanofi Pasteur Exp. Date: 12/30/24 VIS: Tdap 03/01/2021 [facility] VIS Given: 03/03/23 Director Consumer Affairs: Vito Grigsby MA Haemophilus Influenzae Type B Vaccine Type: Hib (PRP-T) Date: 05/14/20 Amt.: 0.5 mL Route: Site: NDC: Lot #: [id number] Mfr.: Sanofi Pasteur Exp. Date: VIS: VIS Given: Director Consumer Affairs: Vaccine Type: Hib Date: 05/14/20 Amt.: Route: Site: NDC: Lot #: [id number] Mfr.: Sanofi Pasteur Exp. Date: VIS: VIS Given: Director Consumer Affairs: Influenza Vaccine Type: influenza, seasonal, injectable, preservative free Date: 05/17/20 Amt.: 0.5 mL Route: Site: NDC: Lot #: [id number] Mfr.: Sanofi Pasteur Exp. Date: VIS: VIS Given: Director Consumer Affairs: Vaccine Type: influenza, injectable, quadrivalent Date: 08/03/19 Amt.: 0.5 mL Route: Intramuscular Site: Deltoid, Left NDC: Lot #: [id number] Mfr.: Sanofi Pasteur Exp. Date: 01/24/20 VIS: Inactivated Influenza 03/10/2019 VIS Given: 08/03/19 Director Consumer Affairs: Faith Mead Vaccine Type: influenza, injectable, quadrivalent, preservative free Date: 09/16/15 Amt.: 0.5 mL Route: Site: [facility]: Lot #: [id number] Mfr.: Exp. Date: VIS: VIS Given: Director Consumer Affairs: Meningococcal Vaccine Type: meningococcal MCV4P Date: 05/14/20 Amt.: 0.5 mL Route: Site: [facility]: Lot #: [id number] Mfr.: Sanofi Pasteur Exp. Date: VIS: VIS Given: Director Consumer Affairs: Vaccine Type: meningococcal B, recombinant Date: 05/14/20 Amt.: 0.5 mL Route: Site: [facility]: Lot #: [id number] Mfr.: Yostro Exp. Date: VIS: VIS Given: Director Consumer Affairs: Pneumococcal Vaccine Type: pneumococcal conjugate PCV 13 Date: 05/14/20 Amt.: 0.5 mL Route: Site: [facility]: Lot #: [id number] Mfr.: Wyeth Exp. Date: VIS: VIS Given: Director Consumer Affairs: Vaccine Type: pneumococcal polysaccharide PPV23 Date: 08/03/19 Amt.: 0.5 mL Route: Injection Site: Deltoid, Right NDC: Lot #: [id number] Mfr.: Merck and Co., Inc. Exp. Date: 12/13/20 VIS: PPSV23 05/25/2019 VIS Given: 08/03/19 Director Consumer Affairs: Faith Mead Problems Reviewed Problems * Chronic [...] or [place])?: Yes (Notes: Born in [place]) TB Screening Question 2: Have you traveled [...] Dental: Where was your last dental visit?: [facility] Dental: Was the visit an [facility] dental provider?: Yes Dental: Action taken: [facility] information provided Other Education: 12 Marital status: Single General stress level: High Gender Identity and LGBTQ Identity Gender identity: Identifies as Male Assigned sex at : Male Pronouns: he/him Sexual orientation: Straight or heterosexual Surgical History Surgical History not reviewed (last reviewed 06/05/2021) * Removal of spleen total - 05/16/2020 noneSurgery to Left knee.[facility] Past Medical History Past Medical History not [...] identity confirmed by Patient location: home in [place] Provider location: home in [place] Patient is a 43 y/o male who [...] not working. He has not taken any pnqf-luz-vludzqm medications for his symptoms. He does not have an inhaler at home. He checks his blood sugars at home, and they have been higher than normal. He eats a lot of rice and fish, and he does drink a lot of soda. He uses his insulin. He was referred to an employee communications intern, but he missed his appointment. He called [...] protein. He was advised to call the employee communications intern's office to reschedule his appointment. E11.65: Type 2 diabetes mellitus with hyperglycemia * DEXCOM G7 SENSOR DEVICE - Use as directed. Qty: 1 Unit Refills: 5 Supplier: [facility] * insulin aspart (U-100) 100 unit/mL (3 mL) subcutaneous pen - Inject 22 unit(s) 3 times a day by subcutaneous route with meals. Qty: (10) 3 mL syringe Refills: 3Pharmacy: [facility] * Trulicity 4.5 mg/0.5 mL subcutaneous pen injector - Inject 1 pen weekly Qty: (4) 0.5 mL syringe Refills: 3 Pharmacy: [facility] * Lantus Solostar U-100 Insulin 100 unit/mL (3 mL) subcutaneous pen - Inject 50 unit(s) twice a day by subcutaneous route. Qty: (12) 3 mL syringe Refills: 3 Pharmacy: [facility] 2. Candidal balanitis - Uncontrolled. Refilled nystatin 100,000 units/gram of topical cream. Apply to the affected areas twice per day. He was advised to control his blood glucose. B37.42: Candidal balanitis * nystatin 100,000 unit/gram topical cream - APPLY TO THE AFFECTED AREA(S) BY TOPICAL ROUTE 2 TIMES PER DAY Qty: (1) 30 gram tube Refills: 3 Pharmacy: [facility] 3. Viral syndrome - Uncontrolled. Start [...] (VENTOLIN HFA or equivalent) Refills: 0 Pharmacy: [facility] * benzonatate 100 mg capsule - Take 1 capsule(s) 3 times a day by oral route as needed. Qty: (30) capsule Refills: 0 Pharmacy: [facility] * cetirizine 10 mg tablet - Take 1 tablet(s) every day by oral route. Qty: (1) 14 tablet blister pack Refills: 0 Pharmacy: [facility] Discussion Notes ATTESTATION: This note has been generated using Carrillo Wright. Return to Office * to see Jomar Epps MD for [facility] at [facility] on or around 08/17/2023 Encounter Sign-Off Encounter signed-off by ANNA Jc, 06/17/2023. documented in this encounter Plan of Treatment Not on file documented as of this encounter Visit Diagnoses Not on filedocumented in this encounter
--- OUTSIDE RECORDS SUMMARY | 2025-06-14 21:23 | XMS_ITS | Encounter Summary ---
Author Organization [facility] Address [address] [place] [address] Care Team Providers Care Marine Erector Name Role Phone Freddy Epps MD Primary Care Provider [phone] Encounter Details Date Type Department Care Team (Latest Contact Info) Description 08/17/[address] [facility] Jordyn Ribeiro PA-C [address] [place] [address] Type 2 diabetes mellitus with [...] PM EST Office Visit [facility] [address] [facility] [address] [place] [phone] Shanna Henderson CRNP [address] [phone] documented as of this encounter Procedures Procedure [...] Creatinine, Urine 26.8 mg/dL 08/17/2018 5:44 PM [facility] Albumin, Urine 6.2 mg/dL 08/17/2018 5:44 PM [facility] Alb/Creat Ratio 231(H) <=30 mcg/mg 08/17/2018 5:44 PM [facility] Comment: Albuminuria categories in CKD Category [...] ORDERABLES F inal Result Performing Organization Address [facility] Co de Phone Number [facility] [address] [place] [address] * (ABNORMAL) Lipid panel - (08/17/2018 1:16 PM EST) Triglycerides 360(H) 0 - 150 mg/dL 08/17/2018 5:19 PM [facility] Comment: With NCEP guidelines Borderline High 150-199 mg/dL High 200-499 mg/dL Very High >500 mg/dL Total Cholesterol 193 0 - 200 mg/dL 08/17/2018 5:19 PM [facility] Comment: NCEP Guidelines: Desirable <200 mg/dL Borderline High 200-239 mg/dL High >240 mg/dL HDL-C 43 mg/dL 08/17/2018 5:19 PM [facility] Comment: High risk <40 mg/dL Low risk >60 mg/dL calculated LDL-C 78 mg/dL 08/17/19 5:19 PM [facility] Comment: NCEP guidelines: Optimal <100 mg/dL Near/Above Optimal 100-129 mg/dL Borderline High 130-159 mg/dL High 160-189 mg/dL Very High >190 mg/dL Blood Venous blood specimen / Unknown 08/17/2018 1:16 PM EST 08/17/2018 1:16 PM EST Jordyn Ribeiro PA-C LAB BLOOD ORDERABLES F inal Result [facility] [address] [place] [phone] * (ABNORMAL) Comprehensive metabolic panel - (08/17/2018 1:16 PM EST) Glucose 570(HH) 70 - 139 mg/dL 08/17/2018 5:39 PM [facility] Comment:Confirmed Sodium 130(L) 135 - 142 mmol/L 08/17/2018 5:39 PM [facility] Potassium 4.9 3.5 - 5.3 mmol/L 08/17/2018 5:39 PM [facility] Chloride 94(L) 98 - 107 mmol/L 08/17/2018 5:39 PM [facility] CO2 28 21 - 31 mmol/L 08/17/2018 5:39 PM [facility] Anion Gap 8 3 - 11 mmol/L 08/17/2018 5:39 PM [facility] BUN 15 7 - 25 mg/dL 08/17/2018 5:39 PM [facility] Creatinine 0.90 0.70 - 1.30 mg/dL 08/17/2018 5:39 PM [facility] Calcium 9.7 8.6 - 10.3 mg/dL 08/17/2018 5:39 PM [facility] Total Protein 7.4 6.4 - 8.9 gm/dL 08/17/2018 5:39 PM [facility] Albumin 4.3 3.5 - 5.7 gm/dL 08/17/2018 5:39 PM [facility] Alkaline Phosphatase 76 34 - 104 IU/L 08/17/2018 5:39 PM [facility] AST 47(H) 13 - 39 IU/L 08/17/2018 5:39 PM [facility] ALT (SGPT) 70(H) 7 - 52 IU/L 08/17/2018 5:39 PM [facility] Total Bilirubin 0.5 0.3 - 1.0 mg/dL 08/17/2018 5:39 PM [facility] eGFR >60.0 >60.0 mL/min/1. 73m*2 08/17/2018 5:39 PM [facility] Comment: The estimated Glomerular Filtration Rate [...] Evaluation Program (KEEP). Am J Kidney Dis (2011);57(4Eikyd7):S9-16. Blood Venous blood specimen / Unknown 08/17/2018 1:16 PM EST 08/17/2018 1:16 PM EST us Jordyn Ribeiro PA-C LAB BLOOD ORDERABLES F inal Result Performing Organization Address City/State/[facility] Co de Phone Number [facility] [address] [place] [address] * (ABNORMAL) Hemoglobin A1c - (08/17/2018 1:16 PM EST) Hemoglobin A1C 13.5(H) <5.7 % 08/17/2018 6:14 PM EST [facility] Comment: Normal <5.7% Abnormal, High 5.7 [...] may yield falsely high results. Performed at [facility], [address] [place] [id number] Estimated average glucose 341 mg/dL 08/17/2018 6:14 PM EST [facility] Comment: The estimated average glucose (eAG) is derived from the equation [AG (mg/dL)= 28.7 x %HbA1c - 46.7] and provided as recommended by the [place] Diabetes [employer]. Calculated eAG values less than 97 mg/dL or greater than 298 mg/dL may be unreliable and should be interpreted with caution. Estimated average glucose is educational and should not be used for clinical management of diabetic patients. Diabetes Care, 31(8):5063-3524. Blood Venous blood specimen / Unknown 08/17/2018 1:16 PM EST 08/17/2018 1:16 PM EST Jordyn Ribeiro PA-C LAB BLOOD ORDERABLES F inal Result [facility] [address] [place] [address] documented in this encounter Visit Diagnoses Diagnosis Type 2 diabetes mellitus with hyperglycemia ([facility]) documented in this encounter Additional Health Concerns [...] documented as of this encounter Care Teams Marine Erector Relationship Specialty Start Date End Date Freddy Epps MD [address] [place] [phone] PCP - General Family Medicine 05/29/20 documented as of this encounter
--- OUTSIDE RECORDS SUMMARY | 2025-06-14 21:23 | XMS_ITS | Encounter Summary ---
Author Organization [facility] Address [address] [place] [address] Care Team Providers Care Salesperson Used Cars Name Role Phone Unavailable Primary Care Provider Unavailabl e Encounter Details Date Type Department Care Team ([facility] Contact Info) Description 11/26/2022 Office Visit - Data Exchange [facility] Jomar Epps MD [address] [place], [place] [phone] Social History Tobacco Use Types Packs/Day Years [...] Name : CLOVIS SHEN (42yo, M) ID# [id number] Appt. Date/Time : 11/26/2022 04:00PM : 1980 Service Dept. : Telehealth Provider : JOMAR EPPS MD Insurance Med Primary: [facility] PLAN (MEDICAID REPLACEMENT - HMO) Insurance # : [id number] Policy/Group # : [id number] Med Mental Health: [facility] Insurance # : [id number] Med Curry: SLIDING FEE SCHEDULE - DISCOUNT Prescription: check now Chief Complaint telehealth f/u dm Patient's Care Team Primary Care Provider: JOMAR EPPS MD: [address] [facility] [place] [address], , Patient's Pharmacies [facility] ([place]): [address] [facility], [place] [address], , [facility] ([place]): [address] [place] [address], , [facility] (ERX): [address] [place] [address], , [facility] ([place]): [address] [place] [address], , Vitals None recorded. Allergies Allergies not reviewed (last reviewed 11/11/2022) PENICILLINS: Rash (Mild) Some allergies listed in Documents: #[id number], #[id number], #[id number], #[id number] could not be added to this patient's [...] 0.5 mL Route: Intramuscular Site: Deltoid, Right [facility]: [id number] Lot #: [id number] Mfr.: Moderna Non[employer], Inc. Exp. Date: 05/21/21 VIS: Moderna COVID-19 Vaccine EUA Fact Sheet 10/19/2020 VIS Given: 12/07/20 Hub Lead: Royer Matias CMA Vaccine Type: COVID-19, mRNA, LNP-S, PF, 100 mcg/0.5 mL dose (Moderna) Date: 11/02/20 Amt.: 0.5 mL Route: Intramuscular Site: Deltoid, Left NDC: Lot #: [id number] Mfr.: Moderna [employer], Inc. Exp. Date: 04/27/21 VIS: Moderna COVID-19 Vaccine EUA Fact Sheet 06/26/2020 VIS Given: 11/02/20 Hub Lead: Eduarda Matias MA Vaccine Type: Hib (PRP-T) Date: 05/14/20 Amt.: 0.5 mL Route: Site: [facility]: Lot #: [id number] Mfr.: Sanofi Pasteur Exp. Date: VIS: VIS Given: Hub Lead: Vaccine Type: Hib Date: 05/14/20 Amt.: Route: Site: NDC: Lot #: [id number] Mfr.: Sanofi Pasteur Exp. Date: VIS: VIS Given: Hub Lead: Vaccine Type: influenza, seasonal, injectable, preservative free Date: 05/17/20 Amt.: 0.5 mL Route: Site: [facility]: Lot #: [id number] Mfr.: Sanofi Pasteur Exp. Date: VIS: VIS Given: Hub Lead: Vaccine Type: influenza, injectable, quadrivalent Date: 08/03/19 Amt.: 0.5 mL Route: Intramuscular Site: Deltoid, Left NDC: Lot #: [id number] Mfr.: Sanofi Pasteur Exp. Date: 01/24/20 VIS: Inactivated Influenza 03/10/2019 VIS Given: 08/03/19 Hub Lead: Faith Mead Vaccine Type: influenza, injectable, quadrivalent, preservative free Date: 09/16/15 Amt.: 0.5 mL Route: Site: [facility]: Lot #: [id number] Mfr.: Exp. Date: VIS: VIS Given: Hub Lead: Vaccine Type: meningococcal MCV4P Date: 05/14/20 Amt.: 0.5 mL Route: Site: [facility]: Lot #: [id number] Mfr.: Sanofi Pasteur Exp. Date: VIS: VIS Given: Hub Lead: Vaccine Type: meningococcal B, recombinant Date: 05/14/20 Amt.: 0.5 mL Route: Site: [facility]: Lot #: [id number] Mfr.: GlaxoSmithKline Exp. Date: VIS: VIS Given: Hub Lead: Vaccine Type: pneumococcal conjugate PCV 13 Date: 05/14/20 Amt.: 0.5 mL Route: Site: NDC: Lot #: [id number] Mfr.: Wyeth Exp. Date: VIS: VIS Given: Hub Lead: Vaccine Type: pneumococcal polysaccharide PPV23 Date: 08/03/19 Amt.: 0.5 mL Route: Injection Site: Deltoid, Right NDC: Lot #: [id number] Mfr.: Merck and Co., Inc. Exp. Date: 12/13/20 VIS: PPSV23 05/25/2019 VIS Given: 08/03/19 Hub Lead: Faith Mead Problems Reviewed Problems * Candidal [...] or [place])?: Yes (Notes: Born in [place]) TB Screening Question 2: Have you traveled [...] total - 05/16/2020 noneSurgery to Left knee.[facility] Past Medical History Past Medical History not [...] [place] Persons Accompanying Patient: Start time: 403pm Pt [...] * CLAUDIO SANTOS LPC for ExistingPatient-BEHAVIORHEALTH at [facility] on 12/10/2022 at01:00 PM * to see Jomar Epps MD at [facility] on or around 12/27/2022 Encounter Sign-Off Encounter signed-off by Jomar Epps MD, 11/26/2022. documented in this encounter Plan of Treatment Not on file documented as of this encounter Visit Diagnoses Not on filedocumented in this encounter
--- OUTSIDE RECORDS SUMMARY | 2025-06-14 21:23 | XMS_ITS | Encounter Summary ---
Author Organization [facility] alth Address [address] [place] [address] Care Team Providers Care Manager Long Term Care Name Role Phone Unavailable Primary Care Provider Unavailabl e Encounter Details Date Type Department Care Team ([facility] Contact Info) Description 06/17/2022 Office Visit - Data Exchange [facility] Jomar Epps MD [address], [place] [id number] (Rmme) Social History Tobacco Use Types Packs/Day Years [...] Name : CLOVIS SHEN (42yo, M) ID# [id number] Appt. Date/Time : 06/17/2022 11:20AM : 1980 Service Dept. : [facility] Provider : JOMAR EPPS MD Insurance Med Primary: [facility]ALTH PLAN (MEDICAID REPLACEMENT - HMO) Insurance # : [id number] Policy/Group # : [id number] Med Mental Health: [facility] Insurance # : [id number] Med Curry: SLIDING FEE SCHEDULE - DISCOUNT [...] Care Provider: JOMAR EPPS MD: [address] [facility] [address], , Patient's Pharmacies [facility] ([place]): [address] [facility] [address], [place] [address], , [id number] ([place]): [address], [place] [address], , [facility] ([place]): [address] [place] [address], , [facility] ([place]): [address] [place] [address], , Vitals Ht: 5 ft 8 in [...] Rash (Mild) Some allergies listed in Documents: #[id number], #[id number], #[id number], #[id number] could not be added to this patient's [...] mL Route: Intramuscular Site: Deltoid, Right NDC: [id number] Lot #: [id number] Mfr.: Moderna US, Inc. Exp. Date: 05/21/21 VIS: Moderna COVID-19 Vaccine EUA Fact Sheet 10/19/2020 VIS Given: 12/07/20 Hoop Coiling Machine Operator: Royer Matias CMA Vaccine Type: COVID-19, mRNA, LNP-S, PF, 100 mcg/0.5 mL dose (Moderna) Date: 11/02/20 Amt.: 0.5 mL Route: Intramuscular Site: Deltoid, Left NDC: Lot #: [id number] Mfr.: Moderna US, Inc. Exp. Date: 04/27/21 VIS: Moderna COVID-19 Vaccine EUA Fact Sheet 06/26/2020 VIS Given: 11/02/20 Hoop Coiling Machine Operator: Eduarda Matias MA Vaccine Type: Hib (PRP-T) Date: 05/14/20 Amt.: 0.5 mL Route: Site: NDC: Lot #: [id number] Mfr.: Sanofi Pasteur Exp. Date: VIS: VIS Given: Hoop Coiling Machine Operator: Vaccine Type: Hib Date: 05/14/20 Amt.: Route: Site: NDC: Lot #: [id number] Mfr.: Sanofi Pasteur Exp. Date: VIS: VIS Given: Hoop Coiling Machine Operator: Vaccine Type: influenza, injectable, quadrivalent Date: 05/17/20 Amt.: Route: Site: [facility]: Lot #: Mfr.: Exp. Date: VIS: VIS Given: Hoop Coiling Machine Operator: [facility] Vaccine Type: influenza, seasonal, injectable, preservative free Date: 05/17/20 Amt.: 0.5 mL Route: Site: [facility]: Lot #: [id number] Mfr.: Sanofi Pasteur Exp. Date: VIS: VIS Given: Hoop Coiling Machine Operator: Vaccine Type: influenza, injectable, quadrivalent Date: 08/03/19 Amt.: 0.5 mL Route: Intramuscular Site: Deltoid, Left NDC: Lot #: [id number] Mfr.: Sanofi Pasteur Exp. Date: 01/24/20 VIS: Inactivated Influenza 03/10/2019 VIS Given: 08/03/19 Hoop Coiling Machine Operator: Faith Mead Vaccine Type: influenza, injectable, quadrivalent, preservative free Date: 09/16/15 Amt.: 0.5 mL Route: Site: [facility]: Lot #: [id number] Mfr.: Exp. Date: VIS: VIS Given: Hoop Coiling Machine Operator: Vaccine Type: meningococcal B, unspecified Date: 05/14/20 Amt.: Route: Site: [facility]: Lot #: Mfr.: Exp. Date: VIS: VIS Given: Hoop Coiling Machine Operator: [facility] Vaccine Type: meningococcal MCV4P Date: 05/14/20 Amt.: 0.5 mL Route: Site: [facility]: Lot #: [id number] Mfr.: Sanofi Pasteur Exp. Date: VIS: VIS Given: Hoop Coiling Machine Operator: Vaccine Type: meningococcal B, recombinant Date: 05/14/20 Amt.: 0.5 mL Route: Site: [facility]: Lot #: [id number] Mfr.: DefenCall Exp. Date: VIS: VIS Given: Hoop Coiling Machine Operator: Vaccine Type: pneumococcal conjugate PCV 13 Date: 05/14/20 Amt.: 0.5 mL Route: Site: [facility]: Lot #: [id number] Mfr.: Wyeth Exp. Date: VIS: VIS Given: Hoop Coiling Machine Operator: Vaccine Type: pneumococcal polysaccharide PPV23 Date: 08/03/19 Amt.: 0.5 mL Route: Injection Site: Deltoid, Right NDC: Lot #: [id number] Mfr.: Merck and Co., Inc. Exp. Date: 12/13/20 VIS: PPSV23 05/25/2019 VIS Given: 08/03/19 Hoop Coiling Machine Operator: Faith Mead Problems Reviewed Problems * Smoker [...] Dental: Where was your last dental visit?: [facility] Dental: Was the visit an [facility] dental provider?: Yes Dental: Action taken: None Needed Other Education: 12 Marital status: Single General stress level: High Gender Identity and LGBTQ Identity Gender identity: Identifies as Male Assigned sex at : Male Sexual orientation: Straight or heterosexual Surgical History Surgical History not reviewed (last reviewed 06/05/2021) * Removal of spleen total - 05/16/2020 noneSurgery to Left knee.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 Qty: (60) tablet Refills: 3 Pharmacy: [facility] * lidocaine 5 % topical patch - Apply 1 patch(es) every day by topical route as needed. Qty: (1) 30 adhesive patch, medicated box Refills: 5 Pharmacy: [facility] * tizanidine 2 mg tablet - Take 1 tablet(s) twice a day by oral route as needed for 30 days. Qty: (60) tablet Refills: 3 Pharmacy: [facility] * CBC 2. Type II diabetes mellitus [...] (1) 45 gram tube Refills: 0 Pharmacy: [facility] 6. Urinary incontinence - could be in part from high sugars, but will trial tamsulosin R32: Unspecified urinary incontinence * tamsulosin 0.4 mg capsule - Take 1 capsule(s) every day by oral route for 30 days. Qty: (30) capsule Refills: 3 Pharmacy: [facility] GLUCOSE, FINGERSTICK, BLOOD * Result: - Blood Glucose: mg/dl: 325 HEMOGLOBIN A1C, FINGERSTICK * Result: - HEMOGLOBIN A1C: 10.9 Return to Office * to see Jomar Epps MD for [facility] at [facility] on or around 08/17/2022 Encounter Sign-Off Encounter signed-off by Jomar Epps MD, 06/17/2022. documented in this encounter Plan of Treatment Not on file documented as of this encounter Visit Diagnoses Not on filedocumented in this encounter
--- OUTSIDE RECORDS SUMMARY | 2025-06-14 21:23 | XMS_ITS | Encounter Summary ---
Author Organization [facility] alth Address [address] [place] [address] Care Team Providers Care Resident Engineer Name Role Phone Unavailable Primary Care Provider Unavailabl e Encounter Details Date Type Department Care Team ([facility] Contact Info) Description 01/14/2023 Office Visit - Data Exchange [facility] Jomar Epps MD [address] [place], [place] [id number] Social History Tobacco Use Types Packs/Day Years [...] Name : CLOVIS SHEN (43yo, M) ID# [id number] Appt. Date/Time : 01/14/2023 04:00PM : 1980 Service Dept. : Telehealth Provider : JOMAR EPPS MD Insurance Med Primary: [facility] HE[facility] PLAN (MEDICAID REPLACEMENT - HMO) Insurance # : [id number] Policy/Group # : [id number] Med Mental Health: [facility] Insurance # : [id number] Med Curry: SLIDING FEE SCHEDULE - DISCOUNT Prescription: check now Chief Complaint telehealth f/u dm Patient's Care Team Primary Care Provider: JOMAR EPPS MD: [address] [facility] [place] [address], , Patient's Pharmacies [facility] ([place]): [address], [place] [address], , [id number] ([place]): [address] [place] [address], , [facility] ([place]): [address] [place] [address], , [facility] ([place]): [address] [place] [address], , Vitals None recorded. Allergies Allergies not reviewed (last reviewed 11/11/2022) PENICILLINS: Rash (Mild) Some allergies listed in Documents: #[id number], #[id number], #[id number], #[id number] could not be added to this patient's [...] mL Route: Intramuscular Site: Deltoid, Right NDC: [id number] Lot #: [id number] Mfr.: Moderna InMobi, Inc. Exp. Date: 05/21/21 VIS: Moderna COVID-19 Vaccine EUA Fact Sheet 10/19/2020 VIS Given: 12/07/20 Restaurant Recruiter: Royer Matias CMA Vaccine Type: COVID-19, mRNA, LNP-S, PF, 100 mcg/0.5 mL dose (Moderna) Date: 11/02/20 Amt.: 0.5 mL Route: Intramuscular Site: Deltoid, Left NDC: Lot #: [id number] Mfr.: Moderna InMobi, Inc. Exp. Date: 04/27/21 VIS: Moderna COVID-19 Vaccine EUA Fact Sheet 06/26/2020 VIS Given: 11/02/20 Restaurant Recruiter: Eduarda Matias MA Haemophilus Influenzae Type B Vaccine Type: Hib (PRP-T) Date: 05/14/20 Amt.: 0.5 mL Route: Site: [facility]: Lot #: [id number] Mfr.: Sanofi Pasteur Exp. Date: VIS: VIS Given: Restaurant Recruiter: Vaccine Type: Hib Date: 05/14/20 Amt.: Route: Site: NDC: Lot #: [id number] Mfr.: Sanofi Pasteur Exp. Date: VIS: VIS Given: Restaurant Recruiter: Influenza Vaccine Type: influenza, seasonal, injectable, preservative free Date: 05/17/20 Amt.: 0.5 mL Route: Site: NDC: Lot #: [id number] Mfr.: Sanofi Pasteur Exp. Date: VIS: VIS Given: Restaurant Recruiter: Vaccine Type: influenza, injectable, quadrivalent Date: 08/03/19 Amt.: 0.5 mL Route: Intramuscular Site: Deltoid, Left NDC: Lot #: [id number] Mfr.: Sanofi Pasteur Exp. Date: 01/24/20 VIS: Inactivated Influenza 03/10/2019 VIS Given: 08/03/19 Restaurant Recruiter: Faith Mead Vaccine Type: influenza, injectable, quadrivalent, preservative free Date: 09/16/15 Amt.: 0.5 mL Route: Site: [facility]: Lot #: [id number] Mfr.: Exp. Date: VIS: VIS Given: Restaurant Recruiter: Meningococcal Vaccine Type: meningococcal MCV4P Date: 05/14/20 Amt.: 0.5 mL Route: Site: [facility]: Lot #: [id number] Mfr.: Sanofi Pasteur Exp. Date: VIS: VIS Given: Restaurant Recruiter: Vaccine Type: meningococcal B, recombinant Date: 05/14/20 Amt.: 0.5 mL Route: Site: [facility]: Lot #: [id number] Mfr.: ZenoLinkine Exp. Date: VIS: VIS Given: Restaurant Recruiter: Pneumococcal Vaccine Type: pneumococcal conjugate PCV 13 Date: 05/14/20 Amt.: 0.5 mL Route: Site: NDC: Lot #: [id number] Mfr.: Wyeth Exp. Date: VIS: VIS Given: Restaurant Recruiter: Vaccine Type: pneumococcal polysaccharide PPV23 Date: 08/03/19 Amt.: 0.5 mL Route: Injection Site: Deltoid, Right NDC: Lot #: [id number] Mfr.: Merck and Co., Inc. Exp. Date: 12/13/20 VIS: PPSV23 05/25/2019 VIS Given: 08/03/19 Restaurant Recruiter: Faith Mead Problems Reviewed Problems * Candidal [...] Dental: Where was your last dental visit?: [facility] Dental: Was the visit an [facility] dental provider?: Yes Dental: Action taken: [facility] information provided Other Education: 12 Marital status: Single General stress level: High Gender Identity and LGBTQ Identity Gender identity: Identifies as Male Assigned sex at : Male Pronouns: he/him Sexual orientation: Straight or heterosexual Surgical History Surgical History not reviewed (last reviewed 06/05/2021) * Removal of spleen total - 05/16/2020 noneSurgery to Left knee.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 Qty: 6 Units Refills: 5 Supplier: [employer] Discussion Notes End time: 412pm Return to Office * to see Jomar Epps MD at [facility] on or around 02/25/2023 Encounter Sign-Off Encounter signed-off by Jomar Epps MD, 01/14/2023. documented in this encounter Plan of Treatment Not on file documented as of this encounter Visit Diagnoses Not on filedocumented in this encounter
--- OUTSIDE RECORDS SUMMARY | 2025-06-14 21:23 | XMS_ITS | Clinical Summary ---
Author Organization [facility] (his torical as of Apr 22, 2025) Address [address] [place] [address] Care Team Providers Care Center Machine Set Up Operator Name Role Phone Freddy Epps MD Primary Care Provider [phone] Allergies Active Allergy Reactions Criticality Noted Date [...] Active HYDROcodone 5 mg-acetaminophe n 325 mg ([place] 5/325) tablet Take 1 tablet by mouth [...] Phone Billing Address Personal/Family Self 1980 [address] [address] [facility] Member Subscriber Plan / Payer (Ef fective 2024-Present) Name:Chemo Keane Relation to Subscriber:Self Name:Chemo Keane Payer ID:Not on file Type:Not on file Address: [address] [place] [address] * Guarantor: Chemo Keane Account Type Relation to Patient Date of Phone Billing Address Personal/Family Self 1980 [address] [facility] [address] Care Teams Center Machine Set Up Operator Relationship Specialty Start Date End Date Freddy Epps MD [address] [facility] [place] [address] [facility] - General 04/13/24
--- OUTSIDE RECORDS SUMMARY | 2025-06-14 21:23 | XMS_ITS | Encounter Summary ---
Author Organization [facility] alth Address [address] [place] [address] Care Team Providers Care Outpatient Scheduler Name Role Phone Unavailable Primary Care Provider Unavailabl e Encounter Details Date Type Department Care Team ([facility] st Contact Info) Description 02/25/2023 Office Visit - Data Exchange [facility] Jomar Epps MD [address] [place] [address] Social History Tobacco Use Types [...] Name : CLOVIS SHEN (43yo, M) ID# [id number] Appt. Date/Time : 02/25/2023 05:30PM : 1980 Service Dept. : Telehealth Provider : JOMAR EPPS MD Insurance Med Primary: [facility] HEALTH PLAN (MEDICAID REPLACEMENT - HMO) Insurance # : [id number] Policy/Group # : [id number] Med Mental Health: [facility] Insurance # : [id number] Med Curry: SLIDING FEE SCHEDULE - DISCOUNT Prescription: [facility] - Member is eligible. details Chief Complaint telehealth Followup: Type II diabetes mellitus uncontrolled Patient's Care Team Primary Care Provider: JOMAR EPPS MD: [address] [place] [address], , Patient's Pharmacies [facility]: [address] [facility] [facility] [facility] [facility], [place] [address], , [id number] ([place]): [address], [place] [address], , [facility] ([place]): [address] [place] [address], , [facility] ([place]): [address] [place] [address], , Vitals 2023-02-25 17:30 Ht: 5 ft 8 in (172.72 cm) Allergies Allergies not reviewed (last reviewed 02/06/2023) PENICILLINS: Rash (Mild) Some allergies listed in Documents: #[id number], #[id number], #[id number], #[id number] could not be added to this patient's [...] mL Route: Intramuscular Site: Deltoid, Right NDC: [id number] Lot #: [id number] Mfr.: Moderna US, Inc. Exp. Date: 05/21/21 VIS: Moderna COVID-19 Vaccine EUA Fact Sheet 10/19/2020 VIS Given: 12/07/20 Fondant Machine Operator: Royer Matias CMA Vaccine Type: COVID-19, mRNA, LNP-S, PF, 100 mcg/0.5 mL dose (Moderna) Date: 11/02/20 Amt.: 0.5 mL Route: Intramuscular Site: Deltoid, Left NDC: Lot #: [id number] Mfr.: Moderna US, Inc. Exp. Date: 04/27/21 VIS: Moderna COVID-19 Vaccine EUA Fact Sheet 06/26/2020 VIS Given: 11/02/20 Fondant Machine Operator: Eduarda Matias MA Haemophilus Influenzae Type B Vaccine Type: Hib (PRP-T) Date: 05/14/20 Amt.: 0.5 mL Route: Site: NDC: Lot #: [id number] Mfr.: Sanofi Pasteur Exp. Date: VIS: VIS Given: Fondant Machine Operator: Vaccine Type: Hib Date: 05/14/20 Amt.: Route: Site: NDC: Lot #: [id number] Mfr.: Sanofi Pasteur Exp. Date: VIS: VIS Given: Fondant Machine Operator: Influenza Vaccine Type: influenza, seasonal, injectable, preservative free Date: 05/17/20 Amt.: 0.5 mL Route: Site: NDC: Lot #: [id number] Mfr.: Sanofi Pasteur Exp. Date: VIS: VIS Given: Fondant Machine Operator: Vaccine Type: influenza, injectable, quadrivalent Date: 08/03/19 Amt.: 0.5 mL Route: Intramuscular Site: Deltoid, Left NDC: Lot #: [id number] Mfr.: Sanofi Pasteur Exp. Date: 01/24/20 VIS: Inactivated Influenza 03/10/2019 VIS Given: 08/03/19 Fondant Machine Operator: Faith Mead Vaccine Type: influenza, injectable, quadrivalent, preservative free Date: 09/16/15 Amt.: 0.5 mL Route: Site: [facility]: Lot #: [id number] Mfr.: Exp. Date: VIS: VIS Given: Fondant Machine Operator: Meningococcal Vaccine Type: meningococcal MCV4P Date: 05/14/20 Amt.: 0.5 mL Route: Site: NDC: Lot #: [id number] Mfr.: Sanofi Pasteur Exp. Date: VIS: VIS Given: Fondant Machine Operator: Vaccine Type: meningococcal B, recombinant Date: 05/14/20 Amt.: 0.5 mL Route: Site: NDC: Lot #: [id number] Mfr.: 3DSoC Exp. Date: VIS: VIS Given: Fondant Machine Operator: Pneumococcal Vaccine Type: pneumococcal conjugate PCV 13 Date: 05/14/20 Amt.: 0.5 mL Route: Site: [facility]: Lot #: [id number] Mfr.: Wyeth Exp. Date: VIS: VIS Given: Fondant Machine Operator: Vaccine Type: pneumococcal polysaccharide PPV23 Date: 08/03/19 Amt.: 0.5 mL Route: Injection Site: Deltoid, Right NDC: Lot #: [id number] Mfr.: Merck and Co., Inc. Exp. Date: 12/13/20 VIS: PPSV23 05/25/2019 VIS Given: 08/03/19 Fondant Machine Operator: Faith Mead Problems Reviewed Problems [...] or [place])?: Yes (Notes: Born in [place]) TB Screening Question 2: Have you traveled [...] Dental: Where was your last dental visit?: [facility] Dental: Was the visit an [facility] dental provider?: Yes Dental: Action taken: [facility] information provided Other Education: 12 Marital status: Single General stress level: High Gender Identity and LGBTQ Identity Gender identity: Identifies as Male Assigned sex at : Male Pronouns: he/him Sexual orientation: Straight or heterosexual Surgical History Surgical History not reviewed (last reviewed 06/05/2021) * Removal of spleen total - 05/16/2020 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 * PRESCRIPTION/DRUG REPORTING* - 02/13/23 Notes - PastRx Report: No Data found in state [place] for this Patient. * PRESCRIPTION/DRUG REPORTING* - 02/06/23 Notes - PastRx Report: No Data found in state [place] for this Patient. Screening None recorded. HPI [...] identity confirmed by Patient location: home in [place] Provider location: home in [place] Persons Accompanying Patient: Start time: 547pm DM: [...] directed. Qty: 10 Units Refills: 5 Supplier: [facility] [place] 2. Diabetic peripheral neuropathy E11.40: Type 2 diabetes mellitus with diabetic neuropathy, unspecified * gabapentin 300 mg capsule - Take 1 capsule(s) 3 times a day by oral route for 30 days. Qty: (90) capsule Refills: 0 Pharmacy: [facility] Discussion Notes End time: 557pm Return to Office * to see Jomar Epps MD at [facility] on or around 04/08/2023 Encounter Sign-Off Encounter signed-off by Jomar Epps MD, 02/25/2023. documented in this encounter Plan of Treatment Not on file documented as of this encounter Visit Diagnoses Not on filedocumented in this encounter
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
--- OUTSIDE RECORDS SUMMARY | 2025-06-14 21:23 | XMS_ITS | Encounter Summary ---
Author Organization [facility] alth Address [address] [place] [address] Care Team Providers Care Medical Transcription Name Role Phone Unavailable Primary Care Provider Unavailabl e Encounter Details Date Type Department Care Team ([facility] st Contact Info) Description 07/30/2021 Office Visit - Data Exchange [facility] Jomar Epps MD [address] [place] [address] Social History Tobacco Use Types [...] Name : CLOVIS SHEN (41yo, M) ID# [id number] Appt. Date/Time : 08/06/2021 08:30AM : 1980 Service Dept. : Telehealth Provider : JOMAR EPPS MD Insurance Med Primary: [facility] HEALTH PLAN (MEDICAID REPLACEMENT - HMO) Insurance # : [id number] Policy/Group # : [id number] Med Mental Health: [facility] Insurance # : [id number] Med Curry: SLIDING FEE SCHEDULE - DISCOUNT Prescription: [employer] - Member is eligible. details Chief Complaint telehealth, SBIRT - Adult Followup: Type II diabetes mellitus uncontrolled f/u DM, smoking, back pain. Needs Diabetic labs ordered and A1C/hepatitis Patient's Care Team Primary Care Provider: JOMAR EPPS MD: [facility] [place] [address], , Patient's Pharmacies [facility] (ERX): [address] [place] [address], , [id number] (ERX): [address] [place] [address], , [facility] (ERX): [address] [place] [address], , [facility] (ERX): [address] [address], [place] [address], , Vitals None recorded. Allergies Allergies not reviewed (last reviewed 06/05/2021) PENICILLINS: Rash (Mild) Some allergies listed in Documents: #[id number], #[id number], #[id number] could not be added to this patient's [...] mL Route: Intramuscular Site: Deltoid, Right NDC: [id number] Lot #: [id number] Mfr.: Moderna Wallit[employer] Inc. Exp. Date: 05/21/21 VIS: Moderna COVID-19 Vaccine EUA Fact Sheet 10/19/2020 VIS Given: 12/07/20 Clean Up Supervisor: Royer Matias CMA Vaccine Type: COVID-19, mRNA, LNP-S, PF, 100 mcg/0.5 mL dose (Moderna) Date: 11/02/20 Amt.: 0.5 mL Route: Intramuscular Site: Deltoid, Left NDC: Lot #: [id number] Mfr.: Moderna Wallit, Inc. Exp. Date: 04/27/21 VIS: Moderna COVID-19 Vaccine EUA Fact Sheet 06/26/2020 VIS Given: 11/02/20 Clean Up Supervisor: Eduarda Matias MA Vaccine Type: Hib (PRP-T) Date: 05/14/20 Amt.: 0.5 mL Route: Site: NDC: Lot #: [id number] Mfr.: Sanofi Pasteur Exp. Date: VIS: VIS Given: Clean Up Supervisor: Vaccine Type: Hib Date: 05/14/20 Amt.: Route: Site: [place]: Lot #: [id number] Mfr.: Sanofi Pasteur Exp. Date: VIS: VIS Given: Clean Up Supervisor: Vaccine Type: influenza, injectable, quadrivalent Date: 05/17/20 Amt.: Route: Site: NDC: Lot #: Mfr.: Exp. Date: VIS: VIS Given: Clean Up Supervisor: [facility] Vaccine Type: influenza, seasonal, injectable, preservative free Date: 05/17/20 Amt.: 0.5 mL Route: Site: [facility]: Lot #: [id number] Mfr.: Sanofi Pasteur Exp. Date: VIS: VIS Given: Clean Up Supervisor: Vaccine Type: influenza, injectable, quadrivalent Date: 08/03/19 Amt.: 0.5 mL Route: Intramuscular Site: Deltoid, Left NDC: Lot #: [id number] Mfr.: Sanofi Pasteur Exp. Date: 01/24/20 VIS: Inactivated Influenza 03/10/2019 VIS Given: 08/03/19 Clean Up Supervisor: Faith Abbierosalia Vaccine Type: influenza, injectable, quadrivalent, preservative free Date: 09/16/15 Amt.: 0.5 mL Route: Site: [facility]: Lot #: [id number] Mfr.: Exp. Date: VIS: VIS Given: Clean Up Supervisor: Vaccine Type: meningococcal B, unspecified Date: 05/14/20 Amt.: Route: Site: [facility]: Lot #: Mfr.: Exp. Date: VIS: VIS Given: Clean Up Supervisor: [facility] Vaccine Type: meningococcal MCV4P Date: 05/14/20 Amt.: 0.5 mL Route: Site: [facility]: Lot #: [id number] Mfr.: Thermedicalofi Pasteur Exp. Date: VIS: VIS Given: Clean Up Supervisor: Vaccine Type: meningococcal B, recombinant Date: 05/14/20 Amt.: 0.5 mL Route: Site: [facility]: Lot #: [id number] Mfr.: [employer] Exp. Date: VIS: VIS Given: Clean Up Supervisor: Vaccine Type: pneumococcal conjugate PCV 13 Date: 05/14/20 Amt.: 0.5 mL Route: Site: [facility]: Lot #: [id number] Mfr.: DediServe Exp. Date: VIS: VIS Given: Clean Up Supervisor: Vaccine Type: pneumococcal polysaccharide PPV23 Date: 08/03/19 Amt.: 0.5 mL Route: Injection Site: Deltoid, Right NDC: Lot #: [id number] Mfr.: Merck and Co., Inc. Exp. Date: 12/13/20 VIS: PPSV23 05/25/2019 VIS Given: 08/03/19 Clean Up Supervisor: Faith Mead Problems Reviewed Problems * Candidal [...] Dental: Where was your last dental visit?: [facility] Dental: Was the visit an [facility] dental provider?: Yes Dental: Action taken: None Needed Other Education: 12 Marital status: Single General stress level: High Gender Identity and LGBTQ Identity Gender identity: Identifies as Male Assigned sex at : Male Sexual orientation: Straight or heterosexual Surgical History Surgical History not reviewed (last reviewed 06/05/2021) * Removal of spleen total - 05/16/2020 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 Metformin he is taking [id number] ER BID. Will send the trulicity now. [...] 5 3 mL syringe(s) Refills: 3 Pharmacy: [facility] * Lantus Solostar U-100 Insulin 100 unit/mL (3 mL) subcutaneous pen - INJECT 60 UNITS SUBCUTANEOUSLY ONCE DAILY Qty: 6 3 mL syringe(s) Refills: 3 Pharmacy: [facility] * Trulicity 3 mg/0.5 mL subcutaneous pen injector - Inject once weekly Qty: 12 0.5 mL syringe(s) Refills: 2 Pharmacy: [facility] 2. Depression screening - pt has [...] 2 15 gm tube(s) Refills: 0 Pharmacy: [facility] * clotrimazole 1 % topical cream - APPLY TO THE AFFECTED AND SURROUNDING AREAS OF SKIN BY TOPICAL ROUTE 2 TIMES PER DAY IN THE MORNINGAND EVENING Qty: 1 30 gm tube(s) Refills: 0 Pharmacy: [facility] 5. Insomnia - refill G47.00: Insomnia, unspecified * quetiapine 25 mg tablet - Take 1 tablet(s) every day by oral route at bedtime Qty: 90 tablet(s) Refills: 3 Pharmacy: [facility] 6. COVID-19 - currently ahs covid, [...] 1 100 gm tube(s) Refills: 1 Pharmacy: [facility] Discussion Notes End time:19 min (08:31am - 08:50am) Return to Office Patient will return to the office as needed. Encounter Sign-Off Encounter signed-off by Jomar Epps MD, 08/06/2021. documented in this encounter Plan of Treatment Not on file documented as of this encounter Visit Diagnoses Not on filedocumented in this encounter
--- OUTSIDE RECORDS SUMMARY | 2025-06-14 21:23 | XMS_ITS | Clinical Summary ---
Author Organization [facility] Address [address] [place] [address] Care Team Providers Care Log Check Scaler Name Role Phone Freddy Epps MD Primary Care Provider [phone] Source Comments 42 CFR part 2 prohibits unauthorized use or disclosure of these records.[facility] Allergies Active Allergy Reactions Criticality Noted Date Comments Penicillin Rash Low 04/13/2024 Penicillins Rash Low 07/17/2020 Medications gabapentin (Neurontin) 300 mg capsule Take 300 mg by mouth three times a day. 0 Active citalopram (CeleXA) 40 mg tablet Take 40 mg by mouth every morning. 0 Active empagliflozin (Jardiance) 25 mg Take 25 mg by mouth every morning. 0 Active lisinopril (Zestril) 5 mg tablet Take 5 mg by mouth every morning. 0 Active famotidine (Pepcid) 40 mg tablet Take 40 mg by mouth every morning. 0 Active atorvastatin (Lipitor) 40 mg tablet Take 40 mg by mouth every morning. 0 Active metFORMIN (Glucophage) 500 mg tablet Take 500 mg by mouth twice a day with breakfast and dinner. 0 Active benzonatate (Tessalon) 100 mg capsule Take 100 mg by mouth three times a day. 0 Active HYDROcodone-leanna taminophen (Marshall) 5-325 mg tablet Take 1 tablet by mouth every 6 hours as needed for severe pain. Max Daily Amount: 4 tablets 10 tablet 0 4 Active QUEtiapine (SEROquel) 100 mg tablet Take 100 mg by mouth twice a day. 0 Active dulaglutide (Trulicity) 1.5 mg/0.5 mL pen injector injection Inject 1.5 mg under the skin every . 0 Active insulin aspart (NovoLOG) 100 Units/mL injection Inject 10 Units under the skin three times a day with meals. Plus correction scale 0 Active lidocaine (Lidoderm) 5 % patch Apply 1 patch topically daily as needed. 0 Active insulin glargine (Lantus) 100 Units/mL injection Inject 45 Units under the skin twice a day. 0 Active naproxen (Naprosyn) 500 mg tablet Take 1 tablet by mouth twice a day. 0 Active clotrimazole-be tamethasone (Lotrisone) cream Apply 2 application topically twice a day. 0 Active albuterol (Proventil, Ventolin) 90 mcg/puff inhaler Inhale 2 puffs every 4 hours as needed. 0 Active Family History Medical History Relation Name Comments Cancer Father stomach Diabetes Mother Relation Name Status Comments Father Mother Alive Social History Tobacco Use Types Packs/Day Years Used Date Smoking Tobacco: Every Day Smokeless Tobacco: Never Comments:Quit smoking: last smoke this AM Alcohol Use Standard Drinks/Week Comments Defer 0 (1 standard drink = 0.6 oz pur e alcohol) AUDIT-C Answer Date Recorded Q1: How often do you have a drink containing alc ohol? Never 07/17/2020 Average Number of Drinks Not on file 020 Frequency of Binge Drinking Not on file 06/27 Sex and Gender Information Value Date Recorded Sex Assigned at Male 01/11/2025 10:17 AM EDT Legal Sex Male 12:53 AM EDT Gender Identity Male 01/11/2025 10:17 AM EDT Sexual Orientation Not on file Last [...] Health Maintenance Due Date Last Done Comments CT Colonography 1978 Colonoscopy 1978 Colorectal Cancer Screening 1978 FIT-DNA 1978 FIT 1978 FOBT 1978 HIV Screening 1980 Lipid Panel 1978 Sigmoidoscopy 1978 HIB Vaccines (1 of 1 - Risk 1-dose series) 04/07/1979 Meningococcal Vaccine (1 - R isk 2-dose series) 01/06/1980 Meningococcal B Vaccine (1 o f 4 - Increased Risk) 01/06/1988 Depression Screening 1989 Annual Exam 01/06/1996 Hepatitis C Screening 01/06/1996 DTaP/Tdap/Td Vaccines (1 - Tdap) 1997 Hepatitis B Vaccines (1 of 3 - 19+ 3-dose series) 1997 Pneumococcal Vaccine: Pediat rics (0 to 5 Years) and At-Risk Patients (6 to 49 Years) (1 of 2 - PCV) 1997 COVID-19 Vaccine ( - 2024-2 6 season) 2025 Influenza Vaccine (#1) 2025 HPV Vaccines Aged Out No longer eligi ble based on patient's age to complete this topic Hepatitis A Vaccines Aged Out No long er eligible based on patient's age to complete this topic IPV Vaccines Aged Out No longer eligi ble based on patient's age to complete this topic Rotavirus Vaccines Aged Out No longer eligible based on patient's age to complete this topic Care Teams Log Check Scaler Relationship Specialty Start Date End Date Freddy Epps MD [address] [address] (work) PCP - General 04/13/24
--- OUTSIDE RECORDS SUMMARY | 2025-06-14 21:23 | XMS_ITS | Encounter Summary ---
Author Organization [facility] alth Address [address] [place] [address] Care Team Providers Care Medical/Surgery Registered Nurse Name Role Phone Unavailable Primary Care Provider Unavailabl e Encounter Details Date Type Department Care Team ([facility] st Contact Info) Description 06/26/2023 Office Visit - Data Exchange [facility] Gildardo Norris CRNP [address], [place] [id number] Social History Tobacco Use Types Packs/Day Years [...] Name : CLOVIS SHEN (43yo, M) ID# [id number] Appt. Date/Time : 06/26/2023 11:30AM : 1980 Service Dept. : [facility] Provider : ANNA ALLEN Insurance Med Primary: [facility] (MEDICAID REPLACEMENT - HMO) Insurance # : [id number] Policy/Group # : [id number] Med Mental Health: [facility] Insurance # : [id number] Med Curry: SLIDING FEE SCHEDULE - DISCOUNT Prescription: EXPRESS SCRIPTS - Member is eligible. details Chief Complaint SBIRT - Adult Patient presents today with concerns of cramping in legs and feet, states it is happening all day every day. 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 Date: 06/16/23 prescribed Source: Carissa Jhon, PATIENT TRANSPORTATION DRIVER Name: lisinopriL 5 mg tablet take 1 [...] 0.5 mL Route: Intramuscular Site: Deltoid, Right [facility]: [id number] Lot #: [id number] Mfr.: Moderna US, Inc. Exp. Date: 05/21/21 VIS: Moderna COVID-19 Vaccine EUA Fact Sheet 10/19/2020 VIS Given: 12/07/20 Stage Electrician: Royer Matias CMA Vaccine Type: COVID-19, mRNA, LNP-S, PF, 100 mcg/0.5 mL dose (Moderna) Date: 11/02/20 Amt.: 0.5 mL Route: Intramuscular Site: Deltoid, Left NDC: Lot #: [id number] Mfr.: Moderna US, Inc. Exp. Date: 04/27/21 VIS: Moderna COVID-19 Vaccine EUA Fact Sheet 06/26/2020 VIS Given: 11/02/20 Stage Electrician: Eduarda Matias MA Diphtheria, Tetanus, Pertussis Vaccine Type: Tdap Date: 03/03/23 Amt.: 0.5 mL Route: Intramuscular Site: Deltoid, Left NDC: [id number] Lot #: [id number] Mfr.: Sanofi Pasteur Exp. Date: 12/30/24 VIS: Tdap 03/01/2021 [facility] VIS Given: 03/03/23 Stage Electrician: Vito Grigsby MA Haemophilus Influenzae Type B Vaccine Type: Hib (PRP-T) Date: 05/14/20 Amt.: 0.5 mL Route: Site: [place]: Lot #: [id number] Mfr.: Sanofi Pasteur Exp. Date: VIS: VIS Given: Stage Electrician: Vaccine Type: Hib Date: 05/14/20 Amt.: Route: Site: NDC: Lot #: [id number] Mfr.: Sanofi Pasteur Exp. Date: VIS: VIS Given: Stage Electrician: Influenza Vaccine Type: influenza, seasonal, injectable, preservative free Date: 05/17/20 Amt.: 0.5 mL Route: Site: NDC: Lot #: [id number] Mfr.: Sanofi Pasteur Exp. Date: VIS: VIS Given: Stage Electrician: Vaccine Type: influenza, injectable, quadrivalent Date: 08/03/19 Amt.: 0.5 mL Route: Intramuscular Site: Deltoid, Left NDC: Lot #: [id number] Mfr.: Sanofi Pasteur Exp. Date: 01/24/20 VIS: Inactivated Influenza 03/10/2019 VIS Given: 08/03/19 Stage Electrician: Faith Mead Vaccine Type: influenza, injectable, quadrivalent, preservative free Date: 09/16/15 Amt.: 0.5 mL Route: Site: [facility]: Lot #: [id number] Mfr.: Exp. Date: VIS: VIS Given: Stage Electrician: Meningococcal Vaccine Type: meningococcal MCV4P Date: 05/14/20 Amt.: 0.5 mL Route: Site: NVC: Lot #: [id number] Mfr.: Sanofi Pasteur Exp. Date: VIS: VIS Given: Stage Electrician: Vaccine Type: meningococcal B, recombinant Date: 05/14/20 Amt.: 0.5 mL Route: Site: [facility]: Lot #: [id number] Mfr.: Inherited Health Exp. Date: VIS: VIS Given: Stage Electrician: Pneumococcal Vaccine Type: pneumococcal conjugate PCV 13 Date: 05/14/20 Amt.: 0.5 mL Route: Site: [facility]: Lot #: [id number] Mfr.: Wyeth Exp. Date: VIS: VIS Given: Stage Electrician: Vaccine Type: pneumococcal polysaccharide PPV23 Date: 08/03/19 Amt.: 0.5 mL Route: Injection Site: Deltoid, Right NDC: Lot #: [id number] Mfr.: Merck and Co., Inc. Exp. Date: 12/13/20 VIS: PPSV23 05/25/2019 VIS Given: 08/03/19 Stage Electrician: Faith Mead Problems Reviewed Problems * Chronic [...] Dental: Where was your last dental visit?: [facility] Dental: Was the visit an [facility] dental provider?: Yes Dental: Action taken: [facility] information provided Other Education: 12 Marital status: Single General stress level: High Gender Identity and LGBTQ Identity Gender identity: Identifies as Male Assigned sex at : Male Pronouns: he/him Sexual orientation: Straight or heterosexual Surgical History Reviewed Surgical History * Removal of spleen total - 05/16/2020 noneSurgery to Left knee.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 Referral was placed in 02/2023. - Reported fluctuating blood glucose levels with several lows causing symptoms - Denies headaches or dizziness. - Reports blurry vision. - Will schedule appointment with communications systems engineer. - Drinks a lot of water. Peripheral [...] DAY Qty: (180) tablet Refills: 3 Pharmacy: [id number] * repaglinide 2 mg tablet - take 1 PO once daily with lunch Qty: (90) tablet Refills: 3 Pharmacy: [id number] * GLUCOSE, FINGERSTICK, BLOOD - Specimen source: Blood capillary Fasting: N * atorvastatin 40 mg tablet - TAKE 1 TABLET BY MOUTH EVERY DAY Qty: (90) tablet Refills: 3 Pharmacy: [id number] * HEMOGLOBIN A1C, FINGERSTICK - Specimen source: Blood capillary * lisinopril 5 mg tablet - take 1 PO daily Qty: (90) tablet Refills: 3 Pharmacy: [id number] * insulin aspart (U-100) 100 unit/mL (3 mL) subcutaneous pen - Inject 22 unit(s) 3 times a day by subcutaneous route with meals. Qty: (10) 3 mL syringe Refills: 3Pharmacy: [id number] * URINALYSIS, DIPSTICK 2. Diabetic [...] days. Qty: (90) capsule Refills: 0 Pharmacy: [id number] 3. Chronic back pain - - [...] days. Qty: (60) tablet Refills: 3 Pharmacy: [id number] 4. Depression screening Z13.31: Encounter for screening for depression * PATIENT HEALTH QUESTIONNAIRE-9* 5. Screening procedure - negative Z13.39: Encounter for screening examination for other mental health and behavioral disorders * SUBSTANCE ABUSE SCREENING* GLUCOSE, FINGERSTICK, BLOOD * Fasting: N * Result: - Blood Glucose: mg/dl: [facility] HEMOGLOBIN A1C, FINGERSTICK * Result: - HEMOGLOBIN A1C: >15.0 URINALYSIS, DIPSTICK * Results: - Leukocytes: Negative - Nitrite: negative - Urobilinogen: .2 - Protein: Negative - pH: 7.0 - Blood: Non-Hemolyzed: Moderate - Specific [place]: 1.010 - Ketone: Trace - Bilirubin: Negative - Glucose: 2000+ - Appearance: Clear - Color: Yellow Discussion Notes ATTESTATION: This note has been generated using [employer]. Elvira Car. Return to Office * Debbie Hernandez MD for [id number] at [facility] on 07/02/2023 at 02:30 PM * Jomar Epps MD for [id number] on 08/20/2023 at 01:00 PM Encounter Sign-Off Encounter signed-off by ANNA Allen, 06/29/2023. documented in this encounter Plan of Treatment Not on file documented as of this encounter Visit Diagnoses Not on filedocumented in this encounter
--- OUTSIDE RECORDS SUMMARY | 2025-06-14 21:24 | XMS_ITS | Encounter Summary ---
Author Organization [facility] Address [address] [place] [address] Care Team Providers Care Removable Prosthodontist Name Role Phone Freddy Epps MD Primary Care Provider [phone] Encounter Details Date Type Department Care Team (Latest Contact Info) Description 05/24/2020 Lab Requisition [facility] Debbie Hernandez MD, MD [address] [phone] Type 2 diabetes mellitus with [...] Upcoming Encounters Date Type Department Care Team ([facility] Contact Info) Description 06/29/2025 1:00 PM EST Office Visit [facility] [address] [place] [address] [place] [phone] Shanna Henderson CRNP [address] [place] [address] [place] [phone] documented as of this encounter Procedures Procedure Name Priority Date/Time Associated Diagnosis Comments ALBUMIN / CREATININE URINE RATIO Routine 05/24/2020 12:34 PM EDT Type 2 diabetes mellitus with hyperglycemia ([facility]/HCC) HEMOGLOBIN A1C Routine 05/24/2020 12:34 PM EDT Type 2 diabetes mellitus with hyperglycemia ([facility]/HCC) LIPID PANEL Routine 05/24/2020 12:34 PM EDT Type 2 diabetes mellitus with hyperglycemia ([facility]) COMPREHENSIVE METABOLIC PANEL Routine 05/24/2020 12:34 PM EDT Type 2 diabetes mellitus with hyperglycemia ([facility]/HCC) documented in this encounter Results * (ABNORMAL) Comprehensive metabolic panel - (05/24/2020 12:34 PM EDT) Glucose 425(H) 70 - 99 mg/dL 05/24/2020 2:02 PM EDT [facility] Sodium 130(L) 135 - 145 mmol/L 05/24/2020 2:02 PM EDT [facility] Potassium 4.8 3.5 - 5.3 mmol/L 05/24/2020 2:02 PM EDT [facility] Chloride 94(L) 98 - 107 mmol/L 05/24/2020 2:02 PM EDT [facility] CO2 29 21 - 31 mmol/L 05/24/2020 2:02 PM EDT [facility] Anion Gap 7 3 - 11 mmol/L 05/24/2020 2:02 PM EDT [facility] BUN 12 7 - 25 mg/dL 05/24/2020 2:02 PM EDT [facility] Creatinine 0.69(L) 0.70 - 1.30 mg/dL 05/24/2020 2:02 PM [facility] Calcium 9.4 8.6 - 10.3 mg/dL 05/24/2020 2:02 PM [facility] Total Protein 7.1 6.4 - 8.9 gm/dL 05/24/2020 2:02 PM [facility] Albumin 3.9 3.5 - 5.7 gm/dL 05/24/2020 2:02 PM [facility] Alkaline Phosphatase 101 34 - 104 IU/L 05/24/2020 2:02 PM [facility] AST 27 13 - 39 IU/L 05/24/2020 2:02 PM [facility] ALT (SGPT) 36 7 - 52 IU/L 05/24/2020 2:02 PM [facility] Total Bilirubin 0.5 0.3 - 1.0 mg/dL 05/24/2020 2:02 PM [facility] eGFR >90.0 >90.0 mL/min/1. 73m*2 05/24/2020 2:02 PM [facility] Comment: The estimated Glomerular Filtration [...] Evaluation Program (KEEP). Am J Kidney Dis (2011);57(4Sjemv1):S9-16. https://www.kidney.org/atoz/content/gfr Updated: January 09, 2020. Blood Venous blood specimen / Unknown 05/24/2020 12:34 PM EDT 05/24/2020 12:34 PM EDT Debbie Hernandez MD LAB BLOOD ORDERABLES Final Resul t Performing Organization Address [facility] Phone Number [facility] [address] [place] [address] * (ABNORMAL) Albumin / creatinine urine ratio - Urine, Clean Catch (05/24/2020 12:34 PM EDT) Creatinine, Urine 67.4 mg/dL 05/24/2020 2:37 PM EDT [facility] Albumin, Urine 10.4 mg/dL 05/24/2020 2:37 PM EDT [facility] Alb/Creat Ratio 154(H) <=30 mcg/mg 05/24/2020 2:37 PM EDT [facility] Comment: Albuminuria categories in CKD Category [...] ORDERABLES Final Resul t Performing Organization Address [facility] de Phone Number [facility] [address] [place] [address] * (ABNORMAL) Lipid panel - (05/24/2020 12:34 PM EDT) Triglycerides 185(H) 0 - 150 mg/dL 05/24/2020 2:02 PM EDT [facility] Comment: With NCEP guidelines Borderline High 150-199 mg/dL High 200-499 mg/dL Very High >500 mg/dL Total Cholesterol 139 0 - 200 mg/dL 05/24/2020 2:02 PM EDT [facility] Comment: NCEP Guidelines: Desirable <200 mg/dL Borderline High 200-239 mg/dL High >240 mg/dL HDL-C 38 mg/dL 05/24/2020 2:02 PM EDT [facility] Comment: High risk <40 mg/dL Low risk >60 mg/dL calculated LDL-C 64 mg/dL 05/24/20 20 2:02 PM EDT [facility] Comment: NCEP guidelines: Optimal <100 mg/dL Near/Above Optimal 100-129 mg/dL Borderline High 130-159 mg/dL High 160-189 mg/dL Very High >190 mg/dL Blood Venous blood specimen / Unknown 05/24/2020 12:34 PM EDT 05/24/2020 12:34 PM EDT us Debbie Hernandez MD LAB BLOOD ORDERABLES Final Resul t [facility] [address] [place] [id number] * (ABNORMAL) Hemoglobin A1c - (05/24/2020 12:34 PM EDT) Hemoglobin A1C 11.4(H) <5.7 % 05/24/2020 2:42 PM EDT [facility] Comment: Normal [...] may yield falsely high results. Performed at [facility], [address] [place] [id number] Estimated average glucose 280 mg/dL 05/24/2020 2:42 PM EDT [facility] Comment:The estimated averag e glucose (eAG) is derived from the equation [AG (mg/dL)= 28.7 x %HbA1c - 46.7] and provided as recommended by the [place] [employer]. Calculated eAG values less than 97 mg/dL or greater than 298 mg/dL may be unreliable and should be interpreted with caution. Estimated average glucose is educational and should not be used for clinical management of diabetic patients. Diabetes Care, 31(8):6467-9439. Blood Venous blood specimen / Unknown 05/24/2020 12:34 PM EDT 05/24/2020 12:34 PM EDT us Debbie Hernandez MD LAB BLOOD ORDERABLES Final Resul t [facility] [address] [facility] [address] documented in this encounter Visit Diagnoses Diagnosis Type 2 diabetes mellitus with hyperglycemia ([facility]) documented in this encounter Additional Health Concerns Infection Onset Date Last Indicated Resolved Time Rule out SARS-CoV-2 (related to COVID-19) 07/29/2021 07/29/2021 08/01/2021 6:[address] SARS-CoV-2 (related to COVID-19) 07/29/2021 07/29/19 22 08/12/2021 8:03 PM EST Rule out COVID-19/Influenza/RSV 11/16/2024 11/16/2024 10:54 PM EDT documented as of this encounter Care Teams Removable Prosthodontist Relationship Specialty Start Date End Date Freddy Epps MD [address] [place] [facility] [place] [phone] PCP - General Family Medicine 05/29/20 documented as of this encounter
--- OUTSIDE RECORDS SUMMARY | 2025-06-14 21:24 | XMS_ITS | Encounter Summary ---
Author Organization [facility] alth Address [address] [place] [address] Care Team Providers Care Control Room Helper Name Role Phone Unavailable Primary Care Provider Unavailabl e Encounter Details Date Type Department Care Team ([facility] Contact Info) Description 12/29/2024 Office Visit - Data Exchange [facility] Tania Bernstein CRNP [address] [place] [address] Social History Tobacco Use Types Packs/Day [...] Name : CLOVIS SHEN (44yo, M) ID# [id number] Appt. Date/Time : 12/29/2024 09:20AM : 1980 Service Dept. : [facility] Provider : ANNA LERNER Insurance Med Primary: [facility] HEALTH PLAN (MEDICAID REPLACEMENT - HMO) Insurance # : [id number] Policy/Group # : [id number] Med Mental Health: [facility] Insurance # : [id number] Prescription: EXPRESS SCRIPTS - Member is eligible. details Chief Complaint SBIRT - Adult Pt presents with left ear pain and fever x2 days. Pt also reports bloody drainage from left ear. Ptalso has rash on his nose with pain and itching x2 days. 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 Positive phq9 Patient's Care Team Primary Care Provider: JOMAR EPPS MD: [address] [facility] [place] [address], , Patient's Pharmacies [facility] [place] [place] ([facility]): [address] [address], [place] [address], , [id number]: [address] [facility], [place] [address], Vitals Ht: 5 ft 8 in (172.72 [...] Rash (Mild) Some allergies listed in Document: #[id number] could not be added to this patient's [...] 11/10/24 filled Source: [facility] Name: Dexcom G7 Department Secretary USE DIRECTED Date: 12/01/24 filled Source: [facility] [...] DIABETES Date: 11/28/24 filled Source: [facility] Name: fsfjupbz-mscexkrpb-phdzhyoft 3.5 mg-10,000 unit/mL-1 % ear drops,susp INSTILL [...] by subcutaneous route. Date: 12/06/24 filled Source: NXE Vaccines Reviewed Vaccines COVID-19 Vaccine Type: COVID-19, mRNA, LNP-S, PF, 100 mcg/0.5 mL dose (Moderna) Date: 12/07/20 Amt.: 0.5 mL Route: Intramuscular Site: Deltoid, Right NDC: [id number] Lot #: [id number] Mfr.: Moderna US, Inc. Exp. Date: 05/21/21 VIS: Moderna COVID-19 Vaccine EUA Fact Sheet 10/19/2020 VIS Given: 12/07/20 Labour Market Economist: Royer Matias CMA Vaccine Type: COVID-19, mRNA, LNP-S, PF, 100 mcg/0.5 mL dose (Moderna) Date: 11/02/20 Amt.: 0.5 mL Route: Intramuscular Site: Deltoid, Left NDC: Lot #: [id number] Mfr.: Moderna BTI Systems, Inc. Exp. Date: 04/27/21 VIS: Moderna COVID-19 Vaccine EUA Fact Sheet 06/26/2020 VIS Given: 11/02/20 Labour Market Economist: Eduarda Matias MA Diphtheria, Tetanus, Pertussis Vaccine Type: Tdap Date: 03/03/23 Amt.: 0.5 mL Route: Intramuscular Site: Deltoid, Left NDC: [id number] Lot #: [id number] Mfr.: Sanofi Pasteur Exp. Date: 12/30/24 VIS: Tdap 03/01/2021 Finnish VIS Given: 03/03/23 Labour Market Economist: Vito Grigsby MA Haemophilus Influenzae Type B Vaccine Type: Hib (PRP-T) Date: 05/14/20 Amt.: 0.5 mL Route: Site: [facility]: Lot #: [id number] Mfr.: SpecialtyCare Pasteur Exp. Date: VIS: VIS Given: Labour Market Economist: Vaccine Type: Hib Date: 05/14/20 Amt.: Route: Site: [facility]: Lot #: [id number] Mfr.: Semmleofi Pasteur Exp. Date: VIS: VIS Given: Labour Market Economist: Influenza Vaccine Type: influenza, seasonal, injectable, preservative free Date: 05/17/20 Amt.: 0.5 mL Route: Site: [facility]: Lot #: [id number] Mfr.: SpecialtyCare Pasteur Exp. Date: VIS: VIS Given: Labour Market Economist: Vaccine Type: influenza, injectable, quadrivalent Date: 08/03/19 Amt.: 0.5 mL Route: Intramuscular Site: Deltoid, Left NDC: Lot #: [id number] Mfr.: SpecialtyCare Pasteur Exp. Date: 01/24/20 VIS: Inactivated Influenza 03/10/2019 VIS Given: 08/03/19 Labour Market Economist: Faith Mead Vaccine Type: influenza, injectable, quadrivalent, preservative free Date: 09/16/15 Amt.: 0.5 mL Route: Site: [facility]: Lot #: [id number] Mfr.: Exp. Date: VIS: VIS Given: Labour Market Economist: Meningococcal Vaccine Type: meningococcal MCV4P Date: 05/14/20 Amt.: 0.5 mL Route: Site: [facility]: Lot #: [id number] Mfr.: SpecialtyCare Pasteur Exp. Date: VIS: VIS Given: Labour Market Economist: Vaccine Type: meningococcal B, recombinant Date: 05/14/20 Amt.: 0.5 mL Route: Site: [facility]: Lot #: [id number] Mfr.: Hooja Exp. Date: VIS: VIS Given: Labour Market Economist: Vaccine Type: MCV4 Date: 05/14/20 Amt.: Route: Site: [facility]: Lot #: Mfr.: Exp. Date: VIS: VIS Given: Labour Market Economist: Pneumococcal Vaccine Type: pneumococcal conjugate PCV 13 Date: 05/14/20 Amt.: 0.5 mL Route: Site: [facility]: Lot #: [id number] Mfr.: Wyeth Exp. Date: VIS: VIS Given: Labour Market Economist: Vaccine Type: pneumococcal polysaccharide PPV23 Date: 08/03/19 Amt.: 0.5 mL Route: Injection Site: Deltoid, Right NDC: Lot #: [id number] Mfr.: Perlegen Sciences and Konoz., Inc. Exp. 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 ROS ROS as noted in the HPI [...] days. Qty: (20) tablet Refills: 0 Pharmacy: [facility] [place] * ibuprofen 800 mg tablet - Take 1 tablet(s) every 8 hours by oral route as needed, for left ear pain. Qty: (30) tablet Refills: 3 Pharmacy: [facility] [place] 2. Acute swimmer's ear of left side H60.332: Swimmer's ear, left ear * qsiiaefv-ihajkuiif-rqvtgrsji 3.5 mg-10,000 unit/mL-1 % ear drops,susp - INSTILL 4 DROPS INTO AFFECTED EAR(S) BY OTIC ROUTE 3 TIMES PER DAY FOR 7 DAYS Qty: (1) 10 mL dropper bottle Refills: 0 Pharmacy: [facility] [place] 3. Uncontrolled type 2 diabetes mellitus E11.65: Type 2 diabetes mellitus with hyperglycemia * DIABETES TIPO 2: INSTRUCCIONES DE CUIDADO - [TYPE 2 DIABETES: CARE INSTRUCTIONS] * BLOOD GLUCOSE TEST STRIPS - Test blood sugar four times daily Qty: 150 Units Refills: 11 Supplier: [facility] [place] Duration / Estimated Length of Need: Lifetime * LANCETS - Test blood sugar four times daily Qty: 150 Units Refills: 11 Supplier: [facility] [place] * GLUCOMETER - Test blood sugar four times daily Qty: 1 Unit Refills: 0 Supplier: [facility] [place] 4. Sheltered homelessness Currently homeless and staying at the intermediate. Declined CHW referral for today Z59.01: Sheltered [...] see Jomar Epps MD for EP-CHRONIC at [facility] on or around 01/28/2025 Encounter Sign-Off Encounter signed-off by ANNA Lerner, 12/29/2024. documented in this encounter Plan of Treatment Not on file documented as of this encounter Visit Diagnoses Not on filedocumented in this encounter
--- OUTSIDE RECORDS SUMMARY | 2025-06-14 21:24 | XMS_ITS | Encounter Summary ---
Author Organization [facility] Address [address] [place] [address] Care Team Providers Care Direct Marketing Manager Name Role Phone Freddy Epps MD Primary Care Provider [phone] Encounter Details Date Type Department Care Team ([facility] Contact Info) Description 07/04/2020 Lab Requisition [facility] - [facility] [address] [place] [address] John Morocho MD [address] [place] [address] Thrombocytopenia, unspecified; Encounter for screening [...] Upcoming Encounters Date Type Department Care Team ([facility] Contact Info) Description 06/29/2025 1:00 PM EST Office Visit [facility] [address] [place] [address] Shanna Henderson CRNP [address] [place] [phone] documented as of this encounter Procedures Procedure [...] E Ag Nonreactive 07/09/2020 4:56 AM EST [facility] Comment: Reference range: Nonreactive For additional information, please refer to https://education.Zapper.com/faq/TGC146 (This link is being provided for informational/ educational purposes only.) Blood Venous blood specimen / Unknown 07/04/2020 10:45 AM EST 07/04/2020 10:54 AM EST John Morocho MD LAB BLOOD ORDERABLES Final Resu lt Performing Organization Address City/[facility]/ZIP Co de Phone Number [facility] [place], [address] [place], [place] [phone] * Hepatitis B core antibody, IgM (07/04/2020 10:45 AM EST) Hep B Core IgM Nonreactive Nonreactive 07/09/2020 4:58 AM EST [facility] Blood Venous blood specimen / Unknown 07/04/2020 10:45 AM EST 07/04/2020 10:54 AM EST John Morocho MD LAB BLOOD ORDERABLES Final Resu lt Performing Organization Address [facility] de Phone Number [facility], [address] [place], [place] [phone] * Hepatitis B core antibody, total (07/04/2020 10:45 AM EST) Hep B Core Total Ab Nonreactive Nonreactive 07/09/2020 4:58 AM EST [facility] Blood Venous blood specimen / Unknown 07/04/2020 10:45 AM EST 07/04/2020 10:54 AM EST John Morocho MD LAB BLOOD ORDERABLES Final Resu lt Performing Organization Address [facility] Co de Phone Number [facility], [address] [place], [place] [phone] * Hepatitis B surface antigen w/reflex to confirmation (07/04/2020 10:45 AM EST) Hepatitis B Surface Ag Nonreactive Nonreactive 07/09/2020 4:58 AM EST [facility] Comment: Confirmation Not required according to the current package insert. Blood Venous blood specimen / Unknown 07/04/2020 10:45 AM EST 07/04/2020 10:54 AM EST John Morocho MD LAB BLOOD ORDERABLES Final Resu lt Performing Organization Address [facility] de Phone Number [facility] [place], [address] [address] [place] [phone] * (ABNORMAL) Hepatitis C RNA, quantitative, PCR (07/04/2020 10:45 AM EST) Hepatitis C RNA-PCR [id number](H ) IU/mL 07/07/2020 8:18 PM EST [facility] HCV Quantitative Log 6.40(H) log IU/mL 07/07/2020 8:18 PM EST [facility] Comment: Reference Range: Not Detected IU/mL Not Detected Log IU/mL This test was performed using Real-Time Polymerase Chain Reaction. Reportable range is 15 IU/mL to 100,000,000 IU/mL (1.18 Log IU/mL to 8.00 Log IU/mL). For additional information please refer to http://education.Experience Headphones/faq/GNM44t3 (This link is being provided for informational/ educational purposes only.) The analytical performance characteristics of this assay have been determined by [employer] [facility], [place], [place]. The modifications have not been cleared or approved by the FDA. This assay has been validated pursuant to the CLIA regulations and is used for clinical purposes. Blood Venous blood specimen / Unknown 07/04/2020 10:45 AM EST 07/04/2020 10:54 AM EST John Morocho MD LAB BLOOD ORDERABLES Final Resu lt Performing Organization Address [facility] Co de Phone Number [facility] [place], [address] [address] [place] [phone] documented in this encounter Visit Diagnoses Diagnosis [...] documented as of this encounter Care Teams Direct Marketing Manager Relationship Specialty Start Date End Date Freddy Epps MD [address] [place] [phone] PCP - General Family Medicine 05/29/20 documented as of this encounter
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
--- OUTSIDE RECORDS SUMMARY | 2025-06-14 21:24 | XMS_ITS | Encounter Summary ---
Author Organization [facility] Address [address] [place] [address] Care Team Providers Care Utilization Manager Name Role Phone Freddy Epps MD Primary Care Provider [phone] Encounter Details Date Type Department Care Team ([facility] Contact Info) Description 07/04/2020 Non-[facility] Documentation Non-[facility] Department for IPEI Client interface John Morocho MD [address] [place] [address] Social History Tobacco Use Types Packs/Day [...] Description 06/29/2025 1:00 PM EST Office Visit [facility] [address] [place] [phone] Shanna Henderson CRNP [address] [place] [address] [place] [phone] documented as of this encounter Visit Diagnoses Not on filedocumented in this encounter Additional Health Concerns Infection Onset Date Last Indicated Resolved Time Rule out SARS-CoV-2 (related to COVID-19) 07/29/2021 07/29/2021 08/01/2021 6:[address] SARS-CoV-2 (related to COVID-19) 07/29/2021 07/29/19 22 08/12/2021 8:03 PM EST Rule out COVID-19/Influenza/RSV 11/16/2024 11/16/2024 10:54 PM EDT documented as of this encounter Care Teams Utilization Manager Relationship Specialty Start Date End Date Freddy Epps MD [address] [place] [phone] PCP - General Family Medicine 05/29/20 documented as of this encounter
--- OUTSIDE RECORDS SUMMARY | 2025-06-14 21:24 | XMS_ITS | Encounter Summary ---
Author Organization [facility] alth Address [address] [place] [address] Care Team Providers Care Investment Counselor Name Role Phone Unavailable Primary Care Provider Unavailabl e Encounter Details Date Type Department Care Team ([facility] st Contact Info) Description 11/21/2024 Office Visit - Data Exchange [facility] Jomar Epps MD [address] [place] [address] Social History Tobacco Use Types [...] Name : CLOVIS SHEN (44yo, M) ID# [id number] Appt. Date/Time : 11/21/2024 11:40AM : 1980 Service Dept. : [facility] Provider : JOMAR EPPS MD Insurance Med Primary: [facility] (MEDICAID REPLACEMENT - HMO) Insurance # : [id number] Policy/Group # : [id number] Med Mental Health: [facility] Insurance # : [id number] Prescription: [employer] - Member is eligible. details Chief Complaint SBIRT - Adult Patient presents with complaints of lose of appetite, body aches, fatigue, stomach pain and bilateral foot pain, patient was recently released for long-term and states this has been going on for 8 months,,map,ma Patient's Care Team Primary Care Provider: JOMAR EPPS MD: [address] [place] [address], , [facility] Pharm[facility] [place] ([facility]): [address] [address], [place] [address], , [id number]: [address], [place] [address], Vitals Ht: 5 ft 8 in Standing [...] Rash (Mild) Some allergies listed in Document: #[id number] could not be added to this patient's [...] 11/10/24 filled Source: surescripts Name: Dexcom G7 Home Health Caregiver USE DIRECTED Date: 02/22/24 filled Source: surescripts [...] by subcutaneous route. Date: 11/08/24 filled Source: [employer] Reviewed Vaccines COVID-19 Vaccine Type: COVID-19, mRNA, LNP-S, PF, 100 mcg/0.5 mL dose (Moderna) Date: 12/07/20 Amt.: 0.5 mL Route: Intramuscular Site: Deltoid, Right NDC: [id number] Lot #: [id number] Mfr.: Moderna [place], Inc. Exp. Date: 05/21/21 VIS: Moderna COVID-19 Vaccine EUA Fact Sheet 10/19/2020 VIS Given: 12/07/20 Online User Experience Strategist: Royer Matias CMA Vaccine Type: COVID-19, mRNA, LNP-S, PF, 100 mcg/0.5 mL dose (Moderna) Date: 11/02/20 Amt.: 0.5 mL Route: Intramuscular Site: Deltoid, Left NDC: Lot #: [id number] Mfr.: Moderna Education Every[employer], Inc. Exp. Date: 04/27/21 VIS: Moderna COVID-19 Vaccine EUA Fact Sheet 06/26/2020 VIS Given: 11/02/20 Online User Experience Strategist: Eduarda Matias MA Diphtheria, Tetanus, Pertussis Vaccine Type: Tdap Date: 03/03/23 Amt.: 0.5 mL Route: Intramuscular Site: Deltoid, Left NDC: [id number] Lot #: [id number] Mfr.: Sanofi Pasteur Exp. Date: 12/30/24 VIS: Tdap 03/01/2021 [facility] VIS Given: 03/03/23 Online User Experience Strategist: Vito Grigsby MA Haemophilus Influenzae Type B Vaccine Type: Hib (PRP-T) Date: 05/14/20 Amt.: 0.5 mL Route: Site: NDC: Lot #: [id number] Mfr.: Sanofi Pasteur Exp. Date: VIS: VIS Given: Online User Experience Strategist: Vaccine Type: Hib Date: 05/14/20 Amt.: Route: Site: NDC: Lot #: [id number] Mfr.: Sanofi Pasteur Exp. Date: VIS: VIS Given: Online User Experience Strategist: Influenza Vaccine Type: influenza, seasonal, injectable, preservative free Date: 05/17/20 Amt.: 0.5 mL Route: Site: [place]: Lot #: [id number] Mfr.: Sproxilofi Pasteur Exp. Date: VIS: VIS Given: Online User Experience Strategist: Vaccine Type: influenza, injectable, quadrivalent Date: 08/03/19 Amt.: 0.5 mL Route: Intramuscular Site: Deltoid, Left NDC: Lot #: [id number] Mfr.: Sanofi Pasteur Exp. Date: 01/24/20 VIS: Inactivated Influenza 03/10/2019 VIS Given: 08/03/19 Online User Experience Strategist: Faith Leivarosalia Vaccine Type: influenza, injectable, quadrivalent, preservative free Date: 09/16/15 Amt.: 0.5 mL Route: Site: [facility]: Lot #: [id number] Mfr.: Exp. Date: VIS: VIS Given: Online User Experience Strategist: Meningococcal Vaccine Type: meningococcal MCV4P Date: 05/14/20 Amt.: 0.5 mL Route: Site: [facility]: Lot #: [id number] Mfr.: Sproxilofi Pasteur Exp. Date: VIS: VIS Given: Online User Experience Strategist: Vaccine Type: meningococcal B, recombinant Date: 05/14/20 Amt.: 0.5 mL Route: Site: [facility]: Lot #: [id number] Mfr.: [employer] Bloom Exp. Date: VIS: VIS Given: Online User Experience Strategist: Pneumococcal Vaccine Type: pneumococcal conjugate PCV 13 Date: 05/14/20 Amt.: 0.5 mL Route: Site: [facility]: Lot #: [id number] Mfr.: Wyeth Exp. Date: VIS: VIS Given: Online User Experience Strategist: Vaccine Type: pneumococcal polysaccharide PPV23 Date: 08/03/19 Amt.: 0.5 mL Route: Injection Site: Deltoid, Right NDC: Lot #: [id number] Mfr.: Merck and Co., Inc. Exp. Date: 12/13/20 VIS: PPSV23 05/25/2019 VIS Given: 08/03/19 Online User Experience Strategist: Faith Leivarosalia Problems Reviewed Problems * Candidal [...] or [place])?: Yes (Notes: Born in [place]) TB Screening Question 2: Have you traveled [...] total - 05/16/2020 noneSurgery to Left knee.[employer] Past Medical History Past Medical History not [...] Specimen source: Blood capillary * DEXCOM G7 INCINERATOR ATTENDANT - Use as directed. Qty: 1 Unit Refills: 0 Supplier: [employer] [place] [place] * DEXCOM G7 SENSOR DEVICE - Use as directed. Qty: 1 Unit Refills: 0 Supplier: [employer] [place] 2. Harmful pattern of use [...] days. Qty: (30) tablet Refills: 2 Pharmacy: [facility] [place] HEMOGLOBIN A1C, FINGERSTICK * Result: - HEMOGLOBIN A1C: 11.7 Return to Office * Daria Jj DPM for Podiatry-Established Patient at Podiatry on 11/22/2024 at 09:30 AM * Jomar Epps MD for EP-CHRONIC at [facility] on 12/13/2024 at 02:20 PM Encounter Sign-Off Encounter signed-off by Jomar Epps MD, 11/21/2024. documented in this encounter Plan of Treatment Not on file documented as of this encounter Visit Diagnoses Not on filedocumented in this encounter
--- OUTSIDE RECORDS SUMMARY | 2025-06-14 21:24 | XMS_ITS | Clinical Summary ---
Author Organization [facility] alth Address [address] [place] [address] Care Team Providers Care Dump Motorman Name Role Phone Unavailable Primary Care Provider [...] COMPREHENSIVE METABOLIC PANEL (05/23/2025 12:04 PM EDT) [facility] Glucose (serum) 612(HH) 70 - 139 MG/DL [...] PM EDT Specimen Source: BLOOD&BLOOD Performed at: [facility] ([facility]): [address] [facility] us Mango Pendleton MD CHEMISTRY ORDERABLES Final Res ult [facility] [address] [place] [address], [place] [phone] * (ABNORMAL) CBC (05/23/2025 12:04 PM EDT) [...] PM EDT Specimen Source: BLOOD&BLOOD Performed at: [facility]): [address] [facility] us Mango Pendleton MD HEMATOLOGY ORDERABLES Final Re sult [facility] [address] [place] [address], [place] [phone] * (ABNORMAL) LIPID PANEL CHOLESTEROL FRACTIONATION (LCF) [...] EDT Specimen Source: BLOOD, VENOUS Performed at: [facility]): [address] [facility] us Freddy Epps MD CHEMISTRY ORDERABLES Final Resu lt [facility] [address] [place] [address], [place] [phone] * HIV 1/2/AG/AB PROGRESSIVE(HIV SCREENING) (06/06/2021 9:31 [...] - 06/07/2021 1:40 PM EST Performed at: [facility]): [address] [facility] Libertad Grijalva MD CHEMISTRY ORDERABLES Leandra sarah Result [facility] [address] [facility], [place] [address], [place] [phone] from Last 3 Months or Most Recently Relevant to Health Maintenance
== END 2025-06-14 11:50 | disposition home or self-care (01) ==
PROVIDERS: Visit Provider Internal Medicine Endocrinology, Diabetes & Metabolism
DX: E11.65 Type 2 diabetes mellitus with hyperglycemia (principal); Z79.4 Long term (current) use of insulin
CPT/HCPCS: 99204

== ENCOUNTER 2025-07-26 13:45 | Outpatient (AMB) | payer OTHER, SELFPAY ==
--- OUTSIDE RECORDS SUMMARY | 2021-03-13 13:09 | XMS_ITS | Encounter Summary ---
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 Name Role Phone Freddy Epps MD Primary Care Provider [phone] Encounter Details Date Type Department Care Team (Latest Contact Info) Description 03/13/2021 2:09 PM EDT Hospital Encounter [facility] - XRay [address] [place] [address] Laceration of left thumb without foreign body with damage to nail, initial encounter Social History Tobacco Use Types Packs/Day Years Used Date Smoking Tobacco: Never Cigarettes [address] arted: 01/18/2019 Passive Smoke Exposure: Yes Smokeless Tobacco: Former Alcohol Use Standard Drinks/Week Comments Not Currently 0 (1 standard drink = 0.6 oz pur e alcohol) AUDIT-C Answer Date Recorded Q1: How often do you have a drink containing alc ohol? Not asked 10/31/2020 Q2: How many drinks containi ng alcohol do you have on a typical day when you are drinking? 1 or 2 10/31/2020 Q3: How often do you have si x or more drinks on one occasion? Less than monthly 10/31/2020 PHQ-2 Answer Date Recorded PHQ-2 Score 0 02/04/2023 Hunger Vital Sign Answer Date Recorded Within the past 12 months, y ou worried that your food would run out before you got the money to buy more. Never true 02/05/20 23 Within the past 12 months, t he food you bought just didn't last and you didn't have money to get more. Never true 02/04/2023 PRAPARE - Transportation Answer Date Re corded In the past 12 months, has l ack of transportation kept you from medical appointments or from getting medications? No 01/24 In the past 12 months, has l ack of transportation kept you from meetings, work, or from getting things needed for daily living? No 02/04/2023 Housing Stability Vital Sign Answer Jose Alejandro e Recorded In the last 12 months, was t here a time when you were not able to pay the mortgage or rent on time? No 02/04/2023 Number of Places Lived in the Last Year Not on f ile 02/04/2023 In the last 12 months, was t here a time when you did not have a steady place to sleep or slept in a jail (including now)? No 02/04/2023 Sex and Gender Information Value Date Recorded Sex Assigned at Not on file Legal Sex Male 6:06 PM EDT Gender Identity Not on file Sexual Orientation Not on file COVID-19 Exposure Response Date Recorded In the last 10 days, have yo u been in contact with someone who was confirmed or suspected to have Coronavirus/COVID-19? No / Unsure 03/14/2022 2:06 PM EDT documented as of this encounter Plan of Treatment Not on file documented as of this encounter Procedures Procedure Name Priority Date/Time Associated Diagnosis Comments XR FINGER 2 OR MORE VW LEFT STAT (Call Imaging Report - Patient Stay) 03/13/2021 2:17 PM EDT Laceration of left thumb without foreign body with damage to nail, initial encounter documented in this encounter Results * X-ray finger left 2+ views (03/13/2021 2:17 PM EDT) Anatomical Region Laterality Modality Upper Extremities, Fingers Left Compu abhijit Radiography Narrative 03/13/2021 2:23 PM EDT XR FINGER 2 OR MORE VW LEFT IMPRESSION: Tuft fracture of the distal phalanx of the left first finger in normal anatomic alignment. This tuft fracture does demonstrate an overlying soft tissue defect consistent with laceration. No residual radiopaque foreign bodies are seen. END OF IMPRESSION: INDICATION: Laceration without foreign body of left thumb with damage to nail, initial encounter. TECHNIQUE: PA, lateral and oblique projections of the left first finger(s) were acquired. COMPARISON: None available. FINDINGS: There is a nondisplaced fracture of the tuft of the distal phalanx of the left first digit. The remainder the osseous structures are unremarkable. Joint spaces are normal. No significant soft tissue swelling is seen. A soft tissue laceration is seen along the tip of the thumb. There is an underlying tuft fracture to this laceration. This report was created using Voice Recognition software. Thank you for allowing us to participate in the care of your patient. Procedure Note Wild Lombardo MD - 03/13/2021 XR FINGER 2 OR MORE VW LEFT IMPRESSION: Tuft fracture of the distal phalanx of the left first finger in normalanatomic alignment. This tuft fracture does demonstrate an overlying softtissue defect consistent with laceration. No residual radiopaque foreign bodies are seen. END OF IMPRESSION: INDICATION: Laceration without foreign body of left thumb with damage tonail, initial encounter. TECHNIQUE: PA, lateral and oblique projections of the left first finger(s)were acquired. COMPARISON: None available. FINDINGS: There is a nondisplaced fracture of the tuft of the distal phalanx of theleft first digit. The remainder the osseous structures are unremarkable.Joint spaces are normal. No significant soft tissue swelling is seen. A soft tissue laceration isseen along the tip of the thumb. There is an underlying tuft fracture tothis laceration. This report was created using Voice Recognition software. Thank you forallowing us to participate in the care of your patient. Jigna CASTILLO IMG XR PROCEDURES F inal Result documented in this encounter Visit Diagnoses Diagnosis Laceration of left thumb without foreign body with damage to nail, initial encounter documented in this encounter Additional Health Concerns Infection Onset Date Last Indicated Resolved Time Rule out SARS-CoV-2 (related to COVID-19) 07/29/2021 07/29/2021 08/01/2021 6:[address] SARS-CoV-2 (related to COVID-19) 07/29/2021 07/29/19 22 08/12/2021 8:03 PM EST Rule out COVID-19/Influenza/RSV 11/16/2024 5 11/16/2024 10:54 PM EDT documented as of this encounter Care Teams Open Hearth Furnace Operator Relationship Specialty Start Date End Date Freddy Epps MD [address] [place] [id number] PCP - General Family Medicine 05/29/20 documented as of this encounter
--- OUTSIDE RECORDS SUMMARY | 2025-07-26 15:03 | XMS_ITS | Encounter Summary ---
Author Organization [facility] Address [address] [place] [address] Care Team Providers Care Coconut Cooker Name Role Phone Freddy Epps MD Primary Care Provider [phone] Encounter Details Date Type Department Care Team (Latest Contact Info) Description 09/07/2018 Lab Requisition [facility] Freddy Epps MD [address] [place] [address] Encounter for screening for infections with predominantly [...] Not Detected Not Detected 09/09/2018 7:58 AM [facility] GC Screen Not Detected Not Detected 09/09/2018 7:58 AM [facility] Urine Urine specimen / Unknown 09/07/2018 1:32 PM EST 09/07/2018 1:31 PM EST Narrative [facility] - 09/09/2018 7:58 AM EST Specimen was tested by the [employer]pt[employer] Combo 2 Assay, a Nucleic Acid Amplification [...] ORDER ALIDA Final Result Performing Organization Address [facility] Co de Phone Number [facility] [address] [place] [phone] * Herpes simplex virus PCR (09/06/2018 1:32 PM EST) Herpes Simplex Virus PCR, Type 1 Not Detected Not Detected 09/07/2018 9:51 PM [facility] Herpes Simplex Virus PCR, Type 2 Not Detected Not Detected 09/07/2018 9:51 PM [facility] Swab Penis swab / Unknown 09/06/2018 1:32 PM EST 09/07/2018 1:31 PM EST us Freddy Epps MD LAB MICROBIOLOGY - GENERAL ORDER ALIDA Final Result Performing Organization Address [facility] Co de Phone Number [facility] [address] [place] [address] documented in this encounter Visit Diagnoses Diagnosis [...] documented as of this encounter Care Teams Coconut Cooker Relationship Specialty Start Date End Date Freddy Epps MD [address] [place] [phone] PCP - General Family Medicine 05/29/20 documented as of this encounter
--- OUTSIDE RECORDS SUMMARY | 2025-07-26 15:03 | XMS_ITS | Data Portability ---
Author Organization [facility] Address [address] [place] [address] Care Team Providers Care [employer] Name Role Phone RONNI SAMPSON Primary Care Provider Unavailabl e Assessment Encounter Date Assessment Date Assessment LastModified by Organization Details LastModified Time 10/25/2015 10/25/2015 Discussed diagnosis, prognosis, treatment alternatives, medication side effect, weight loss, exercise, diet,tobacco cessation. Not available 10/26/2015 08:27:33 11/22/2015 11/22/2015 NIDDM Tinea pedis- Prescribed nystatin powder. Multiple joint pain. Chronic pain syndrome.- I am unclear as to the reason for his chronic pain. Discussed diagnosis, prognosis, treatment alternatives, medication side effect, weight loss, exercise, diet,tobacco cessation. Obtain rheumatoid pane. Trial of mobic. Consider PT. Not available 11/22/2015 09:12:59 Plan of Treatment Reminders Order Date Submit Date Provider Last Modified By Organization Details Last Modified Time Details Appointments None recorded. Lab glucose, fingerstic k, blood [address], [address] [place] [address], [id number], 7 09:10:02 glucose, fingerstic k, blood [address], [address] [place] [address], [phone], 6 19:12:13 HbA1c (hemoglobi n A1c), blood 2015 016 [facility], [address] [place], [address], 6 20:09:23 CBC w/ auto diff 2015 016 [facility], [address] [place], [address], 6 19:26:26 glucose, fingerstic k, blood [address], [address] [place], [address], 6 20:57:08 HbA1c (hemoglobi n A1c), blood [address] [facility], [address] [place], [address], 6 17:35:09 BMP, serum or plasma [address] [facility], [address] [place], [address], 6 17:35:09 rf (rheumatoi d factor), serum [address] [facility], [address] [place], [address], 6 18:21:38 rf (rheumatoi d factor) + anti-ccp abs, serum 2015 016 [facility], [address] [place], [address], 6 19:23:06 glucose, fingerstic k, blood 2015 016 [facility], [address] [place], [address], 6 09:12:58 glucose, fingerstic k, blood 2015 016 [facility], [address] [place], [address], 6 08:27:[address] referral - For evaluation for treatment of hepatitis C. 2015 017 [email or web address] Not available 7 10:02:32 gastroente rologist referral - Has been under treatment of provider in [place]. Needs to transfer here. 2015 017 [email or web address] [facility], [address] [place] [address], [address], 7 08:20:21 Procedures None recorded. Surgeries None recorded. Imaging x-ray, lumbar spine 2015 016 [facility] [address], [place], [address], 6 11:50:17 Medication Orders triamcinol one acetonide 0.1 % topical cream 2016 017 INTERFACE [facility], [address] [place], [place], [id number], 7 09:11:11 clonidine HCl 0.1 mg tablet [address] [facility], [address] [place], [place], [id number], 7 09:09:02 hydrochlor othiazide 12.5 mg capsule [address] [facility], [address] [place], [place], [id number], 7 09:09:11 lisinopril 10 mg-hydroch lorothiazi de 12.5 mg tablet 2015 016 [email or web address], [address], [place], [id number], 7 09:09:20 ibuprofen 600 mg tablet [address] [facility], [address], [place], [id number], 6 19:12:13 metformin 500 mg tablet [address] [facility], [address], [place], [id number], 7 09:09:29 lisinopril 10 mg-hydroch lorothiazi de 12.5 mg tablet [address]/[facility], [address] [place] [address], [address], 7 09:09:20 sulfametho xazole 800 mg-trimeth oprim 160 mg tablet 2015 016 [email or web address] [facility], [address] [place] [address], [address], 7 08:58:00 metformin 500 mg tablet [address]/[facility], [address] [place] [address], [address], 7 09:09:29 Paxil 20 mg tablet [address]/[facility]acy [facility], [address] [place] [address], [address], 7 09:09:44 Mobic 7.5 mg tablet 2015 016 [email or web address], [address], [place], [id number], 6 20:30:34 nystatin 100,000 unit/gram topical powder 2015 016 [email or web address] [facility], [address], [place], [id number], 6 20:30:25 naproxen 500 mg tablet 2015 016 [email or web address], [address], [place], [id number], 6 20:30:34 tramadol 50 mg tablet 2015 016 [email or web address] [facility], [address], [place], [id number], 6 08:25:57 metformin 500 mg tablet 2015 016 [email or web address], [address], [place], [id number], 7 09:09:29 bupropion HCl SR 150 mg tablet,12 hr sustained- release 2015 016 [email or web address] [facility], [address], [place], [id number], 6 20:33:09 clonidine HCl 0.1 mg tablet 2015 016 [email or web address], [address], [place], [id number], 7 09:09:02 hydrochlor othiazide 12.5 mg capsule 2015 016 [email or web address], [address], [place], [id number], 7 09:09:11 trazodone 100 mg tablet 2015 016 [email or web address] [facility], [address], [place], [id number], 08:25:57 Patient TargetsNo targets recorded. Patient Instructions Encounter Date Encounter Id Patient Instructions Last Modified By Organization Details Last Modified Time 10/25/2015 [id number] presi n arterial elevada: instrucciones de cuidado - [elevated blood pressure: care instructions] Not available 10/26/2015 08:27:32 ci mariana: instrucciones de cuidado - [sciatica: care instructions] Not available 10/26/2015 08:27:32 aprenda sobre el alivio del dolor de espalda - [learning about relief for back pain] Not available 10/26/2015 08:27:32 cuidado de la espalda y prevenci n de lesiones: instrucciones de cuidado - [back care and preventing injuries: care instructions] Not available 10/26/2015 08:27:33 C MO volver a la normalidad despu s de un dolor en la parte baja de la espalda: instrucciones de cuidado - [getting back to normal after low back pain: care instructions] Not available 10/26/2015 08:27:32 aprenda sobre la hepatitis C - [learning about hepatitis C] Not available 10/26/2015 08:27:33 hepatitis C: instrucciones de cuidado - [hepatitis C: care instructions] Not available 10/26/2015 08:27:32 Diabetes de tipo 2: Instrucciones de cuidado - [Type 2 Diabetes: Care Instructions] Not available 10/26/2015 08:27:32 11/22/2015 [id number] aprenda sobre el alivio del dolor de espalda - [learning about relief for back pain] [email or web address] Not available 11/23/2015 16:07:37 cuidado de la espalda y prevenci n de lesiones: instrucciones de cuidado - [back care and preventing injuries: care instructions] [email or web address] Not available 11/23/2015 16:07:37 C MO volver a la normalidad despu s de un dolor en la parte baja de la espalda: instrucciones de cuidado - [getting back to normal after low back pain: care instructions] [email or web address] Not available 11/23/2015 16:07:37 pie de atleta: instrucciones de cuidado - [athlete's foot: care instructions] Not available 11/23/2015 16:07:37 Diabetes de tipo 2: Instrucciones de cuidado - [Type 2 Diabetes: Care Instructions] Not available 11/23/2015 16:07:37 11/30/2015 [id number] presi n arterial elevada: instrucciones de cuidado - [elevated blood pressure: care instructions] Not available 12/03/2015 10:31:06 Diabetes de tipo 2: Instrucciones de cuidado - [Type 2 Diabetes: Care Instructions] Not available 12/03/2015 10:31:05 Aprenda sobre lo s medidores continuos de glucosa - [Learning About Continuous Glucose Monitors (CGMs)] Not available 12/03/2015 10:31:06 Aprenda a controlar trivedi az car en la alley - [Learning About Checking Your Blood Sugar] Not available 12/03/2015 10:31:06 aprenda sobre lo s trastornos del estado de mariama - [learning about mood disorders] Not available 12/03/2015 10:31:06 04/14/2016 [id number] presi n arterial elevada: instrucciones de cuidado - [elevated blood pressure: care instructions] Not available 04/14/2016 19:12:13 Diabetes de tipo 2: Instrucciones de cuidado - [Type 2 Diabetes: Care Instructions] Not available 04/14/2016 19:12:13 hepatitis C: instrucciones de cuidado - [hepatitis C: care instructions] Not available 04/14/2016 19:12:13 01/20/2017 [id number] Diabetes de tipo 2: Instrucciones de cuidado - [Type 2 Diabetes: Care Instructions] [email or web address] Not available 01/20/2017 12:04:30 Reason for Referral Has been under treatment of provider in [place]. Needs to transfer here. Referring Physician: Ronni Sampson, Family Medicine, Encounter Date: 10/25/2015 [employer] Referral for Ch ronic hepatitis C For evaluation for treatment of hepatitis C. Referring Physician: Milagros Clark, Family Medicine, Encounter Date: 04/14/2016 Results Created Date Observation Date Name Description Value Unit Range Abnormal Flag Note LastModifiedBy Organization Detail LastModifiedTime 01/21/20 17 01/20/2017 gluco se, finge rstic k, blood Blood Glucose: mg/dl 117 Not Available [address], [address], 01/20/2017 09:00:43 04/14/20 16 04/14/2016 gluco se, finge rstic k, blood Blood Glucose: mg/dl 80 Not Available [address], [address], 04/14/2016 18:42:34 11/30/19 16 11/30/2015 gluco se, finge rstic k, blood Blood Glucose: mg/dl 83 Not Available [address], [address], 11/30/2015 20:20:49 11/22/19 16 11/22/2015 gluco se, finge rstic k, blood Blood Glucose: mg/dl 158 Not Available [address], [address], 11/22/2015 08:38:10 10/25/19 16 10/25/2015 gluco se, finge rstic k, blood Blood Glucose: mg/dl 154 Not Available [facility] [address] [place], [address], 10/25/2015 13:12:20 11/22/19 16 11/22/2015 CMP, serum or plasm a albumin 4.57 g/dL 3.50-5 .70 Not Available [address], [address], 11/22/2015 18:28:31 11/22/19 16 11/22/2015 CMP, serum or plasm a alkaline phosphatase 68.00 U/L 34.00- 104.00 Not Available [address], [address], 11/22/2015 18:28:31 11/22/19 16 11/22/2015 CMP, serum or plasm a ALT 97.00 U/L 7.00-5 2.00 high Not Available [address], [address], 11/22/2015 18:28:31 11/22/19 16 11/22/2015 CMP, serum or plasm a AST 55.00 U/L 13.00- 39.00 high Not Available [address], [address], 11/22/2015 18:28:31 11/22/19 16 11/22/2015 CMP, serum or plasm a carbon dioxide 22.00 mmol/ L 21.00- 31.00 Not Available [address], [address], 11/22/2015 18:28:31 11/22/19 16 11/22/2015 CMP, serum or plasm a bilirubin, total 0.46 mg/dL 0.30-1 .00 Not Available [address], [address], 11/22/2015 18:28:31 11/22/19 16 11/22/2015 CMP, serum or plasm a calcium 9.60 mg/dL 8.60-1 0.30 Not Available [address], [address], 11/22/2015 18:28:31 11/22/19 16 11/22/2015 CMP, serum or plasm a creatinine 0.87 mg/dL 0.60-1 .30 Not Available [address] [place], [address], 11/22/2015 18:28:31 11/22/19 16 11/22/2015 CMP, serum or plasm a glucose 117.00 mg/dL 70.00- 105.00 high Not Available [address], [address], 11/22/2015 18:28:31 11/22/19 16 11/22/2015 CMP, serum or plasm a protein, total 7.80 g/dL 6.40-8 .90 Not Available [address], [address], 11/22/2015 18:28:31 11/22/19 16 11/22/2015 CMP, serum or plasm a BUN 12.00 mg/dL 7.00-2 5.00 Not Available [address], [place], [address], 11/22/2015 18:28:31 11/22/19 16 11/22/2015 CMP, serum or plasm a sodium 141.00 mmol/ L 136.00 -145.0 0 Not Available [address], [address], 11/22/2015 18:28:31 11/22/19 16 11/22/2015 CMP, serum or plasm a potassium 4.30 mmol/ L 3.50-5 .10 Not Available [address], [address], 11/22/2015 18:28:31 11/22/19 16 11/22/2015 CMP, serum or plasm a chloride 107.00 mmol/ L 98.00- 107.00 Not Available [address] [place], [address], 11/22/2015 18:28:31 11/22/19 16 11/22/2015 CMP, serum or plasm a eGFR if non AM 109.57 min/m L/1.7 3_m2 >59.00 Not Available [address], [address], 11/22/2015 18:28:31 11/22/19 16 11/22/2015 CMP, serum or plasm a eGFR if AM 127.00 mL/mi n/1.7 3 >59.00 Not Available [address], [address], 11/22/2015 18:28:31 11/22/19 16 11/22/2015 CMP, serum or plasm a A/G ratio 1.41 1.10-2 .50 Not Available [address], [address], 11/22/2015 18:28:31 11/22/19 16 11/22/2015 CMP, serum or plasm a globulin, total 3.23 g/dL 1.50-4 .50 Not Available [address], [address], 11/22/2015 18:28:31 11/22/19 16 11/22/2015 CMP, serum or plasm a BUN/creatini ne ratio 13.79 9.00-2 3.00 Not Available [address], [address], 11/22/2015 18:28:31 11/22/19 16 11/22/2015 gustavo tin, serum or plasm a ferritin 133.00 NG/mL 23.90- 336.20 Not Available [address], [address], 11/23/2015 13:13:48 11/22/19 16 11/22/2015 TSH, serum or plasm a TSH 2.10 u[IU] /mL 0.34-5 .60 Not Available [facility] [address] [facility], [place], [address], 11/23/2015 14:49:06 11/22/19 16 11/22/2015 PT/IN R INR 1.1 0.8-1. 2 REFER ENCE INTER PAULETTE IS FOR NON-A NTICO AGULA DELVIN PATIE NTS. SUGGE STED INR THERA PEUTI C RANGE FOR VITAM IN K ANTAG ONIST THERA PY: STAND GABI DOSE (MODE RATE INTEN SITY THERA PEUTI C RANGE ): 2.0 - 3.0 HIGHE R INTEN SITY THERA PEUTI C RANGE 2.5 - 3.5 Not Available [facility] [address] [facility], [place], [address], 11/26/2015 19:23:03 11/22/19 16 11/22/2015 PT/IN R prothrombin time 11.7 sec 9.1-12 .0 Not Available [facility] [address] [place], [address], 11/26/2015 19:23:03 11/22/19 16 11/22/2015 rf (rheu matoi d facto r) + anti- ccp abs, serum RA latex turbid. 19.0 IU/mL 0.0-13 .9 high Not Available [facility] [address] [place], [address], 11/26/2015 19:23:06 11/22/19 16 11/22/2015 rf (rheu matoi d facto r) + anti- ccp abs, serum ccp antibodies IgG/IgA 38 units 0-19 high NEGAT MARIA ELENA <20 WEAK POSIT MARIA ELENA 20 - 39 MODER ATE POSIT MARIA ELENA 40 - 59 STRON G POSIT MARIA ELENA >59 Not Available [facility] [address] [place] [address], [place], [address], 11/26/2015 19:23:06 11/22/19 16 11/22/2015 hepat itis A Ab, total , serum hep A Ab, total POSITI VE negati ve abnormal Not Available [facility] [address] [place] [address], [place], [address], 11/26/2015 19:25:55 11/22/19 16 11/22/2015 hepat itis B surfa ce Ab, quant itati ve, serum hepatitis B surf Ab quant 46.4 mIU/m L immuni ty>9.9 STATU S OF IMMUN ITY ANTI- HBS LEVEL ----- ----- ----- --- ----- ----- ---- INCON SISTE NT WITH IMMUN ITY 0.0 - 9.9 CONSI STENT WITH IMMUN ITY >9.9 Not Available [address], [place], [address], 11/26/2015 19:25:56 11/22/19 16 11/22/2015 HIV (1+O+ 2) Ab, serum HIV screen 4TH generation wrfx NON REACTI VE non reacti ve Not Available [address], [place], [address], 11/26/2015 19:25:59 11/22/19 16 11/22/2015 hepat itis C genot ype, serum or plasm a hepatitis C genotype 1B Not Available [facility] [address] [place] [address], [place], [address], 11/26/2015 19:30:01 11/22/19 16 11/22/2015 hepat itis C genot ype, serum or plasm a please note: COMMEN T THIS TEST WAS DEVEL OPED AND ITS PERFO RMANC E BINU CTERI STICS DETER MINED BY [employer]. IT HAS NOT BEEN CLEAR ED OR APPRO JAEL BY THE U.S. FOOD AND DRUG ADMIN ISTRA TION. THE FDA HAS DETER MINED THAT SUCH CLEAR ANCE OR APPRO PAULETTE IS NOT NECORLANDO EDMOND. THIS TEST IS USED FOR CLINI ROMULO PURPO SES. IT SHOUL D NOT BE REGAR DED INVES TIGAT IONAL OR FOR RESEA RCH. Not Available [facility] [address] [facility], [place], [address], 11/26/2015 19:30:01 11/22/19 16 11/22/2015 hbcab (hepa titis B core Ab), igg+i gm, serum hep B core Ab, IgM NEGATI VE negati ve Not Available [facility] [address] [facility], [place], [address], 11/26/2015 19:30:30 11/22/19 16 11/22/2015 hbcab (hepa titis B core Ab), igg+i gm, serum hep B core Ab, tot NEGATI VE negati ve Not Available [facility] [address] [facility], [place], [address], 11/26/2015 19:30:30 11/22/19 16 11/22/2015 hepat itis C Ab, serum HCV Ab >11.0 S/co_ ratio 0.0-0. 9 high Not Available [facility] [address] [facility], [place], [address], 11/26/2015 19:30:31 11/22/19 16 11/22/2015 hepat itis C Ab, serum comment: COMMEN T STRON G REACT MARIA ELENA ANTIB SADAF SCREE N (S/C RATIO >10.9 ) IS CONSI STENT WITH PAST OR PRESE NT HCV INFEC TION. FOLLO W-UP TESTI NG BY HCV, QUANT ITATI VE, REAL TIME PCR (#[id number]) IS RECOM ROXY D TO DETER MINE VIRAL LOAD/ DIAGN OSIS OF CURRE NT HCV INFEC TION. Not Available [facility] [address] [facility], [place], [address], 11/26/2015 19:30:31 11/22/19 16 11/22/2015 hepat itis C virus RNA, viral load, PCR, serum or plasm a hepatitis C quantitation [id number] 0 IU/mL Not Available [address] [facility], [place], [address], 11/26/2015 19:30:58 11/22/19 16 11/22/2015 hepat itis C virus RNA, viral load, PCR, serum or plasm a HCV log10 6.239 log10 _IU/m L Not Available [address], [place], [address], 11/26/2015 19:30:58 11/22/19 16 11/22/2015 hepat itis C virus RNA, viral load, PCR, serum or plasm a test information: COMMEN T THE QUANT ITATI VE RANGE OF THIS ASSAY IS 15 IU/ML TO 100 ABE ON IU/ML . Not Available [address], [place], [address], 11/26/2015 19:30:58 11/22/19 16 11/22/2015 CBC w/ auto diff WBC 11.3 x10e3 /uL 3.4-10 .8 high Not Available [address], [place], [address], 11/26/2015 19:32:19 11/22/19 16 11/22/2015 CBC w/ auto diff RBC 5.71 x10e6 /uL 4.14-5 .80 Not Available [address], [place], [address], 11/26/2015 19:32:19 11/22/19 16 11/22/2015 CBC w/ auto diff hemoglobin 17.1 g/dL 12.6-1 7.7 Not Available [address], [place], [address], 11/26/2015 19:32:19 11/22/19 16 11/22/2015 CBC w/ auto diff hematocrit 50.1 % 37.5-5 1.0 Not Available [facility] [address] [facility], [place], [address], 11/26/2015 19:32:19 11/22/19 16 11/22/2015 CBC w/ auto diff MCV 88 fL 79-97 Not Available [facility] [address] [facility], [place], [address], 11/26/2015 19:32:19 11/22/19 16 11/22/2015 CBC w/ auto diff MCH 29.9 pg 26.6-3 3.0 Not Available [facility] [address] [place], [address], 11/26/2015 19:32:19 11/22/19 16 11/22/2015 CBC w/ auto diff MCHC 34.1 g/dL 31.5-3 5.7 Not Available [facility] [address] [place], [address], 11/26/2015 19:32:19 11/22/19 16 11/22/2015 CBC w/ auto diff RDW 14.3 % 12.3-1 5.4 Not Available [facility] [address] [facility], [place], [address], 11/26/2015 19:32:19 11/22/19 16 11/22/2015 CBC w/ auto diff platelets 142 x10e3 /uL 150-37 9 low Not Available [facility] [address] [place], [address], 11/26/2015 19:32:19 11/22/19 16 11/22/2015 CBC w/ auto diff neutrophils 62 % Not Available [facility] [address] [place], [address], 11/26/2015 19:32:19 11/22/19 16 11/22/2015 CBC w/ auto diff lymphs 29 % Not Available [facility] [address] [place] [address], [address], 11/26/2015 19:32:19 11/22/19 16 11/22/2015 CBC w/ auto diff monocytes 7 % Not Available [facility] [address] [place] [address], [address], 11/26/2015 19:32:19 11/22/19 16 11/22/2015 CBC w/ auto diff eos 2 % Not Available [facility] [address], [address], 11/26/2015 19:32:19 11/22/19 16 11/22/2015 CBC w/ auto diff basos 0 % Not Available [facility] [address], [address], 11/26/2015 19:32:19 11/22/19 16 11/22/2015 CBC w/ auto diff neutrophils (absolute) 7.0 x10e3 /uL 1.4-7. 0 Not Available [address], [address], 11/26/2015 19:32:19 11/22/19 16 11/22/2015 CBC w/ auto diff lymphs (absolute) 3.2 x10e3 /uL 0.7-3. 1 high Not Available [address], [address], 11/26/2015 19:32:19 11/22/19 16 11/22/2015 CBC w/ auto diff monocytes(ab solute) 0.8 x10e3 /uL 0.1-0. 9 Not Available [address], [address], 11/26/2015 19:32:19 11/22/19 16 11/22/2015 CBC w/ auto diff eos (absolute) 0.2 x10e3 /uL 0.0-0. 4 Not Available [facility] [address] [facility], [place], [address], 11/26/2015 19:32:19 11/22/19 16 11/22/2015 CBC w/ auto diff baso (absolute) 0.0 x10e3 /uL 0.0-0. 2 Not Available [facility] [address] [place] [address], [place], [address], 11/26/2015 19:32:19 11/22/19 16 11/22/2015 CBC w/ auto diff immature granulocytes 0 % Not Available [address], [place], [address], 11/26/2015 19:32:19 11/22/19 16 11/22/2015 CBC w/ auto diff immature grans (abs) 0.0 x10e3 /uL 0.0-0. 1 Not Available [address], [place], [address], 11/26/2015 19:32:19 04/14/20 16 04/14/2016 CBC w/ manua l diff WBC 14.1 10*3/ uL 4.0-10 .5 high Not Available [address], [place], [address], 04/14/2016 19:26:26 04/14/20 16 04/14/2016 CBC w/ manua l diff RBC 5.62 10*6/ uL 4.30-5 .90 Not Available [address], [place], [address], 04/14/2016 19:26:26 04/14/20 16 04/14/2016 CBC w/ manua l diff HGB 16.7 g/dL 12.5-1 7.0 Not Available [facility] [address] [facility], [place], [address], 04/14/2016 19:26:26 04/14/20 16 04/14/2016 CBC w/ manua l diff HCT 49.8 % 36.0-5 0.0 Not Available [facility] [address] [facility], [place], [address], 04/14/2016 19:26:26 04/14/20 16 04/14/2016 CBC w/ manua l diff MCH 29.6 pg 27.0-3 1.0 Not Available [facility] [address] [facility], [place], [address], 04/14/2016 19:26:26 04/14/20 16 04/14/2016 CBC w/ manua l diff MCV 88.6 fL 80.0-9 9.9 Not Available [facility] [address] [facility], [place], [address], 04/14/2016 19:26:26 04/14/20 16 04/14/2016 CBC w/ manua l diff MCHC 33.5 g/dL 33.0-3 7.0 Not Available [facility] [address] [facility], [place], [address], 04/14/2016 19:26:26 04/14/20 16 04/14/2016 CBC w/ manua l diff ly% 30.3 % Not Available [facility] [address] [facility], [place], [address], 04/14/2016 19:26:26 04/14/20 16 04/14/2016 CBC w/ manua l diff ly# 4.3 10*3/ uL 0.8-3. 2 high Not Available [facility] [address] [facility], [place], [address], 04/14/2016 19:26:26 04/14/20 16 04/14/2016 CBC w/ manua l diff gr% 67.5 % Not Available [facility] [address] [facility], [place], [address], 04/14/2016 19:26:26 04/14/20 16 04/14/2016 CBC w/ manua l diff gr# 9.5 10*3/ uL 1.8-7. 8 high Not Available [facility] [address] [facility], [place], [address], 04/14/2016 19:26:26 04/14/20 16 04/14/2016 CBC w/ manua l diff MO% 2.2 % Not Available [facility] [address] [facility], [place], [address], 04/14/2016 19:26:26 04/14/20 16 04/14/2016 CBC w/ manua l diff MO# 0.3 10*3/ uL 0.1-0. 6 Not Available [facility] [address] [facility], [place], [address], 04/14/2016 19:26:26 04/14/20 16 04/14/2016 CBC w/ manua l diff RDW 13.5 % 11.6-1 3.7 Not Available [facility] [address] [facility], [place], [address], 04/14/2016 19:26:26 04/14/20 16 04/14/2016 CBC w/ manua l diff plt 156 10*3/ uL 140-41 5 Not Available [facility] [address] [place] [address], [address], 04/14/2016 19:26:26 04/14/20 16 04/14/2016 CBC w/ manua l diff MPV 9.6 fL 7.8-11 .0 Not Available [facility] [address] [place] [address], [place], [address], 04/14/2016 19:26:26 04/14/20 16 04/14/2016 HbA1c (hemo globi n A1c), blood hemoglobin A1C 5.80 % 4.00-6 .00 Hemog lobin (Hb) A1c: 4.8% to 5.6% Predi abete s: 5.7% to 6.4% Diabe yola: >6.5% Glyce brunilda contr ol for adult s with diabe yola: <7.0% Not Available [facility] [address], [place], [address], 04/14/2016 20:09:23 11/13/19 16 11/13/2015 x-ray , lumba r spine No observ ation record ed. [email or web address] [employer] [address], [place], [address], 11/21/2015 09:50:32 Result Notes None recorded. Problems Name Problem SNOMED Code Status Onset Date Resolution Date Notes Provider Name and Address Organization Details Recorded Time Hypertensive disorder 06874003 [facility], [facility] 6 19:12:13 Viral hepatitis C 36388387 Active Count includes the [facility], [facility] 6 18:48:04 Type 2 diabetes mellitus without complication 177715682 Active MILAGROS Clark [facility] 6 19:12:13 Acute sinusitis 87582476 Active MILAGROS Clark [facility], [facility] 6 18:48:04 Cough 68395537 Active MILAGROS Clark null, [facility] 18:48:04 Sciatica 79651164 Active MILAGROS Clark [facility] 18:48:04 Low back pain 416990514 Active MILAGROS Clark null, [facility] 18:48:04 Pain of multiple joints 72942454 [facility] 18:48:04 Lumbar arthritis 608594667 [facility] 6 18:48:04 Tinea pedis 4320146 [facility] 6 18:48:04 Cellulitis of lower limb 402194501 Active LEFT FOOT [facility] 6 19:12:13 Chronic hepatitis C 868614692 Active MILAGROS Clark [facility] 6 19:12:13 Problem Notes None recorded. Procedures Surgical History Date Name Laterality Status Provider Name and Address Organization Details Recorded Time Orthopedic Surgery completed Rosa Elena Vences [facility] 06/30/2015 09:26:51 Imaging Results None recorded. Procedure Notes None recorded. Medical Equipment None Reported. Allergies Allergen ID Allergen Name Allergen Category Reaction Reaction Severity Criticality Documentation Date Start Date Code Code System Note Provider Name and Address Organization Details Recorded Time 37253 Product containin g penicilli n (product) medicatio n rash Not available Not available 06/30/2015 58526 8001 SNOMED Rosa Elena Vences [facility] 5 09:26:51 04712 codeine medicatio n angioedem a Not available Not available 06/30/2015 2670 RxNorm Rosa Elena Vences [facility] 5 09:26:51 Medications Name Sig Start Date Stop Date Status Note LastModified by Organization Details LastModified Time amoxicill in 500 mg capsule Take 2 capsules twice a day by oral route for 7 days. 2014 active Not Available Not Available Not Avai lable metformin 500 mg tablet Take 1 tablet twice a day by oral route. 01/20 completed PT STOPPED Not Available Not Available Not Available bupropion HCl SR 150 mg tablet,12 hr sustained -release Take 1 tablet twice a day by oral route. 2015 active Not Available Not Available Not Avai lable clonidine HCl 0.1 mg tablet Take 1 tablet twice a day by oral route for 30 days. 01/20 completed PT STOPPED Not Available Not Available Not Available trazodone 50 mg tablet active Not Available Not Available Not Available ibuprofen 800 mg tablet active Not Available Not Available Not Available hydrocodo ne 5 mg-acetam inophen 325 mg tablet active Not Available Not Available Not Available Claritin 10 mg tablet Take 1 tablet every day by oral route for 30 days. 2014 active Not Available Not Available Not Avai lable Paxil 20 mg tablet Take 1 tablet every day by oral route. 01/20 completed PT STOPPED Not Available Not Available Not Available Mobic 7.5 mg tablet Take 1 or 2 tablet(s ) EVERY DAY by oral route prn 2015 active Not Available Not Available Not Avai lable hydroxyzi ne HCl 50 mg tablet active Not Available Not Available No t Available sulfameth oxazole 800 mg-trimet hoprim 160 mg tablet Take 1 tablet every 12 hours by oral route for 7 days. 01/20 completed Not Available Not Available Not Available tramadol 50 mg tablet Take 1 or 2 tabs qd-bid prn 2015 active Not Available Not Available Not Avai lable triamcino lone acetonide 0.1 % topical cream APPLY A THIN LAYER TO THE AFFECTED AREA(S) BY TOPICAL ROUTE 2 TIMES PER DAY 2016 active Not Available Not Available Not Avai lable Tessalon Perles 100 mg capsule Take 1 capsule 3 times a day by oral route for 10 days. 2014 active Not Available Not Available Not Avai lable trazodone 100 mg tablet Take 1 tablet every day by oral route at bedtime. 2015 active Not Available Not Available Not Avai lable hydrocodo ne 7.5 mg-acetam inophen 325 mg tablet active Not Available Not Available Not Available hydrochlo rothiazid e 12.5 mg capsule Take 1 capsule every day by oral route for 30 days. 01/20 completed PT STOPPED Not Available Not Available Not Available nystatin 100,000 unit/gram topical powder APPLY TO THE AFFECTED AREA(S) of feet BY TOPICAL ROUTE 2 TIMES PER DAY 2015 active Not Available Not Available Not Avai lable lisinopri l 10 mg-hydroc hlorothia zide 12.5 mg tablet Take 1 tablet every day by oral route. 01/20 completed PT STOPPED Not Available Not Available Not Available ibuprofen 600 mg tablet Take 1 tablet 3 times a day by oral route as needed for 30 days. 2015 active Not Available Not Available Not Avai lable naproxen 500 mg tablet Take 1 tablet twice a day by oral route as needed. 2015 active Not Available Not Available Not Avai lable amoxicill in 875 mg-potass ium clavulana te 125 mg tablet active Not Available Not Available Not Available Vitals Date Recorded Body temperature Heart rate Body weight Heart rate Body mass index (BMI) Body height Respiratory rate Systolic And Diastolic Systolic And Diastolic Provider Name and Address Organization Details Last Updated DateTime 6 98 [degF] 69 /min 16532.3 58587 g 71 /min 28 kg/m2 172.72 cm 16 /min 142/79 mm[Hg] 131/75 mm[Hg] Claudia Dallas [facility] 6 13:19:48 Date Recorded Heart rate Body temperature Body height Body weight Body mass index (BMI) Respiratory rate Systolic And Diastolic Provider Name and Address Organization Details Last Updated DateTime 6 61 /min 97.9 [degF] 170.18 cm 13137.9 9608 g 28.8 kg/m2 18 /min 144/79 mm[Hg] Kimberley Bahenaon [facility] 6 08:32:58 Date Recorded Body height Body weight Body mass index (BMI) Body temperature Heart rate Respiratory rate Systolic And Diastolic Provider Name and Address Organization Details Last Updated DateTime 6 170.18 cm 23829.5 74392 g 28.7 kg/m2 98 [degF] 64 /min 16 /min 135/82 mm[Hg] Penny Valencia [facility] 6 20:18:11 Date Recorded Body height Body mass index (BMI) Body weight Provider Name and Address Organization Details Last Updated DateTime 01/20/2017 170.18 cm 29.1 kg/m2 02462.39 g Wanda Roman [facility] 01/20/2017 08:57:45 Date Recorded Body temperature Heart rate Body mass index (BMI) Respiratory rate Body weight Body height Systolic And Diastolic Provider Name and Address Organization Details Last Updated DateTime 6 97.9 [degF] 64 /min 29.4 kg/m2 16 /min 78828.3 6556 g 170.18 cm 147/86 mm[Hg] Amie Borden [facility] 6 18:38:20 Social History Question Answer Notes LastModified by Organizat ion Details LastModified Time Tobacco Smoking Status Current Some Day Smoker 2 ppd Claudia Burt paulino [facility] 10/25/2015 13:19:48 Do You Have An Advance Directive? No [email or web address] Information not available 01/20/2017 Are You Blind Or Do You Have Difficulty Seeing? No [email or web address] Information not available 01/20/2017 How Much Tobacco Do You Chew? None [email or web address] Information not available 10/25/2015 Are You Deaf Or Do You Have Serious Difficulty Hearing? No [email or web address] Information not available 01/20/2017 Which Illicit Or Recreational Drugs Have You Used? Morena [email or web address] Information not available 06/30/2015 Education 4 Year College [email or web address] Information not available 10/25/2015 Have You Been To An ER Or A Specialist Recently? No [email or web address] Information not available 01/20/2017 Marital Status [email or web address] Informatio n not available 10/25/2015 Do You Use Protection During Sex? No [email or web address] Information not available 01/20/2017 Seat Belts Used Routinely No [email or web address] Information not available 10/25/2015 Are You Sexually Active? Yes [email or web address] Information not available 01/20/2017 Smoke Alarm In Home Yes [email or web address] Information not available 01/20/2017 At What Age Did You Start Smoking Tobacco? 10 [email or web address] Information not available 10/25/2015 Are You Passively Exposed To Smoke? No [email or web address] Information no t available 01/20/2017 How Much Tobacco Do You Smoke? 2 PPD [email or web address] Information not available 01/20/2017 Do You Use Sunscreen Routinely? Yes [email or web address] Information not available 01/20/2017 Has Tobacco Cessation Counseling Been Provided? No [email or web address] Information not available 01/20/2017 Sex: Unknown Functional Status Question Answer Note LastModified by Organizat ion Details LastModified Time What is your level of alcohol consumption? Occasional [email or web address] Information not available 06/30/2015 Are you currently employed? Yes [email or web address] Information not available 10/25/2015 Mental Status None recorded. Family History Relationship Description Onset Age of this Age Resolved Age Notes LastModified by Organization Details LastModified Time Mother Heart disease Not available 2015 18:43:19 Maternal Grandmother Diabetes mellitus Not available 2015 18:43:19 Maternal Grandfather Heart disease Not available 2015 18:43:19 Father Diabetes mellitus Not available 2015 18:43:19 Medical History Condition Response - Hypertension Y - Arthritis N GENERAL N - Anemia N GI DISEASE N - Asthma Y - Heart Attack N LUNG DISEASE N - Ulcer N MUSCULOSKELETAL DS N - Breast Cancer N - Thyroid disease N - Reflux N OTHER N - COPD N - Glaucoma N ENDOCRINE DISEASE N - Thallassemia N - Sickle Cell Disease N - H. Pylori N CANCER N - Stroke N - Seizure N - ESRD N - HIV Positive N - Fractures Y - Colon Cancer N - Anxiety N KIDNEY/ DISEASE N NEUROLOGIC DISEASE N - High Cholesterol Y - Prostate Cancer N - Joint Injuries N HEMATOLOGIC DISEASES N ID N - Cataracts N - Hepatitis Y - Kidney Stones N EYE - ENT N - Depression N - MRSA N - Pancreatitis N - Diabetes Y - Allergies N HEART DISEASE N PSYCHIATRIC DISEASE N Immunizations Vaccine Type Date Status Note Provider Nam e and Address Organization Details Recorded Time Td (adult), 5 Lf tetanus toxoid, preservative free, adsorbed 6 completed Not Available [facility] 08/13/2019 04:24:39 Tdap 6 completed Not Available [facility] 08/13/2019 04:23:25 Past Encounters Encounter ID Performer Location Encounter Start Date Encounter Closed Date Diagnosis/Indication Diagnosis SNOMED-CT Code Diagnosis ICD10 Code Diagnosis IMO Codes Diagnosis Note [id number] Sandra Smith MD [facility] [address] [place] [address] 06/30/2015 09:11:49 06/30/2015 12:00:21 Acute sinusitis 11001637 J01.90 Rx for Amoxicilli n given along with Claritin and Ibuprofen for symptomati c control Cough 44109351 R05 [id number] Ronni Adrián, MD [address] [address] 10/25/2015 12:47:23 10/25/2015 15:10:41 Hypertensive disorder 64000647 I10 Continue same medication s. Type 2 brooke betes mellitus without complication 932383280 E11.9 Controlled on present regiment. Viral hepatitis C 305490 07 B19.20 Need records of previous treatment. Sciatica 15500110 M54.31 Modified activity. NSAIDS, tramadol prn. Check Xray. Patient states he has not had any lumbar film. F/u after that. Consider PT, MRI. Low back pain 643401483 M54.5 [id number] Ronni Sampson MD [address] [address] 11/22/2015 08:15:43 11/22/2015 10:58:43 Type 2 diabetes mellitus without complication 701273885 E11.9 Controlled on present regiment. Low back pain 553089054 M54.5 Pain of mu ltiple joints 41363330 M25.50 Lumbar arthritis 8020743 01 M46.96 Tinea pedis 8411113 B35. 3 [id number] Gildardo Park MD [address] [address] 11/30/2015 20:11:32 11/30/2015 21:05:17 Type 2 diabetes mellitus without complication 912365186 E11.9 Pt with hx of diabetes mellitus, d/w pt monitoring blood sugars daily, at a different time every day, record all results, and bring to every visit. check A1c and renal fx, f/u in 2 weeks recheck. Puncture w ound of foot 47029366 S91.332A Depressive disorder 3548 9007 F32.9 Hypertensive disorder 38 980108 I10 [id number] Fantasma Marina MD [address] [address] 04/14/2016 18:18:40 04/16/2016 00:28:00 Diabetes mellitus 56593362 E11.9 Cellulitis of lower limb 291594680 L03.119 HAS PODIATRY APPT THURSDAY - TO KEEP APPT Hypertensive disorder 38 468600 I10 Chronic hepatitis C 1283 29650 B18.2 HAD NOT SEEN SPECIALTY - REREFERRED Type 2 brooke betes mellitus without complication 162176667 E11.9 [id number] Kwadwo Schmidt MD [facility] [address] [facility] [place] [address] 01/20/2017 08:18:15 01/20/2017 09:17:48 Type 2 diabetes mellitus without complication 472389929 E11.9 SINCE HE WAS LAST SEEN HAS HAS STOPPED ALL OF HIS MEDS. HE WAS ADVISED TO F/U FOR LABS AND RESTART MEDS NEEDED. Acute dermatitis 0664607 6 L30.9 RX ORDERED. THE LESIONS APPEAR TO BE ECZEMA. RX ORDERED. TO F/U TO SEE IF IMPROVING. ADVISED TO F/U SOONER NEEDED. HE REQUESTED A NOTE TO BE OFF WORK SINCE LAST WEEK. HE WAS ADVISED THAT WE HAVE HAD OFFICE HOURS EVERY DAY EXCEPT THURSDAY. HE WOULD BE GIVEN A NOTE TO RETURN TO WORK BUT NOT AN EXCUSE FROM LAST WEEK. Health Concerns Section Related Observation LastModified by Organization Detai ls LastModified Time None Recorded Concern Status LastModified by Organization Details LastModified Time None Recorded Advance Directives Directive N: Payers Insurance Date Sequence Insurance Name Policy Number Policy Clark Covered Member ID Clark Member ID Guarantor Name 10/14/2016 SLIDING FEE SCHEDULE - DISCOUNT Chemo Ho 11/16/2015 1 *SELF PAY* Sa robert Ho Notes Date Note Type Note Provider Name and Address Organization Details Recorded Time 10/25/2015 text/html Generic HPI TemplateReported by PatientF/u NIDDM, HTN, Hep C. He also c/o chronic LBP with radicular symptoms on right. Ronni paulino [place] - [facility] 10/26/2015 08:27:56 11/22/2015 text/html Generic HPI TemplateReported by PatientF/u NIDDM, HTN, Hep C. He also c/o chronic LBP and chronic joint pains. He also has tinea of his feet. Ronni paulino [facility] 11/22/2015 09:13:14 11/30/2015 text/html Pt states that he stepped on a nail yesterday, and foot hurt too much to walk on today. has DM , checks blood sugar once a week usually, denies fevers or chills. has a hx of depression, was on paxil in the past, but has been off his medications, denies suicidal ideation or homocidal ideation at this time. Gildardo paulino, [facility] 12/17/2015 09:42:36 04/14/2016 text/html Generic HPI TemplateReported by PatientHE DEVELOPED ABSCESS FROM NAIL WOUND TO LEFT FOOT - HE WENT TO ER AND HAD IT DRAINED MILAGROS paulino [facility] 04/14/2016 19:12:31 01/20/2017 text/html WALK IN WITH LESIONS ON HANDS - STATES HE THINKS IT'S FROM CHEMICALS HE WAS IN CONTACT WITH. HE GOT GAS ON HIS HANDS AT WORK LAST WEEK AND IT MADE IT WORSE. IT IS ITCHING AND HE HAS BEEN SCRATCHING. HE STATED THE RASH ITSELF STARTED ABOUT A MONTH AGO. MILAGROS paulino [facility] 01/20/2017 09:16:24
--- OUTSIDE RECORDS SUMMARY | 2025-07-26 15:03 | XMS_ITS | Encounter Summary ---
Author Organization [facility] Address [address] [place] [address] Care Team Providers Care Gas Meter Checker Name Role Phone Freddy Epps MD Primary Care Provider [phone] Encounter Details Date Type Department Care Team (Latest Contact Info) Description 08/17/2018 Lab Requisition [facility] Jordyn Ribeiro PA-C [address] [place] [address] Type 2 diabetes mellitus with hyperglycemia [...] PA-C LAB URINE ORDERABLES F inal Result [facility] [address] [place] [address] * (ABNORMAL) Lipid panel - (08/17/2018 1:16 [...] PA-C LAB BLOOD ORDERABLES F inal Result [facility] [address] [place] [address] * (ABNORMAL) Comprehensive metabolic panel - (08/17/2018 [...] stage 4; <15, kidney failure. Kiera Shaw., Lázaro Schmidt, Katie Falcon., et al., Comparison of CKD Epidemiology Collaboration (CKD-EPI) and Modification of Diet in Renal Disease (MDRD) Study Equations: Risk Factors for and Complications of CKD and Mortality in the Kidney Early Evaluation Program (KEEP). Am J Kidney Dis (2011);57(9Ygrsh0):S9-16. Blood Venous blood specimen / Unknown 08/17/2018 1:16 PM EST 08/17/2018 1:16 PM EST Jordyn Ribeiro PA-C LAB BLOOD ORDERABLES F inal Result Performing Organization Address [facility]/State/[facility] Co de Phone Number [facility] [address] [place] [address] * (ABNORMAL) Hemoglobin A1c - (08/17/2018 1:16 PM EST) Hemoglobin A1C 13.5(H) <5.7 % 08/17/2018 6:14 PM [facility] Comment: Normal <5.7% Abnormal, High [...] results. Performed at [facility], [address] [place] [address] Estimated average glucose 341 mg/dL 08/17/2018 6:14 PM EST [facility] Comment: The estimated average glucose (eAG) is derived from the equation [AG (mg/dL)= 28.7 x %HbA1c - 46.7] and provided as recommended by the [place] [employer]. Calculated eAG values less than 97 mg/dL or greater than 298 mg/dL may be unreliable and should be interpreted with caution. Estimated average glucose is educational and should not be used for clinical management of diabetic patients. Diabetes Care, 31(8):7429-1511. Blood Venous blood specimen / Unknown 08/17/2018 1:16 PM EST 08/17/2018 1:16 PM EST Jordyn Ribeiro PA-C LAB BLOOD ORDERABLES F inal Result [facility] [address] [place] [address] documented in this encounter Visit Diagnoses Diagnosis [...] documented as of this encounter Care Teams Gas Meter Checker Relationship Specialty Start Date End Date Freddy Epps MD [address] [place] [phone] PCP - General Family Medicine 05/29/20 documented as of this encounter
--- OUTSIDE RECORDS SUMMARY | 2025-07-26 15:03 | XMS_ITS | Encounter Summary ---
Author Organization [facility] Address [address] [facility] [place] [address] Care Team Providers Care Program Associate Name Role Phone Freddy Epps MD Primary Care Provider [phone] Encounter Details Date Type Department Care Team (Late st Contact Info) Description 08/17/2018 Lab Requisition [facility] Social History Tobacco [...] documented as of this encounter Care Teams Program Associate Relationship Specialty Start Date End Date Freddy Epps MD [address] [facility] [place] [address] PCP - General Family Medicine 05/29/20 documented as of this encounter
--- OUTSIDE RECORDS SUMMARY | 2025-07-26 15:04 | XMS_ITS | Clinical Summary ---
Author Organization [facility] Address [address] [place] [address] Care Team Providers Care Microsoft Bi Developer Name Role Phone Freddy Epps MD Primary Care Provider [phone] Source Comments 42 CFR part 2 prohibits unauthorized use or disclosure of these records.[facility] Allergies Active Allergy Reactions Criticality Noted Date [...] times a day. 0 Active HYDROcodone-leanna taminophen (A[place]on) 5-325 mg tablet Take 1 tablet by [...] of 2 - PCV) 1997 COVID-19 Vaccine (1 - 2024-2 6 season) 2025 Influenza Vaccine (#1) 2025 HPV Vaccines (No Doses Required) Completed Hepatitis A Vaccines Aged Out No long er eligible based on patient's age to complete this topic Rotavirus Vaccines Aged Out No longer eligible based on patient's age to complete this topic Care Teams Microsoft Bi Developer Relationship Specialty Start Date End Date Freddy Epps MD [address] [address] PCP - General 04/13/24
--- OUTSIDE RECORDS SUMMARY | 2025-07-26 15:04 | XMS_ITS | Encounter Summary ---
Author Organization [facility] Address [address] [place] [address] Care Team Providers Care Route Delivery Supervisor Name Role Phone Freddy Epps MD Primary Care Provider [phone] Encounter Details Date Type Department Care Team ([facility] st Contact Info) Description 06/06/2021 Lab Requisition [facility] Libertad Grijalva MD [address] [address] Encounter for screening for infections with a [...] Detected Not Detected 06/11/2021 2:13 PM EST [facility] Urine Urine specimen / Unknown 06/05/2021 12:19 PM EST 06/06/2021 12:18 PM EST [facility] - 06/11/2021 2:13 PM EST Specimen was [...] ORDERABLES Final Result Performing Organization Address [facility]/State/[facility] Co de Phone Number [facility] [address] [place] [address] * Chlamydia trachomatis and Neisseria gonorrhoeae Molecular Screen (06/05/2021 12:19 PM EST) Chlamydia Screen Not Detected Not Detected 06/07/2021 3:23 PM EST [facility] GC Screen Not Detected Not Detected 06/07/2021 3:23 PM [facility] Urine Urine specimen / Unknown 06/05/2021 12:19 PM EST 06/06/2021 12:18 PM EST [facility] - 06/07/2021 3:23 PM EST Specimen [...] MICROBIOLOGY - GENERA L ORDERABLES Final Result [facility] [address] [facility] [address] documented in this encounter Visit Diagnoses Diagnosis [...] documented as of this encounter Care Teams Route Delivery Supervisor Relationship Specialty Start Date End Date Freddy Epps MD [address] [place], [place] [address] [phone] PCP - General Family Medicine 05/29/20 documented as of this encounter
--- OUTSIDE RECORDS SUMMARY | 2025-07-26 15:04 | XMS_ITS | Encounter Summary ---
Author Organization [facility] alth Address [address] [place] [address] Care Team Providers Care Outside Sales Engineer Name Role Phone Unavailable Primary Care Provider Unavailabl e Encounter Details Date Type Department Care Team (Late st Contact Info) Description 02/06/2023 Office Visit - Data Exchange [facility] Tania Bernstein CRNP [address] [place] [id number] Social History Tobacco Use Types Packs/Day [...] Name : CLOVIS SHEN (43yo, M) ID# [id number] Appt. Date/Time : 02/06/2023 09:00AM : 1980 Service Dept. : [facility] Provider : ANNA LERNER Insurance Med Primary: [facility]ALTH PLAN (MEDICAID REPLACEMENT - HMO) Insurance # : [id number] Policy/Group # : [id number] Med Mental Health: [facility] Insurance # : [id number] Med Curry: SLIDING FEE SCHEDULE - DISCOUNT [...] Care Provider: JOMAR EPPS MD: [address], [place] [address], , Patient's Pharmacies [facility] (ERX): [address], [place] [address], , [id number] ([place]): [address] [place] [address], , [facility] (ERX): [address] [place] [address], , [facility] (ERX): [address] [place] [address], , Vitals Ht: 5 ft 8 in [...] Rash (Mild) Some allergies listed in Documents: #[id number], #[id number], #[id number], #[id number] could not be added to this patient's [...] mL Route: Intramuscular Site: Deltoid, Right NDC: [id number] Lot #: [id number] Mfr.: Moderna US, Inc. Exp. Date: 05/21/21 VIS: Moderna COVID-19 Vaccine EUA Fact Sheet 10/19/2020 VIS Given: 12/07/20 Watch Caser: Royer Matias CMA Vaccine Type: COVID-19, mRNA, LNP-S, PF, 100 mcg/0.5 mL dose (Moderna) Date: 11/02/20 Amt.: 0.5 mL Route: Intramuscular Site: Deltoid, Left NDC: Lot #: [id number] Mfr.: Moderna US, Inc. Exp. Date: 04/27/21 VIS: Moderna COVID-19 Vaccine EUA Fact Sheet 06/26/2020 VIS Given: 11/02/20 Watch Caser: Eduarda Matias MA Haemophilus Influenzae Type B Vaccine Type: Hib (PRP-T) Date: 05/14/20 Amt.: 0.5 mL Route: Site: NDC: Lot #: [id number] Mfr.: Sanofi Pasteur Exp. Date: VIS: VIS Given: Watch Caser: Vaccine Type: Hib Date: 05/14/20 Amt.: Route: Site: NDC: Lot #: [id number] Mfr.: eBureauofi Pasteur Exp. Date: VIS: VIS Given: Watch Caser: Influenza Vaccine Type: influenza, seasonal, injectable, preservative free Date: 05/17/20 Amt.: 0.5 mL Route: Site: [facility]: Lot #: [id number] Mfr.: eBureauofi Pasteur Exp. Date: VIS: VIS Given: Watch Caser: Vaccine Type: influenza, injectable, quadrivalent Date: 08/03/19 Amt.: 0.5 mL Route: Intramuscular Site: Deltoid, Left NDC: Lot #: [id number] Mfr.: eBureauofi Pasteur Exp. Date: 01/24/20 VIS: Inactivated Influenza 03/10/2019 VIS Given: 08/03/19 Watch Caser: Faith Mead Vaccine Type: influenza, injectable, quadrivalent, preservative free Date: 09/16/15 Amt.: 0.5 mL Route: Site: [facility]: Lot #: [id number] Mfr.: Exp. Date: VIS: VIS Given: Watch Caser: Meningococcal Vaccine Type: meningococcal MCV4P Date: 05/14/20 Amt.: 0.5 mL Route: Site: [facility]: Lot #: [id number] Mfr.: eBureauofi Pasteur Exp. Date: VIS: VIS Given: Watch Caser: Vaccine Type: meningococcal B, recombinant Date: 05/14/20 Amt.: 0.5 mL Route: Site: [facility]: Lot #: [id number] Mfr.: [employer] Exp. Date: VIS: VIS Given: Watch Caser: Pneumococcal Vaccine Type: pneumococcal conjugate PCV 13 Date: 05/14/20 Amt.: 0.5 mL Route: Site: [facility]: Lot #: [id number] Mfr.: Nanoflex Exp. Date: VIS: VIS Given: Watch Caser: Vaccine Type: pneumococcal polysaccharide PPV23 Date: 08/03/19 Amt.: 0.5 mL Route: Injection Site: Deltoid, Right NDC: Lot #: [id number] Mfr.: Merck and Co., Inc. Exp. Date: 12/13/20 VIS: PPSV23 05/25/2019 VIS Given: 08/03/19 Watch Caser: Faith Mead Problems Reviewed Problems * Chronic [...] or [place])?: Yes (Notes: Born in [place]) TB Screening Question 2: Have you traveled [...] Dental: Where was your last dental visit?: [facility] Dental: Was the visit an [facility] dental provider?: Yes Dental: Action taken: [facility] information provided Other Education: 12 Marital status: Single General stress level: High Gender Identity and LGBTQ Identity Gender identity: Identifies as Male Assigned sex at : Male Pronouns: he/him Sexual orientation: Straight or heterosexual Surgical History Surgical History not reviewed (last reviewed 06/05/2021) * 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 Qty: (40) capsule Refills: 0 Pharmacy: [facility] 2. Type II diabetes mellitus uncontrolled - [...] (12) 3 mL syringe Refills: 3 Pharmacy: [facility] * insulin aspart (U-100) 100 unit/mL (3 mL) subcutaneous pen - Inject 22 unit(s) 3 times a day by subcutaneous route with meals. Qty: (10) 3 mL syringe Refills: 3Pharmacy: [facility] 3. Depression screening Z13.31: Encounter for screening for depression * PATIENT HEALTH QUESTIONNAIRE-9* 4. Screening procedure Z13.39: Encounter for screening examination for other mental health and behavioral disorders * SUBSTANCE ABUSE SCREENING* Return to Office * ANNA Dietz for ExistingPatient-ACUTE at [facility] on 02/13/2023 at 12:10 PM * Jomar Epps MD for VideoHealth-CHRONIC at [facility] on 02/25/2023 at 05:30 PM Encounter Sign-Off Encounter signed-off by ANNA Lerner, 02/06/2023. documented in this encounter Plan of Treatment Not on file documented as of this encounter Visit Diagnoses Not on filedocumented in this encounter
--- OUTSIDE RECORDS SUMMARY | 2025-07-26 15:04 | XMS_ITS | Encounter Summary ---
Author Organization [facility] alth Address [address] [place] [address] Care Team Providers Care Curriculum And Instruction Specialist Name Role Phone Unavailable Primary Care Provider Unavailabl e Encounter Details Date Type Department Care Team ([facility] st Contact Info) Description 07/30/2021 Office Visit - Data Exchange [facility] Jomar Epps MD [address] [place] [address] Social History Tobacco Use Types [...] Name : CLOVIS SHEN (41yo, M) ID# [id number] Appt. Date/Time : 08/06/2021 08:30AM : 1980 Service Dept. : [facility] Provider : JOMAR EPPS MD Insurance Med Primary: [facility] HEALTH PLAN (MEDICAID REPLACEMENT - HMO) Insurance # : [id number] Policy/Group # : [id number] Med Mental Health: [facility] Insurance # : [id number] Med Curry: SLIDING FEE SCHEDULE - DISCOUNT Prescription: EXPRESS SCRIPTS - Member is eligible. details Chief Complaint telehealth, SBIRT - Adult Followup: Type II diabetes mellitus uncontrolled f/u DM, smoking, back pain. Needs Diabetic labs ordered and A1C/hepatitis Patient's Care Team Primary Care Provider: JOMAR EPPS MD: [facility] [place] [address], , Patient's Pharmacies [facility] ([place]): [address] [place] [address], , [facility] ([place]X): [address] [place] [address], , [facility] (ERX): [address] [place] [address], , [facility] ([place]): [address] [address], [place] [address], , Vitals None recorded. Allergies Allergies not reviewed (last reviewed 06/05/2021) PENICILLINS: Rash (Mild) Some allergies listed in Documents: #[id number], #[id number], #[id number] could not be added to this patient's [...] mL Route: Intramuscular Site: Deltoid, Right NDC: [id number] Lot #: [id number] Mfr.: Moderna [employer], Inc. Exp. Date: 05/21/21 VIS: Moderna COVID-19 Vaccine EUA Fact Sheet 10/19/2020 VIS Given: 12/07/20 Cottage Cheese Maker: Royer Matias CMA Vaccine Type: COVID-19, mRNA, LNP-S, PF, 100 mcg/0.5 mL dose (Moderna) Date: 11/02/20 Amt.: 0.5 mL Route: Intramuscular Site: Deltoid, Left NDC: Lot #: [id number] Mfr.: Moderna [employer], Inc. Exp. Date: 04/27/21 VIS: Moderna COVID-19 Vaccine EUA Fact Sheet 06/26/2020 VIS Given: 11/02/20 Cottage Cheese Maker: Eduarda Matias MA Vaccine Type: Hib (PRP-T) Date: 05/14/20 Amt.: 0.5 mL Route: Site: NDC: Lot #: [id number] Mfr.: Sanofi Pasteur Exp. Date: VIS: VIS Given: Cottage Cheese Maker: Vaccine Type: Hib Date: 05/14/20 Amt.: Route: Site: [place]: Lot #: [id number] Mfr.: Sanofi Pasteur Exp. Date: VIS: VIS Given: Cottage Cheese Maker: Vaccine Type: influenza, injectable, quadrivalent Date: 05/17/20 Amt.: Route: Site: NDC: Lot #: Mfr.: Exp. Date: VIS: VIS Given: Cottage Cheese Maker: [facility] Vaccine Type: influenza, seasonal, injectable, preservative free Date: 05/17/20 Amt.: 0.5 mL Route: Site: [facility]: Lot #: [id number] Mfr.: Sanofi Pasteur Exp. Date: VIS: VIS Given: Cottage Cheese Maker: Vaccine Type: influenza, injectable, quadrivalent Date: 08/03/19 Amt.: 0.5 mL Route: Intramuscular Site: Deltoid, Left NDC: Lot #: [id number] Mfr.: Sanofi Pasteur Exp. Date: 01/24/20 VIS: Inactivated Influenza 03/10/2019 VIS Given: 08/03/19 Cottage Cheese Maker: Faith Abbierosalia Vaccine Type: influenza, injectable, quadrivalent, preservative free Date: 09/16/15 Amt.: 0.5 mL Route: Site: [facility]: Lot #: [id number] Mfr.: Exp. Date: VIS: VIS Given: Cottage Cheese Maker: Vaccine Type: meningococcal B, unspecified Date: 05/14/20 Amt.: Route: Site: [facility]: Lot #: Mfr.: Exp. Date: VIS: VIS Given: Cottage Cheese Maker: [facility] Vaccine Type: meningococcal MCV4P Date: 05/14/20 Amt.: 0.5 mL Route: Site: [facility]: Lot #: [id number] Mfr.: Appthorityofi Pasteur Exp. Date: VIS: VIS Given: Cottage Cheese Maker: Vaccine Type: meningococcal B, recombinant Date: 05/14/20 Amt.: 0.5 mL Route: Site: [facility]: Lot #: [id number] Mfr.: Musement Exp. Date: VIS: VIS Given: Cottage Cheese Maker: Vaccine Type: pneumococcal conjugate PCV 13 Date: 05/14/20 Amt.: 0.5 mL Route: Site: [facility]: Lot #: [id number] Mfr.: [employer] Exp. Date: VIS: VIS Given: Cottage Cheese Maker: Vaccine Type: pneumococcal polysaccharide PPV23 Date: 08/03/19 Amt.: 0.5 mL Route: Injection Site: Deltoid, Right NDC: Lot #: [id number] Mfr.: Merck and Co., Inc. Exp. Date: 12/13/20 VIS: PPSV23 05/25/2019 VIS Given: 08/03/19 Cottage Cheese Maker: Faith Mead Problems Reviewed Problems * Candidal [...] Dental: Where was your last dental visit?: [facility] Dental: Was the visit an [facility] dental provider?: Yes Dental: Action taken: None Needed Other Education: 12 Marital status: Single General stress level: High Gender Identity and LGBTQ Identity Gender identity: Identifies as Male Assigned sex at : Male Sexual orientation: Straight or heterosexual Surgical History Surgical History not reviewed (last reviewed 06/05/2021) * Removal of spleen total - 05/16/2020 noneSurgery to Left knee.[employer] Past Medical History Past Medical History not [...] identity confirmed by Patient location: home in [place] Provider location: home in [place] Persons Accompanying Patient: Start time: Pt c/o [...] 1.5 to 3. Metformin he is taking [id number] ER BID. Will send the trulicity now. [...] 5 3 mL syringe(s) Refills: 3 Pharmacy: [facility] * Lantus Solostar U-100 Insulin 100 unit/mL (3 mL) subcutaneous pen - INJECT 60 UNITS SUBCUTANEOUSLY ONCE DAILY Qty: 6 3 mL syringe(s) Refills: 3 Pharmacy: [facility] * Trulicity 3 mg/0.5 mL subcutaneous pen injector - Inject once weekly Qty: 12 0.5 mL syringe(s) Refills: 2 Pharmacy: [email or web address] 2. Depression screening - pt has [...] 2 15 gm tube(s) Refills: 0 Pharmacy: [email or web address] * clotrimazole 1 % topical cream - APPLY TO THE AFFECTED AND SURROUNDING AREAS OF SKIN BY TOPICAL ROUTE 2 TIMES PER DAY IN THE MORNINGAND EVENING Qty: 1 30 gm tube(s) Refills: 0 Pharmacy: [email or web address] 5. Insomnia - refill G47.00: Insomnia, unspecified * quetiapine 25 mg tablet - Take 1 tablet(s) every day by oral route at bedtime Qty: 90 tablet(s) Refills: 3 Pharmacy: [email or web address] 6. COVID-19 - currently ahs covid, [...] 1 100 gm tube(s) Refills: 1 Pharmacy: [facility] 8077 Discussion Notes End time:19 min (08:31am - 08:50am) Return to Office Patient will return to the office as needed. Encounter Sign-Off Encounter signed-off by Jomar Epps MD, 08/06/2021. documented in this encounter Plan of Treatment Not on file documented as of this encounter Visit Diagnoses Not on filedocumented in this encounter
--- OUTSIDE RECORDS SUMMARY | 2025-07-26 15:04 | XMS_ITS | Encounter Summary ---
Author Organization [facility] alth Address [address] [place] [address] Care Team Providers Care Spring Manufacturing Set Up Technician Name Role Phone Unavailable Primary Care Provider Unavailabl e Encounter Details Date Type Department Care Team ([facility] st Contact Info) Description 06/26/2023 Office Visit - Data Exchange [facility] Gildardo Norris CRNP [address] [place], [place] [id number] Social History Tobacco Use Types Packs/Day Years [...] Name : CLOVIS SHEN (43yo, M) ID# [id number] Appt. Date/Time : 06/26/2023 11:30AM : 1980 Service Dept. : [facility] Provider : ANNA ALLEN Insurance Med Primary: [facility] HEALTH PLAN (MEDICAID REPLACEMENT - HMO) Insurance # : [id number] Policy/Group # : [id number] Med Mental Health: [facility] Insurance # : [id number] Med Curry: SLIDING FEE SCHEDULE - DISCOUNT Prescription: [employer] SCRIP[employer] - Member is eligible. details Chief Complaint SBIRT - Adult Patient presents today with concerns of cramping in legs and feet, states it is happening all day every day. 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 Date: 06/16/23 prescribed Source: Carissa Jhon, CERTIFIED PROSTHETIST VICE PRESIDENT Name: lisinopriL 5 mg tablet take 1 [...] 0.5 mL Route: Intramuscular Site: Deltoid, Right [facility]: [id number] Lot #: [id number] Mfr.: Moderna US, Inc. Exp. Date: 05/21/21 VIS: Moderna COVID-19 Vaccine EUA Fact Sheet 10/19/2020 VIS Given: 12/07/20 Business Center Manager: Royer Matias CMA Vaccine Type: COVID-19, mRNA, LNP-S, PF, 100 mcg/0.5 mL dose (Moderna) Date: 11/02/20 Amt.: 0.5 mL Route: Intramuscular Site: Deltoid, Left NDC: Lot #: [id number] Mfr.: Moderna US, Inc. Exp. Date: 04/27/21 VIS: Moderna COVID-19 Vaccine EUA Fact Sheet 06/26/2020 VIS Given: 11/02/20 Business Center Manager: Eduarda Matias MA Diphtheria, Tetanus, Pertussis Vaccine Type: Tdap Date: 03/03/23 Amt.: 0.5 mL Route: Intramuscular Site: Deltoid, Left NDC: [id number] Lot #: [id number] Mfr.: Sanofi Pasteur Exp. Date: 12/30/24 VIS: Tdap 03/01/2021 [facility] VIS Given: 03/03/23 Business Center Manager: Vito Grigsby MA Haemophilus Influenzae Type B Vaccine Type: Hib (PRP-T) Date: 05/14/20 Amt.: 0.5 mL Route: Site: [place]: Lot #: [id number] Mfr.: Sanofi Pasteur Exp. Date: VIS: VIS Given: Business Center Manager: Vaccine Type: Hib Date: 05/14/20 Amt.: Route: Site: NDC: Lot #: [id number] Mfr.: Sanofi Pasteur Exp. Date: VIS: VIS Given: Business Center Manager: Influenza Vaccine Type: influenza, seasonal, injectable, preservative free Date: 05/17/20 Amt.: 0.5 mL Route: Site: NDC: Lot #: [id number] Mfr.: Sanofi Pasteur Exp. Date: VIS: VIS Given: Business Center Manager: Vaccine Type: influenza, injectable, quadrivalent Date: 08/03/19 Amt.: 0.5 mL Route: Intramuscular Site: Deltoid, Left NDC: Lot #: [id number] Mfr.: Sanofi Pasteur Exp. Date: 01/24/20 VIS: Inactivated Influenza 03/10/2019 VIS Given: 08/03/19 Business Center Manager: Faith Mead Vaccine Type: influenza, injectable, quadrivalent, preservative free Date: 09/16/15 Amt.: 0.5 mL Route: Site: [facility]: Lot #: [id number] Mfr.: Exp. Date: VIS: VIS Given: Business Center Manager: Meningococcal Vaccine Type: meningococcal MCV4P Date: 05/14/20 Amt.: 0.5 mL Route: Site: [facility]: Lot #: [id number] Mfr.: Sanofi Pasteur Exp. Date: VIS: VIS Given: Business Center Manager: Vaccine Type: meningococcal B, recombinant Date: 05/14/20 Amt.: 0.5 mL Route: Site: [facility]: Lot #: [id number] Mfr.: [employer] Exp. Date: VIS: VIS Given: Business Center Manager: Pneumococcal Vaccine Type: pneumococcal conjugate PCV 13 Date: 05/14/20 Amt.: 0.5 mL Route: Site: [facility]: Lot #: [id number] Mfr.: [employer] Exp. Date: VIS: VIS Given: Business Center Manager: Vaccine Type: pneumococcal polysaccharide PPV23 Date: 08/03/19 Amt.: 0.5 mL Route: Injection Site: Deltoid, Right NDC: Lot #: [id number] Mfr.: Merck and Co., Inc. Exp. Date: 12/13/20 VIS: PPSV23 05/25/2019 VIS Given: 08/03/19 Business Center Manager: Faith Mead Problems Reviewed Problems * [...] or [place])?: Yes (Notes: Born in [place]) TB Screening Question 2: Have you traveled [...] Dental: Where was your last dental visit?: [facility] Dental: Was the visit an [facility] dental provider?: Yes Dental: Action taken: [facility] information provided Other Education: 12 Marital status: Single General stress level: High Gender Identity and LGBTQ Identity Gender identity: Identifies as Male Assigned sex at : Male Pronouns: he/him Sexual orientation: Straight or heterosexual Surgical History Reviewed Surgical History * Removal of spleen total - 05/16/2020 noneSurgery to Left knee.[employer] Past Medical History Discussed Past Medical History [...] shifts - Missed 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 Referral was placed in 02/2023. - Reported fluctuating blood glucose levels with several lows causing symptoms - Denies headaches or dizziness. - Reports blurry vision. - Will schedule appointment with high risk ob. - Drinks a lot of water. Peripheral [...] DAY Qty: (180) tablet Refills: 3 Pharmacy: [facility] * repaglinide 2 mg tablet - take 1 PO once daily with lunch Qty: (90) tablet Refills: 3 Pharmacy: [facility] * GLUCOSE, FINGERSTICK, BLOOD - Specimen source: Blood capillary Fasting: N * atorvastatin 40 mg tablet - TAKE 1 TABLET BY MOUTH EVERY DAY Qty: (90) tablet Refills: 3 Pharmacy: [facility] * HEMOGLOBIN A1C, FINGERSTICK - Specimen source: Blood capillary * lisinopril 5 mg tablet - take 1 PO daily Qty: (90) tablet Refills: 3 Pharmacy: [facility] * insulin aspart (U-100) 100 unit/mL (3 mL) subcutaneous pen - Inject 22 unit(s) 3 times a day by subcutaneous route with meals. Qty: (10) 3 mL syringe Refills: 3Pharmacy: [facility] * URINALYSIS, DIPSTICK 2. Diabetic peripheral [...] days. Qty: (90) capsule Refills: 0 Pharmacy: [facility] 3. Chronic back pain - - [...] Qty: (60) tablet Refills: 3 Pharmacy: [facility]64 4. Depression screening Z13.31: Encounter for screening for depression * PATIENT HEALTH QUESTIONNAIRE-9* 5. Screening procedure - negative Z13.39: Encounter for screening examination for other mental health and behavioral disorders * SUBSTANCE ABUSE SCREENING* GLUCOSE, FINGERSTICK, BLOOD * Fasting: N * Result: - Blood Glucose: mg/dl: [facility] HEMOGLOBIN A1C, FINGERSTICK * Result: - HEMOGLOBIN A1C: >15.0 URINALYSIS, DIPSTICK * Results: - Leukocytes: Negative - Nitrite: negative - Urobilinogen: .2 - Protein: Negative - pH: 7.0 - Blood: Non-Hemolyzed: Moderate - Specific [place]: 1.010 - Ketone: Trace - Bilirubin: Negative - Glucose: 2000+ - Appearance: Clear - Color: Yellow Discussion Notes ATTESTATION: This note has been generated using [employer]. Elvira Car. Return to Office * Debbie Hernandez MD for [id number] at [facility] on 07/02/2023 at 02:30 PM * Jomar Epps MD for [id number] [facility] on 08/20/2023 at 01:00 PM Encounter Sign-Off Encounter signed-off by ANNA Allen, 06/29/2023. documented in this encounter Plan of Treatment Not on file documented as of this encounter Visit Diagnoses Not on filedocumented in this encounter
--- OUTSIDE RECORDS SUMMARY | 2025-07-26 15:04 | XMS_ITS | Encounter Summary ---
Author Organization [facility] alth Address [address] [place] [address] Care Team Providers Care Commercial Announcer Name Role Phone Unavailable Primary Care Provider Unavailabl e Encounter Details Date Type Department Care Team ([facility] st Contact Info) Description 02/25/2023 Office Visit - Data Exchange [facility] Jomar Epps MD [address] [place] [address] Social History Tobacco Use Types [...] Name : CLOVIS SHEN (43yo, M) ID# [id number] Appt. Date/Time : 02/25/2023 05:30PM : 1980 Service Dept. : Telehealth Provider : JOMAR EPPS MD Insurance Med Primary: [facility] (MEDICAID REPLACEMENT - HMO) Insurance # : [id number] Policy/Group # : [id number] Med Mental Health: [facility] Insurance # : [id number] Med Curry: SLIDING FEE SCHEDULE - DISCOUNT Prescription: EXPRESS SCRIPTS - Member is eligible. details Chief Complaint telehealth Followup: Type II diabetes mellitus uncontrolled Patient's Care Team Primary Care Provider: JOMAR EPPS MD: [address] [place] [address], , Patient's Pharmacies [facility]: [address], [place] [address], , [id number]): [address] [facility] [facility], [place] [address], , [facility] ([place]): [address] [place] [address], , [facility] (ERX): [address] [place] [address], , Vitals 2023-02-25 17:30 Ht: 5 ft 8 in (172.72 cm) Allergies Allergies not reviewed (last reviewed 02/06/2023) PENICILLINS: Rash (Mild) Some allergies listed in Documents: #[id number], #[id number], #[id number], #[id number] could not be added to this patient's [...] for 30 days. Date: 01/09/23 renewed Source: Jmoar Epps MD Name: tiZANidine 2 mg tablet [...] mL Route: Intramuscular Site: Deltoid, Right NDC: [id number] Lot #: [id number] Mfr.: Moderna US, Inc. Exp. Date: 05/21/21 VIS: Moderna COVID-19 Vaccine EUA Fact Sheet 10/19/2020 VIS Given: 12/07/20 Manufacturing Planner: Royer Matias CMA Vaccine Type: COVID-19, mRNA, LNP-S, PF, 100 mcg/0.5 mL dose (Moderna) Date: 11/02/20 Amt.: 0.5 mL Route: Intramuscular Site: Deltoid, Left NDC: Lot #: [id number] Mfr.: Moderna US, Inc. Exp. Date: 04/27/21 VIS: Moderna COVID-19 Vaccine EUA Fact Sheet 06/26/2020 VIS Given: 11/02/20 Manufacturing Planner: Eduarda Matias MA Haemophilus Influenzae Type B Vaccine Type: Hib (PRP-T) Date: 05/14/20 Amt.: 0.5 mL Route: Site: NDC: Lot #: [id number] Mfr.: Sanofi Pasteur Exp. Date: VIS: VIS Given: Manufacturing Planner: Vaccine Type: Hib Date: 05/14/20 Amt.: Route: Site: NDC: Lot #: [id number] Mfr.: Sanofi Pasteur Exp. Date: VIS: VIS Given: Manufacturing Planner: Influenza Vaccine Type: influenza, seasonal, injectable, preservative free Date: 05/17/20 Amt.: 0.5 mL Route: Site: NDC: Lot #: [id number] Mfr.: Sanofi Pasteur Exp. Date: VIS: VIS Given: Manufacturing Planner: Vaccine Type: influenza, injectable, quadrivalent Date: 08/03/19 Amt.: 0.5 mL Route: Intramuscular Site: Deltoid, Left NDC: Lot #: [id number] Mfr.: Sanofi Pasteur Exp. Date: 01/24/20 VIS: Inactivated Influenza 03/10/2019 VIS Given: 08/03/19 Manufacturing Planner: Faith Mead Vaccine Type: influenza, injectable, quadrivalent, preservative free Date: 09/16/15 Amt.: 0.5 mL Route: Site: [facility]: Lot #: [id number] Mfr.: Exp. Date: VIS: VIS Given: Manufacturing Planner: Meningococcal Vaccine Type: meningococcal MCV4P Date: 05/14/20 Amt.: 0.5 mL Route: Site: NDC: Lot #: [id number] Mfr.: Sanofi Pasteur Exp. Date: VIS: VIS Given: Manufacturing Planner: Vaccine Type: meningococcal B, recombinant Date: 05/14/20 Amt.: 0.5 mL Route: Site: NDC: Lot #: [id number] Mfr.: Atlas5D Exp. Date: VIS: VIS Given: Manufacturing Planner: Pneumococcal Vaccine Type: pneumococcal conjugate PCV 13 Date: 05/14/20 Amt.: 0.5 mL Route: Site: [facility]: Lot #: [id number] Mfr.: Wyeth Exp. Date: VIS: VIS Given: Manufacturing Planner: Vaccine Type: pneumococcal polysaccharide PPV23 Date: 08/03/19 Amt.: 0.5 mL Route: Injection Site: Deltoid, Right NDC: Lot #: [id number] Mfr.: Merck and Co., Inc. Exp. Date: 12/13/20 VIS: PPSV23 05/25/2019 VIS Given: 08/03/19 Manufacturing Planner: Faith Mead Problems Reviewed Problems * Candidal [...] Dental: Where was your last dental visit?: [facility] Dental: Was the visit an [facility] dental provider?: Yes Dental: Action taken: [facility] information provided Other Education: 12 Marital status: Single General stress level: High Gender Identity and LGBTQ Identity Gender identity: Identifies as Male Assigned sex at : Male Pronouns: he/him Sexual orientation: Straight or heterosexual Surgical History Surgical History not reviewed (last reviewed 06/05/2021) * Removal of spleen total - 05/16/2020 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 * PRESCRIPTION/DRUG REPORTING* - 02/13/23 Notes - PastRx Report: No Data found in state DELIVERY STOCK CLERK for this Patient. * PRESCRIPTION/DRUG REPORTING* - 02/06/23 Notes - PastRx Report: No Data found in state DELIVERY STOCK CLERK for this Patient. Screening None recorded. HPI [...] home in [place] Provider location: home in [place] Persons Accompanying Patient: Start time: 547pm DM: [...] directed. Qty: 10 Units Refills: 5 Supplier: [facility] [place] 2. Diabetic peripheral neuropathy E11.40: Type 2 diabetes mellitus with diabetic neuropathy, unspecified * gabapentin 300 mg capsule - Take 1 capsule(s) 3 times a day by oral route for 30 days. Qty: (90) capsule Refills: 0 Pharmacy: [facility] Discussion Notes End time: 557pm Return to Office * to see Jomar Epps MD at [facility] on or around 04/08/2023 Encounter Sign-Off Encounter signed-off by Jomar Epps MD, 02/25/2023. documented in this encounter Plan of Treatment Not on file documented as of this encounter Visit Diagnoses Not on filedocumented in this encounter
--- OUTSIDE RECORDS SUMMARY | 2025-07-26 15:04 | XMS_ITS | Clinical Summary ---
Author Organization [facility] alth Address [address] [place] [address] Care Team Providers Care Attorney General Name Role Phone Unavailable Primary Care Provider [...] COMPREHENSIVE METABOLIC PANEL (05/23/2025 12:04 PM EDT) [facility] Glucose (serum) 612(HH) 70 - [...] PM EDT Specimen Source: BLOOD&BLOOD Performed at: [facility]): [address] [facility] us Mango Pendleton MD CHEMISTRY ORDERABLES Final Res ult [facility] [address] [place] [address], [place] [phone] * (ABNORMAL) CBC (05/23/2025 12:04 PM EDT) [...] PM EDT Specimen Source: BLOOD&BLOOD Performed at: [facility]): [address] [facility] us Mango Pendleton MD HEMATOLOGY ORDERABLES Final Re sult [facility] [address] [place] [place] [address], [place] [phone] * (ABNORMAL) LIPID PANEL CHOLESTEROL FRACTIONATION (LCF) [...] EDT Specimen Source: BLOOD, VENOUS Performed at: [facility]): [address] [facility] us Freddy Epps MD CHEMISTRY ORDERABLES Final Resu lt [facility] [address] [place] [place] [address], [place] [phone] * HIV 1/2/AG/AB PROGRESSIVE(HIV SCREENING) (06/06/2021 9:31 [...] - 06/07/2021 1:40 PM EST Performed at: [facility]): [address] [facility] Libertad Grijalva MD CHEMISTRY ORDERABLES Leandra sarah Result [facility] FIRST DATA EXCH[facility] [address] [facility], [place] [address], [place] [phone] from Last 3 Months or Most Recently Relevant to Health Maintenance
--- OUTSIDE RECORDS SUMMARY | 2025-07-26 15:04 | XMS_ITS | Clinical Summary ---
Author Organization [facility] (his torical as of Apr 22, 2025) Address [address] [place] [address] Care Team Providers Care Metal Or Wood Blocker Name Role Phone Freddy Epps MD Primary Care Provider [phone] Allergies Active Allergy Reactions Criticality Noted Date [...] Active HYDROcodone 5 mg-acetaminophe n 325 mg (Raymond 5/325) tablet Take 1 tablet by mouth [...] Phone Billing Address Personal/Family Self 1980 [address] [facility] [address] [facility] Member Subscriber Plan / Payer (Ef fective 2024-Present) Name:Chemo Keane Relation to Subscriber:Self Name:Chemo Keane Payer ID:Not on file Type:Not on file Address: [address] [place] [address] * Guarantor: Chemo Keane Account Type Relation to Patient Date of Phone Billing Address Personal/Family Self 1980 [address] [facility] [address] Care Teams Metal Or Wood Blocker Relationship Specialty Start Date End Date Freddy Epps MD [address] [facility] [place] [address] [facility] - General 04/13/24
--- OUTSIDE RECORDS SUMMARY | 2025-07-26 15:04 | XMS_ITS | Encounter Summary ---
Author Organization [facility] alth Address [address] [place] [address] Care Team Providers Care Pretzel Packer Name Role Phone Unavailable Primary Care Provider Unavailabl e Encounter Details Date Type Department Care Team ([facility] st Contact Info) Description 11/11/2022 Office Visit - Data Exchange [facility] Jomar Epps MD [address] [place], [place] [id number] Social History Tobacco Use Types Packs/Day Years [...] Name : CLOVIS SHEN (42yo, M) ID# [id number] Appt. Date/Time : 11/11/2022 09:00AM : 1980 Service Dept. : [facility] Provider : JOMAR EPPS MD Insurance Med Primary: [facility] HEALTH PLAN (MEDICAID REPLACEMENT - HMO) Insurance # : [id number] Policy/Group # : [id number] Med Mental Health: [facility] Insurance # : [id number] Med Curry: SLIDING FEE SCHEDULE - DISCOUNT Prescription: EXPRESS SCRIPTS - Member is eligible. details Chief Complaint Followup: Type II diabetes mellitus uncontrolled Followup: Hypertensive disorder PAtient presents today for a f/u DM MWaggner REPORT SPECIALIST Patient's Care Team Primary Care Provider: JOMAR EPPS MD: [address] [facility] [place] [place] [address], , Patient's Pharmacies [facility] ([place]): [address], [place] [address], , [id number] ([place]): [address] [facility], [place] [address], , [facility] (ERX): [address] [place] [address], , [facility] (ER[place]): [address] [place] [address], , Vitals Ht: 5 ft 8 in [...] Rash (Mild) Some allergies listed in Documents: #[id number], #[id number], #[id number], #[id number] could not be added to this patient's [...] mL Route: Intramuscular Site: Deltoid, Right NDC: [id number] Lot #: [id number] Mfr.: Moderna US, Inc. Exp. Date: 05/21/21 VIS: Moderna COVID-19 Vaccine EUA Fact Sheet 10/19/2020 VIS Given: 12/07/20 Chip Applying Machine Tender: Royer Matias CMA Vaccine Type: COVID-19, mRNA, LNP-S, PF, 100 mcg/0.5 mL dose (Moderna) Date: 11/02/20 Amt.: 0.5 mL Route: Intramuscular Site: Deltoid, Left NDC: Lot #: [id number] Mfr.: Moderna US, Inc. Exp. Date: 04/27/21 VIS: Moderna COVID-19 Vaccine EUA Fact Sheet 06/26/2020 VIS Given: 11/02/20 Chip Applying Machine Tender: Eduarda Matias MA Vaccine Type: Hib (PRP-T) Date: 05/14/20 Amt.: 0.5 mL Route: Site: NDC: Lot #: [id number] Mfr.: Sanofi Pasteur Exp. Date: VIS: VIS Given: Chip Applying Machine Tender: Vaccine Type: Hib Date: 05/14/20 Amt.: Route: Site: NDC: Lot #: [id number] Mfr.: Sanofi Pasteur Exp. Date: VIS: VIS Given: Chip Applying Machine Tender: Vaccine Type: influenza, seasonal, injectable, preservative free Date: 05/17/20 Amt.: 0.5 mL Route: Site: NDC: Lot #: [id number] Mfr.: Sanofi Pasteur Exp. Date: VIS: VIS Given: Chip Applying Machine Tender: Vaccine Type: influenza, injectable, quadrivalent Date: 08/03/19 Amt.: 0.5 mL Route: Intramuscular Site: Deltoid, Left NDC: Lot #: [id number] Mfr.: Synergos Pasteur Exp. Date: 01/24/20 VIS: Inactivated Influenza 03/10/2019 VIS Given: 08/03/19 Chip Applying Machine Tender: Faith Leivarosalia Vaccine Type: influenza, injectable, quadrivalent, preservative free Date: 09/16/15 Amt.: 0.5 mL Route: Site: [facility]: Lot #: [id number] Mfr.: Exp. Date: VIS: VIS Given: Chip Applying Machine Tender: Vaccine Type: meningococcal MCV4P Date: 05/14/20 Amt.: 0.5 mL Route: Site: [facility]: Lot #: [id number] Mfr.: Synergos Pasteur Exp. Date: VIS: VIS Given: Chip Applying Machine Tender: Vaccine Type: meningococcal B, recombinant Date: 05/14/20 Amt.: 0.5 mL Route: Site: [facility]: Lot #: [id number] Mfr.: [email or web address] Exp. Date: VIS: VIS Given: Chip Applying Machine Tender: Vaccine Type: pneumococcal conjugate PCV 13 Date: 05/14/20 Amt.: 0.5 mL Route: Site: [facility]: Lot #: [id number] Mfr.: Wyeth Exp. Date: VIS: VIS Given: Chip Applying Machine Tender: Vaccine Type: pneumococcal polysaccharide PPV23 Date: 08/03/19 Amt.: 0.5 mL Route: Injection Site: Deltoid, Right NDC: Lot #: [id number] Mfr.: Merck and Co., Inc. Exp. 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 Qty: (12) 3 mL syringe Refills: 3 Pharmacy: [facility] * insulin aspart (U-100) 100 unit/mL (3 mL) subcutaneous pen - Inject 20 unit(s) 3 times a day by subcutaneous route with meals. Qty: (10) 3 mL syringe Refills: 3Pharmacy: [facility] * DEXCOM G7 PV DESIGN AND INSTALLATION TECHNICIAN - Use as directed. Qty: 1 Unit Refills: 0 Supplier: [facility] * DEXCOM G7 SENSOR DEVICE - Use as directed. Qty: 1 Unit Refills: 0 Supplier: [facility] * CBC AND DIFFERENTIAL * LIPID PANEL [...] (1) 30 gram tube Refills: 3 Pharmacy: [facility] 4. Viral screening Z11.4: Encounter for screening [...] of himself. Return to Office * at [facility] on or around 11/11/2022 * to see Jomar Epps MD at [facility] on or around 12/02/2022 Encounter Sign-Off Encounter signed-off by Jomar Epps MD, 11/11/2022. documented in this encounter Plan of Treatment Not on file documented as of this encounter Visit Diagnoses Not on filedocumented in this encounter
--- OUTSIDE RECORDS SUMMARY | 2025-07-26 15:04 | XMS_ITS | Encounter Summary ---
Author Organization [facility] alth Address [address] [place] [address] Care Team Providers Care Thread Twister Name Role Phone Unavailable Primary Care Provider Unavailabl e Encounter Details Date Type Department Care Team ([facility] Contact Info) Description 06/17/2022 Office Visit - Data Exchange [facility] Jomar Epps MD [address] [place], [place] [address] (Tmqp) Social History Tobacco Use Types Packs/Day Years [...] Name : CLOVIS SHEN (42yo, M) ID# [id number] Appt. Date/Time : 06/17/2022 11:20AM : 1980 Service Dept. : [facility] Provider : JOMAR EPPS MD Insurance Med Primary: [facility] HEALTH PLAN (MEDICAID REPLACEMENT - HMO) Insurance # : [id number] Policy/Group # : [id number] Med Mental Health: [facility] Insurance # : [id number] Med Curry: SLIDING FEE SCHEDULE - DISCOUNT [...] Care Provider: JOMAR EPPS MD: [address] [place] [place] [address], , Patient's Pharmacies [facility] ([place]): [address], [place] [address], , [id number] ([place]): [address] [facility], [place] [address], , [facility] ([place]): [address] [place] [address], , [facility] ([place]): [address] [place] [address], , Vitals Ht: 5 ft 8 in [...] Rash (Mild) Some allergies listed in Documents: #[id number], #[id number], #[id number], #[id number] could not be added to this patient's [...] mL Route: Intramuscular Site: Deltoid, Right NDC: [id number] Lot #: [id number] Mfr.: Moderna US, Inc. Exp. Date: 05/21/21 VIS: Moderna COVID-19 Vaccine EUA Fact Sheet 10/19/2020 VIS Given: 12/07/20 Christmas Tree Farm Manager: Royer Matias CMA Vaccine Type: COVID-19, mRNA, LNP-S, PF, 100 mcg/0.5 mL dose (Moderna) Date: 11/02/20 Amt.: 0.5 mL Route: Intramuscular Site: Deltoid, Left NDC: Lot #: [id number] Mfr.: Moderna US, Inc. Exp. Date: 04/27/21 VIS: Moderna COVID-19 Vaccine EUA Fact Sheet 06/26/2020 VIS Given: 11/02/20 Christmas Tree Farm Manager: Eduarda Matias MA Vaccine Type: Hib (PRP-T) Date: 05/14/20 Amt.: 0.5 mL Route: Site: NDC: Lot #: [id number] Mfr.: Sanofi Pasteur Exp. Date: VIS: VIS Given: Christmas Tree Farm Manager: Vaccine Type: Hib Date: 05/14/20 Amt.: Route: Site: NDC: Lot #: [id number] Mfr.: Sanofi Pasteur Exp. Date: VIS: VIS Given: Christmas Tree Farm Manager: Vaccine Type: influenza, injectable, quadrivalent Date: 05/17/20 Amt.: Route: Site: [facility]: Lot #: Mfr.: Exp. Date: VIS: VIS Given: Christmas Tree Farm Manager: [facility] Vaccine Type: influenza, seasonal, injectable, preservative free Date: 05/17/20 Amt.: 0.5 mL Route: Site: [facility]: Lot #: [id number] Mfr.: Sanofi Pasteur Exp. Date: VIS: VIS Given: Christmas Tree Farm Manager: Vaccine Type: influenza, injectable, quadrivalent Date: 08/03/19 Amt.: 0.5 mL Route: Intramuscular Site: Deltoid, Left NDC: Lot #: [id number] Mfr.: Sanofi Pasteur Exp. Date: 01/24/20 VIS: Inactivated Influenza 03/10/2019 VIS Given: 08/03/19 Christmas Tree Farm Manager: Faith Mead Vaccine Type: influenza, injectable, quadrivalent, preservative free Date: 09/16/15 Amt.: 0.5 mL Route: Site: [facility]: Lot #: [id number] Mfr.: Exp. Date: VIS: VIS Given: Christmas Tree Farm Manager: Vaccine Type: meningococcal B, unspecified Date: 05/14/20 Amt.: Route: Site: [facility]: Lot #: Mfr.: Exp. Date: VIS: VIS Given: Christmas Tree Farm Manager: [facility] Vaccine Type: meningococcal MCV4P Date: 05/14/20 Amt.: 0.5 mL Route: Site: [facility]: Lot #: [id number] Mfr.: Sanofi Pasteur Exp. Date: VIS: VIS Given: Christmas Tree Farm Manager: Vaccine Type: meningococcal B, recombinant Date: 05/14/20 Amt.: 0.5 mL Route: Site: [facility]: Lot #: [id number] Mfr.: [employer] Exp. Date: VIS: VIS Given: Christmas Tree Farm Manager: Vaccine Type: pneumococcal conjugate PCV 13 Date: 05/14/20 Amt.: 0.5 mL Route: Site: [facility]: Lot #: [id number] Mfr.: Wyeth Exp. Date: VIS: VIS Given: Christmas Tree Farm Manager: Vaccine Type: pneumococcal polysaccharide PPV23 Date: 08/03/19 Amt.: 0.5 mL Route: Injection Site: Deltoid, Right NDC: Lot #: [id number] Mfr.: Merck and Co., Inc. Exp. Date: 12/13/20 VIS: PPSV23 05/25/2019 VIS Given: 08/03/19 Christmas Tree Farm Manager: Faith Mead Problems Reviewed Problems * Smoker [...] or [place])?: Yes (Notes: Born in [place]) TB Screening Question 2: Have you traveled [...] Dental: Where was your last dental visit?: [facility] Dental: Was the visit an [facility] dental provider?: Yes Dental: Action taken: None Needed Other Education: 12 Marital status: Single General stress level: High Gender Identity and LGBTQ Identity Gender identity: Identifies as Male Assigned sex at : Male Sexual orientation: Straight or heterosexual Surgical History Surgical History not reviewed (last reviewed 06/05/2021) * Removal of spleen total - 05/16/2020 noneSurgery to Left knee.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 Qty: (60) tablet Refills: 3 Pharmacy: [facility] * lidocaine 5 % topical patch - Apply 1 patch(es) every day by topical route as needed. Qty: (1) 30 adhesive patch, medicated box Refills: 5 Pharmacy: [facility] * tizanidine 2 mg tablet - Take 1 tablet(s) twice a day by oral route as needed for 30 days. Qty: (60) tablet Refills: 3 Pharmacy: [facility] * CBC 2. Type II diabetes mellitus [...] (1) 45 gram tube Refills: 0 Pharmacy: [facility] 6. Urinary incontinence - could be in part from high sugars, but will trial tamsulosin R32: Unspecified urinary incontinence * tamsulosin 0.4 mg capsule - Take 1 capsule(s) every day by oral route for 30 days. Qty: (30) capsule Refills: 3 Pharmacy: [facility] GLUCOSE, FINGERSTICK, BLOOD * Result: - Blood Glucose: mg/dl: 325 HEMOGLOBIN A1C, FINGERSTICK * Result: - HEMOGLOBIN A1C: 10.9 Return to Office * to see Jomar Epps MD for [facility]RON[facility] at [facility] on or around 08/17/2022 Encounter Sign-Off Encounter signed-off by Jomar Epps MD, 06/17/2022. documented in this encounter Plan of Treatment Not on file documented as of this encounter Visit Diagnoses Not on filedocumented in this encounter
--- OUTSIDE RECORDS SUMMARY | 2025-07-26 15:04 | XMS_ITS | Encounter Summary ---
Author Organization [facility] Address [address] [place] [address] Care Team Providers Care Field Observer Name Role Phone Freddy Epps MD Primary Care Provider [phone] Encounter Details Date Type Department Care Team (Latest Contact Info) Description 05/24/2020 Lab Requisition [facility] Debbie Hernandez MD, MD [address] [address] Type 2 diabetes mellitus with [...] EDT Type 2 diabetes mellitus with hyperglycemia ([facility]) HEMOGLOBIN A1C Routine 05/24/2020 12:34 PM EDT Type 2 diabetes mellitus with hyperglycemia ([facility]) LIPID PANEL Routine 05/24/2020 12:34 PM EDT Type 2 diabetes mellitus with hyperglycemia ([facility]) COMPREHENSIVE METABOLIC PANEL Routine 05/24/2020 12:34 PM EDT Type 2 diabetes mellitus with hyperglycemia ([facility]) documented in this encounter Results * (ABNORMAL) Comprehensive metabolic panel - (05/24/2020 12:34 PM EDT) Glucose 425(H) 70 - 99 mg/dL 05/24/2020 2:02 PM [facility] Sodium 130(L) 135 - 145 mmol/L 05/24/2020 2:02 PM [facility] Potassium 4.8 3.5 - 5.3 mmol/L 05/24/2020 2:02 PM [facility] Chloride 94(L) 98 - 107 mmol/L 05/24/2020 2:02 PM [facility] CO2 29 21 - 31 mmol/L 05/24/2020 2:02 PM [facility] Anion Gap 7 3 - 11 mmol/L 05/24/2020 2:02 PM [facility] BUN 12 7 - 25 mg/dL 05/24/2020 2:02 PM [facility] Creatinine 0.69(L) 0.70 - 1.30 mg/dL 05/24/2020 2:02 PM [facility] Calcium 9.4 8.6 - 10.3 mg/dL 05/24/2020 2:02 PM [facility] Total Protein 7.1 6.4 - 8.9 gm/dL 05/24/2020 2:02 PM [facility] Albumin 3.9 3.5 - 5.7 gm/dL 05/24/2020 2:02 PM [facility] Alkaline Phosphatase 101 34 - 104 IU/L 05/24/2020 2:02 PM EDT [facility] AST 27 13 - 39 IU/L 05/24/2020 2:02 PM [facility] ALT (SGPT) 36 7 - 52 IU/L 05/24/2020 2:02 PM T [facility] Total Bilirubin 0.5 0.3 - 1.0 mg/dL 05/24/2020 2:02 PM [facility] eGFR >90.0 >90.0 mL/min/1. 73m*2 05/24/2020 2:02 PM T [facility] Comment: The estimated Glomerular Filtration [...] Evaluation Program (KEEP). Am J Kidney Dis (2011);57(3Yopxi0):S9-16. https://www.kidney.org/atoz/content/gfr Updated: January 09, 2020. Blood Venous blood specimen / Unknown 05/24/2020 12:34 PM EDT 05/24/2020 12:34 PM EDT us Debbie Hernandez MD LAB BLOOD ORDERABLES Final Resul t [facility] [address] [phone] * (ABNORMAL) Albumin / creatinine urine ratio - Urine, Clean Catch (05/24/2020 12:34 PM EDT) Creatinine, Urine 67.4 mg/dL 05/24/2020 2:37 PM EDT [facility] Albumin, Urine 10.4 mg/dL 05/24/2020 2:37 PM EDT [facility] Alb/Creat Ratio 154(H) <=30 mcg/mg 05/24/2020 2:37 PM EDT [facility] Comment: Albuminuria categories in CKD [...] MD LAB URINE ORDERABLES Final Resul t [facility] [address] [facility] [place] [id number] * (ABNORMAL) Lipid panel - (05/24/2020 12:34 PM EDT) Triglycerides 185(H) 0 - 150 mg/dL 05/24/2020 2:02 PM EDT [facility] Comment: With NCEP guidelines Borderline High 150-199 mg/dL High 200-499 mg/dL Very High >500 mg/dL Total Cholesterol 139 0 - 200 mg/dL 05/24/2020 2:02 PM EDT [facility] Comment: NCEP Guidelines: Desirable <200 mg/dL Borderline High 200-239 mg/dL High >240 mg/dL HDL-C 38 mg/dL 05/24/2020 2:02 PM EDT [facility] Comment: High risk <40 mg/dL Low risk >60 mg/dL calculated LDL-C 64 mg/dL 05/24/20 20 2:02 PM EDT [facility] Comment: NCEP guidelines: Optimal <100 mg/dL Near/Above Optimal 100-129 mg/dL Borderline High 130-159 mg/dL High 160-189 mg/dL Very High >190 mg/dL Blood Venous blood specimen / Unknown 05/24/2020 12:34 PM EDT 05/24/2020 12:34 PM EDT Debbie Hernandez MD LAB BLOOD ORDERABLES Final Resul t [facility] [address] [place] [id number] * (ABNORMAL) Hemoglobin A1c - (05/24/2020 12:34 PM EDT) Hemoglobin A1C 11.4(H) <5.7 % 05/24/2020 2:42 PM EDT [facility] Comment: Normal <5.7% Abnormal, High [...] may yield falsely high results. Performed at [facility], [address] [place] [id number] Estimated average glucose 280 mg/dL 05/24/2020 2:42 PM EDT [facility] Comment:The estimated averag e glucose [...] clinical management of diabetic patients. Diabetes Care, 31(8):3432-7987. Blood Venous blood specimen / Unknown 05/24/2020 12:34 PM EDT 05/24/2020 12:34 PM EDT us Debbie Hernandez MD LAB BLOOD ORDERABLES Final Resul t [facility] [address] [facility] [place] [id number] documented in this encounter Visit Diagnoses Diagnosis Type 2 diabetes mellitus with hyperglycemia ([facility]) documented in this encounter Additional Health Concerns Infection Onset Date Last Indicated Resolved Time Rule out SARS-CoV-2 (related to COVID-19) 07/29/2021 07/29/2021 08/01/2021 6:[address] SARS-CoV-2 (related to COVID-19) 07/29/2021 07/29/1908/12/2021 8:03 PM EST Rule out COVID-19/Influenza/RSV 11/16/2024 11/16/2024 10:54 PM EDT documented as of this encounter Care Teams Field Observer Relationship Specialty Start Date End Date Freddy Epps MD [address] [facility] [place] [id number] PCP - General Family Medicine 05/29/20 documented as of this encounter
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
--- OUTSIDE RECORDS SUMMARY | 2025-07-26 15:04 | XMS_ITS | Encounter Summary ---
Author Organization [facility] Address [address] [place] [facility] [place] [address] Care Team Providers Care Food Counter Attendant Name Role Phone Freddy Epps MD Primary Care Provider Encounter Details Date Type Department Care Team (Late st Contact Info) Description 04/27/2025 Orders Only [facility] - [address] [place] [phone] Freddy Epps MD [address] [place] [phone] Inadequately controlled diabetes mellitus ([facility]/HHS/[facility]) (Primary Dx) Social History Tobacco Use Types [...] place to sleep or slept in a correction (including now)? No 02/04/2023 Sex and Gender Information Value Date Recorded Sex Assigned at Not on file Legal Sex Male 6:06 PM EDT Gender Identity Not on file Sexual Orientation Not on file documented as of this encounter Plan of Treatment Scheduled Orders Name Type Priority Associated Diagnoses Orde r Schedule Thyroid Stimulating Hormone Progressive Lab Routine Inadequately controlled diabetes mellitus ([facility]/HHS/HCC) Expected: 04/27/2025 (Approximate), Expires: 10/26/2026 C-peptide Lab Routine Inadequately controlled diabetes mellitus ([facility]/HHS/HCC) Expected: 04/27/2025 (Approximate), Expires: 10/26/2026 Anti-islet cell antibody w/reflex to titer Lab Routine Inadequately controlled diabetes mellitus ([facility]/HHS/HCC) Expected: 04/27/2025 (Approximate), Expires: 10/26/2026 Glutamic acid decarboxylase Lab Routine Inadequately controlled diabetes mellitus ([facility]/HHS/HCC) Expected: 04/27/2025 (Approximate), Expires: 10/26/2026 documented as of this encounter Visit Diagnoses Diagnosis Inadequately controlled diabetes mellitus (CMS/HHS/HCC)- Primary Type II or unspecified type diabetes mellitus without mention of complication, not stated as uncontrolled documented in this encounter Care Teams Food Counter Attendant Relationship Specialty Start Date End Date Freddy Epps MD [facility] [address] [place] [phone] PCP - General Family Medicine 05/29/20 documented as of this encounter
--- OUTSIDE RECORDS SUMMARY | 2025-07-26 15:04 | XMS_ITS | Encounter Summary ---
Author Organization [facility] Address [address] [place] [address] Care Team Providers Care Fruit Packer Face And Fill Name Role Phone Unavailable Primary Care Provider Unavailabl e Encounter Details Date Type Department Care Team ([facility] st Contact Info) Description 06/06/2024 Office Visit - Data Exchange [facility] Family [facility] Jomar Epps MD [address] [place] [address] Social History Tobacco Use Types [...] Name : CLOVIS SHEN (44yo, M) ID# [id number] Appt. Date/Time : 07/26/2024 08:20AM : 1980 Service Dept. : [facility] Provider : JOMAR EPPS MD Insurance Med Primary: [facility] (MEDICAID REPLACEMENT - HMO) Insurance # : [id number] Policy/Group # : [id number] Med Mental Health: [facility] Insurance # : [id number] Prescription: [employer] - Member is eligible. details Chief Complaint SBIRT - Adult PHQ-9 Only Followup: Uncontrolled type 2 diabetes mellitus POSITIVE PHQ9 SCORE 14, YES TO QUESTION 9 Patient presents today for a follow up to his diabetes his last A1c was done on 04/27/24 and was 15,adilia alvarez Patient's Care Team Primary Care Provider: JOMAR EPPS MD: [address] [place] [address], , Patient's Pharmacies [id number] ([place]): [address] [place] [address], , Vitals Ht: 5 ft 8 in [...] Rash (Mild) Some allergies listed in Document: #[id number] could not be added to this patient's [...] 04/24/20 filled Source: [facility] Name: Dexcom G7 Rheumatology Specialist USE DIRECTED Date: 02/22/24 filled Source: surescripts [...] mL Route: Intramuscular Site: Deltoid, Right NDC: [id number] Lot #: [id number] Mfr.: Moderna [employer] Exp. Date: 05/21/21 VIS: Moderna COVID-19 Vaccine EUA Fact Sheet 10/19/2020 VIS Given: 12/07/20 Railroad Auditor: Royer Matias CMA Vaccine Type: COVID-19, mRNA, LNP-S, PF, 100 mcg/0.5 mL dose (Moderna) Date: 11/02/20 Amt.: 0.5 mL Route: Intramuscular Site: Deltoid, Left NDC: Lot #: [id number] Mfr.: Moderna [employer] Exp. Date: 04/27/21 VIS: Moderna COVID-19 Vaccine EUA Fact Sheet 06/26/2020 VIS Given: 11/02/20 Railroad Auditor: Eduarda Matias MA Diphtheria, Tetanus, Pertussis Vaccine Type: Tdap Date: 03/03/23 Amt.: 0.5 mL Route: Intramuscular Site: Deltoid, Left NDC: [id number] Lot #: [id number] Mfr.: Sanofi Pasteur Exp. Date: 12/30/24 VIS: Tdap 03/01/2021 [facility] VIS Given: 03/03/23 Railroad Auditor: Vito Grigsby MA Haemophilus Influenzae Type B Vaccine Type: Hib (PRP-T) Date: 05/14/20 Amt.: 0.5 mL Route: Site: NDC: Lot #: [id number] Mfr.: Sanofi Pasteur Exp. Date: VIS: VIS Given: Railroad Auditor: Vaccine Type: Hib Date: 05/14/20 Amt.: Route: Site: NDC: Lot #: [id number] Mfr.: Sanofi Pasteur Exp. Date: VIS: VIS Given: Railroad Auditor: Influenza Vaccine Type: influenza, seasonal, injectable, preservative free Date: 05/17/20 Amt.: 0.5 mL Route: Site: NDC: Lot #: [id number] Mfr.: Sanofi Pasteur Exp. Date: VIS: VIS Given: Railroad Auditor: Vaccine Type: influenza, injectable, quadrivalent Date: 08/03/19 Amt.: 0.5 mL Route: Intramuscular Site: Deltoid, Left NDC: Lot #: [id number] Mfr.: [employer] Pasteur Exp. Date: 01/24/20 VIS: Inactivated Influenza 03/10/2019 VIS Given: 08/03/19 Railroad Auditor: Faith Leivarosalia Vaccine Type: influenza, injectable, quadrivalent, preservative free Date: 09/16/15 Amt.: 0.5 mL Route: Site: [facility]: Lot #: [id number] Mfr.: Exp. Date: VIS: VIS Given: Railroad Auditor: Meningococcal Vaccine Type: meningococcal MCV4P Date: 05/14/20 Amt.: 0.5 mL Route: Site: [facility]: Lot #: [id number] Mfr.: [employer] Pasteur Exp. Date: VIS: VIS Given: Railroad Auditor: Vaccine Type: meningococcal B, recombinant Date: 05/14/20 Amt.: 0.5 mL Route: Site: [facility]: Lot #: [id number] Mfr.: [employer] Exp. Date: VIS: VIS Given: Railroad Auditor: Pneumococcal Vaccine Type: pneumococcal conjugate PCV 13 Date: 05/14/20 Amt.: 0.5 mL Route: Site: [facility]: Lot #: [id number] Mfr.: [employer] Exp. Date: VIS: VIS Given: Railroad Auditor: Vaccine Type: pneumococcal polysaccharide PPV23 Date: 08/03/19 Amt.: 0.5 mL Route: Injection Site: Deltoid, Right NDC: Lot #: [id number] Mfr.: Merck and Co[employer] Inc[employer] Exp. 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 He states that he stayed athome for Tyler, didn't go out to visit with his children, stayed at [facility] with his . Feels like depression [...] (12) 3 mL syringe Refills: 3 Pharmacy: [id number] * DEXCOM G7 SENSOR DEVICE - Use every 10 days Qty: 12 Units Refills: 11 Supplier: [facility][id number] 2. Depression screening Z13.31: Encounter for screening [...] days. Qty: (30) tablet Refills: 2 Pharmacy: [id number] Return to Office * at Podiatry on or around 07/26/2024 * Angus Angeles, MANUEL for OPTOMETRY at Optometry on 08/16/2024 at 02:40 PM * to see Jomar Epps MD at [facility] on or around 09/26/2024 Encounter Sign-Off Encounter signed-off by Jomar Epps MD, 07/26/2024. documented in this encounter Plan of Treatment Not on file documented as of this encounter Visit Diagnoses Not on filedocumented in this encounter
--- OUTSIDE RECORDS SUMMARY | 2025-07-26 15:04 | XMS_ITS | Encounter Summary ---
Author Organization [facility] Address [address] [facility] [place] [address] Care Team Providers Care Benzol Operator Name Role Phone Freddy Epps MD Primary Care Provider [phone] Encounter Details Date Type Department Care Team (Late st Contact Info) Description 07/04/2020 Lab Requisition [facility] - [facility] [address] [place] [address] John Morocho MD [address] [place] [address] Thrombocytopenia, unspecified; Encounter for screening [...] E Ag Nonreactive 07/09/2020 4:56 AM EST [facility] Comment: Reference range: Nonreactive For additional information, please refer to https://[employer]/faq/EHU762 (This link is being provided for informational/ educational purposes only.) Blood Venous blood specimen / Unknown 07/04/2020 10:45 AM EST 07/04/2020 10:54 AM EST us John Morocho MD LAB BLOOD ORDERABLES Final Resu lt [facility], [address] [place], [place] [address] * Hepatitis B core antibody, IgM (07/04/2020 10:45 AM EST) Hep B Core IgM Nonreactive Nonreactive 07/09/2020 4:58 AM EST [facility] Blood Venous blood specimen / Unknown 07/04/2020 10:45 AM EST 07/04/2020 10:54 AM EST John Morocho MD LAB BLOOD ORDERABLES Final Resu lt Performing Organization Address [facility]/ZIP Co de Phone Number [facility], [id number] [place] [address] [address] [place], [place] [phone] * Hepatitis B core antibody, total (07/04/2020 10:45 AM EST) Hep B Core Total Ab Nonreactive Nonreactive 07/09/2020 4:58 AM EST [facility] Blood Venous blood specimen / Unknown 07/04/2020 10:45 AM EST 07/04/2020 10:54 AM EST John Morocho MD LAB BLOOD ORDERABLES Final Resu lt Performing Organization Address [facility] de Phone Number [facility], [address] [place], [place] [phone] * Hepatitis B surface antigen w/reflex to confirmation (07/04/2020 10:45 AM EST) Hepatitis B Surface Ag Nonreactive Nonreactive 07/09/2020 4:58 AM EST [facility] Comment: Confirmation Not required according to the current package insert. Blood Venous blood specimen / Unknown 07/04/2020 10:45 AM EST 07/04/2020 10:54 AM EST John Morocho MD LAB BLOOD ORDERABLES Final Resu lt Performing Organization Address City/[facility] Co de Phone Number [facility], [address] [place], [place] [phone] * (ABNORMAL) Hepatitis C RNA, quantitative, PCR (07/04/2020 10:45 AM EST) Hepatitis C RNA-PCR [id number](H ) IU/mL 07/07/2020 8:18 PM EST [facility] HCV Quantitative Log 6.40(H) log IU/mL 07/07/2020 8:[address] [facility] Comment: Reference Range: Not Detected IU/mL Not Detected Log IU/mL This test was performed using Real-Time Polymerase Chain Reaction. Reportable range is 15 IU/mL to 100,000,000 IU/mL (1.18 Log IU/mL to 8.00 Log IU/mL). For additional information please refer to http://education.[employer]/faq/WQX68v3 (This link is being provided for informational/ educational purposes only.) The analytical performance characteristics of this assay have been determined by [facility] [place] [place]. The modifications have not been cleared or approved by the FDA. This assay has been validated pursuant to the CLIA regulations and is used for clinical purposes. Blood Venous blood specimen / Unknown 07/04/2020 10:45 AM EST 07/04/2020 10:54 AM EST John Morocho MD LAB BLOOD ORDERABLES Final Resu lt [facility], [address] [place], [place] [phone] documented in this encounter Visit Diagnoses Diagnosis [...] documented as of this encounter Care Teams Benzol Operator Relationship Specialty Start Date End Date Freddy Epps MD [address] [place] [address] PCP - General Family Medicine 05/29/20 documented as of this encounter
--- OUTSIDE RECORDS SUMMARY | 2025-07-26 15:04 | XMS_ITS | Encounter Summary ---
Author Organization [facility] alth Address [address] [place] [address] Care Team Providers Care Neurocritical Care Physician Name Role Phone Unavailable Primary Care Provider Unavailabl e Encounter Details Date Type Department Care Team ([facility] st Contact Info) Description 06/16/2023 Office Visit - Data Exchange [facility] Carissa Ferreira CRNP [address] [place] [address] Social History Tobacco Use Types Packs/Day Years [...] Name : CLOVIS SHEN (43yo, M) ID# [id number] Appt. Date/Time : 06/16/2023 11:20AM : 1980 Service Dept. : Telehealth Provider : ANNA JC Insurance Med Primary: [facility] HEALTH PLAN (MEDICAID REPLACEMENT - HMO) Insurance # : [id number] Policy/Group # : [id number] Med Mental Health: [facility] Insurance # : [id number] Med Curry: SLIDING FEE SCHEDULE - DISCOUNT Prescription: EXPRESS SCRIPTS - Member is eligible. details Chief Complaint cold symptoms Patient's Care Team Primary Care Provider: JOMAR EPPS MD: [address] [facility] [place] [address], , Patient's Pharmacies [id number] ([place]): [address] [place] [address] [place] [address], , [facility] ([place]): [address] [facility], [place] [address], , [facility] ([place]): [address] [place] [address], , [facility]: [address] [facility] [address], [place] [address], , Vitals None recorded. Allergies Allergies not [...] mL Route: Intramuscular Site: Deltoid, Right NDC: [id number] Lot #: [id number] Mfr.: Moderna US, Inc. Exp. Date: 05/21/21 VIS: Moderna COVID-19 Vaccine EUA Fact Sheet 10/19/2020 VIS Given: 12/07/20 Log Chipper: Royer Matias CMA Vaccine Type: COVID-19, mRNA, LNP-S, PF, 100 mcg/0.5 mL dose (Moderna) Date: 11/02/20 Amt.: 0.5 mL Route: Intramuscular Site: Deltoid, Left NDC: Lot #: [id number] Mfr.: Moderna US, Inc. Exp. Date: 04/27/21 VIS: Moderna COVID-19 Vaccine EUA Fact Sheet 06/26/2020 VIS Given: 11/02/20 Log Chipper: Eduarda Matias MA Diphtheria, Tetanus, Pertussis Vaccine Type: Tdap Date: 03/03/23 Amt.: 0.5 mL Route: Intramuscular Site: Deltoid, Left NDC: [id number] Lot #: [id number] Mfr.: Sanofi Pasteur Exp. Date: 12/30/24 VIS: Tdap 03/01/2021 [facility] VIS Given: 03/03/23 Log Chipper: Vito Grigsby MA Haemophilus Influenzae Type B Vaccine Type: Hib (PRP-T) Date: 05/14/20 Amt.: 0.5 mL Route: Site: NDC: Lot #: [id number] Mfr.: Sanofi Pasteur Exp. Date: VIS: VIS Given: Log Chipper: Vaccine Type: Hib Date: 05/14/20 Amt.: Route: Site: NDC: Lot #: [id number] Mfr.: Sanofi Pasteur Exp. Date: VIS: VIS Given: Log Chipper: Influenza Vaccine Type: influenza, seasonal, injectable, preservative free Date: 05/17/20 Amt.: 0.5 mL Route: Site: NDC: Lot #: [id number] Mfr.: Sanofi Pasteur Exp. Date: VIS: VIS Given: Log Chipper: Vaccine Type: influenza, injectable, quadrivalent Date: 08/03/19 Amt.: 0.5 mL Route: Intramuscular Site: Deltoid, Left NDC: Lot #: [id number] Mfr.: Sanofi Pasteur Exp. Date: 01/24/20 VIS: Inactivated Influenza 03/10/2019 VIS Given: 08/03/19 Log Chipper: Faith Mead Vaccine Type: influenza, injectable, quadrivalent, preservative free Date: 09/16/15 Amt.: 0.5 mL Route: Site: [facility]: Lot #: [id number] Mfr.: Exp. Date: VIS: VIS Given: Log Chipper: Meningococcal Vaccine Type: meningococcal MCV4P Date: 05/14/20 Amt.: 0.5 mL Route: Site: [facility]: Lot #: [id number] Mfr.: Sanofi Pasteur Exp. Date: VIS: VIS Given: Log Chipper: Vaccine Type: meningococcal B, recombinant Date: 05/14/20 Amt.: 0.5 mL Route: Site: [facility]: Lot #: [id number] Mfr.: Poachable Exp. Date: VIS: VIS Given: Log Chipper: Pneumococcal Vaccine Type: pneumococcal conjugate PCV 13 Date: 05/14/20 Amt.: 0.5 mL Route: Site: [facility]: Lot #: [id number] Mfr.: Wyeth Exp. Date: VIS: VIS Given: Log Chipper: Vaccine Type: pneumococcal polysaccharide PPV23 Date: 08/03/19 Amt.: 0.5 mL Route: Injection Site: Deltoid, Right NDC: Lot #: [id number] Mfr.: Merck and Co., Inc. Exp. Date: 12/13/20 VIS: PPSV23 05/25/2019 VIS Given: 08/03/19 Log Chipper: Faith Mead Problems Reviewed Problems * Chronic [...] Where was your last dental visit?: [facility] Dental: Was the visit an [facility] dental provider?: Yes Dental: Action taken: [facility] information provided Other Education: 12 Marital status: Single General stress level: High Gender Identity and LGBTQ Identity Gender identity: Identifies as Male Assigned sex at : Male Pronouns: he/him Sexual orientation: Straight or heterosexual Surgical History Surgical History not reviewed (last reviewed 06/05/2021) * Removal of spleen total - 05/16/2020 noneSurgery to Left knee.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 He has not taken any dnyl-flf-gtdxgzr medications for his symptoms. He does not have an inhaler at home. He checks his blood sugars at home, and they have been higher than normal. He eats a lot of rice and fish, and he does drink a lot of soda. He uses his insulin. He was referred to an paralegal, but he missed his appointment. He called [...] protein. He was advised to call the paralegal's office to reschedule his appointment. E11.65: Type 2 diabetes mellitus with hyperglycemia * DEXCOM G7 SENSOR DEVICE - Use as directed. Qty: 1 Unit Refills: 5 Supplier: [id number] * insulin aspart (U-100) 100 unit/mL (3 mL) subcutaneous pen - Inject 22 unit(s) 3 times a day by subcutaneous route with meals. Qty: (10) 3 mL syringe Refills: 3Pharmacy: [facility] * Trulicity 4.5 mg/0.5 mL subcutaneous pen injector - Inject 1 pen weekly Qty: (4) 0.5 mL syringe Refills: 3 Pharmacy: [facility] * Lantus Solostar U-100 Insulin 100 unit/mL (3 mL) subcutaneous pen - Inject 50 unit(s) twice a day by subcutaneous route. Qty: (12) 3 mL syringe Refills: 3 Pharmacy: [facility] 2. Candidal balanitis - Uncontrolled. Refilled nystatin 100,000 units/gram of topical cream. Apply to the affected areas twice per day. He was advised to control his blood glucose. B37.42: Candidal balanitis * nystatin 100,000 unit/gram topical cream - APPLY TO THE AFFECTED AREA(S) BY TOPICAL ROUTE 2 TIMES PER DAY Qty: (1) 30 gram tube Refills: 3 Pharmacy: [facility] 3. Viral syndrome - Uncontrolled. Start [...] (VENTOLIN HFA or equivalent) Refills: 0 Pharmacy: [facility] * benzonatate 100 mg capsule - Take 1 capsule(s) 3 times a day by oral route as needed. Qty: (30) capsule Refills: 0 Pharmacy: [facility] * cetirizine 10 mg tablet - Take 1 tablet(s) every day by oral route. Qty: (1) 14 tablet blister pack Refills: 0 Pharmacy: [facility] Discussion Notes ATTESTATION: This note has been generated using Carrillo Wright. Return to Office * to see Jomar Epps MD for ExistingPatient-CHRONIC at [facility] on or around 08/17/2023 Encounter Sign-Off Encounter signed-off by ANNA Jc, 06/17/2023. documented in this encounter Plan of Treatment Not on file documented as of this encounter Visit Diagnoses Not on filedocumented in this encounter
--- OUTSIDE RECORDS SUMMARY | 2025-07-26 15:04 | XMS_ITS | Encounter Summary ---
Author Organization [facility] alth Address [address] [place] [address] Care Team Providers Care Manager Quantitative Name Role Phone Unavailable Primary Care Provider Unavailabl e Encounter Details Date Type Department Care Team ([facility] Contact Info) Description 11/26/2022 Office Visit - Data Exchange [facility] Jomar Epps MD [address], [place] [id number] Social History Tobacco Use Types Packs/Day Years [...] Name : CLOVIS SHEN (42yo, M) ID# [id number] Appt. Date/Time : 11/26/2022 04:00PM : 1980 Service Dept. : Telehealth Provider : JOMAR EPPS MD Insurance Med Primary: [facility] HEALTH PLAN (MEDICAID REPLACEMENT - HMO) Insurance # : [id number] Policy/Group # : [id number] Med Mental Health: [facility] Insurance # : [id number] Med Curry: SLIDING FEE SCHEDULE - DISCOUNT Prescription: check now Chief Complaint telehealth f/u dm Patient's Care Team Primary Care Provider: JOMAR EPPS MD: [address] [facility] [place] [address], , Patient's Pharmacies [facility] ([place]): [address] [facility], [place] [address], , [facility] ([place]): [address] [place] [address], , [facility] ([place]): [address] [place] [address], , [facility] ([place]): [address] [place] [address], , Vitals None recorded. Allergies Allergies not reviewed (last reviewed 11/11/2022) PENICILLINS: Rash (Mild) Some allergies listed in Documents: #[id number], #[id number], #[id number], #[id number] could not be added to this patient's [...] 0.5 mL Route: Intramuscular Site: Deltoid, Right [facility]: [id number] Lot #: [id number] Mfr.: Moderna ClearMyMail, Inc. Exp. Date: 05/21/21 VIS: Moderna COVID-19 Vaccine EUA Fact Sheet 10/19/2020 VIS Given: 12/07/20 Cage Tender: Royer Matias CMA Vaccine Type: COVID-19, mRNA, LNP-S, PF, 100 mcg/0.5 mL dose (Moderna) Date: 11/02/20 Amt.: 0.5 mL Route: Intramuscular Site: Deltoid, Left NDC: Lot #: [id number] Mfr.: Moderna ClearMyMail, Inc. Exp. Date: 04/27/21 VIS: Moderna COVID-19 Vaccine EUA Fact Sheet 06/26/2020 VIS Given: 11/02/20 Cage Tender: Eduarda Matias MA Vaccine Type: Hib (PRP-T) Date: 05/14/20 Amt.: 0.5 mL Route: Site: [facility]: Lot #: [id number] Mfr.: Sanofi Pasteur Exp. Date: VIS: VIS Given: Cage Tender: Vaccine Type: Hib Date: 05/14/20 Amt.: Route: Site: NDC: Lot #: [id number] Mfr.: Sanofi Pasteur Exp. Date: VIS: VIS Given: Cage Tender: Vaccine Type: influenza, seasonal, injectable, preservative free Date: 05/17/20 Amt.: 0.5 mL Route: Site: [facility]: Lot #: [id number] Mfr.: Sanofi Pasteur Exp. Date: VIS: VIS Given: Cage Tender: Vaccine Type: influenza, injectable, quadrivalent Date: 08/03/19 Amt.: 0.5 mL Route: Intramuscular Site: Deltoid, Left NDC: Lot #: [id number] Mfr.: Sanofi Pasteur Exp. Date: 01/24/20 VIS: Inactivated Influenza 03/10/2019 VIS Given: 08/03/19 Cage Tender: Faith Mead Vaccine Type: influenza, injectable, quadrivalent, preservative free Date: 09/16/15 Amt.: 0.5 mL Route: Site: [facility]: Lot #: [id number] Mfr.: Exp. Date: VIS: VIS Given: Cage Tender: Vaccine Type: meningococcal MCV4P Date: 05/14/20 Amt.: 0.5 mL Route: Site: [facility]: Lot #: [id number] Mfr.: Sanofi Pasteur Exp. Date: VIS: VIS Given: Cage Tender: Vaccine Type: meningococcal B, recombinant Date: 05/14/20 Amt.: 0.5 mL Route: Site: [facility]: Lot #: [id number] Mfr.: GlaxoSmithKline Exp. Date: VIS: VIS Given: Cage Tender: Vaccine Type: pneumococcal conjugate PCV 13 Date: 05/14/20 Amt.: 0.5 mL Route: Site: NDC: Lot #: [id number] Mfr.: Wyeth Exp. Date: VIS: VIS Given: Cage Tender: Vaccine Type: pneumococcal polysaccharide PPV23 Date: 08/03/19 Amt.: 0.5 mL Route: Injection Site: Deltoid, Right NDC: Lot #: [id number] Mfr.: Merck and Co., Inc. Exp. Date: 12/13/20 VIS: PPSV23 05/25/2019 VIS Given: 08/03/19 Cage Tender: Faith Mead Problems Reviewed Problems * [...] Dental: Where was your last dental visit?: [facility] Dental: Was the visit an [facility] dental provider?: Yes Dental: Action taken: [facility] information provided Other Education: 12 Marital status: Single General stress level: High Gender Identity and LGBTQ Identity Gender identity: Identifies as Male Assigned sex at : Male Pronouns: he/him Sexual orientation: Straight or heterosexual Surgical History Surgical History not reviewed (last reviewed 06/05/2021) * Removal of spleen total - 05/16/2020 noneSurgery to Left knee.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 on 12/10/2022 at01:00 PM * to see Jomar Epps MD at [facility] on or around 12/27/2022 Encounter Sign-Off Encounter signed-off by Jomar Epps MD, 11/26/2022. documented in this encounter Plan of Treatment Not on file documented as of this encounter Visit Diagnoses Not on filedocumented in this encounter
--- OUTSIDE RECORDS SUMMARY | 2025-07-26 15:04 | XMS_ITS | Encounter Summary ---
Author Organization [facility] alth Address [address] 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 Date/Time : 11/21/2024 11:40AM : 1980 Service Dept. : [facility] Provider : JOMAR EPPS MD Insurance Med Primary: [facility] HEALTH PLAN (MEDICAID REPLACEMENT - HMO) Insurance # : [id number] Policy/Group # : [id number] Med Mental Health: [facility] Insurance # : [id number] Prescription: EXPRESS SCRIPTS - Member is eligible. details Chief Complaint SBIRT - Adult Patient presents with complaints of lose of appetite, body aches, fatigue, stomach pain and bilateral foot pain, patient was recently released for senior living and states this has been going on for 8 months,,map,ma Patient's Care Team Primary Care Provider: JOMAR EPPS MD: [address] [place] [address], , Patient's Pharmacies [place] ([place]): [address] [address], [place] [address], , [facility]: [address] [facility], [place] [address], Vitals Ht: 5 ft 8 in Standing [...] Rash (Mild) Some allergies listed in Document: #[id number] could not be added to this patient's [...] 11/10/24 filled Source: surescripts Name: Dexcom G7 Pharmacy Clerk USE DIRECTED Date: 02/22/24 filled Source: surescripts [...] by subcutaneous route. Date: 11/08/24 filled Source: Enject Reviewed Vaccines COVID-19 Vaccine Type: COVID-19, mRNA, LNP-S, PF, 100 mcg/0.5 mL dose (Moderna) Date: 12/07/20 Amt.: 0.5 mL Route: Intramuscular Site: Deltoid, Right NDC: [id number] Lot #: [id number] Mfr.: Moderna US, Inc. Exp. Date: 05/21/21 VIS: Moderna COVID-19 Vaccine EUA Fact Sheet 10/19/2020 VIS Given: 12/07/20 Golf Starter And Ranger: Royer Matias CMA Vaccine Type: COVID-19, mRNA, LNP-S, PF, 100 mcg/0.5 mL dose (Moderna) Date: 11/02/20 Amt.: 0.5 mL Route: Intramuscular Site: Deltoid, Left NDC: Lot #: [id number] Mfr.: Moderna Adviceme Cosmetics, Inc. Exp. Date: 04/27/21 VIS: Moderna COVID-19 Vaccine EUA Fact Sheet 06/26/2020 VIS Given: 11/02/20 Golf Starter And Ranger: Eduarda Matias MA Diphtheria, Tetanus, Pertussis Vaccine Type: Tdap Date: 03/03/23 Amt.: 0.5 mL Route: Intramuscular Site: Deltoid, Left NDC: [id number] Lot #: [id number] Mfr.: Sanofi Pasteur Exp. Date: 12/30/24 VIS: Tdap 03/01/2021 [facility] VIS Given: 03/03/23 Golf Starter And Ranger: Vito Grigsby MA Haemophilus Influenzae Type B Vaccine Type: Hib (PRP-T) Date: 05/14/20 Amt.: 0.5 mL Route: Site: NDC: Lot #: [id number] Mfr.: Sanofi Pasteur Exp. Date: VIS: VIS Given: Golf Starter And Ranger: Vaccine Type: Hib Date: 05/14/20 Amt.: Route: Site: NDC: Lot #: [id number] Mfr.: Sanofi Pasteur Exp. Date: VIS: VIS Given: Golf Starter And Ranger: Influenza Vaccine Type: influenza, seasonal, injectable, preservative free Date: 05/17/20 Amt.: 0.5 mL Route: Site: [place]: Lot #: [id number] Mfr.: Great Dreamofi Pasteur Exp. Date: VIS: VIS Given: Golf Starter And Ranger: Vaccine Type: influenza, injectable, quadrivalent Date: 08/03/19 Amt.: 0.5 mL Route: Intramuscular Site: Deltoid, Left NDC: Lot #: [id number] Mfr.: Sanofi Pasteur Exp. Date: 01/24/20 VIS: Inactivated Influenza 03/10/2019 VIS Given: 08/03/19 Golf Starter And Ranger: Faith Leivarosalia Vaccine Type: influenza, injectable, quadrivalent, preservative free Date: 09/16/15 Amt.: 0.5 mL Route: Site: [facility]: Lot #: [id number] Mfr.: Exp. Date: VIS: VIS Given: Golf Starter And Ranger: Meningococcal Vaccine Type: meningococcal MCV4P Date: 05/14/20 Amt.: 0.5 mL Route: Site: [facility]: Lot #: [id number] Mfr.: Great Dreamofi Pasteur Exp. Date: VIS: VIS Given: Golf Starter And Ranger: Vaccine Type: meningococcal B, recombinant Date: 05/14/20 Amt.: 0.5 mL Route: Site: [facility]: Lot #: [id number] Mfr.: Wapi Exp. Date: VIS: VIS Given: Golf Starter And Ranger: Pneumococcal Vaccine Type: pneumococcal conjugate PCV 13 Date: 05/14/20 Amt.: 0.5 mL Route: Site: [facility]: Lot #: [id number] Mfr.: Wyeth Exp. Date: VIS: VIS Given: Golf Starter And Ranger: Vaccine Type: pneumococcal polysaccharide PPV23 Date: 08/03/19 Amt.: 0.5 mL Route: Injection Site: Deltoid, Right NDC: Lot #: [id number] Mfr.: Merck and Co., Inc. Exp. 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 Qty: 1 Unit Refills: 0 Supplier: [facility] [place] * DEXCOM G7 SENSOR DEVICE - Use as directed. Qty: 1 Unit Refills: 0 Supplier: [facility] [place] 2. Harmful pattern of use [...] days. Qty: (30) tablet Refills: 2 Pharmacy: [facility] [place] MD HEMOGLOBIN A1C, FINGERSTICK * Result: - HEMOGLOBIN A1C: 11.7 Return to Office * Daria Jj DPM for Podiatry-Established Patient at Podiatry on 11/22/2024 at 09:30 AM * Jomar Epps MD for EP-CHRONIC at [facility] on 12/13/2024 at 02:20 PM Encounter Sign-Off Encounter signed-off by Jomar Epps MD, 11/21/2024. documented in this encounter Plan of Treatment Not on file documented as of this encounter Visit Diagnoses Not on filedocumented in this encounter
--- OUTSIDE RECORDS SUMMARY | 2025-07-26 15:04 | XMS_ITS | Encounter Summary ---
Author Organization [facility] alth Address [address] [place] [address] Care Team Providers Care Crop Insurance Claims Adjuster Name Role Phone Unavailable Primary Care Provider Unavailabl e Encounter Details Date Type Department Care Team ([facility] Contact Info) Description 01/14/2023 Office Visit - Data Exchange [facility] Jomar Epps MD [address], [place] [id number] Social History Tobacco Use Types Packs/Day Years [...] Name : CLOVIS SHEN (43yo, M) ID# [id number] Appt. Date/Time : 01/14/2023 04:00PM : 1980 Service Dept. : Telehealth Provider : JOMAR EPPS MD Insurance Med Primary: [facility] (MEDICAID REPLACEMENT - HMO) Insurance # : [id number] Policy/Group # : [id number] Med Mental Health: [facility] Insurance # : [id number] Med Curry: SLIDING FEE SCHEDULE - DISCOUNT Prescription: check now Chief Complaint telehealth f/u dm Patient's Care Team Primary Care Provider: JOMAR EPPS MD: [address] [facility] [place] [address], , Patient's Pharmacies [facility] ([place]): [address], [place] [address], , [id number] ([place]): [address] [place] [address], , [facility] ([place]): [address] [place] [address], , [facility] ([place]): [address] [place] [address], , Vitals None recorded. Allergies Allergies not reviewed (last reviewed 11/11/2022) PENICILLINS: Rash (Mild) Some allergies listed in Documents: #[id number], #[id number], #[id number], [id number] could not be added to this patient's [...] mL Route: Intramuscular Site: Deltoid, Right NDC: [id number] Lot #: [id number] Mfr.: Moderna Ad Dynamo, Inc. Exp. Date: 05/21/21 VIS: Moderna COVID-19 Vaccine EUA Fact Sheet 10/19/2020 VIS Given: 12/07/20 Calciner Feeder: Royer Matias CMA Vaccine Type: COVID-19, mRNA, LNP-S, PF, 100 mcg/0.5 mL dose (Moderna) Date: 11/02/20 Amt.: 0.5 mL Route: Intramuscular Site: Deltoid, Left NDC: Lot #: [id number] Mfr.: Moderna Ad Dynamo, Inc. Exp. Date: 04/27/21 VIS: Moderna COVID-19 Vaccine EUA Fact Sheet 06/26/2020 VIS Given: 11/02/20 Calciner Feeder: Eduarda Matias MA Haemophilus Influenzae Type B Vaccine Type: Hib (PRP-T) Date: 05/14/20 Amt.: 0.5 mL Route: Site: [facility]: Lot #: [id number] Mfr.: Sanofi Pasteur Exp. Date: VIS: VIS Given: Calciner Feeder: Vaccine Type: Hib Date: 05/14/20 Amt.: Route: Site: NDC: Lot #: [id number] Mfr.: Sanofi Pasteur Exp. Date: VIS: VIS Given: Calciner Feeder: Influenza Vaccine Type: influenza, seasonal, injectable, preservative free Date: 05/17/20 Amt.: 0.5 mL Route: Site: NDC: Lot #: [id number] Mfr.: Sanofi Pasteur Exp. Date: VIS: VIS Given: Calciner Feeder: Vaccine Type: influenza, injectable, quadrivalent Date: 08/03/19 Amt.: 0.5 mL Route: Intramuscular Site: Deltoid, Left NDC: Lot #: [id number] Mfr.: Sanofi Pasteur Exp. Date: 01/24/20 VIS: Inactivated Influenza 03/10/2019 VIS Given: 08/03/19 Calciner Feeder: Faith Mead Vaccine Type: influenza, injectable, quadrivalent, preservative free Date: 09/16/15 Amt.: 0.5 mL Route: Site: [facility]: Lot #: [id number] Mfr.: Exp. Date: VIS: VIS Given: Calciner Feeder: Meningococcal Vaccine Type: meningococcal MCV4P Date: 05/14/20 Amt.: 0.5 mL Route: Site: [facility]: Lot #: [id number] Mfr.: Sanofi Pasteur Exp. Date: VIS: VIS Given: Calciner Feeder: Vaccine Type: meningococcal B, recombinant Date: 05/14/20 Amt.: 0.5 mL Route: Site: [facility]: Lot #: [id number] Mfr.: American Kidney Stone Managementine Exp. Date: VIS: VIS Given: Calciner Feeder: Pneumococcal Vaccine Type: pneumococcal conjugate PCV 13 Date: 05/14/20 Amt.: 0.5 mL Route: Site: NDC: Lot #: [id number] Mfr.: Wyeth Exp. Date: VIS: VIS Given: Calciner Feeder: Vaccine Type: pneumococcal polysaccharide PPV23 Date: 08/03/19 Amt.: 0.5 mL Route: Injection Site: Deltoid, Right NDC: Lot #: [id number] Mfr.: Merck and Co., Inc. Exp. Date: 12/13/20 VIS: PPSV23 05/25/2019 VIS Given: 08/03/19 Calciner Feeder: Faith Mead Problems Reviewed Problems * Candidal [...] or [place])?: Yes (Notes: Born in [place]) TB Screening Question 2: Have you traveled [...] Dental: Where was your last dental visit?: [facility] Dental: Was the visit an [facility] dental provider?: Yes Dental: Action taken: [facility] information provided Other Education: 12 Marital status: Single General stress level: High Gender Identity and LGBTQ Identity Gender identity: Identifies as Male Assigned sex at : Male Pronouns: he/him Sexual orientation: Straight or heterosexual Surgical History Surgical History not reviewed (last reviewed 06/05/2021) * Removal of spleen total - 05/16/2020 noneSurgery to Left knee.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 Qty: 6 Units Refills: 5 Supplier: [employer] Discussion Notes End time: 412pm Return to Office * to see Jomar Epps MD at [facility] on or around 02/25/2023 Encounter Sign-Off Encounter signed-off by Jomar Epps MD, 01/14/2023. documented in this encounter Plan of Treatment Not on file documented as of this encounter Visit Diagnoses Not on filedocumented in this encounter
--- OUTSIDE RECORDS SUMMARY | 2025-07-26 15:04 | XMS_ITS | Encounter Summary ---
Author Organization [facility] Address [address] [place] [address] Care Team Providers Care Compounder Sterile Products Name Role Phone Freddy Epps MD Primary Care Provider [phone] Encounter Details Date Type Department Care Team ([facility] st Contact Info) Description 07/04/2020 Non-[facility] Documentation Non-[facility] Department for [facility]PE[facility] Client interface John Morocho MD [address] [place] [address] [phone] Social History Tobacco Use Types [...] Rule out SARS-CoV-2 (related to COVID-19) 07/29/2021 07/29/202108/01/2021 6:[address] SARS-CoV-2 (related to COVID-19) 07/29/2021 07/29/1908/12/2021 8:03 PM EST Rule out COVID-19/Influenza/RSV 11/16/2024 11/16/2024 10:54 PM EDT documented as of this encounter Care Teams Compounder Sterile Products Relationship Specialty Start Date End Date Freddy Epps MD [address] [place] [place] [phone] PCP - General Family Medicine 05/29/20 documented as of this encounter
--- OUTSIDE RECORDS SUMMARY | 2025-07-26 15:04 | XMS_ITS | Encounter Summary ---
Author Organization [facility] alth Address [address] [place] [address] Care Team Providers Care Director Of Casework Services Name Role Phone Unavailable Primary Care Provider Unavailabl e Encounter Details Date Type Department Care Team ([facility] Contact Info) Description 12/29/2024 Office Visit - Data Exchange [facility] Tania Bernstein CRNP [address] [place] [address] Social History Tobacco Use Types Packs/Day [...] Name : CLOVIS SHEN (44yo, M) ID# [id number] Appt. Date/Time : 12/29/2024 09:20AM : 1980 Service Dept. : [facility] Provider : ANNA LERNER Insurance Med Primary: [facility] PLAN (MEDICAID REPLACEMENT - HMO) Insurance # : [id number] Policy/Group # : [id number] Med Mental Health: [facility] Insurance # : [id number] Prescription: [employer] - Member is eligible. details Chief Complaint SBIRT - Adult Pt presents with left ear pain and fever x2 days. Pt also reports bloody drainage from left ear. Ptalso has rash on his nose with pain and itching x2 days. 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 Positive phq9 Patient's Care Team Primary Care Provider: JOMAR EPPS MD: [address] [place] [address], , Patient's Pharmacies [facility] [place] ([place]): [address] [address], [place] [address], , [id number]: [address] [facility] [address], [place] [address], Vitals Ht: 5 ft 8 in (172.72 [...] Rash (Mild) Some allergies listed in Document: #[id number] could not be added to this patient's [...] 11/10/24 filled Source: [facility] Name: Dexcom G7 Machine Group Leader USE DIRECTED Date: 12/01/24 filled Source: [facility] [...] DIABETES Date: 11/28/24 filled Source: [facility] Name: qawcwpte-qggvnrxxh-ihtmrmfid 3.5 mg-10,000 unit/mL-1 % ear drops,susp INSTILL [...] by subcutaneous route. Date: 12/06/24 filled Source: [facility] Vacc[facility] Reviewed Vaccines COVID-19 Vaccine Type: COVID-19, mRNA, LNP-S, PF, 100 mcg/0.5 mL dose (Moderna) Date: 12/07/20 Amt.: 0.5 mL Route: Intramuscular Site: Deltoid, Right NDC: [id number] Lot #: [id number] Mfr.: Moderna US, Inc. Exp. Date: 05/21/21 VIS: Moderna COVID-19 Vaccine EUA Fact Sheet 10/19/2020 VIS Given: 12/07/20 Sales And Marketing Manager: Royer Matias CMA Vaccine Type: COVID-19, mRNA, LNP-S, PF, 100 mcg/0.5 mL dose (Moderna) Date: 11/02/20 Amt.: 0.5 mL Route: Intramuscular Site: Deltoid, Left NDC: Lot #: [id number] Mfr.: Moderna Taylor Enterprises, Inc. Exp. Date: 04/27/21 VIS: Moderna COVID-19 Vaccine EUA Fact Sheet 06/26/2020 VIS Given: 11/02/20 Sales And Marketing Manager: Eduarda Matias MA Diphtheria, Tetanus, Pertussis Vaccine Type: Tdap Date: 03/03/23 Amt.: 0.5 mL Route: Intramuscular Site: Deltoid, Left NDC: [id number] Lot #: [id number] Mfr.: Sanofi Pasteur Exp. Date: 12/30/24 VIS: Tdap 03/01/2021 Tanzanian VIS Given: 03/03/23 Sales And Marketing Manager: Vito Grigsby MA Haemophilus Influenzae Type B Vaccine Type: Hib (PRP-T) Date: 05/14/20 Amt.: 0.5 mL Route: Site: [facility]: Lot #: [id number] Mfr.: L2C Pasteur Exp. Date: VIS: VIS Given: Sales And Marketing Manager: Vaccine Type: Hib Date: 05/14/20 Amt.: Route: Site: [facility]: Lot #: [id number] Mfr.: Mangrove Systemsofi Pasteur Exp. Date: VIS: VIS Given: Sales And Marketing Manager: Influenza Vaccine Type: influenza, seasonal, injectable, preservative free Date: 05/17/20 Amt.: 0.5 mL Route: Site: [facility]: Lot #: [id number] Mfr.: L2C Pasteur Exp. Date: VIS: VIS Given: Sales And Marketing Manager: Vaccine Type: influenza, injectable, quadrivalent Date: 08/03/19 Amt.: 0.5 mL Route: Intramuscular Site: Deltoid, Left NDC: Lot #: [id number] Mfr.: L2C Pasteur Exp. Date: 01/24/20 VIS: Inactivated Influenza 03/10/2019 VIS Given: 08/03/19 Sales And Marketing Manager: Faith Mead Vaccine Type: influenza, injectable, quadrivalent, preservative free Date: 09/16/15 Amt.: 0.5 mL Route: Site: [facility]: Lot #: [id number] Mfr.: Exp. Date: VIS: VIS Given: Sales And Marketing Manager: Meningococcal Vaccine Type: meningococcal MCV4P Date: 05/14/20 Amt.: 0.5 mL Route: Site: [facility]: Lot #: [id number] Mfr.: L2C Pasteur Exp. Date: VIS: VIS Given: Sales And Marketing Manager: Vaccine Type: meningococcal B, recombinant Date: 05/14/20 Amt.: 0.5 mL Route: Site: [facility]: Lot #: [id number] Mfr.: Timeline Labs / TLL Exp. Date: VIS: VIS Given: Sales And Marketing Manager: Vaccine Type: MCV4 Date: 05/14/20 Amt.: Route: Site: [facility]: Lot #: Mfr.: Exp. Date: VIS: VIS Given: Sales And Marketing Manager: Pneumococcal Vaccine Type: pneumococcal conjugate PCV 13 Date: 05/14/20 Amt.: 0.5 mL Route: Site: [facility]: Lot #: [id number] Mfr.: Wyeth Exp. Date: VIS: VIS Given: Sales And Marketing Manager: Vaccine Type: pneumococcal polysaccharide PPV23 Date: 08/03/19 Amt.: 0.5 mL Route: Injection Site: Deltoid, Right NDC: Lot #: [id number] Mfr.: Belsito [employer] and [employer]., Inc. Exp. 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 ROS ROS as noted in the HPI [...] days. Qty: (20) tablet Refills: 0 Pharmacy: [facility] [place] * ibuprofen 800 mg tablet - Take 1 tablet(s) every 8 hours by oral route as needed, for left ear pain. Qty: (30) tablet Refills: 3 Pharmacy: [facility] [place] 2. Acute swimmer's ear of left side H60.332: Swimmer's ear, left ear * vwbtosrv-aumgwxrrx-uudgcbgef 3.5 mg-10,000 unit/mL-1 % ear drops,susp - INSTILL 4 DROPS INTO AFFECTED EAR(S) BY OTIC ROUTE 3 TIMES PER DAY FOR 7 DAYS Qty: (1) 10 mL dropper bottle Refills: 0 Pharmacy: [facility] [place] 3. Uncontrolled type 2 diabetes mellitus E11.65: Type 2 diabetes mellitus with hyperglycemia * DIABETES TIPO 2: INSTRUCCIONES DE CUIDADO - [TYPE 2 DIABETES: CARE INSTRUCTIONS] * BLOOD GLUCOSE TEST STRIPS - Test blood sugar four times daily Qty: 150 Units Refills: 11 Supplier: [facility] [place] Duration / Estimated Length of Need: Lifetime * LANCETS - Test blood sugar four times daily Qty: 150 Units Refills: 11 Supplier: [facility] [place] * GLUCOMETER - Test blood sugar four times daily Qty: 1 Unit Refills: 0 Supplier: [facility] [place] 4. Sheltered homelessness Currently homeless and staying at the senior living. Declined CHW referral for today Z59.01: Sheltered [...] see Jomar Epps MD for EP-[facility]RON[facility] at [facility] on or around 01/28/2025 Encounter Sign-Off Encounter signed-off by ANNA Lerner, 12/29/2024. documented in this encounter Plan of Treatment Not on file documented as of this encounter Visit Diagnoses Not on filedocumented in this encounter
--- NOTE | 2025-07-26 15:28 | A.OFFVIS_ITS ---
Intake Intake Visit Reasons: 60 mins Radio Communications Superintendent Required: No Accompanied by: Self / Same As Patient Allergies Penicillins Allergy (Verified 06/14/25 11:01) Rash HPI Comprehensive Diabetes Asmnt Most Recent Diabetes Results: 2 Microalb/Creat Ratio, (<30) 2229.4 ug/mg cr H 06/14/25 Cholesterol, (<200) 273 mg/dL H 06/14/25 HDL Cholesterol, (>40) 77 mg/dL 06/14/25 Triglycerides, (<150) 171 mg/dL H 06/14/25 Creatinine, (0.5-1.4) 0.92 mg/dL 06/12/25 BUN, (9-16) 18 mg/dL H 06/12/25 Sodium, (135-145) 130 mmol/L L 06/12/25 Potassium, (3.3-5.1) 4.5 mmol/L Δ 06/12/25 Chloride, (96-108) 98 mmol/L 06/12/25 Carbon Dioxide, (22-29) 26 mmol/L 06/12/25 Calcium, (8.4-10.2) 9.7 mg/dL Δ 06/12/25 AST, (5-37) 36 U/L 06/12/25 ALT, (0-40) 55 U/L H 06/12/25 Total Protein, (6.5-8.0) 7.7 g/dL 06/12/25 Albumin, (3.5-5.0) 3.9 g/dL 06/12/25 [facility] Medical History (Updated 06/14/25 @ 11:02 by Tae Hooper MD) Uncontrolled type 2 diabetes mellitus with hyperglycemia Hypertension DM2 (diabetes mellitus, type 2) Surgical History H/O splenectomy Family History Other Patient denies medical problems Social History Housing: House Alcohol intake: never Patient Tobacco Use Status: Current everyday Tobacco user Tobacco use type: Cigarette service: No Assessment & Plan Assessment & Plan (1) Uncontrolled type 2 diabetes mellitus with hyperglycemia: Code(s): E11.65 - Type 2 diabetes mellitus with hyperglycemia Plan: Learning objectives: The patient was provided with verbal and written education on the following topics as outlined below. The patient met all learning objectives and was able to verbalize understanding and provide teach back of education topics discussed . The patient was provided with the opportunity to ask questions and all questions were answered. Patient Assessment Assess patient education level/literacy/barriers patient's last A1c greater than 14% on 06/14/2025 Patient reports he takes Lantus 40 units b.i.d. NovoLog 30 units before meals Trulicity 0.75 mg weekly Metformin 1000 mg b.i.d. Patient reports he frequently forgets to take insulin doses Sometimes taking insulin doses prior to meals or when experiencing symptoms of neuropathy, and then has dramatic drop in episodes of hypoglycemia occasional At today's visit reviewed insulin action of Lantus and NovoLog Emphasized the importance of taking NovoLog doses prior to meals And is interested in insulin pump therapy and will set up appointment in 2 weeks Patient questions/concerns What is Diabetes? Pathophysiology How the body produces and uses insulin Identify type of DM Risk factors Signs of Diabetes Brief overview of Diabetes Management Monitoring blood sugar Following a meal plan Regular exercise Maintaining a healthy weight Taking medication as needed Members of the care team (PCP, RN, MA, RD, CDE, broomcorn grader) Blood glucose monitoring When/how often to test Target blood sugar ranges Introduction to Nutrition Importance of healthy diet in managing DM Diet is personalized to individual preference Review patient?s regular diet/food preferences Who prepares meals/does food shopping/ Dining out?/ Barriers? How diet effects glucose Eating 3 balanced meals a day with small, healthy snacks between meals Review food groups Carbohydrates: What is a carbohydrate/Which food/food groups are considered carbohydrates Effect of carbohydrates on blood glucose Portion sizes Reading food labels Basic carb counting (if applicable per nursing assessment) Plate method Meal planning Recommendations: Follow plate method, consistent carbs and read nutritional labels. Smart Goal: Identify foods in current meal plan that contain carbohydrates Educational Materials: The patient was provided with the following written educational materials: Planning Healthy Meals, common Danish foods Handouts Patient Response to instructions: Comprehension of Instructions: Fair Readiness to make changes: Contemplation How confident they feel about making changes: Positive Portions of this note were created using voice recognition software, please excuse any words or phrases that may have been misinterpreted. Patient Instructions: Incluir actividad diaria regular. ADA recomienda 30 minutos de ejercicio 5 d?as a la semana. P?rdida de peso, hable con el PCP o el cardi?logo antes de comenzar un nuevo plan. Mida el nivel de az?car en la alley seg?n las indicaciones; Ayuno y comida m?s anh de 2hpp. Observe las tendencias en los resultados. Utilice los resultados y eval?e c?mo los alimentos, la actividad f?christel y los medicamentos afectan los resultados de az?car en la alley. Lleve el gluc?metro o CGM a la pr?xima visita. Conocer los medicamentos para la diabetes, trivedi acci?n, los efectos secundarios, la eficacia, la toxicidad, la dosis prescrita, el momento y la frecuencia de administraci?n apropiados, el efecto de las dosis olvidadas y retrasadas y las instrucciones de almacenamiento, viaje y seguridad. T?cnicas de resoluci?n de problemas para el seguimiento de episodios de hipo/hiperglucemia y tratamientos. Reducir los comportamientos de reducci?n de riesgos, dejar de fumar, ex?menes regulares de ojos, pies y dentales. Coding Level of Care Code G0108 Diab Man Trn Indiv 30min Diagnoses Uncontrolled type 2 diabetes mellitus with hyperglycemia E11.65
== END 2025-07-26 15:30 | disposition home or self-care (01) ==
LOC: HO.ENCR 13:45
PROVIDERS: Visit Provider Registered Nurse Diabetes Educator
DX: E11.65 Type 2 diabetes mellitus with hyperglycemia (principal)

== ENCOUNTER → 2025-07-26 13:45 | Outpatient (BNVA) | payer OTHER, SELFPAY | PROVIDERS: Visit Provider Registered Nurse Diabetes Educator | DX: E11.65 Type 2 diabetes mellitus with hyperglycemia (principal); Z79.4 Long term (current) use of insulin; Z79.84 Long term (current) use of oral hypoglycemic drugs; Z79.85 Long-term (current) use of injectable non-insulin antidiabetic drugs | CPT/HCPCS: G0108 ==